=== PATIENT | female | born 1930 | race Caucasian/White ===

== ENCOUNTER 2017-06-21 03:31 | Inpatient (IN) | payer MEDICARE, OTHER ==
--- NOTE | 2017-06-21 04:11 | EDM.PDOC ---
ED HPI GENERAL MEDICAL PROBLEM - General Chief Complaint: Chest Pain Stated Complaint: [facility] Time Seen by Provider: 06/21/17 03:50 - History of Present Illness INITIAL COMMENTS - FREE TEXT/NARRATIVE: 86-year-old brought in by EMS with chest pain. 86-year-old female developed some chest pain couple hours before arrival. She was brought in about a 45 minute ride was given nitroglycerin 3 and aspirin she is pain-free upon arrival here. Yesterday the patient had 2 episodes where she passed out according to the family and couple days she had an episode where she passed out the patient has had progressive weakness over the last couple of weeks presumably due to worsening diarrhea over the last 2 weeks. She was seen in the clinic in [place] and started on Imodium and probiotics and told to push fluids.. Patient has a history of worsening dementia no known coronary artery disease she has had intermittent episodes of diarrhea in the past. 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: Aspirin, EKG, IV/IO, Nitroglycerin, Other (see below) Other Treatments [employer] OPERATOR: IVF, zofran left lower chest Pain Score (Numeric/FACES): 2 - Related Data Allergies Allergy/AdvReac Type Severity Reaction Status Date / Time Penicillins Allergy Rash Verified 06/21/17 07:05 prednisone Allergy Rash Verified 06/21/17 07:05 lisinopril AdvReac Cough Verified 06/21/17 07:05 Home Meds: Home Meds Donepezil HCl [Aricept] 10 mg PO BEDTIME 06/21/17 [History] Hydrochlorothiazide 25 mg PO DAILY 06/21/17 [History] L.acidoph,Paracasei, B.lactis [Probiotic] 1 each PO DAILY 06/21/17 [History] Methylcellulose [Citrucel] 500 mg PO BID 06/21/17 [History] Multivitamin [Multi-Day Vitamins] 1 each PO DAILY 06/21/17 [History] Sertraline [Zoloft] 25 mg PO BEDTIME 06/21/17 [History] Past Medical History HEENT History: Reports: Cataract, Impaired Vision, Other (See Below) Other HEENT History: Dentures, disease of vocal cords, dysphasia Cardiovascular History: Reports: High Cholesterol, Hypertension Respiratory History: Reports: Other (See Below) Other Respiratory History: dyspnea - severe snoring Gastrointestinal History: Reports: Chronic Diarrhea, GERD, Hiatal Hernia Genitourinary History: Reports: Renal Calculus, Urinary Incontinence [employer]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: Musculoskeletal History: Reports: Osteoarthritis Other Musculoskeletal History: limb pain, hallux valgus Neurological History: Reports: Other (See Below) Other Neuro History: dementia Psychiatric History: Reports: Dementia Endocrine/Metabolic History: Reports: None Oncologic (Cancer) History: Reports: Other (See Below) Other Oncologic History: skin Dermatologic History: Reports: Melanoma Other Dermatologic History: seborrheic keratosis, L forehead actinic kertosis - Infectious Disease History Infectious Disease History: Reports: Shingles - Past Surgical History HEENT Surgical History: Reports: Adenoidectomy, Cataract Surgery, Tonsillectomy GI Surgical History: Reports: Colonoscopy, Other (See Below) Female Surgical History: Reports: Hysterectomy, Salpingo-Oophorectomy Social & Family History - Family History Family Medical History: Noncontributory - Tobacco Use Smoking Status *Q: Former Smoker Used Tobacco, but Quit: No Tobacco Use Comment: quit smoking 15 years ago Second Hand Smoke Exposure: No - Caffeine Use Caffeine Use: Reports: None - Alcohol Use Days Per Week of Alcohol Use: 0 Number of Drinks Per Day: 0 Total Drinks Per Week: 0 - Recreational Drug Use Recreational Drug Use: No ED ROS GENERAL - Review of Systems Review Of Systems: See Below Constitutional: Reports: No Symptoms HEENT: Reports: No Symptoms Respiratory: Reports: No Symptoms. Denies: Shortness of Breath Cardiovascular: Reports: Chest Pain Endocrine: Reports: No Symptoms GI/Abdominal: Reports: Diarrhea. Denies: Constipation, Nausea, Vomiting : Reports: No Symptoms Neurological: Reports: Other (According to family patient is having increasing memory loss and confusion) ED EXAM, GENERAL - Physical Exam Exam: See Below Exam Limited By: Other (She provides historical information but this is significantly variable from what the family provides) General Appearance: Alert, No Apparent Distress Eye Exam: Bilateral Eye: Normal Inspection Ears: Normal External Exam, Normal Canal, Hearing Grossly Normal, Normal TMs Nose: Normal Inspection, Normal Mucosa, No Blood Throat/Mouth: Normal Inspection, Normal Oropharynx Head: Atraumatic, Normocephalic Neck: Normal Inspection, Supple, Non-Tender, Full Range of Motion. No: Lymphadenopathy (L), Lymphadenopathy (R) Cardiovascular: Regular Rate, Rhythm, No Edema, No Murmur GI/Abdominal: Normal Bowel Sounds, Soft, Non-Tender Back Exam: Normal Inspection. No: CVA Tenderness (L), CVA Tenderness (R) Extremities: Normal Inspection Neurological: Alert Course - Vital Signs Last Recorded V/S: Last Vital Signs Temp 36.1 C 06/21/17 03:31 Pulse 65 06/21/17 03:31 Resp 16 06/21/17 03:31 BP 99/44 L 06/21/17 03:31 Pulse Ox 93 L 06/21/17 03:31 - Orders/Labs/Meds Orders: Active Orders 24 hr Category Date Time Status EKG Documentation Completion [RC] STAT Care 06/21/17 04:03 Active Chest 1V Frontal [CR] Stat Exams 06/21/17 04:03 Taken Head wo Cont [CT] Stat Exams 06/21/17 04:14 Taken Sodium Chloride 0.9% [Normal Saline] 1,000 ml Med 06/21/17 05:15 Active IV ASDIRECTED Medication Orders Sodium Chloride (Normal Saline) 1,000 mls @ 75 mls/hr IV ASDIRECTED CLIF Last Admin: 06/21/17 05:31 Dose: 75 mls/hr Labs: Laboratory Tests 06/21/17 06/21/17 06/21/17 Range/Units 04:15 04:15 04:15 WBC 6.37 (3.98-10.04) K/mm3 RBC 3.60 L (3.98-5.22) M/mm3 Hgb 11.4 (11.2-15.7) gm/L Hct 31.3 L (34.1-44.9) % MCV 86.9 (79.4-94.8) fl MCH 31.7 (25.6-32.2) pg MCHC 36.4 H (32.2-35.5) g/dl RDW Std Deviation 38.1 (36.4-46.3) fL Plt Count 248 (182-369) K/mm3 MPV 9.4 (9.4-12.3) fl Neutrophils % (Manual) 73 H (40-60) % Band Neutrophils % 5 (0-10) % Lymphocytes % (Manual) 11 L (20-40) % Atypical Lymphs % 0 % Monocytes % (Manual) 8 (2-10) % Eosinophils % (Manual) 1 (0.7-5.8) % Basophils % (Manual) 1 (0.1-1.2) Metamyelocytes % 1 Platelet Estimate Adequate Plt Morphology Comment Normal RBC Morph Comment Normal PT 10.1 (8.0-13.0) SECONDS INR 0.93 APTT 30 (22-36) SECONDS Sodium 128 L (136-145) mEq/L Potassium 2.4 L* (3.5-5.1) mEq/L Chloride 93 L (98-107) mEq/L Carbon Dioxide 30 (21-32) mEq/L Anion Gap 7.4 (5-15) BUN 15 (7-18) mg/dL Creatinine 0.9 (0.55-1.02) mg/dL Est Cr Clr Drug Dosing 36.14 mL/min Estimated GFR (MDRD) 60 (>60) mL/min BUN/Creatinine Ratio 16.7 (14-18) Glucose 101 (83-115) mg/dL Calcium 9.0 (8.5-10.1) mg/dL Total Bilirubin 0.5 (0.2-1.0) mg/dL AST 16 (15-37) U/L ALT 32 (14-59) U/L Alkaline Phosphatase 72 (46-116) U/L Troponin I < 0.017 (0.00-0.056) ng/mL Lyr-P-Nbcdkmalyeo Pept (0-450) pg/mL Total Protein 6.0 L (6.4-8.2) g/dl Albumin 3.3 L (3.4-5.0) g/dl Globulin 2.7 gm/dL Albumin/Globulin Ratio 1.2 (1-2) 06/21/17 Range/Units 04:15 WBC (3.98-10.04) K/mm3 RBC (3.98-5.22) M/mm3 Hgb (11.2-15.7) gm/L Hct (34.1-44.9) % MCV (79.4-94.8) fl MCH (25.6-32.2) pg MCHC (32.2-35.5) g/dl RDW Std Deviation (36.4-46.3) fL Plt Count (182-369) K/mm3 MPV (9.4-12.3) fl Neutrophils % (Manual) (40-60) % Band Neutrophils % (0-10) % Lymphocytes % (Manual) (20-40) % Atypical Lymphs % % Monocytes % (Manual) (2-10) % Eosinophils % (Manual) (0.7-5.8) % Basophils % (Manual) (0.1-1.2) Metamyelocytes % Platelet Estimate Plt Morphology Comment RBC Morph Comment PT (8.0-13.0) SECONDS INR APTT (22-36) SECONDS Sodium (136-145) mEq/L Potassium (3.5-5.1) mEq/L Chloride (98-107) mEq/L Carbon Dioxide (21-32) mEq/L Anion Gap (5-15) BUN (7-18) mg/dL Creatinine (0.55-1.02) mg/dL Est Cr Clr Drug Dosing mL/min Estimated GFR (MDRD) (>60) mL/min BUN/Creatinine Ratio (14-18) Glucose (83-115) mg/dL Calcium (8.5-10.1) mg/dL Total Bilirubin (0.2-1.0) mg/dL AST (15-37) U/L ALT (14-59) U/L Alkaline Phosphatase (46-116) U/L Troponin I (0.00-0.056) ng/mL Icx-Y-Xyylynueblf Pept 276 (0-450) pg/mL Total Protein (6.4-8.2) g/dl Albumin (3.4-5.0) g/dl Globulin gm/dL Albumin/Globulin Ratio (1-2) Meds: Medications Generic Name Dose Route Start Last Admin Trade Name Freq PRN Reason Stop Dose Admin Sodium Chloride 1,000 mls @ 75 mls/hr 06/21/17 05:15 06/21/17 05:31 Normal Saline IV 75 mls/hr ASDIRECTED CLIF Administration Discontinued Medications Generic Name Dose Route Start Last Admin Trade Name Freq PRN Reason Stop Dose Admin Potassium Chloride 10 meq/ 100 mls @ 100 mls/hr 06/21/17 05:15 Premix IV 06/21/17 11:14 Q1H CLIF Potassium Chloride 10 meq/ 100 mls @ 100 mls/hr 06/21/17 05:22 06/21/17 06:35 Premix IV 06/21/17 06:21 50 mls/hr ASDIRECTED ONE Infusion - Re-Assessments/Exams Free Text/Narrative Re-Assessment/Exam: 06/21/17 06:37 He is reviewed with Dr. Beltran patient will come in for IV correction of her hypokalemia and to be certain that her chest pain does not return and her troponins do not rise. I did discuss CODE STATUS with the patient's daughter and apparently this discussion has not happened amongst the family members. Departure - Departure Time of Disposition: 06:38 Disposition: Admitted As Inpatient 67 Clinical Impression: Chest pain, Hypokalemia Diarrhea Qualifiers: Diarrhea type: unspecified type Qualified Code(s): R19.7 - Diarrhea, unspecified - My Orders Last 24 Hours: My Active Orders 06/21/17 04:03 EKG Documentation Completion [RC] STAT Chest 1V Frontal [CR] Stat 06/21/17 04:14 Head wo Cont [CT] Stat 06/21/17 05:15 Sodium Chloride 0.9% [Normal Saline] 1,000 ml IV ASDIRECTED - Assessment/Plan Last 24 Hours: My Active Orders 06/21/17 04:03 EKG Documentation Completion [RC] STAT Chest 1V Frontal [CR] Stat 06/21/17 04:14 Head wo Cont [CT] Stat 06/21/17 05:15 Sodium Chloride 0.9% [Normal Saline] 1,000 ml IV ASDIRECTED
[2017-06-21] MEDS ORDERED: Potassium Chloride 10 MEQ in Premix Bag 1 BAG IV SCH (05:15)
[2017-06-21] MEDS ORDERED: Potassium Chloride 10 MEQ in Premix Bag 1 BAG IV ONE (05:22)
[2017-06-21] MEDS: Sodium Chloride 0.9% 1,000 ML IV SCH ×2 (05:31→18:32)
[2017-06-21] MEDS ORDERED: hydrALAZINE 20 MG/ML SDV IVPUSH PRN (06:55)
[2017-06-21] MEDS ORDERED: Potassium Chloride 20 MEQ Tab.ER PO PRN (06:55)
[2017-06-21] MEDS ORDERED: LORazepam 2 MG/ML MDV IVPUSH PRN (06:55)
--- NOTE | 2017-06-21 06:55 | PCM.HP ---
H&P History of Present Illness - General Date of Service: 06/21/17 Admit Problem/Dx: Chest Pain Source of Information: Patient, Provider, RN Notes Reviewed, Significant Other History Limitations: Reports: Other (Baseline Dementia) - History of Present Illness Initial Comments - Free Text/Narative: This is an 86 year old elderly white female with past medical history of impaired vision, history of vocal cord dysfunction, history of dysphasia, hypertension, hyperlipidemia, chronic diarrhea, GERD, hiatal hernia, history of urinary incontinence, and osteoarhtitis who presents to the emergency department with complaints of chest pain, is dull in nature, w/o radiation to head and neck that started at rest. She was brought over by EMS from [place] early this morning. Patient reports no associated symptoms. However per ED notes, the patient was brought over because of a syncopal episode and progressive weakness over the last couple of weeks due to worsening chronic diarrhea. Of note, no family members present at the time of my examination. Patient was seen in the [place] clinic and she was put on imodium along with probiotics and was told to drink more fluids. Her initial workup in the emergency department shows a CBC that is fairly unremarkable. Her chemistry is remarkable for sodium of 128, potassium of 2.4, chloride of 93, total protein of 6, and albumin of 3.3. Troponin 1 is less than 0.017 and CK-MB is 0.8. Her initial EKG is not good quality and is full of artifacts. But no acute ST-T wave changes. Chest x-chest x-ray is fairly benign. Head CT scan V-rad report reads no acute findings. Patient is being admitted for chest pain rule out ACS. She is DNR/DNI. left lower chest Pain Score (Numeric/FACES): 2 - Related Data Allergies/Adverse Reactions: Allergies Allergy/AdvReac Type Severity Reaction Status Date / Time Penicillins Allergy Rash Verified 06/21/17 07:05 prednisone Allergy Rash Verified 06/21/17 07:05 lisinopril AdvReac Cough Verified 06/21/17 07:05 Home Medications: Home Meds Donepezil HCl [Aricept] 10 mg PO BEDTIME 06/21/17 [History] Hydrochlorothiazide 25 mg PO DAILY 06/21/17 [History] L.acidoph,Paracasei, B.lactis [Probiotic] 1 each PO DAILY 06/21/17 [History] Loperamide [Imodium] 2 mg PO Q6H PRN 06/21/17 [History] Methylcellulose [Citrucel] 500 mg PO BID 06/21/17 [History] Multivitamin [Multi-Day Vitamins] 1 each PO DAILY 06/21/17 [History] Sertraline [Zoloft] 25 mg PO BEDTIME 06/21/17 [History] Past Medical History HEENT History: Reports: Cataract, Impaired Vision, Other (See Below) Other HEENT History: Dentures, disease of vocal cords, dysphasia Cardiovascular History: Reports: High Cholesterol, Hypertension Respiratory History: Reports: Other (See Below) Other Respiratory History: dyspnea - severe snoring Gastrointestinal History: Reports: Chronic Diarrhea, GERD, Hiatal Hernia Genitourinary History: Reports: Renal Calculus, Urinary Incontinence [employer]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: Musculoskeletal History: Reports: Osteoarthritis Other Musculoskeletal History: limb pain, hallux valgus Neurological History: Reports: Other (See Below) Other Neuro History: dementia Psychiatric History: Reports: Dementia Endocrine/Metabolic History: Reports: None Oncologic (Cancer) History: Reports: Other (See Below) Other Oncologic History: skin Dermatologic History: Reports: Melanoma Other Dermatologic History: seborrheic keratosis, L forehead actinic kertosis - Infectious Disease History Infectious Disease History: Reports: Shingles - Past Surgical History HEENT Surgical History: Reports: Adenoidectomy, Cataract Surgery, Tonsillectomy GI Surgical History: Reports: Colonoscopy, Other (See Below) Female Surgical History: Reports: Hysterectomy, Salpingo-Oophorectomy Social & Family History - Family History Family Medical History: Noncontributory - Tobacco Use Smoking Status *Q: Former Smoker Used Tobacco, but Quit: No Tobacco Use Comment: quit smoking 15 years ago Second Hand Smoke Exposure: No - Caffeine Use Caffeine Use: Reports: None - Alcohol Use Days Per Week of Alcohol Use: 0 Number of Drinks Per Day: 0 Total Drinks Per Week: 0 - Recreational Drug Use Recreational Drug Use: No H&P Review of Systems - Review of Systems: Review Of Systems: See Below General: Denies: Fever, Chills, Malaise, Weakness, Fatigue HEENT: Reports: No Symptoms Pulmonary: Reports: No Symptoms Cardiovascular: Reports: Chest Pain Gastrointestinal: Reports: Diarrhea. Denies: Abdominal Pain, Nausea, Vomiting Genitourinary: Reports: No Symptoms Musculoskeletal: Reports: No Symptoms Skin: Reports: No Symptoms Psychiatric: Reports: Confusion (baseline dementia). Denies: Depression, Anxiety, Hallucinations, Suicidal Ideation Neurological: Denies: Difficulty Walking, Weakness, Gait Disturbance Hematologic/Lymphatic: Reports: No Symptoms Immunologic: Reports: No Symptoms Exam - Exam Exam: See Below - Vital Signs Vital Signs: Last Vital Signs Temp 36.1 C 06/21/17 03:31 Pulse 65 06/21/17 03:31 Resp 16 06/21/17 03:31 BP 99/44 L 06/21/17 03:31 Pulse Ox 93 L 06/21/17 03:31 Weight: 58.967 kg - Exam General: Alert, Cooperative HEENT: Conjunctiva Clear, EACs Clear, EOMI, Hearing Intact, Mucosa Moist & [place] , Nares Patent, Normal Nasal Septum, Posterior Pharynx Clear, Pupils Equal, Pupils Reactive Neck: Supple, Trachea Midline, +2 Carotid Pulse wo Bruit, Full Range of Motion Lungs: Clear to Auscultation, Normal Respiratory Effort Cardiovascular: Regular Rate, Regular Rhythm GI/Abdominal Exam: Normal Bowel Sounds, Soft, Non-Tender, No Organomegaly, No Distention, No Abnormal Bruit, No Mass (Female) Exam: Deferred Rectal (Female) Exam: Deferred Back Exam: Normal Inspection, Decreased Range of Motion Extremities: Normal Inspection, Normal Range of Motion, Non-Tender, No Pedal Edema, Normal Capillary Refill Peripheral Pulses: 2+: Posterior Tibial (L), Posterior Tibial (R), Dorsalis Pedis (L), Dorsalis Pedis (R) Skin: Warm, Dry, Intact Neuro Extensive - Mental Status: Alert, Normal Mood/Affect, Other (Alert/Awake and Oriented x 2 (Person and Place)) Neuro Extensive - Motor, Sensory, Reflexes: CN II-XII Intact (fairly intact), Normal Gait - Patient Data Result Diagrams: 06/21/17 04:15 06/21/17 13:50 EKG INTERPRETATION EKG Date: 06/21/17 Time: 03:40 Rhythm: Other Rate (Beats/Min): 63 EKG Interpretation Comments: Not a good EKG full of artifacts *Q Meaningful Use (ADM) - VTE *Q VTE Criteria *Q: - Stroke *Q Stroke Criteria *Q: - AMI *Q AMI Criteria *Q: Problem List Initiated/Reviewed/Updated: Yes Orders Last 24hrs: Medication Orders Sodium Chloride (Normal Saline) 1,000 mls @ 75 mls/hr IV ASDIRECTED [facility] Last Admin: 06/21/17 05:31 Dose: 75 mls/hr Assessment/Plan Comment:: Assessment/Plan: Acute: CP r/o ACS - HEART Score is 3. Low Score (0-3 points), risk of MACE of 0.9-1.7%: Predicts 6-week risk of major adverse cardiac event - Chest pain felt more related to MSK - Risk factors: Advanced Age, HTN and HLD - Troponin x 1 negative - CP protocol: Serial Troponin Q6 x2, ekg x 1 in th evening and Lipid panel in am - ASA and PRN Nitro, Morphine - No need cardiac stress test- her pre-CAD risk if low Hyponatremia - Na is 128 - She is on HCTZ and Zoloft - Hold HCTZ and start salt tablet 1 tab po TID Hypokalemia - K 2.4 2/2 GI Loss - Currently receiving supplement started in ED Watery Diarrhea - ? Acute on Chronic - Will monitor - C. Diff test if able to provide us sample S/p Syncope - Likely from volume loss due to diarrhea vs poor nutritional intake - However she was not orthostatic on admission Progressive Weakness - 2/2 Diarrhea, Loss of Electrolytes, and Poor Nutritional Intake - Will optimize intake Chronic: Impaired Vision HTN HLD Hx/o Vocal Cord Dysfunction Hx/o Dysphagia Chronic Diarrhea GERD Hiatal Hernia Urinary Incontinence OA Dementia Plan: Admit to Med-Surg Routine AM Labs Resume Home Meds PT/OT consult Fall Precautions SW/CM for d/c planning Code Status:DNR/DNI
[2017-06-21] MEDS ORDERED: Ondansetron 4 MG/2 ML SDV IV PRN (06:56)
[2017-06-21] MEDS ORDERED: Bisacodyl 5 MG Tab PO PRN (06:56)
[2017-06-21] MEDS ORDERED: Promethazine 12.5 MG in Sodium Chloride 0.9% 50 ML IV PRN (06:56)
[2017-06-21] MEDS ORDERED: Temazepam 7.5 MG Cap PO PRN (06:56)
[2017-06-21] MEDS ORDERED: LORazepam 2 MG/ML MDV IV PRN (06:56)
[2017-06-21] MEDS ORDERED: Acetaminophen/HYDROcodone 325-5 MG Tab PO PRN (06:56)
[2017-06-21] MEDS ORDERED: HYDROmorphone 1 MG/ML Syringe IVPUSH PRN (06:56)
[2017-06-21] MEDS ORDERED: Docusate Sodium 100 MG Cap PO PRN (06:56)
[2017-06-21] MEDS ORDERED: Acetaminophen 325 MG Tab PO PRN (06:56)
[2017-06-21] MEDS ORDERED: Polyethylene Glycol 3350 Powder 17 GM Packet PO PRN (06:56)
[2017-06-21] MEDS ORDERED: Albuterol/Ipratropium 3.0-0.5 MG/3 ML Neb Soln NEB PRN (06:56)
[2017-06-21] MEDS ORDERED: Potassium Chloride/Sodium Chloride Tab PO PRN (07:05)
[2017-06-21] MEDS: Potassium Chloride 10 MEQ in Premix Bag 1 BAG IV SCH ×5 (07:58→12:57)
[2017-06-21] MEDS ORDERED: METHYLCELLULOSE 500 MG PO SCH (09:00)
[2017-06-21] MEDS ORDERED: Non-Formulary Medication 1 Each (L.Acidoph,Paracasei, B.Lactis [Probiotic] 1 EACH) PO SCH (09:00)
[2017-06-21] MEDS: Multivitamins,Therapeutic Tab PO SCH (09:35)
[2017-06-21] MEDS: Potassium Chloride/Sodium Chloride Tab PO SCH ×4 (09:50→20:32)
[2017-06-21] MEDS: Potassium Chloride 20 MEQ Tab.ER PO SCH ×2 (18:32→20:33)
[2017-06-21] MEDS ORDERED: Sertraline 25 MG Tab PO SCH (21:00)
[2017-06-21] MEDS ORDERED: Donepezil 10 MG Tab PO SCH (21:00)
--- NOTE | 2017-06-22 07:51 | PCM.PN ---
- General Info Date of Service: 06/22/17 Admission Dx/Problem (Free Text): Chest Pain Subjective Update: Follow Up Functional Status: Reports: Pain Controlled, Tolerating Diet, Ambulating, Urinating - Patient Data Vitals - Most Recent: Last Vital Signs Temp 36.9 C 06/22/17 05:10 Pulse 68 06/22/17 05:10 Resp 14 06/22/17 05:10 BP 136/52 L 06/22/17 05:10 Pulse Ox 95 06/22/17 05:10 Weight - Most Recent: 60.146 kg I&O - Last 24 Hours: Intake & Output 06/21/17 06/22/17 06/22/17 22:59 06:59 14:59 Intake Total 1831 1522 Output Total 450 1200 Balance 1381 322 Lab Results Last 24 Hours: Laboratory Results - last 24 hr 06/21/17 06/21/17 06/21/17 Range/Units 11:56 13:50 19:41 WBC (3.98-10.04) K/mm3 RBC (3.98-5.22) M/mm3 Hgb (11.2-15.7) gm/L Hct (34.1-44.9) % MCV (79.4-94.8) fl MCH (25.6-32.2) pg MCHC (32.2-35.5) g/dl RDW Std Deviation (36.4-46.3) fL Plt Count (182-369) K/mm3 MPV (9.4-12.3) fl Neut % (Auto) (34.0-71.1) % Lymph % (Auto) (19.3-51.7) % [place] % (Auto) (4.7-12.5) % Eos % (Auto) (0.7-5.8) Baso % (Auto) (0.1-1.2) % Neut # (Auto) (1.56-6.13) K/mm3 Lymph # (Auto) (1.18-3.74) K/mm3 [place] # (Auto) (0.24-0.36) K/mm3 Eos # (Auto) (0.04-0.36) K/mm3 Baso # (Auto) (0.01-0.08) K/mm3 Sodium 129 L (136-145) mEq/L Potassium 3.2 L (3.5-5.1) mEq/L Chloride 96 L (98-107) mEq/L Carbon Dioxide 28 (21-32) mEq/L Anion Gap 8.2 (5-15) BUN 13 (7-18) mg/dL Creatinine 0.8 (0.55-1.02) mg/dL Est Cr Clr Drug Dosing 40.66 mL/min Estimated GFR (MDRD) > 60 (>60) mL/min BUN/Creatinine Ratio 16.3 (14-18) Glucose 72 L (83-115) mg/dL Calcium 8.6 (8.5-10.1) mg/dL Magnesium (1.8-2.4) mg/dl CK-MB (CK-2) 0.9 0.7 (0-3.6) ng/ml Troponin I < 0.017 < 0.017 (0.00-0.056) ng/mL C.difficile 027-NAP1-B1 C. difficile Tox (PCR) 06/21/17 06/22/17 06/22/17 Range/Units 20:13 05:50 05:50 WBC 4.14 (3.98-10.04) K/mm3 RBC 3.49 L (3.98-5.22) M/mm3 Hgb 11.2 (11.2-15.7) gm/L Hct 31.2 L (34.1-44.9) % MCV 89.4 (79.4-94.8) fl MCH 32.1 (25.6-32.2) pg MCHC 35.9 H (32.2-35.5) g/dl RDW Std Deviation 40.6 (36.4-46.3) fL Plt Count 224 (182-369) K/mm3 MPV 9.9 (9.4-12.3) fl Neut % (Auto) 58.3 (34.0-71.1) % Lymph % (Auto) 25.6 (19.3-51.7) % [place] % (Auto) 12.8 H (4.7-12.5) % Eos % (Auto) 2.4 (0.7-5.8) Baso % (Auto) 0.7 (0.1-1.2) % Neut # (Auto) 2.41 (1.56-6.13) K/mm3 Lymph # (Auto) 1.06 L (1.18-3.74) K/mm3 [place] # (Auto) 0.53 H (0.24-0.36) K/mm3 Eos # (Auto) 0.10 (0.04-0.36) K/mm3 Baso # (Auto) 0.03 (0.01-0.08) K/mm3 Sodium 137 (136-145) mEq/L Potassium 3.4 L (3.5-5.1) mEq/L Chloride 103 (98-107) mEq/L Carbon Dioxide 27 (21-32) mEq/L Anion Gap 10.4 (5-15) BUN 8 (7-18) mg/dL Creatinine 0.8 (0.55-1.02) mg/dL Est Cr Clr Drug Dosing 40.66 mL/min Estimated GFR (MDRD) > 60 (>60) mL/min BUN/Creatinine Ratio 10.0 L (14-18) Glucose 84 (83-115) mg/dL Calcium 8.5 (8.5-10.1) mg/dL Magnesium 1.8 (1.8-2.4) mg/dl CK-MB (CK-2) (0-3.6) ng/ml Troponin I (0.00-0.056) ng/mL C.difficile 027-NAP1-B1 Presumptive negative C. difficile Tox (PCR) Negative Med Orders - Current: Current Medications Acetaminophen (Tylenol) 650 mg PO Q4H PRN PRN Reason: Pain (Mild 1-3)/fever Hydrocodone Bitart/Acetaminophen ([place]ac[place] 325-5 Mg) 1 tab PO Q4H PRN PRN Reason: Pain (moderate 4-6) Albuterol/Ipratropium (Duoneb 3.0-0.5 Mg/3 Ml) 3 ml NEB Q4H PRN PRN Reason: Shortness Of Breath/wheezing Bisacodyl (Dulcolax) 5 mg PO DAILY PRN PRN Reason: Constipation Docusate Sodium (Colace) 100 mg PO BID PRN PRN Reason: Constipation Donepezil HCl (Aricept) 10 mg PO BEDTIME [facility] Last Admin: 06/21/17 20:32 Dose: 10 mg Hydralazine HCl (Apresoline) 20 mg IVPUSH Q4H PRN PRN Reason: Hypertension Hydromorphone HCl (Dilaudid) 0.25 mg IVPUSH Q2H PRN PRN Reason: Pain (severe 7-10) Sodium Chloride (Normal Saline) 1,000 mls @ 75 mls/hr IV ASDIRECTED [facility] Last Admin: 06/21/17 18:32 Dose: 75 mls/hr Promethazine HCl 12.5 mg/ (Sodium Chloride) 50.5 mls @ 100 mls/hr IV Q6H PRN PRN Reason: Nausea/Vomiting Lorazepam (Ativan) 2 mg IVPUSH Q4H PRN PRN Reason: Seizures Lorazepam (Ativan) 0.25 mg IV Q6H PRN PRN Reason: Anxiety Magnesium Sulfate (Pharmacy To Dose - Magnesium Replacement) 1 dose .XX ASDIRECTED [facility] Multivitamins (Thera) 1 each PO DAILY [facility] Last Admin: 06/21/17 09:35 Dose: 1 each Non-Formulary Medication (L.Acidoph,Paracasei, B.Lactis [Probiotic]) 1 each PO DAILY [facility] Non-Formulary Medication (Methylcellulose) 500 mg PO BID [facility] Ondansetron HCl (Zofran) 4 mg IV Q6H PRN PRN Reason: Nausea/Vomiting Oral Electrolytes (Thermotabs) 1 each PO TID [facility] Last Admin: 06/21/17 20:32 Dose: 1 each Polyethylene Glycol (Miralax) 17 gm PO DAILY PRN PRN Reason: Constipation Potassium Chloride (Pharmacy To Dose - Potassium Replacement) 1 dose .XX ASDIRECTED [facility] Saccharomyces Boulardii (Florastor) 250 mg PO DAILY [facility] Senna/Docusate Sodium (Senna Plus) 1 tab PO BID PRN PRN Reason: Constipation Sertraline HCl (Zoloft) 25 mg PO BEDTIME [facility] Last Admin: 06/21/17 20:33 Dose: 25 mg Temazepam (Restoril) 7.5 mg PO BEDTIME PRN PRN Reason: Sleep Discontinued Medications Potassium Chloride 10 meq/ (Premix) 100 mls @ 100 mls/hr IV Q1H [facility] Stop: 06/21/17 11:14 Potassium Chloride 10 meq/ (Premix) 100 mls @ 100 mls/hr IV ASDIRECTED ONE Stop: 06/21/17 06:21 Last Infusion: 06/21/17 06:35 Dose: 50 mls/hr Potassium Chloride 10 meq/ (Premix) 100 mls @ 100 mls/hr IV Q1H [facility] Stop: 06/21/17 11:59 Last Admin: 06/21/17 12:57 Dose: 100 mls/hr Oral Electrolytes (Thermotabs) 1 each PO ASDIRECTED PRN PRN Reason: hyponatremia Potassium Chloride (Klor-Con M20) 60 meq PO ASDIRECTED PRN PRN Reason: Other Potassium Chloride (Klor-Con M20) 20 meq PO Q3H [facility] Stop: 06/21/17 21:31 Last Admin: 06/21/17 20:33 Dose: 20 meq - My Orders Last 24 Hours: My Active Orders 06/21/17 06:55 LORazepam [Ativan] 2 mg IVPUSH Q4H PRN hydrALAZINE [Apresoline] 20 mg IVPUSH Q4H PRN 06/21/17 06:56 Height and Weight [RC] 04 Intake and Output [RC] 04,16 Oxygen Therapy [RC] PRN Up With Assistance [RC] ASDIRECTED Up ad Neeru [RC] ASDIRECTED VTE/DVT Education [RC] Acetaminophen [Tylenol] 650 mg PO Q4H PRN Acetaminophen/HYDROcodone [Placida 325-5 MG] 1 tab PO Q4H PRN Albuterol/Ipratropium [DuoNeb 3.0-0.5 MG/3 ML] 3 ml NEB Q4H PRN Bisacodyl [Dulcolax] 5 mg PO DAILY PRN Docusate Sodium [Colace] 100 mg PO BID PRN Docusate Sodium/Sennosides [Senna Plus] 1 tab PO BID PRN HYDROmorphone [Dilaudid] 0.25 mg IVPUSH Q2H PRN LORazepam [Ativan] 0.25 mg IV Q6H PRN Ondansetron [Zofran] 4 mg IV Q6H PRN Polyethylene Glycol 3350 [MiraLAX] 17 gm PO DAILY PRN Promethazine [Phenergan] 12.5 mg Sodium Chloride 0.9% [Normal Saline] 50 ml IV Q6H Temazepam [Restoril] 7.5 mg PO BEDTIME PRN Resuscitation Status Routine 06/21/17 06:57 Antiembolic Devices [RC] QSHIFT Sequential Compression Device [OM.PC] Per Unit Routine 06/21/17 06:58 RT Aerosol Therapy [RC] ASDIRECTED Consult to Case Management [CONS] Routine Consult to Patient Admitting Representative [CONS] Routine Consult to Spiritual Care [CONS] Routine OT Evaluation and Treatment [CONS] Routine PT Evaluation and Treatment [CONS] Routine 06/21/17 07:00 Magnesium Rep Pharmacy to Dose [Pharmacy to Dose - Magnesium Replacement] 1 dose .XX ASDIRECTED Potassium Rep Pharmacy to Dose [Pharmacy to Dose - Potassium Replacement] 1 dose .XX ASDIRECTED 06/21/17 07:05 Precautions [COMM] Routine 06/21/17 09:00 L.acidoph,Paracasei, B.lactis [Probiotic] 1 each PO DAILY Methylcellulose 500 mg PO BID Multivitamins,Therapeutic [Thera] 1 each PO DAILY 06/21/17 09:45 Potassium Chloride/NaCl [Thermotabs] 1 each PO TID 06/21/17 19:00 EKG 12 Lead [EKG Documentation Completion] [RC] ROUTINE 06/21/17 21:00 Donepezil [Aricept] 10 mg PO BEDTIME Sertraline [Zoloft] 25 mg PO BEDTIME 06/21/17 Breakfast Regular Diet [DIET] 06/22/17 09:00 Saccharomyces Boulardii [Florastor] 250 mg PO DAILY 06/23/17 05:11 BASIC METABOLIC PANEL,BMP [CHEM] AM MAGNESIUM [CHEM] AM 06/24/17 05:11 BASIC METABOLIC PANEL,BMP [CHEM] AM MAGNESIUM [CHEM] AM 06/25/17 05:11 BASIC METABOLIC PANEL,BMP [CHEM] AM MAGNESIUM [CHEM] AM - Plan Plan:: Assessment/Plan: Acute: CP r/o ACS - HEART Score is 3. Low Score (0-3 points), risk of MACE of 0.9-1.7%: Predicts 6-week risk of major adverse cardiac event - Chest pain felt more related to MSK - Risk factors: Advanced Age, HTN and HLD - Troponin x 1 negative - CP protocol: Serial Troponin Q6 x2, ekg x 1 in th evening and Lipid panel in am - ASA and PRN Nitro, Morphine - No need cardiac stress test- her pre-CAD risk if low Hyponatremia - Na is 128 - She is on HCTZ and Zoloft - Hold HCTZ and start salt tablet 1 tab po TID Hypokalemia - K 2.4 2/2 GI Loss - Currently receiving supplement started in ED Watery Diarrhea - ? Acute on Chronic - Will monitor - C. Diff test if able to provide us sample S/p Syncope - Likely from volume loss due to diarrhea vs poor nutritional intake - However she was not orthostatic on admission Progressive Weakness - 2/2 Diarrhea, Loss of Electrolytes, and Poor Nutritional Intake - Will optimize intake Chronic: Impaired Vision HTN HLD Hx/o Vocal Cord Dysfunction Hx/o Dysphagia Chronic Diarrhea GERD Hiatal Hernia Urinary Incontinence OA Dementia Plan: Admit to Med-Surg Routine AM Labs Resume Home Meds PT/OT consult Fall Precautions SW/CM for d/c planning Code Status:DNR/DNI
[2017-06-22 08:15] VITALS: BP 140/55
[2017-06-22] MEDS: Multivitamins,Therapeutic Tab PO SCH (08:15)
[2017-06-22] MEDS: Potassium Chloride/Sodium Chloride Tab PO SCH (08:15)
[2017-06-22] MEDS ORDERED: Saccharomyces Boulardii (Probiotic) 250 MG Cap PO SCH (09:00)
--- NOTE | 2017-06-22 10:13 | PCM.DCSUM1 ---
Discharge Summary - Hospital Course Brief History: This is an 86 year old elderly white female with past medical history of impaired vision, history of vocal cord dysfunction, history of dysphasia, hypertension, hyperlipidemia, chronic diarrhea, GERD, hiatal hernia, history of urinary incontinence, and osteoarhtitis who presents to the emergency department with complaints of chest pain, is dull in nature, w/o radiation to head and neck that started at rest. - Discharge Data Discharge Date: 06/22/17 Discharge Disposition: Home, Self-Care 01 Condition: Fair - Discharge Diagnosis/Problem(s) (1) Diarrhea SNOMED Code(s): 37019755 ICD Code: R19.7 - DIARRHEA, UNSPECIFIED Status: Acute Problem Details: Acute on Chronic Qualifiers: Diarrhea type: unspecified type Qualified Code(s): R19.7 - Diarrhea, unspecified (2) Hyponatremia SNOMED Code(s): 60284094 ICD Code: E87.1 - HYPO-OSMOLALITY AND HYPONATREMIA Status: Resolved (3) Hypokalemia SNOMED Code(s): 46767010 ICD Code: E87.6 - HYPOKALEMIA Status: Resolved (4) Syncope SNOMED Code(s): 711712458 ICD Code: R55 - SYNCOPE AND COLLAPSE Status: Resolved Qualifiers: Syncope type: unspecified Qualified Code(s): R55 - Syncope and collapse (5) Generalized muscle weakness SNOMED Code(s): 86179326 ICD Code: M62.81 - MUSCLE WEAKNESS (GENERALIZED) Status: Resolved (6) Chest pain SNOMED Code(s): 99197381 ICD Code: R07.9 - CHEST PAIN, UNSPECIFIED Status: Resolved Qualifiers: Chest pain type: intercostal pain Qualified Code(s): R07.82 - Intercostal pain - Patient Summary/Data Operative Procedure(s) Performed: None Complications: None Consults: Consultations 06/21/17 06:58 Consult to Case Management [CONS] Routine Consult to Can Machine Operator [CONS] Routine Consult to Spiritual Care [CONS] Routine OT Evaluation and Treatment [CONS] Routine PT Evaluation and Treatment [CONS] Routine Hospital Course: Patient was primarily admitted for medical management of chest pain and diarrhea. It appeared patient had been having diarrhea chronically and she also had been evaluated in the past. It was unclear however if she had been seen by a GI specialist or not. Initially patient was seen at a local clinic and was given Imodium for symptomatic control. However her diarrhea did not get better and so she presented to the emergency department with complaints of chest pain and diarrhea for further evaluation. On admission, she was found to have a slightly low level of sodium 128 which we felt may have been due to her recent GI loss along with side effects from her hydrochlorothiazide and Zoloft. With supportive care and symptomatic control, the patient symptoms improved. Her sodium level resolved and her potassium improved to 3.4 from 2.4 on presentation. On this admission, patient was also ruled out for ACS. All the basic diagnostic workup to include serial EKGs and troponins were negative. Her chest pain was reproducible pain with manual palpation and therefore we felt this was musculoskeletal in etiology best treated with NSAIDs. Her hospital course was uncomplicated. The rest of her chronic medical illness remained stable during his admission. Patient is ready to go home. She was advised to see a GI specialist if her diarrhea lingers in a week as she might have a colonic dysmotility problem. She was further advised to drink e-lytes enriched drinks if she continues to be symptomatic. Patient expressed understanding in agreement with the plans as discussed above. All questions were answered. - Patient Instructions Diet: Usual Diet as Tolerated Activity: As Tolerated Driving: Do Not Drive Showering/Bathing: May Shower Notify Provider of: Increased Pain, Nausea and/or Vomiting Other/Special Instructions: - Please resume all home medications. - Take 1/2 tab of your hydrochlorothiazide daily. - Avoid greasy meals for now until you see your doctor. - Take Gatorate or Electrolytes-enriched [place] water if your diarrhea continues. - Recommend you see a GI specialist in [place] for further evaluation. - Follow up with your doctor in 1 week - Discharge Plan Home Medications: Home Meds Donepezil HCl [Aricept] 10 mg PO BEDTIME 06/21/17 [History] L.acidoph,Paracasei, B.lactis [Probiotic] 1 each PO DAILY 06/21/17 [History] Loperamide [Imodium] 2 mg PO Q6H PRN 06/21/17 [History] Methylcellulose [Citrucel] 500 mg PO BID 06/21/17 [History] Multivitamin [Multi-Day Vitamins] 1 each PO DAILY 06/21/17 [History] Sertraline [Zoloft] 25 mg PO BEDTIME 06/21/17 [History] Hydrochlorothiazide 25 mg PO DAILY #0 06/22/17 [Rx] Referrals: Angela Bailey, WEB SITE MANAGER [Primary Care Provider] - (Please call clinic to make a follow-up appointment with Angela in 1 week.) - Discharge Summary/Plan Comment DC Time >30 min.: Yes (45 mins) Discharge Summary/Plan Comment: Discharge to Home - General Info Date of Service: 06/22/17 Admission Dx/Problem (Free Text: Chest Pain Subjective Update: Follow Up Functional Status: Reports: Tolerating Diet, Ambulating, Urinating. Denies: New Symptoms - Review of Systems General: Denies: Fever, Weakness, Fatigue, Malaise, Chills HEENT: Reports: No Symptoms Pulmonary: Denies: Shortness of Breath Cardiovascular: Denies: Chest Pain Gastrointestinal: Reports: Diarrhea, Flatus. Denies: Abdominal Pain, Nausea, Vomiting Genitourinary: Reports: No Symptoms Musculoskeletal: Reports: No Symptoms Neurological: Reports: Confusion (Baseline Dementia). Denies: Difficulty Walking, Weakness, Gait Disturbance Psychiatric: Denies: Depression, Anxiety, Hallucinations - Patient Data Vitals - Most Recent: Last Vital Signs Temp 36.6 C 06/22/17 08:06 Pulse 62 06/22/17 08:06 Resp 18 06/22/17 08:06 BP 140/55 L 06/22/17 08:06 Pulse Ox 97 06/22/17 08:06 Weight - Most Recent: 60.146 kg I&O - Last 24 hours: Intake & Output 06/21/17 06/22/17 06/22/17 22:59 06:59 14:59 Intake Total 1831 1522 Output Total 450 1200 Balance 1381 322 Lab Results - Last 24 hrs: Laboratory Results - last 24 hr 06/21/17 06/21/17 06/21/17 Range/Units 11:56 13:50 19:41 WBC (3.98-10.04) K/mm3 RBC (3.98-5.22) M/mm3 Hgb (11.2-15.7) gm/L Hct (34.1-44.9) % MCV (79.4-94.8) fl MCH (25.6-32.2) pg MCHC (32.2-35.5) g/dl RDW Std Deviation (36.4-46.3) fL Plt Count (182-369) K/mm3 MPV (9.4-12.3) fl Neut % (Auto) (34.0-71.1) % Lymph % (Auto) (19.3-51.7) % [place] % (Auto) (4.7-12.5) % Eos % (Auto) (0.7-5.8) Baso % (Auto) (0.1-1.2) % Neut # (Auto) (1.56-6.13) K/mm3 Lymph # (Auto) (1.18-3.74) K/mm3 [place] # (Auto) (0.24-0.36) K/mm3 Eos # (Auto) (0.04-0.36) K/mm3 Baso # (Auto) (0.01-0.08) K/mm3 Sodium 129 L (136-145) mEq/L Potassium 3.2 L (3.5-5.1) mEq/L Chloride 96 L (98-107) mEq/L Carbon Dioxide 28 (21-32) mEq/L Anion Gap 8.2 (5-15) BUN 13 (7-18) mg/dL Creatinine 0.8 (0.55-1.02) mg/dL Est Cr Clr Drug Dosing 40.66 mL/min Estimated GFR (MDRD) > 60 (>60) mL/min BUN/Creatinine Ratio 16.3 (14-18) Glucose 72 L (83-115) mg/dL Calcium 8.6 (8.5-10.1) mg/dL Magnesium (1.8-2.4) mg/dl CK-MB (CK-2) 0.9 0.7 (0-3.6) ng/ml Troponin I < 0.017 < 0.017 (0.00-0.056) ng/mL C.difficile 027-NAP1-B1 C. difficile Tox (PCR) 06/21/17 06/22/17 06/22/17 Range/Units 20:13 05:50 05:50 WBC 4.14 (3.98-10.04) K/mm3 RBC 3.49 L (3.98-5.22) M/mm3 Hgb 11.2 (11.2-15.7) gm/L Hct 31.2 L (34.1-44.9) % MCV 89.4 (79.4-94.8) fl MCH 32.1 (25.6-32.2) pg MCHC 35.9 H (32.2-35.5) g/dl RDW Std Deviation 40.6 (36.4-46.3) fL Plt Count 224 (182-369) K/mm3 MPV 9.9 (9.4-12.3) fl Neut % (Auto) 58.3 (34.0-71.1) % Lymph % (Auto) 25.6 (19.3-51.7) % [place] % (Auto) 12.8 H (4.7-12.5) % Eos % (Auto) 2.4 (0.7-5.8) Baso % (Auto) 0.7 (0.1-1.2) % Neut # (Auto) 2.41 (1.56-6.13) K/mm3 Lymph # (Auto) 1.06 L (1.18-3.74) K/mm3 [place] # (Auto) 0.53 H (0.24-0.36) K/mm3 Eos # (Auto) 0.10 (0.04-0.36) K/mm3 Baso # (Auto) 0.03 (0.01-0.08) K/mm3 Sodium 137 (136-145) mEq/L Potassium 3.4 L (3.5-5.1) mEq/L Chloride 103 (98-107) mEq/L Carbon Dioxide 27 (21-32) mEq/L Anion Gap 10.4 (5-15) BUN 8 (7-18) mg/dL Creatinine 0.8 (0.55-1.02) mg/dL Est Cr Clr Drug Dosing 40.66 mL/min Estimated GFR (MDRD) > 60 (>60) mL/min BUN/Creatinine Ratio 10.0 L (14-18) Glucose 84 (83-115) mg/dL Calcium 8.5 (8.5-10.1) mg/dL Magnesium 1.8 (1.8-2.4) mg/dl CK-MB (CK-2) (0-3.6) ng/ml Troponin I (0.00-0.056) ng/mL C.difficile 027-NAP1-B1 Presumptive negative C. difficile Tox (PCR) Negative Med Orders - Current: Current Medications Acetaminophen (Tylenol) 650 mg PO Q4H PRN PRN Reason: Pain (Mild 1-3)/fever Hydrocodone Bitart/Acetaminophen ([place] 325-5 Mg) 1 tab PO Q4H PRN PRN Reason: Pain (moderate 4-6) Albuterol/Ipratropium (Duoneb 3.0-0.5 Mg/3 Ml) 3 ml NEB Q4H PRN PRN Reason: Shortness Of Breath/wheezing Bisacodyl (Dulcolax) 5 mg PO DAILY PRN PRN Reason: Constipation Docusate Sodium (Colace) 100 mg PO BID PRN PRN Reason: Constipation Donepezil HCl (Aricept) 10 mg PO BEDTIME [facility] Last Admin: 06/21/17 20:32 Dose: 10 mg Hydralazine HCl (Apresoline) 20 mg IVPUSH Q4H PRN PRN Reason: Hypertension Hydromorphone HCl (Dilaudid) 0.25 mg IVPUSH Q2H PRN PRN Reason: Pain (severe 7-10) Promethazine HCl 12.5 mg/ (Sodium Chloride) 50.5 mls @ 100 mls/hr IV Q6H PRN PRN Reason: Nausea/Vomiting Lorazepam (Ativan) 2 mg IVPUSH Q4H PRN PRN Reason: Seizures Lorazepam (Ativan) 0.25 mg IV Q6H PRN PRN Reason: Anxiety Magnesium Sulfate (Pharmacy To Dose - Magnesium Replacement) 1 dose .XX ASDIRECTED [facility] Multivitamins (Thera) 1 each PO DAILY [facility] Last Admin: 06/22/17 08:15 Dose: 1 each Non-Formulary Medication (L.Acidoph,Paracasei, B.Lactis [Probiotic]) 1 each PO DAILY [facility] Non-Formulary Medication (Methylcellulose) 500 mg PO BID [facility] Ondansetron HCl (Zofran) 4 mg IV Q6H PRN PRN Reason: Nausea/Vomiting Polyethylene Glycol (Miralax) 17 gm PO DAILY PRN PRN Reason: Constipation Potassium Chloride (Pharmacy To Dose - Potassium Replacement) 1 dose .XX ASDIRECTED [facility] Saccharomyces Boulardii (Florastor) 250 mg PO DAILY [facility] Last Admin: 06/22/17 08:15 Dose: 250 mg Senna/Docusate Sodium (Senna Plus) 1 tab PO BID PRN PRN Reason: Constipation Sertraline HCl (Zoloft) 25 mg PO BEDTIME [facility] Last Admin: 06/21/17 20:33 Dose: 25 mg Temazepam (Restoril) 7.5 mg PO BEDTIME PRN PRN Reason: Sleep Discontinued Medications Potassium Chloride 10 meq/ (Premix) 100 mls @ 100 mls/hr IV Q1H [facility] Stop: 06/21/17 11:14 Sodium Chloride (Normal Saline) 1,000 mls @ 75 mls/hr IV ASDIRECTED [facility] Last Admin: 06/21/17 18:32 Dose: 75 mls/hr Potassium Chloride 10 meq/ (Premix) 100 mls @ 100 mls/hr IV ASDIRECTED ONE Stop: 06/21/17 06:21 Last Infusion: 06/21/17 06:35 Dose: 50 mls/hr Potassium Chloride 10 meq/ (Premix) 100 mls @ 100 mls/hr IV Q1H [facility] Stop: 06/21/17 11:59 Last Admin: 06/21/17 12:57 Dose: 100 mls/hr Oral Electrolytes (Thermotabs) 1 each PO ASDIRECTED PRN PRN Reason: hyponatremia Oral Electrolytes (Thermotabs) 1 each PO TID [facility] Last Admin: 06/22/17 08:15 Dose: 1 each Potassium Chloride (Klor-Con M20) 60 meq PO ASDIRECTED PRN PRN Reason: Other Potassium Chloride (Klor-Con M20) 20 meq PO Q3H [facility] Stop: 06/21/17 21:31 Last Admin: 06/21/17 20:33 Dose: 20 meq - Exam General: Reports: Alert, Oriented (x 2 only), Cooperative, No Acute Distress HEENT: Reports: Pupils Equal, Pupils Reactive, EOMI, Mucous Membr. Moist/Orrum Neck: Reports: Supple, Trachea Midline, No JVD, No Thyromegaly Lungs: Reports: Clear to Auscultation, Normal Respiratory Effort Cardiovascular: Reports: Regular Rate, Regular Rhythm GI/Abdominal Exam: Normal Bowel Sounds, Soft, Non-Tender, No Organomegaly, No Distention, No Abnormal Bruit (Female) Exam: Deferred Rectal (Female) Exam: Deferred Back Exam: Reports: Normal Inspection, Decreased Range of Motion Extremities: Normal Inspection, Normal Range of Motion, Non-Tender, No Pedal Edema, Normal Capillary Refill Skin: Reports: Warm, Dry, Intact Neurological: Reports: No New Focal Deficit Psy/Mental Status: Reports: Alert, Normal Affect, Normal Mood *Q Meaningful Use (DIS) - VTE *Q VTE Criteria *Q: - Stroke *Q Stroke Criteria *Q: - AMI *Q AMI Criteria *Q:
--- NOTE | 2017-06-22 17:30 | CT ---
Head CT Technique: Multiple axial sections through the brain were obtained. Intravenous contrast was not utilized. Comparison: Previous head CT exam of 04/09/15. Findings: Ventricles along with basal cisterns and sulci over the convexities are mildly prominent. Slight diminished density is noted within the periventricular white matter compatible with small vessel ischemic demyelination change. No other abnormal parenchymal densities are seen. No evidence of intracranial hemorrhage. No midline shift or mass effect is seen. Bone window settings were reviewed which show no acute calvarial abnormality. Visualized sinuses are clear. Minimal soft tissue swelling is seen within the left frontal scalp. Impression: 1. Senescent change as noted above. 2. Minimal soft tissue swelling within the left frontal scalp. 3. No acute intracranial abnormality is identified. Diagnostic code #2 I agree with preliminary report issued by [facility] ([facility] preliminary report dictated on 06/21/17, 5:54 AM Central Time)
--- NOTE | 2017-06-22 17:30 | CR ---
Chest: Portable view of the chest was obtained. Comparison: Previous chest x-ray of 12/30/15. Findings: Metallic shot is noted within the left side of the chest which appears chronic. Heart size appears within normal limits for portable technique. Tortuous thoracic aorta is seen. Minimal scarring is noted within the lateral left costophrenic angle. Lungs otherwise are clear. Impression: 1. Incidental findings. Nothing acute is identified on portable chest x-ray. Diagnostic code #2
== END 2017-06-22 10:56 | disposition home or self-care (01) | DRG 392 ==
LOC: JD.ED 03:31 → JD.MS 06:50 → UNDOADMIN 06:50
PROVIDERS: ADMIT Internal Medicine; ATTEND Internal Medicine
DX: R19.7 Diarrhea, unspecified (principal); E87.1 Hypo-osmolality and hyponatremia; R07.9 Chest pain, unspecified; E87.6 Hypokalemia; R55 Syncope and collapse; R53.1 Weakness; I10 Essential (primary) hypertension; E78.5 Hyperlipidemia, unspecified; K21.9 Gastro-esophageal reflux disease without esophagitis; Z87.891 Personal history of nicotine dependence; K44.9 Diaphragmatic hernia without obstruction or gangrene; R32 Unspecified urinary incontinence; M19.90 Unspecified osteoarthritis, unspecified site; F03.90 Unspecified dementia, unspecified severity, without behavioral disturbance, psychotic disturbance, mood disturbance, and anxiety; Z66 Do not resuscitate; Z88.0 Allergy status to penicillin; Z88.8 Allergy status to other drugs, medicaments and biological substances; Z79.899 Other long term (current) drug therapy
CPT/HCPCS: 36415; 70450; 71010; 80053; 82553; 83880; 84484; 85025; 85610; 85730; 93005; 96365; 99285; J3480; J7040; 80048; 83735; 87493; 97116-GP; 97162-GP; 99284; A9270-GY

== ENCOUNTER 2019-03-12 23:18 | Emergency (ER) | payer MEDICARE, OTHER ==
[2019-03-12 23:25] VITALS: BP 134/50
[2019-03-12] MEDS ORDERED: Lactated Ringers 500 ML IV ONE (23:27)
[2019-03-12] MEDS ORDERED: Lactated Ringers 1,000 ML IV SCH (23:30)
--- NOTE | 2019-03-12 23:38 | EDM.PDOC ---
ED HPI GENERAL MEDICAL PROBLEM - General Chief Complaint: Syncope Stated Complaint: [facility] Time Seen by Provider: 03/12/19 23:22 - History of Present Illness INITIAL COMMENTS - FREE TEXT/NARRATIVE: 88-year-old female brought in to the emergency room by EMS with a appearance syncopal type episode The patient use the restroom and then walked out of the bathroom she did not feel quite right her caught her as she went to the floor she did hit the back of her head on the door frame. She had loss of consciousness for approximately 5 minutes after this. Patient is not a problems like this in the past currently she is not on any medications not on any blood thinners - Related Data Allergies Allergy/AdvReac Type Severity Reaction Status Date / Time Penicillins Allergy Rash Verified 03/12/19 23:25 prednisone Allergy Rash Verified 03/12/19 23:25 lisinopril AdvReac Cough Verified 03/12/19 23:25 Home Meds: Home Meds . [No Known Home Meds] 03/12/19 [History] Past Medical History HEENT History: Reports: Cataract, Impaired Vision, Other (See Below) Other HEENT History: Dentures, disease of vocal cords, dysphasia Cardiovascular History: Reports: High Cholesterol, Hypertension Respiratory History: Reports: Other (See Below) Other Respiratory History: dyspnea - severe snoring Gastrointestinal History: Reports: Chronic Diarrhea, GERD, Hiatal Hernia Genitourinary History: Reports: Renal Calculus, Urinary Incontinence [employer] History: Reports: Musculoskeletal History: Reports: Osteoarthritis Other Musculoskeletal History: limb pain, hallux valgus Neurological History: Reports: Other (See Below) Other Neuro History: dementia Psychiatric History: Reports: Dementia Endocrine/Metabolic History: Reports: None Oncologic (Cancer) History: Reports: Other (See Below) Other Oncologic History: skin Dermatologic History: Reports: Melanoma Other Dermatologic History: seborrheic keratosis, L forehead actinic kertosis - Infectious Disease History Infectious Disease History: Reports: Shingles - Past Surgical History HEENT Surgical History: Reports: Adenoidectomy, Cataract Surgery, Tonsillectomy GI Surgical History: Reports: Colonoscopy, Other (See Below) Female Surgical History: Reports: Hysterectomy, Salpingo-Oophorectomy Social & Family History - Family History Family Medical History: Noncontributory - Caffeine Use Caffeine Use: Reports: None Other Caffeine Use: 2/ per day ED ROS GENERAL - Review of Systems Review Of Systems: See Below Constitutional: Reports: No Symptoms HEENT: Reports: No Symptoms Respiratory: Reports: No Symptoms Cardiovascular: Reports: Syncope. Denies: Chest Pain, Blood Pressure Problem, Edema, Orthopnea, Palpitations Endocrine: Reports: No Symptoms GI/Abdominal: Reports: No Symptoms : Reports: No Symptoms Musculoskeletal: Reports: No Symptoms Skin: Reports: No Symptoms Neurological: Reports: Syncope. Denies: No Symptoms Psychiatric: Reports: No Symptoms Hematologic/Lymphatic: Reports: No Symptoms Immunologic: Reports: No Symptoms - Physical Exam Exam: See Below Exam Limited By: No Limitations General Appearance: No Apparent Distress, Mild Distress Ears: Normal External Exam, Normal Canal, Hearing Grossly Normal, Normal TMs Nose: Normal Inspection, Normal Mucosa, No Blood Throat/Mouth: Normal Inspection, Normal Lips, Normal Gums, Normal Oropharynx, Normal Voice, No Airway Compromise Head Exam: Atraumatic, Normocephalic Neck: Normal Inspection, Supple, Non-Tender. No: Lymphadenopathy (L), Lymphadenopathy (R) Respiratory/Chest: No Respiratory Distress, Normal Breath Sounds Cardiovascular: Normal Peripheral Pulses, Regular Rate, Rhythm, No Edema, No Murmur GI/Abdominal: Normal Bowel Sounds, Soft, Non-Tender Neuro Exam (Abbreviated): Alert, Oriented, Normal Cognition Back Exam: Normal Inspection. No: CVA Tenderness (L), CVA Tenderness (R) Extremities: Normal Inspection, No Pedal Edema Psychiatric: Normal Affect, Normal Mood Skin Exam: Warm, Dry, Intact EKG INTERPRETATION EKG Date: 03/13/19 Rhythm: Other (Sinus rhythm with a single PVC) Rate (Beats/Min): 73 [place]: Normal P-Wave: Present QRS: Other (Interventricular conduction delay) ST-T: Normal QT: Prolonged (Borderline) Comparison: Change From Previous EKG (Nonspecific ST-T wave changes resolved really no significant change) Course - Vital Signs Last Recorded V/S: Last Vital Signs Temp 35.9 C 03/12/19 23:20 Pulse 73 03/12/19 23:20 Resp 11 L 03/12/19 23:20 BP 134/50 L 03/12/19 23:20 Pulse Ox 97 03/12/19 23:20 - Orders/Labs/Meds Orders: Active Orders 24 hr Category Date Time Status EKG Documentation Completion [RC] STAT Care 03/12/19 23:26 Active Holter Monitor 48 Hours [RC] .PRN Care 03/13/19 01:40 Active Head wo Cont [CT] Stat Exams 03/12/19 23:26 Taken Lactated Ringers [Ringers, Lactated] 1,000 ml Med 03/12/19 23:30 Active IV ASDIRECTED Medication Orders Lactated Ringer's (Ringers, Lactated) 1,000 mls @ 125 mls/hr IV ASDIRECTED CLIF Labs: Laboratory Tests 03/12/19 03/12/19 Range/Units 23:44 23:44 WBC 5.69 (3.98-10.04) K/mm3 RBC 3.35 L (3.98-5.22) M/mm3 Hgb 10.5 L (11.2-15.7) gm/L Hct 31.4 L (34.1-44.9) % MCV 93.7 (79.4-94.8) fl MCH 31.3 (25.6-32.2) pg MCHC 33.4 (32.2-35.5) g/dl RDW Std Deviation 43.1 (36.4-46.3) fL Plt Count 194 (182-369) K/mm3 MPV 9.9 (9.4-12.3) fl Neutrophils % (Manual) 70 H (40-60) % Band Neutrophils % 0 (0-10) % Lymphocytes % (Manual) 23 (20-40) % Atypical Lymphs % 0 % Monocytes % (Manual) 6 (2-10) % Eosinophils % (Manual) 1 (0.7-5.8) % Basophils % (Manual) 0 L (0.1-1.2) Platelet Estimate Adequate Plt Morphology Comment Normal RBC Morph Comment Normal Sodium 135 L (136-145) mEq/L Potassium 3.4 L (3.5-5.1) mEq/L Chloride 102 (98-107) mEq/L Carbon Dioxide 27 (21-32) mEq/L Anion Gap 9.4 (5-15) BUN 24 H (7-18) mg/dL Creatinine 1.1 H (0.55-1.02) mg/dL Est Cr Clr Drug Dosing 28.50 mL/min Estimated GFR (MDRD) 47 (>60) mL/min BUN/Creatinine Ratio 21.8 H (14-18) Glucose 111 (83-115) mg/dL Calcium 9.5 (8.5-10.1) mg/dL Magnesium 1.9 (1.8-2.4) mg/dl Total Bilirubin 0.2 (0.2-1.0) mg/dL AST 17 (15-37) U/L ALT 18 (14-59) U/L Alkaline Phosphatase 59 (46-116) U/L Troponin I < 0.017 (0.00-0.056) ng/mL Total Protein 6.2 L (6.4-8.2) g/dl Albumin 3.3 L (3.4-5.0) g/dl Globulin 2.9 gm/dL Albumin/Globulin Ratio 1.1 (1-2) Meds: Medications Generic Name Dose Route Start Last Admin Trade Name Freq PRN Reason Stop Dose Admin Lactated Ringer's 1,000 mls @ 125 mls/hr 03/12/19 23:30 Ringers, Lactated IV ASDIRECTED CLIF Discontinued Medications Generic Name Dose Route Start Last Admin Trade Name Freq PRN Reason Stop Dose Admin Lactated Ringer's 500 mls @ 999 mls/hr 03/12/19 23:27 03/12/19 23:36 Ringers, Lactated IV 03/12/19 23:57 999 mls/hr .BOLUS ONE Administration - Re-Assessments/Exams Free Text/Narrative Re-Assessment/Exam: 03/13/19 02:26 Laboratory evaluation is unrevealing head CT negative for acute change discussed possible etiologies with the family will pursue a 48 hour Holter monitor at this point. Cautioned family patient that the patient should go slowly with going from sitting to standing or lying down to sitting and getting ready to walk. Departure - Departure Time of Disposition: 02:27 Disposition: Home, Self-Care 01 Clinical Impression: Syncope - Discharge Information Referrals: Franck Cabral MD [Primary Care Provider] - Forms: ED Department Discharge Additional Instructions: Return to the emergency room with any questions problems worsening symptoms. Return the Holter monitor as directed. Follow-up with your regular doctor several days after the Holter is returned. - My Orders Last 24 Hours: My Active Orders 03/12/19 23:26 EKG Documentation Completion [RC] STAT Head wo Cont [CT] Stat 03/12/19 23:30 Lactated Ringers [Ringers, Lactated] 1,000 ml IV ASDIRECTED 03/13/19 01:40 Holter Monitor 48 Hours [RC] .PRN - Assessment/Plan Last 24 Hours: My Active Orders 03/12/19 23:26 EKG Documentation Completion [RC] STAT Head wo Cont [CT] Stat 03/12/19 23:30 Lactated Ringers [Ringers, Lactated] 1,000 ml IV ASDIRECTED 03/13/19 01:40 Holter Monitor 48 Hours [RC] .PRN
--- NOTE | 2019-03-13 10:55 | CT ---
Head CT Technique: Multiple axial sections through the brain were obtained. Intravenous contrast was not utilized. Comparison: Prior head CT study of 06/21/17. Findings: Ventricles along with basal cisterns and sulci over the convexities are mildly prominent. Minimal diminished density is noted within the periventricular white matter compatible with slight small vessel ischemic demyelination change. No other abnormal parenchymal densities are seen. No evidence of intracranial hemorrhage. No midline shift or mass effect is seen. Bone window settings were reviewed which show no acute calvarial abnormality. Impression: 1. Mild senescent change. No acute intracranial abnormality is appreciated. Diagnostic code #2 I agree with preliminary report from [facility], finalized on 03/13/19, 1:44 AM Central Time
== END 2019-03-13 02:40 | disposition home or self-care (01) ==
LOC: JD.ED 23:18
DX: R55 Syncope and collapse (principal); Z88.0 Allergy status to penicillin; Z88.8 Allergy status to other drugs, medicaments and biological substances
CPT/HCPCS: 36415; 70450; 80053; 83735; 84484; 85007; 85027; 93005; 93225; 93226; 96360; 99284; J7120; 93010; 99283

== ENCOUNTER 2021-03-01 13:35 | Inpatient (IN) | payer MEDICARE, OTHER ==
[2021-03-01] MEDS ORDERED: Diltiazem 50 MG/10 ML SDV IVPUSH ONE ×3 (13:55→15:49)
[2021-03-01] MEDS ORDERED: Diltiazem 100 MG in Sodium Chloride 0.9% 100 ML IV SCH (14:00)
--- NOTE | 2021-03-01 14:00 | EDM.PDOC ---
ED HPI GENERAL MEDICAL PROBLEM - General Chief Complaint: Cardiovascular Problem Stated Complaint: CHEST PAIN/SOB/PULSE 170 Time Seen by Provider: 03/01/21 13:55 Source of Information: Reports: Patient, Family (History primarily obtained from the family as the patient has late stage dementia. Her is here he is hard of hearing and wears hearing aids and there is a daughter here as well.) History Limitations: Reports: Altered Mental Status (Dementia.) - History of Present Illness INITIAL COMMENTS - FREE TEXT/NARRATIVE: 89-year-old female presents to the ED in the accompaniment of her elderly and a daughter or granddaughter. She has quite severe dementia and therefore no reliable history could be obtained from her. They just returned from [place] today. They drove back over the last 3 days. The believes she has been complaining of chest discomfort and shortness of breath for the last 3 weeks. On examination she is in atrial fibrillation with a heart rate up to 220 bpm on the monitor. When I asked her if she is having chest discomfort she does have central chest pressure. She is obviously working hard to breathe. Apparently she had a pleural effusion in her right lung before they left for [place] in November identified by Dr. Dumas. It sounds like no doctoring or medical care was received while in [place]. She is losing weight due to very poor appetite. No fever has been identified by family members. He requires help with all aspects of daily living such as dressing, bathing, eating. Onset: Unknown/Unsure (Suspect that she has been symptomatic for more than 3 weeks. She has been complaining of shortness of breath and some chest discomfort to her ) Duration: Week(s):, Getting Worse Location: Reports: Chest (Atrial chest pressure discomfort and dyspnea.) Quality: Reports: Other (Shortness of breath) Severity: Severe Improves with: Reports: None Worsens with: Reports: Other (Walking.) Context: Reports: Other (Spontaneous occurrence no history to know for sure if she has a history of chronic A. fib.). Denies: Activity ( She has been having to sleep he sleeps sitting up for the last several weeks.), Exercise, Lifting, Sick Contact, Trauma Associated Symptoms: Reports: Confusion (Due to dementia), Chest Pain, Cough (Points to central chest as being somewhat disc uncomfortable.), Loss of Appetite, Malaise, Shortness of Breath, Weakness, Other. 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 (see below) (Constipation only prescribed medications.) - Related Data Allergies Allergy/AdvReac Type Severity Reaction Status Date / Time Penicillins Allergy Rash Verified 03/12/19 23:25 prednisone Allergy Rash Verified 03/12/19 23:25 lisinopril AdvReac Cough Verified 03/12/19 23:25 Home Meds: Home Meds Aspirin [Halfprin] 81 mg PO DAILY 03/01/21 [History] Colestipol [Colestipol HCl] 1 gram PO BID 03/01/21 [History] Cyanocobalamin (Vitamin B-12) [Vitamin B-12] 1,000 mcg PO DAILY 03/01/21 [History] Donepezil [Aricept] 5 mg PO DAILY 03/01/21 [History] Gabapentin [Neurontin] 100 mg PO TID 03/01/21 [History] Meclizine [Antivert] 12.5 mg PO BID 03/01/21 [History] Metoprolol Succinate 50 mg PO DAILY 03/01/21 [History] Multivitamin [Multivitamins] 1 tab PO DAILY 03/01/21 [History] Omeprazole Magnesium [Prilosec Otc] 20 mg PO DAILY 03/01/21 [History] Ondansetron [Zofran ODT] 4 mg PO DAILY 03/01/21 [History] Potassium Chloride 20 meq PO DAILY 03/01/21 [History] Rivaroxaban [Xarelto] 15 mg PO 1700 03/01/21 [History] Rosuvastatin [Crestor] 10 mg PO DAILY 03/01/21 [History] Sertraline [Zoloft] 25 mg PO DAILY 03/01/21 [History] Past Medical History HEENT History: Reports: Cataract, Impaired Vision, Other (See Below) Other HEENT History: Dentures, disease of vocal cords, dysphasia Cardiovascular History: Reports: Afib (Is on Xarelto. It is unclear whether she has intermittent atrial fibrillation or chronic A. 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: Musculoskeletal History: Reports: Osteoarthritis Other Musculoskeletal History: limb pain, hallux valgus Neurological History: Reports: Other (See Below) Other Neuro History: dementia Psychiatric History: Reports: Dementia Endocrine/Metabolic History: Reports: None Oncologic (Cancer) History: Reports: Other (See Below) Other Oncologic History: skin Dermatologic History: Reports: Melanoma Other Dermatologic History: seborrheic keratosis, L forehead actinic kertosis - Infectious Disease History Infectious Disease History: Reports: Shingles - Past Surgical History HEENT Surgical History: Reports: Adenoidectomy, Cataract Surgery, Tonsillectomy GI Surgical History: Reports: Colonoscopy, Other (See Below) Female Surgical History: Reports: Hysterectomy, Salpingo-Oophorectomy Social & Family History - Family History Family Medical History: No Pertinent Family History - Caffeine Use Caffeine Use: Reports: None Other Caffeine Use: 2/ per day - Living Situation & Occupation Living situation: Reports: Occupation: Retired ED ROS GENERAL - Review of Systems Review Of Systems: See Below Constitutional: Reports: Malaise, Weakness, Fatigue, Decreased Appetite ([place] weight loss in the last 3 months), Weight Loss. Denies: Fever, Chills HEENT: Reports: Glasses, Other (Hard of hearing) Respiratory: Reports: Shortness of Breath, Cough. Denies: Wheezing, Pleuritic Chest Pain, Sputum Cardiovascular: Reports: Chest Pain, Blood Pressure Problem, Dyspnea on Exertion, Edema, Lightheadedness. Denies: Claudication, Orthopnea Endocrine: Reports: Fatigue GI/Abdominal: Reports: Constipation, Decreased Appetite. Denies: Nausea, Stool Incontinence, Vomiting : Reports: Frequency, Incontinence (Continence of urine.), Urgency Musculoskeletal: Reports: Joint Pain Skin: Reports: Bruising (His hips low back neck and shoulders at times.) Neurological: Reports: Confusion ( Bruises easily since she is on Xarelto. Has late stages of dementia.), Difficulty Walking (Is help with walking.) Psychiatric: Reports: Anxiety Hematologic/Lymphatic: Reports: Anemia, Easy Bruising Immunologic: Reports: No Symptoms ED EXAM, GENERAL - Physical Exam Exam: See Below Exam Limited By: No Limitations General Appearance: Alert, WD/WN, Moderate Distress, Other (Temperature is 36.8 degrees. Heart rate is irregular irregular and on the monitor shows atrial fibrillation with a rate up as high as 220/min. 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 No scleral icterus.), PERRL Throat/Mouth: Other (Is dry and coated.). No: Normal Teeth Head: Atraumatic, Normocephalic Neck: Normal Inspection, Limited Range of Motion. No: Lymphadenopathy (L), Lymphadenopathy (R), Thyromegaly Respiratory/Chest: No Accessory Muscle Use, Respiratory Distress (Hypnic at rest with high oxygen saturations of 91% room air.), Decreased Breath Sounds (To the right lung field. The entire right lung appears to be dull to percussion compatible with a pleural effusion.), Rales (Rales both posterior lung bases). No: Lungs Clear, Normal Breath Sounds ( lower 10%.) Cardiovascular: Normal Peripheral Pulses, No Edema, No Gallop, No Murmur, JVD (3 cm of the angle of her right mandible.), Irregularly Irregular. No: Regular Ra te, Rhythm Peripheral Pulses: 1+: Posterior Tibial (L), Posterior Tibial (R), Dorsalis Pedis (L), Dorsalis Pedis (R), 2+: Carotid (L), Carotid (R) GI/Abdominal: Normal Bowel Sounds (Is are barely palpable in her feet due to severe edema of the lower extremities.), Soft, Non-Tender, No Organomegaly, No Mass, Pelvis Stable Back Exam: Other (Mild kyphosis thoracic spine.) Extremities: Pedal Edema (Evidence of osteoarthritic changes both knees both hips. 4+ pitting edema bilaterally), Other Neurological: Alert, CN II-XII Intact. No: Oriented, Normal Cognition Psychiatric: Normal Affect Skin Exam: Warm, Dry, Intact, Normal Color, No Rash #1 Interpretation EKG Date: 03/01/21 Time: 13:48 Rhythm: A-Fib (With a rate of 144 to 220 bpm) Rate (Beats/Min): 188 [place]: Normal P-Wave: Absent QRS: Other (Decreased voltage throughout the limb leads. Q waves in V1 V2 compared with old anteroseptal myocardial infarction) ST-T: Other (T wave flattening V3 lead III and lead aVL T wave inversion V4 to V6 consider ischemia versus repolarization abnormality.) EKG Interpretation Comments: Abnormal ECG Course - Vital Signs Last Recorded V/S: Last Vital Signs Temp 36.8 C 03/01/21 13:54 Pulse 176 H 03/01/21 13:54 Resp 21 H 03/01/21 13:54 BP 148/100 H 03/01/21 13:54 Pulse Ox 91 L 03/01/21 13:54 - Orders/Labs/Meds Orders: Active Orders 24 hr Category Date Time Status Admission Status [Patient Status] [ADT] Routine ADT 03/01/21 16:10 Active Patient Status [ADT] Routine ADT 03/01/21 16:01 Active Oxygen Therapy [RC] ASDIRECTED Care 03/01/21 13:51 Active Oxygen Therapy [RC] ASDIRECTED Care 03/01/21 14:30 Active CULTURE BLOOD [BC] Stat Lab 03/01/21 14:11 Received CULTURE BLOOD [BC] Stat Lab 03/01/21 14:22 Received URINALYSIS W/MICROSCOPIC [UA W/MICROSCOPIC] [URIN] Stat Lab 03/01/21 13:51 Ordered Amiodarone In Dextrose,Iso-Osm [Nexterone in Dextrose Med 03/01/21 16:15 Active 360 MG/200 ML] 360 mg in 200 ml IV ASDIRECTED Aspirin [Halfprin] Med 03/02/21 09:00 Active 81 mg PO DAILY Colestipol Med 03/01/21 21:00 Ordered 1 gram PO BID Donepezil [Aricept] Med 03/02/21 09:00 Active 5 mg PO DAILY Gabapentin [Neurontin] Med 03/01/21 21:00 Active 100 mg PO TID Meclizine [Antivert] Med 03/01/21 21:00 Active 12.5 mg PO BID Metoprolol Succinate [Toprol XL] Med 03/02/21 09:00 Active 50 mg PO DAILY Omeprazole Magnesium [Prilosec Otc] Med 03/02/21 09:00 Ordered 20 mg PO DAILY Potassium Chloride [Potassium Chloride] Med 03/02/21 09:00 Ordered 20 meq PO DAILY Rivaroxaban [Xarelto] Med 03/01/21 17:00 Ordered 15 mg PO 1700 Sertraline [Zoloft] Med 03/02/21 09:00 Ordered 25 mg PO DAILY Blood Culture x2 Reflex Set [OM.PC] Stat Oth 03/01/21 13:52 Ordered Medication Orders Acetaminophen (Acetaminophen 325 Mg Tab) 650 mg PO Q4H PRN PRN Reason: Pain (Mild 1-3)/fever Aspirin (Aspirin 81 Mg Tab.Ec) 81 mg PO DAILY CLIF Donepezil HCl (Donepezil 10 Mg Tab) 5 mg PO DAILY CLIF Gabapentin (Gabapentin 100 Mg Cap) 100 mg PO TID CLIF Amiodarone HCl/Dextrose (Nexterone In Dextrose 360 Mg/200 Ml) 360 mg in 200 mls @ 33.333 mls/hr IV ASDIRECTED CLIF; Protocol Meclizine HCl (Meclizine 12.5 Mg Tab) 12.5 mg PO BID CLIF Metoprolol Succinate (Metoprolol Succinate 50 Mg Tab.Er) 50 mg PO DAILY CLIF Non-Formulary Medication (Colestipol) 1 gram PO BID CLIF Non-Formulary Medication (Omeprazole Magnesium [Prilosec Otc]) 20 mg PO DAILY [facility] Non-Formulary Medication (Potassium Chloride [Potassium Chloride]) 20 meq PO DAILY CLIF Ondansetron HCl (Ondansetron 4 Mg Tab.Dis) 4 mg PO Q6H PRN PRN Reason: nausea, able to take PO Oxycodone HCl (Oxycodone 5 Mg Tab) 5 mg PO Q4H PRN PRN Reason: Pain (moderate 4-6) Rivaroxaban (Rivaroxaban 15 Mg Tab) 15 mg PO 1700 [facility] Sertraline HCl (Sertraline 25 Mg Tab) 25 mg PO DAILY [facility] Sodium Chloride (Sodium Chloride 0.9% 10 Ml Syringe) 10 ml FLUSH ASDIRECTED PRN PRN Reason: Keep Vein Open Labs: Laboratory Tests 03/01/21 03/01/21 03/01/21 Range/Units 13:55 13:55 13:55 WBC 8.03 (3.98-10.04) K/mm3 RBC 3.97 L (3.98-5.22) M/mm3 Hgb 12.4 D (11.2-15.7) gm/dl Hct 38.0 (34.1-44.9) % MCV 95.7 H (79.4-94.8) fl MCH 31.2 (25.6-32.2) pg MCHC 32.6 (32.2-35.5) g/dl RDW Std Deviation 46.4 H (36.4-46.3) fL Plt Count 311 D (182-369) K/mm3 MPV 10.8 (9.4-12.3) fl Neut % (Auto) 76.7 H (34.0-71.1) % Lymph % (Auto) 9.8 L (19.3-51.7) % [place] % (Auto) 12.3 (4.7-12.5) % Eos % (Auto) 0.9 (0.7-5.8) Baso % (Auto) 0.2 (0.1-1.2) % Neut # (Auto) 6.15 H (1.56-6.13) K/mm3 Lymph # (Auto) 0.79 L (1.18-3.74) K/mm3 [place] # (Auto) 0.99 H (0.24-0.36) K/mm3 Eos # (Auto) 0.07 (0.04-0.36) K/mm3 Baso # (Auto) 0.02 (0.01-0.08) K/mm3 Manual Slide Review Abnormal smear PT 11.0 (9.7-12.0) SECONDS INR 1.03 APTT (21.7-31.4) SECONDS Sodium 134 L (136-145) mEq/L Potassium 4.0 (3.5-5.1) mEq/L Chloride 96 L (98-107) mEq/L Carbon Dioxide 25 (21-32) mEq/L Anion Gap 17.0 H (5-15) BUN 35 H (7-18) mg/dL Creatinine 1.5 H (0.55-1.02) mg/dL Est Cr Clr Drug Dosing 21.03 mL/min Estimated GFR (MDRD) 33 (>60) mL/min BUN/Creatinine Ratio 23.3 H (14-18) Glucose 108 (83-115) mg/dL Lactic Acid (0.4-2.0) mmol/L Calcium 9.8 (8.5-10.1) mg/dL Magnesium 2.2 (1.8-2.4) mg/dl Total Bilirubin 0.6 (0.2-1.0) mg/dL AST 25 (15-37) U/L ALT 19 (14-59) U/L Alkaline Phosphatase 81 (46-116) U/L CK-MB (CK-2) 2.9 (0-3.6) ng/ml Troponin I 0.138 H* (0.00-0.056) ng/mL C-Reactive Protein 2.0 H* (<1.0) mg/dL NT-Pro-B Natriuret Pep (0-450) pg/mL Total Protein 8.2 (6.4-8.2) g/dl Albumin 3.7 (3.4-5.0) g/dl Globulin 4.5 gm/dL Albumin/Globulin Ratio 0.8 L (1-2) SARS-CoV-2 RNA (PRIYA) (NEGATIVE) 03/01/21 03/01/21 03/01/21 Range/Units 13:55 13:55 14:11 WBC (3.98-10.04) K/mm3 RBC (3.98-5.22) M/mm3 Hgb (11.2-15.7) gm/dl Hct (34.1-44.9) % MCV (79.4-94.8) fl MCH (25.6-32.2) pg MCHC (32.2-35.5) g/dl RDW Std Deviation (36.4-46.3) fL Plt Count (182-369) K/mm3 MPV (9.4-12.3) fl Neut % (Auto) (34.0-71.1) % Lymph % (Auto) (19.3-51.7) % [place] % (Auto) (4.7-12.5) % Eos % (Auto) (0.7-5.8) Baso % (Auto) (0.1-1.2) % Neut # (Auto) (1.56-6.13) K/mm3 Lymph # (Auto) (1.18-3.74) K/mm3 [place] # (Auto) (0.24-0.36) K/mm3 Eos # (Auto) (0.04-0.36) K/mm3 Baso # (Auto) (0.01-0.08) K/mm3 Manual Slide Review PT (9.7-12.0) SECONDS INR APTT 28.3 (21.7-31.4) SECONDS Sodium (136-145) mEq/L Potassium (3.5-5.1) mEq/L Chloride (98-107) mEq/L Carbon Dioxide (21-32) mEq/L Anion Gap (5-15) BUN (7-18) mg/dL Creatinine (0.55-1.02) mg/dL Est Cr Clr Drug Dosing mL/min Estimated GFR (MDRD) (>60) mL/min BUN/Creatinine Ratio (14-18) Glucose (83-115) mg/dL Lactic Acid 1.7 (0.4-2.0) mmol/L Calcium (8.5-10.1) mg/dL Magnesium (1.8-2.4) mg/dl Total Bilirubin (0.2-1.0) mg/dL AST (15-37) U/L ALT (14-59) U/L Alkaline Phosphatase (46-116) U/L CK-MB (CK-2) (0-3.6) ng/ml Troponin I (0.00-0.056) ng/mL C-Reactive Protein (<1.0) mg/dL NT-Pro-B Natriuret Pep 2754 H (0-450) pg/mL Total Protein (6.4-8.2) g/dl Albumin (3.4-5.0) g/dl Globulin gm/dL Albumin/Globulin Ratio (1-2) SARS-CoV-2 RNA (PRIYA) (NEGATIVE) 03/01/21 Range/Units 15:00 WBC (3.98-10.04) K/mm3 RBC (3.98-5.22) M/mm3 Hgb (11.2-15.7) gm/dl Hct (34.1-44.9) % MCV (79.4-94.8) fl MCH (25.6-32.2) pg MCHC (32.2-35.5) g/dl RDW Std Deviation (36.4-46.3) fL Plt Count (182-369) K/mm3 MPV (9.4-12.3) fl Neut % (Auto) (34.0-71.1) % Lymph % (Auto) (19.3-51.7) % [place] % (Auto) (4.7-12.5) % Eos % (Auto) (0.7-5.8) Baso % (Auto) (0.1-1.2) % Neut # (Auto) (1.56-6.13) K/mm3 Lymph # (Auto) (1.18-3.74) K/mm3 [place] # (Auto) (0.24-0.36) K/mm3 Eos # (Auto) (0.04-0.36) K/mm3 Baso # (Auto) (0.01-0.08) K/mm3 Manual Slide Review PT (9.7-12.0) SECONDS INR APTT (21.7-31.4) SECONDS Sodium (136-145) mEq/L Potassium (3.5-5.1) mEq/L Chloride (98-107) mEq/L Carbon Dioxide (21-32) mEq/L Anion Gap (5-15) BUN (7-18) mg/dL Creatinine (0.55-1.02) mg/dL Est Cr Clr Drug Dosing mL/min Estimated GFR (MDRD) (>60) mL/min BUN/Creatinine Ratio (14-18) Glucose (83-115) mg/dL Lactic Acid (0.4-2.0) mmol/L Calcium (8.5-10.1) mg/dL Magnesium (1.8-2.4) mg/dl Total Bilirubin (0.2-1.0) mg/dL AST (15-37) U/L ALT (14-59) U/L Alkaline Phosphatase (46-116) U/L CK-MB (CK-2) (0-3.6) ng/ml Troponin I (0.00-0.056) ng/mL C-Reactive Protein (<1.0) mg/dL NT-Pro-B Natriuret Pep (0-450) pg/mL Total Protein (6.4-8.2) g/dl Albumin (3.4-5.0) g/dl Globulin gm/dL Albumin/Globulin Ratio (1-2) SARS-CoV-2 RNA (PRIYA) Negative (NEGATIVE) Meds: Medications Generic Name Dose Route Start Last Admin Trade Name Freq PRN Reason Stop Dose Admin Acetaminophen 650 mg 03/01/21 16:17 Acetaminophen 325 Mg Tab PO Q4H PRN Pain (Mild 1-3)/fever Aspirin 81 mg 03/02/21 09:00 Aspirin 81 Mg Tab.Ec PO DAILY [facility] Donepezil HCl 5 mg 03/02/21 09:00 Donepezil 10 Mg Tab PO DAILY [facility] Gabapentin 100 mg 03/01/21 21:00 Gabapentin 100 Mg Cap PO TID [facility] Amiodarone HCl/Dextrose 360 mg in 200 mls @ 33.333 mls/hr 03/01/21 16:15 Nexterone In Dextrose 360 Mg/200 Ml IV ASDIRECTED [facility] Protocol Meclizine HCl 12.5 mg 03/01/21 21:00 Meclizine 12.5 Mg Tab PO BID [facility] Metoprolol Succinate 50 mg 03/02/21 09:00 Metoprolol Succinate 50 Mg Tab.Er PO DAILY [facility] Non-Formulary Medication 1 gram 03/01/21 21:00 Colestipol PO BID [facility] Non-Formulary Medication 20 mg 03/02/21 09:00 Omeprazole Magnesium [Prilosec Otc] PO DAILY [facility] Non-Formulary Medication 20 meq 03/02/21 09:00 Potassium Chloride [Potassium Chloride] PO DAILY [facility] Ondansetron HCl 4 mg 03/01/21 16:17 Ondansetron 4 Mg Tab.Dis PO Q6H PRN nausea, able to take PO Oxycodone HCl 5 mg 03/01/21 16:17 Oxycodone 5 Mg Tab PO Q4H PRN Pain (moderate 4-6) Rivaroxaban 15 mg 03/01/21 17:00 Rivaroxaban 15 Mg Tab PO 1700 [facility] Sertraline HCl 25 mg 03/02/21 09:00 Sertraline 25 Mg Tab PO DAILY [facility] Sodium Chloride 10 ml 03/01/21 16:17 Sodium Chloride 0.9% 10 Ml Syringe FLUSH ASDIRECTED PRN Keep Vein Open Discontinued Medications Generic Name Dose Route Start Last Admin Trade Name Freq PRN Reason Stop Dose Admin Diltiazem HCl 10 mg 03/01/21 13:55 03/01/21 14:11 Diltiazem 50 Mg/10 Ml Sdv IVPUSH 03/01/21 13:56 10 mg ONETIME ONE Administration Diltiazem HCl 10 mg 03/01/21 14:45 03/01/21 14:58 Diltiazem 50 Mg/10 Ml Sdv IVPUSH 03/01/21 14:46 10 mg ONETIME ONE Administration Diltiazem HCl 10 mg 03/01/21 15:49 03/01/21 15:57 Diltiazem 50 Mg/10 Ml Sdv IVPUSH 03/01/21 15:50 10 mg ONETIME ONE Administration Enoxaparin Sodium 60 mg 03/01/21 14:02 Enoxaparin 60 Mg/0.6 Ml Syringe SUBCUT 03/01/21 14:03 ONETIME ONE Diltiazem HCl 100 mg/ Sodium 100 mls @ 10 mls/hr 03/01/21 14:00 03/01/21 15:10 Chloride IV 15 mg/hr ASDIRECTED CLIF 15 mls/hr Infusion 10 MG/HR - Radiology Interpretation Free Text/Narrative:: 89-year-old female presents to the ED in the accompaniment of her elderly and I believe a granddaughter or daughter. They just got back from [place] after driving 3 days to get here. He came him early from their vacation because she was not doing very well. They went down in November. She has a history of chronic atrial fibrillation and is on Xarelto daily. She arrives in the ED complaining of chest pressure discomfort and shortness of breath. She was found to be in atrial fibrillation with RVR up to 220 bpm. She has flipped her T waves from V4 to V6 suggestive of ischemia. Plan Cardizem 10 mg IV bolus and then 10 mg/h drip. BP is 148/100 to start with. - Re-Assessments/Exams Free Text/Narrative Re-Assessment/Exam: 03/01/21 15:49 rate is back up in the 150s. Blood pressure is 110/75. Will repeat ties IM 10 mg IV bolus. She is already on a 15 mg/h drip.White count is 8.03 with 76.7% neutrophils. Hemoglobin is 12.4 with hematocrit of 38.0. MCV is slightly elevated 95.7. Platelet count 311,000. PT is 11.0 with an INR of 1.03. PTT is 28.3. Sodium 134 with a potassium of 4.0. Chloride 96 with a bicarb of 25. Anion gap is 17.0. BUN is 35 with a creatinine of 1.5 and GFR of only 33 i.e. stage IIIb renal insufficiency. BUN/creatinine ratio is 23.3. Glucose 108 lactic acid 1.7. Calcium 9.8. Magnesium 2.2. Liver function normal. CK-MB fraction is 2.9. Troponin I is slightly elevated at 0.138 felt to be due to stress reaction as well as congestive heart failure. Ideally it should be trended to rule out an SD. However the patient has severe dementia and family would not wish her to go through any heroic treatment plans. C- reactive protein is 2.0 BNP is 2754 total protein is 8.2 with an albumin fraction of 3.7. Portable chest x-ray reveals a very large right-sided pleural effusion with only about 20% of the lung remaining in the apex. This blurs the right heart shadow. It is suspect that she has mild to moderate cardiomegaly. The left lung is completely free of fluid worrisome for possible malignancy involving the right lung. 03/01/21 15:[address] Usman Wells on-call hospitalist and he is willing to admit the patient to the intensive care unit for control of her atrial fibrillation with rapid ventricular response which is precipitated congestive heart failure. She also has a very large right-sided pleural effusion with only about 20% of her lung available for aeration. Suspect cardiomegaly but unable to tell for sure due to the large right-sided pleural effusion. 03/01/21 16:04 I have discussed the fact that her heart rate is simply not coming under good control with Cardizem numerous boluses IV and Cardizem drip maxed out at 15 mg an hour. Therefore we will switch to amiodarone starting with a drip of 360 mg over the next 6 hours. He is 60 mg an hour. She can be treated with a bolus of amiodarone if needed while in the intensive care unit.The differential on the slide reveals 1+ anisocytosis 1+ Miicroytosis and 1+ ovalocyte Departure - Departure Time of Disposition: 16:05 Disposition: Admitted As Inpatient 67 Condition: Poor, Serious Clinical Impression: Chronic atrial fibrillation with rapid ventricular response, Pleural effusion on right, Hypoxia, Elevated troponin I measurement, Chronic renal insufficiency, stage III (moderate) Congestive heart failure Qualifiers: Heart failure type: unspecified Heart failure chronicity: acute on chronic Qualified Code(s): I50.9 - Heart failure, unspecified Dementia Qualifiers: Dementia type: Alzheimer's Alzheimer's disease onset: late-onset Dementia behavioral disturbance: without behavioral disturbance Qualified Code(s): G30.1 - Alzheimer's disease with late onset Sepsis Event Note (ED) - Focused Exam Vital Signs: Vital Signs Temp Pulse Resp BP Pulse Ox 03/01/21 13:54 36.8 C 176 H 21 H 148/100 H 91 L - My Orders Last 24 Hours: My Active Orders 03/01/21 13:51 Oxygen Therapy [RC] ASDIRECTED URINALYSIS W/MICROSCOPIC [UA W/MICROSCOPIC] [URIN] Stat 03/01/21 13:52 Blood Culture x2 Reflex Set [OM.PC] Stat 03/01/21 14:11 CULTURE BLOOD [BC] Stat 03/01/21 14:22 CULTURE BLOOD [BC] Stat 03/01/21 14:30 Oxygen Therapy [RC] ASDIRECTED 03/01/21 16:01 Patient Status [ADT] Routine 03/01/21 16:10 Admission Status [Patient Status] [ADT] Routine 03/01/21 16:15 Amiodarone In Dextrose,Iso-Osm [Nexterone in Dextrose 360 MG/200 ML] 360 mg in 200 ml IV ASDIRECTED - Assessment/Plan Last 24 Hours: My Active Orders 03/01/21 13:51 Oxygen Therapy [RC] ASDIRECTED URINALYSIS W/MICROSCOPIC [UA W/MICROSCOPIC] [URIN] Stat 03/01/21 13:52 Blood Culture x2 Reflex Set [OM.PC] Stat 03/01/21 14:11 CULTURE BLOOD [BC] Stat 03/01/21 14:22 CULTURE BLOOD [BC] Stat 03/01/21 14:30 Oxygen Therapy [RC] ASDIRECTED 03/01/21 16:01 Patient Status [ADT] Routine 03/01/21 16:10 Admission Status [Patient Status] [ADT] Routine 03/01/21 16:15 Amiodarone In Dextrose,Iso-Osm [Nexterone in Dextrose 360 MG/200 ML] 360 mg in 200 ml IV ASDIRECTED
[2021-03-01] MEDS ORDERED: Enoxaparin 60 MG/0.6 ML Syringe SUBCUT ONE (14:02)
--- NOTE | 2021-03-01 14:39 | CR ---
Chest: Portable view of the chest was obtained. Comparison: Prior chest x-ray of 06/21/17. Large right-sided pleural effusion is seen with a small amount of aerated right upper lung remaining. Left lung is clear. Small metallic densities are stable within the left chest. Heart size is difficult to evaluate as it's obscured on the right side. Slight tortuosity of the thoracic aorta is seen. Bony structures are grossly intact. Impression: 1. Large right-sided pleural effusion. 2. Other findings which are believed to be stable from previous exam. Diagnostic code #3
[2021-03-01] MEDS ORDERED: Sodium Chloride 0.9% 10 ML Syringe FLUSH PRN (16:17)
[2021-03-01] MEDS ORDERED: oxyCODONE 5 MG Tab PO PRN (16:17)
[2021-03-01] MEDS ORDERED: Ondansetron 4 MG Tab.DIS PO PRN (16:17)
[2021-03-01] MEDS ORDERED: Acetaminophen 325 MG Tab PO PRN (16:17)
--- NOTE | 2021-03-01 16:23 | PCM.HP.2 ---
H&P History of Present Illness - General Date of Service: 03/01/21 Admit Problem/Dx: Admission Diagnosis/Problem Admission Diagnosis/Problem Atrial fibrillation with rapid ventricular response Source of Information: Patient, Family, Old Records History Limitations: Reports: Other (Advanced dementia) - History of Present Illness Initial Comments - Free Text/Narative: The patient is an 89-year-old lady who has presented to the emergency department with her family with regards to chest pain shortness of breath and a pulse rate of 170. The patient has rather advanced dementia and most of the information is been taken from the previous charting as well as from her family members. The patient has a history of atrial fibrillation and recently was diagnosed with a pleural effusion on the right side which apparently has gotten worse. The p abdulaziz's family also reports that she has been having very poor appetite and has not been eating or drinking enough fluids. The patient and her just recently returned from [place]. They spend serrato in [place]. The patient's family also says that she has had some problems with nausea and vomiting and some diarrhea as well. The patient herself is denied any pain or medical problems. Further, the patient has a history of congestive heart failure with preserved ejection fraction and stage III chronic kidney disease. Onset of Symptoms: Reports: Gradual Duration of Symptoms: Reports: Week(s): Location: Reports: Chest Severity: Mild Improves with: Reports: Rest Worsens with: Reports: Breathing Context: Reports: Travel Associated Symptoms: Reports: Chest Pain. Denies: Cough - Related Data Allergies/Adverse Reactions: Allergies Allergy/AdvReac Type Severity Reaction Status Date / Time Penicillins Allergy Rash Verified 03/12/19 23:25 prednisone Allergy Rash Verified 03/12/19 23:25 lisinopril AdvReac Cough Verified 03/12/19 23:25 Home Medications: Home Meds Aspirin [Halfprin] 81 mg PO DAILY 03/01/21 [History] Colestipol [Colestipol HCl] 1 gram PO BID 03/01/21 [History] Cyanocobalamin (Vitamin B-12) [Vitamin B-12] 1,000 mcg PO DAILY 03/01/21 [History] Donepezil [Aricept] 5 mg PO DAILY 03/01/21 [History] Gabapentin [Neurontin] 100 mg PO TID 03/01/21 [History] Meclizine [Antivert] 12.5 mg PO BID 03/01/21 [History] Metoprolol Succinate 50 mg PO DAILY 03/01/21 [History] Multivitamin [Multivitamins] 1 tab PO DAILY 03/01/21 [History] Omeprazole Magnesium [Prilosec Otc] 20 mg PO DAILY 03/01/21 [History] Ondansetron [Zofran ODT] 4 mg PO DAILY 03/01/21 [History] Potassium Chloride 20 meq PO DAILY 03/01/21 [History] Rivaroxaban [Xarelto] 15 mg PO 1700 03/01/21 [History] Rosuvastatin [Crestor] 10 mg PO DAILY 03/01/21 [History] Sertraline [Zoloft] 25 mg PO DAILY 03/01/21 [History] Past Medical History HEENT History: Reports: Cataract, Impaired Vision, Other (See Below) Other HEENT History: Dentures, disease of vocal cords, dysphasia Cardiovascular History: Reports: Afib (Is on Xarelto. It is unclear whether she has intermittent atrial fibrillation or chronic A. fib.), High Cholesterol, Hypertension Other Cardiovascular History: hypokalemia 2.8-started on po potassium nov 2020 Respiratory History: Reports: Other (See Below) Other Respiratory History: dyspnea - severe snoring;pleural effusion right side nov 2020 Gastrointestinal History: Reports: Chronic Diarrhea, GERD, Hiatal Hernia Genitourinary History: Reports: Renal Calculus, Urinary Incontinence [employer] History: Reports: Musculoskeletal History: Reports: Osteoarthritis Other Musculoskeletal History: limb pain, hallux valgus Neurological History: Reports: Other (See Below) Other Neuro History: dementia Psychiatric History: Reports: Dementia Endocrine/Metabolic History: Reports: None Oncologic (Cancer) History: Reports: Other (See Below) Other Oncologic History: skin Dermatologic History: Reports: Melanoma Other Dermatologic History: seborrheic keratosis, L forehead actinic kertosis - Infectious Disease History Infectious Disease History: Reports: Shingles - Past Surgical History HEENT Surgical History: Reports: Adenoidectomy, Cataract Surgery, Tonsillectomy GI Surgical History: Reports: Colonoscopy, Other (See Below) Female Surgical History: Reports: Hysterectomy, Salpingo-Oophorectomy Social & Family History - Family History Family Medical History: No Pertinent Family History - Tobacco Use Tobacco Use Status *Q: Former Tobacco User Used Tobacco, but Quit: Yes Month/Year Tobacco Last Used: 35 yr - Caffeine Use Caffeine Use: Reports: Coffee, Soda, Tea Other Caffeine Use: 2/ per day - Recreational Drug Use Recreational Drug Use: No - Living Situation & Occupation Living situation: Reports: Occupation: Retired H&P Review of Systems - Review of Systems: Review Of Systems: Unable To Obtain Reason Not Obtained: Advanced dementia, patient oriented to person only Exam - Exam Exam: See Below - Vital Signs Vital Signs: Last Vital Signs Temp 36.8 C 03/01/21 13:54 Pulse 176 H 03/01/21 13:54 Resp 21 H 03/01/21 13:54 BP 148/100 H 03/01/21 13:54 Pulse Ox 91 L 03/01/21 13:54 Weight: 56.926 kg - Exam Quality Assessment: Supplemental Oxygen General: Alert, Cooperative. No: Oriented (Alert to person only) HEENT: Conjunctiva Clear, EACs Clear, EOMI, Mucosa Moist & [place] (Dentures), PERRLA Neck: Supple, Trachea Midline Lungs: Decreased Breath Sounds (Predominantly on the right side), Rales Cardiovascular: Irregular Rhythm, Tachycardia GI/Abdominal Exam: Normal Bowel Sounds, Soft, Non-Tender, No Distention (Female) Exam: Deferred Rectal (Female) Exam: Deferred Back Exam: Normal Inspection. No: Full Range of Motion (Age-appropriate) Extremities: Pedal Edema (+1 pedal edema). No: Normal Inspection (Age- appropriate) Skin: Warm, Dry, Intact Neurological: Cranial Nerves Intact, Normal Speech Neuro Extensive - Mental Status: Alert. No: Oriented x3 Neuro Extensive - Motor, Sensory, Reflexes: CN II-XII Intact Psychiatric: Alert, Normal Affect, Normal Mood - Patient Data Lab Results Last 24 hrs: Laboratory Results - last 24 hr 03/01/21 03/01/21 03/01/21 Range/Units 13:55 13:55 13:55 WBC 8.03 (3.98-10.04) K/mm3 RBC 3.97 L (3.98-5.22) M/mm3 Hgb 12.4 D (11.2-15.7) gm/dl Hct 38.0 (34.1-44.9) % MCV 95.7 H (79.4-94.8) fl MCH 31.2 (25.6-32.2) pg MCHC 32.6 (32.2-35.5) g/dl RDW Std Deviation 46.4 H (36.4-46.3) fL Plt Count 311 D (182-369) K/mm3 MPV 10.8 (9.4-12.3) fl Neut % (Auto) 76.7 H (34.0-71.1) % Lymph % (Auto) 9.8 L (19.3-51.7) % [place] % (Auto) 12.3 (4.7-12.5) % Eos % (Auto) 0.9 (0.7-5.8) Baso % (Auto) 0.2 (0.1-1.2) % Neut # (Auto) 6.15 H (1.56-6.13) K/mm3 Lymph # (Auto) 0.79 L (1.18-3.74) K/mm3 [place] # (Auto) 0.99 H (0.24-0.36) K/mm3 Eos # (Auto) 0.07 (0.04-0.36) K/mm3 Baso # (Auto) 0.02 (0.01-0.08) K/mm3 Manual Slide Review Abnormal smear PT 11.0 (9.7-12.0) SECONDS INR 1.03 APTT (21.7-31.4) SECONDS Sodium 134 L (136-145) mEq/L Potassium 4.0 (3.5-5.1) mEq/L Chloride 96 L (98-107) mEq/L Carbon Dioxide 25 (21-32) mEq/L Anion Gap 17.0 H (5-15) BUN 35 H (7-18) mg/dL Creatinine 1.5 H (0.55-1.02) mg/dL Est Cr Clr Drug Dosing 21.03 mL/min Estimated GFR (MDRD) 33 (>60) mL/min BUN/Creatinine Ratio 23.3 H (14-18) Glucose 108 (83-115) mg/dL Lactic Acid (0.4-2.0) mmol/L Calcium 9.8 (8.5-10.1) mg/dL Magnesium 2.2 (1.8-2.4) mg/dl Total Bilirubin 0.6 (0.2-1.0) mg/dL AST 25 (15-37) U/L ALT 19 (14-59) U/L Alkaline Phosphatase 81 (46-116) U/L CK-MB (CK-2) 2.9 (0-3.6) ng/ml Troponin I 0.138 H* (0.00-0.056) ng/mL C-Reactive Protein 2.0 H* (<1.0) mg/dL NT-Pro-B Natriuret Pep (0-450) pg/mL Total Protein 8.2 (6.4-8.2) g/dl Albumin 3.7 (3.4-5.0) g/dl Globulin 4.5 gm/dL Albumin/Globulin Ratio 0.8 L (1-2) SARS-CoV-2 RNA (PRIYA) (NEGATIVE) 03/01/21 03/01/21 03/01/21 Range/Units 13:55 13:55 14:11 WBC (3.98-10.04) K/mm3 RBC (3.98-5.22) M/mm3 Hgb (11.2-15.7) gm/dl Hct (34.1-44.9) % MCV (79.4-94.8) fl MCH (25.6-32.2) pg MCHC (32.2-35.5) g/dl RDW Std Deviation (36.4-46.3) fL Plt Count (182-369) K/mm3 MPV (9.4-12.3) fl Neut % (Auto) (34.0-71.1) % Lymph % (Auto) (19.3-51.7) % [place] % (Auto) (4.7-12.5) % Eos % (Auto) (0.7-5.8) Baso % (Auto) (0.1-1.2) % Neut # (Auto) (1.56-6.13) K/mm3 Lymph # (Auto) (1.18-3.74) K/mm3 [place] # (Auto) (0.24-0.36) K/mm3 Eos # (Auto) (0.04-0.36) K/mm3 Baso # (Auto) (0.01-0.08) K/mm3 Manual Slide Review PT (9.7-12.0) SECONDS INR APTT 28.3 (21.7-31.4) SECONDS Sodium (136-145) mEq/L Potassium (3.5-5.1) mEq/L Chloride (98-107) mEq/L Carbon Dioxide (21-32) mEq/L Anion Gap (5-15) BUN (7-18) mg/dL Creatinine (0.55-1.02) mg/dL Est Cr Clr Drug Dosing mL/min Estimated GFR (MDRD) (>60) mL/min BUN/Creatinine Ratio (14-18) Glucose (83-115) mg/dL Lactic Acid 1.7 (0.4-2.0) mmol/L Calcium (8.5-10.1) mg/dL Magnesium (1.8-2.4) mg/dl Total Bilirubin (0.2-1.0) mg/dL AST (15-37) U/L ALT (14-59) U/L Alkaline Phosphatase (46-116) U/L CK-MB (CK-2) (0-3.6) ng/ml Troponin I (0.00-0.056) ng/mL C-Reactive Protein (<1.0) mg/dL NT-Pro-B Natriuret Pep 2754 H (0-450) pg/mL Total Protein (6.4-8.2) g/dl Albumin (3.4-5.0) g/dl Globulin gm/dL Albumin/Globulin Ratio (1-2) SARS-CoV-2 RNA (PRIYA) (NEGATIVE) 03/01/21 Range/Units 15:00 WBC (3.98-10.04) K/mm3 RBC (3.98-5.22) M/mm3 Hgb (11.2-15.7) gm/dl Hct (34.1-44.9) % MCV (79.4-94.8) fl MCH (25.6-32.2) pg MCHC (32.2-35.5) g/dl RDW Std Deviation (36.4-46.3) fL Plt Count (182-369) K/mm3 MPV (9.4-12.3) fl Neut % (Auto) (34.0-71.1) % Lymph % (Auto) (19.3-51.7) % [place] % (Auto) (4.7-12.5) % Eos % (Auto) (0.7-5.8) Baso % (Auto) (0.1-1.2) % Neut # (Auto) (1.56-6.13) K/mm3 Lymph # (Auto) (1.18-3.74) K/mm3 [place] # (Auto) (0.24-0.36) K/mm3 Eos # (Auto) (0.04-0.36) K/mm3 Baso # (Auto) (0.01-0.08) K/mm3 Manual Slide Review PT (9.7-12.0) SECONDS INR APTT (21.7-31.4) SECONDS Sodium (136-145) mEq/L Potassium (3.5-5.1) mEq/L Chloride (98-107) mEq/L Carbon Dioxide (21-32) mEq/L Anion Gap (5-15) BUN (7-18) mg/dL Creatinine (0.55-1.02) mg/dL Est Cr Clr Drug Dosing mL/min Estimated GFR (MDRD) (>60) mL/min BUN/Creatinine Ratio (14-18) Glucose (83-115) mg/dL Lactic Acid (0.4-2.0) mmol/L Calcium (8.5-10.1) mg/dL Magnesium (1.8-2.4) mg/dl Total Bilirubin (0.2-1.0) mg/dL AST (15-37) U/L ALT (14-59) U/L Alkaline Phosphatase (46-116) U/L CK-MB (CK-2) (0-3.6) ng/ml Troponin I (0.00-0.056) ng/mL C-Reactive Protein (<1.0) mg/dL NT-Pro-B Natriuret Pep (0-450) pg/mL Total Protein (6.4-8.2) g/dl Albumin (3.4-5.0) g/dl Globulin gm/dL Albumin/Globulin Ratio (1-2) SARS-CoV-2 RNA (PRIYA) Negative (NEGATIVE) Result Diagrams: 03/01/21 13:55 03/01/21 13:55 Sepsis Event Note - Evaluation Sepsis Screening Result: No Definite Risk - Focused Exam Vital Signs: Vital Signs Temp Pulse Resp BP Pulse Ox 03/01/21 13:54 36.8 C 176 H 21 H 148/100 H 91 L *Q Meaningful Use (ADM) - VTE *Q VTE Mechanical Contraindications *Q: At Risk for Falls VTE Pharmacological Contraindications *Q: Risk of Bleeding - Problem List (1) Chronic atrial fibrillation with rapid ventricular response SNOMED Code(s): 596754980, 282198971759686 ICD Code: I48.20 - CHRONIC ATRIAL FIBRILLATION, UNSPECIFIED Status: Chronic Priority: High Current Visit: Yes (2) Chronic renal insufficiency, stage III (moderate) SNOMED Code(s): 073128076 ICD Code: N18.30 - CHRONIC KIDNEY DISEASE, STAGE 3 UNSPECIFIED Status: Chronic Priority: High Current Visit: Yes Qualifiers: Chronic kidney disease stage 3 subtype: stage 3b (GFR 30-44) Qualified Code(s): N18.32 - Chronic kidney disease, stage 3b (3) Dementia SNOMED Code(s): 42875702 ICD Code: F03.90 - UNSPECIFIED DEMENTIA WITHOUT BEHAVIORAL DISTURBANCE Status: Chronic Priority: Medium Current Visit: Yes Qualifiers: Dementia type: Alzheimer's Alzheimer's disease onset: late-onset Dementia behavioral disturbance: without behavioral disturbance Qualified Code(s): G30.1 - Alzheimer's disease with late onset; F02.80 - Dementia in other diseases classified elsewhere without behavioral disturbance (4) Elevated troponin I measurement SNOMED Code(s): 385697406 ICD Code: R77.8 - OTHER SPECIFIED ABNORMALITIES OF PLASMA PROTEINS Status: Acute Priority: High Current Visit: Yes (5) Pleural effusion on right SNOMED Code(s): 90100013 ICD Code: J90 - PLEURAL EFFUSION, NOT ELSEWHERE CLASSIFIED Status: Acute Priority: High Current Visit: Yes Problem List Initiated/Reviewed/Updated: Yes Orders Last 24hrs: Active Orders 24 hr Category Date Time Status Admission Status [Patient Status] [ADT] Routine ADT 03/01/21 16:10 Active Patient Status [ADT] Routine ADT 03/01/21 16:01 Active Cardiac Monitoring [RC] CONTINUOUS Care 03/01/21 16:18 Ordered Notify Provider Consults [RC] ASDIRECTED Care 03/01/21 16:21 Ordered Oxygen Therapy [RC] ASDIRECTED Care 03/01/21 13:51 Active Oxygen Therapy [RC] ASDIRECTED Care 03/01/21 14:30 Active Oxygen Therapy [RC] PRN Care 03/01/21 16:17 Ordered Up With Assistance [RC] ASDIRECTED Care 03/01/21 16:17 Ordered Vital Signs [RC] Q4H Care 03/01/21 16:17 Ordered Consult to Physician [CONS] Routine Cons 03/01/21 16:17 Ordered OT Evaluation and Treatment [CONS] Routine Cons 03/01/21 16:17 Ordered PT Evaluation and Treatment [CONS] Routine Cons 03/01/21 16:17 Ordered Heart Healthy Diet [DIET] Diet 03/01/21 Dinner Ordered C-REACTIVE PROTEIN [CHEM] AM Lab 03/02/21 05:11 Ordered CBC WITH AUTO DIFF [HEME] AM Lab 03/02/21 05:11 Ordered COMPREHENSIVE METABOLIC PN,CMP [CHEM] AM Lab 03/02/21 05:11 Ordered CULTURE BLOOD [BC] Stat Lab 03/01/21 14:11 Received CULTURE BLOOD [BC] Stat Lab 03/01/21 14:22 Received MAGNESIUM [CHEM] AM Lab 03/02/21 05:11 Ordered URINALYSIS W/MICROSCOPIC [UA W/MICROSCOPIC] [URIN] Stat Lab 03/01/21 13:51 Ordered Acetaminophen [TylenoL] Med 03/01/21 16:17 Ordered 650 mg PO Q4H PRN Amiodarone In Dextrose,Iso-Osm [Nexterone in Dextrose Med 03/01/21 16:15 Active 360 MG/200 ML] 360 mg in 200 ml IV ASDIRECTED Aspirin [Halfprin] Med 03/02/21 09:00 Ordered 81 mg PO DAILY Colestipol Med 03/01/21 21:00 Ordered 1 gram PO BID Donepezil Med 03/02/21 09:00 Ordered 5 mg PO DAILY Gabapentin [Neurontin] Med 03/01/21 21:00 Ordered 100 mg PO TID Meclizine [Antivert] Med 03/01/21 21:00 Ordered 12.5 mg PO BID Metoprolol Succinate [Toprol XL] Med 03/02/21 09:00 Ordered 50 mg PO DAILY Omeprazole Magnesium [Prilosec Otc] Med 03/02/21 09:00 Ordered 20 mg PO DAILY Ondansetron [Zofran ODT] Med 03/01/21 16:17 Ordered 4 mg PO Q6H PRN Potassium Chloride [Potassium Chloride] Med 03/02/21 09:00 Ordered 20 meq PO DAILY Rivaroxaban [Xarelto] Med 03/01/21 17:00 Ordered 15 mg PO 1700 Sertraline [Zoloft] Med 03/02/21 09:00 Ordered 25 mg PO DAILY Sodium Chloride 0.9% [Saline Flush] Med 03/01/21 16:17 Ordered 10 ml FLUSH ASDIRECTED PRN oxyCODONE Med 03/01/21 16:17 Ordered 5 mg PO Q4H PRN Blood Culture x2 Reflex Set [OM.PC] Stat Ot 03/01/21 13:52 Ordered Saline Lock Insert [OM.PC] Routine Oth 03/01/21 16:17 Ordered VTE Mechanical Contraindications [AST] Per Unit Routine Ot 03/01/21 16:17 Ordered VTE Pharmacological Contraindications [AST] Per Unit Oth 03/01/21 16:17 Ordered Routine Resuscitation Status Routine Resus Stat 03/01/21 16:17 Ordered Medication Orders Aspirin (Aspirin 81 Mg Tab.Ec) 81 mg PO DAILY CLIF Gabapentin (Gabapentin 100 Mg Cap) 100 mg PO TID CLIF Amiodarone HCl/Dextrose (Nexterone In Dextrose 360 Mg/200 Ml) 360 mg in 200 mls @ 33.333 mls/hr IV ASDIRECTED CLIF; Protocol Meclizine HCl (Meclizine 12.5 Mg Tab) 12.5 mg PO BID CLIF Metoprolol Succinate (Metoprolol Succinate 50 Mg Tab.Er) 50 mg PO DAILY CLIF Non-Formulary Medication (Colestipol) 1 gram PO BID CLIF Non-Formulary Medication (Donepezil) 5 mg PO DAILY CLIF Non-Formulary Medication (Omeprazole Magnesium [Prilosec Otc]) 20 mg PO DAILY CLIF Non-Formulary Medication (Potassium Chloride [Potassium Chloride]) 20 meq PO DAILY CLIF Rivaroxaban (Rivaroxaban 15 Mg Tab) 15 mg PO 1700 CLIF Sertraline HCl (Sertraline 25 Mg Tab) 25 mg PO DAILY [facility] Assessment/Plan Comment:: The patient is an 89-year-old lady who has been admitted to the intensive care unit as an inpatient due to her requiring amiodarone to help control her heart rate. The patient also has a very large right-sided pleural effusion and Dr. Gomez has been consulted for thoracentesis. Laboratory studies of the pleural fluid will be ordered to help exclude malignancy. I cannot exclude a pneumonia within the effusion. Therefore the patient will be treated as pneumonia with Rocephin renally dosed. The patient is currently taking Xarelto and this will be continued and therefore she will not require extra DVT prophylaxis. If needed will consider SCDs although the patient is a fall risk. Feet laboratory studies have been ordered. Heart healthy diet has been ordered. Because of the patient's congestive heart failure and a BNP at 2700 the patient will have saline lock of her IV and fluids will be monitored. PT OT has also been ordered for the patient. We will adjust the patient's medications as necessary. The patient will also have regular diet as tolerated. The patient is currently in a DO NOT INTUBATE DO NOT RESUSCITATE category. I have discussed possible placement with the patient's family.
[2021-03-01] MEDS: Rivaroxaban 15 MG Tab PO SCH (16:45)
[2021-03-01] MEDS ORDERED: cefTRIAXone 1 GM Vial IM SCH (17:00)
[2021-03-01] MEDS ORDERED: cefTRIAXone 1 GM in Sodium Chloride 0.9% 100 ML IV SCH (18:00)
[2021-03-01] MEDS ORDERED: cefTRIAXone 1 GM Vial IV SCH (18:06)
--- NOTE | 2021-03-01 19:51 | PCM.PRNOTE ---
- Free Text/Narrative Note: Date: 03/01/2021 Procedure: diagnostic/therapeutic right thoracentesis Surgeon: Grupo Gomez MD Indication: large right pleural effusion on chest x-ray with rapid atrial fibrillation, shortness of breath Report: Consent was obtained and witnessed. The patient was positioned sitting upright on edge of the bed. The right chest was prepped with chloraprep and a sterile drape applied. 10 cc 1% lidocaine was injected intradermally at the mid-axillary line on the right even with the 5th rib. The syringe was then passed into the pleural space to ensure aspiration of pleural fluid. Once a proper tract was identified, a small stab incision was made at this site with the 11 blade and a thoracentesis catheter was passed into the pleural space, with a little negative pressure applied using a 5 cc syringe. Once straw colored fluid aspirate was noted, the catheter was advanced into the chest over the guide needle. The needle was removed and the catheter was connected to tubing leading to negative pressure bottles. A total of about 2.5 L straw colored fluid was drained. Samples were sent for microbiology and cytology. A follow up chest x-ray was ordered. The wound appeared hemostatic and a band aid dressing was applied after the catheter was removed while the patient performed Valsalva. She tolerated the procedure well.
--- NOTE | 2021-03-01 20:28 | CR ---
Chest: Portable view of the chest was obtained. Comparison: Previous chest x-ray performed earlier on the same day (2:06 PM). Decrease in pleural effusion on the right side is noted. Small amount of pleural fluid remains. There is a moderately large right-sided pneumothorax being seen which measures around 40 percent. Areas of atelectasis are seen within the right chest. Left lung is clear. Heart size is normal. Tortuous thoracic aorta is seen. Impression: 1. Decreased right-sided pleural effusion with approximately 40 percent right-sided pneumothorax. Small amount of pleural fluid and atelectasis remains. 2. Other portions of the chest are stable. Diagnostic code #5
[2021-03-01] MEDS: Gabapentin 100 MG Cap PO SCH (20:37)
[2021-03-01] MEDS: Meclizine 12.5 MG Tab PO SCH (20:37)
[2021-03-01] MEDS ORDERED: Albuterol/Ipratropium 3.0-0.5 MG/3 ML Neb Soln NEB PRN (22:48)
[2021-03-02] MEDS ORDERED: Lidocaine 1% with EPINEPHrine 1:100,000 10 ML MDV ONE (02:51)
--- NOTE | 2021-03-02 03:05 | PCM.SN.2 ---
- Free Text/Narrative Note: Notified of post-thoracentesis finding of pneumothorax at this time. I did not appreciate this on initial review of the image on the portable machine at the time the film was obtained. I evaluated the patient now, who is resting comfortably and has had no change in her vital signs since prior to the procedure, with SpO2 97% on room air and SBP around 110. Plan on repeat CXR in early AM and will discuss findings with patient and family with plan for small caliber chest tube placement for treatment of pneumothorax at that time. If the patient's clinical picture deteriorates I will place the tube sooner.
[2021-03-02] MEDS: Pantoprazole 40 MG Tab.CR PO SCH (06:55)
--- NOTE | 2021-03-02 06:55 | CR ---
Chest: Portable view of the chest was obtained. Comparison: Prior chest x-ray 03/01/21. Right-sided pneumothorax is seen within the right lung apex and along the right lateral chest. Increasing density is noted within the right lung base most likely representing increasing atelectasis/pneumonia. Small right-sided pleural effusion is seen. Left lung is clear. Heart size and mediastinum are unchanged. Stable radiopacities are seen within the left chest. Bony structures are grossly intact. Impression: 1. Right-sided pneumothorax appearing fairly stable from prior exam. 2. Increasing density within the right lung base compatible with atelectasis/pneumonia. 3. Minimal right-sided pleural effusion. Diagnostic code #3
[2021-03-02] MEDS ORDERED: Lidocaine 1% 10 ML MDV ONE ×2 (07:45→18:13)
--- NOTE | 2021-03-02 07:51 | PCM.PN ---
- General Info Date of Service: 03/02/21 Admission Dx/Problem (Free Text): Admission Diagnosis/Problem Admission Diagnosis/Problem Atrial fibrillation with rapid ventricular response Subjective Update: The patient is an 89-year-old lady who was admitted yesterday evening secondary to A. fib with RVR. The patient was also noted in the emergency department to have a large right-sided pleural effusion. This was drained yesterday and sent for analysis. The patient then had an associated pneumothorax and chest tube was placed today. Repeat chest x-ray shows relatively large mass in the right lung. Patient today says that she is doing okay. She is hungry. The patient has denied any pain. Functional Status: Reports: Pain Controlled, Tolerating Diet - Review of Systems Systems Review Comment:: Not reliable due to the patient's dementia. - Patient Data Vitals - Most Recent: Last Vital Signs Temp 36.4 C 03/02/21 04:00 Pulse 176 H 03/01/21 13:54 Resp 16 03/02/21 06:00 BP 102/87 03/02/21 06:00 Pulse Ox 95 03/02/21 06:00 Weight - Most Recent: 54.476 kg I&O - Last 24 Hours: Intake & Output 03/01/21 03/02/21 03/02/21 22:59 06:59 14:59 Intake Total 698 Output Total 2660 60 Balance -2660 638 Lab Results Last 24 Hours: Laboratory Results - last 24 hr 03/01/21 03/01/21 03/01/21 Range/Units 13:55 13:55 13:55 WBC 8.03 (3.98-10.04) K/mm3 RBC 3.97 L (3.98-5.22) M/mm3 Hgb 12.4 D (11.2-15.7) gm/dl Hct 38.0 (34.1-44.9) % MCV 95.7 H (79.4-94.8) fl MCH 31.2 (25.6-32.2) pg MCHC 32.6 (32.2-35.5) g/dl RDW Std Deviation 46.4 H (36.4-46.3) fL Plt Count 311 D (182-369) K/mm3 MPV 10.8 (9.4-12.3) fl Neut % (Auto) 76.7 H (34.0-71.1) % Lymph % (Auto) 9.8 L (19.3-51.7) % [place] % (Auto) 12.3 (4.7-12.5) % Eos % (Auto) 0.9 (0.7-5.8) Baso % (Auto) 0.2 (0.1-1.2) % Neut # (Auto) 6.15 H (1.56-6.13) K/mm3 Lymph # (Auto) 0.79 L (1.18-3.74) K/mm3 [place] # (Auto) 0.99 H (0.24-0.36) K/mm3 Eos # (Auto) 0.07 (0.04-0.36) K/mm3 Baso # (Auto) 0.02 (0.01-0.08) K/mm3 Manual Slide Review Abnormal smear PT 11.0 (9.7-12.0) SECONDS INR 1.03 APTT (21.7-31.4) SECONDS Sodium 134 L (136-145) mEq/L Potassium 4.0 (3.5-5.1) mEq/L Chloride 96 L (98-107) mEq/L Carbon Dioxide 25 (21-32) mEq/L Anion Gap 17.0 H (5-15) BUN 35 H (7-18) mg/dL Creatinine 1.5 H (0.55-1.02) mg/dL Est Cr Clr Drug Dosing 21.03 mL/min Estimated GFR (MDRD) 33 (>60) mL/min BUN/Creatinine Ratio 23.3 H (14-18) Glucose 108 (83-115) mg/dL Lactic Acid (0.4-2.0) mmol/L Calcium 9.8 (8.5-10.1) mg/dL Magnesium 2.2 (1.8-2.4) mg/dl Total Bilirubin 0.6 (0.2-1.0) mg/dL AST 25 (15-37) U/L ALT 19 (14-59) U/L Alkaline Phosphatase 81 (46-116) U/L CK-MB (CK-2) 2.9 (0-3.6) ng/ml Troponin I 0.138 H* (0.00-0.056) ng/mL C-Reactive Protein 2.0 H* (<1.0) mg/dL NT-Pro-B Natriuret Pep (0-450) pg/mL Total Protein 8.2 (6.4-8.2) g/dl Albumin 3.7 (3.4-5.0) g/dl Globulin 4.5 gm/dL Albumin/Globulin Ratio 0.8 L (1-2) Fluid Type Fluid Glucose mg/dL Fluid Total Protein gm/dl SARS-CoV-2 RNA (PRIYA) (NEGATIVE) 03/01/21 03/01/21 03/01/21 Range/Units 13:55 13:55 14:11 WBC (3.98-10.04) K/mm3 RBC (3.98-5.22) M/mm3 Hgb (11.2-15.7) gm/dl Hct (34.1-44.9) % MCV (79.4-94.8) fl MCH (25.6-32.2) pg MCHC (32.2-35.5) g/dl RDW Std Deviation (36.4-46.3) fL Plt Count (182-369) K/mm3 MPV (9.4-12.3) fl Neut % (Auto) (34.0-71.1) % Lymph % (Auto) (19.3-51.7) % [place] % (Auto) (4.7-12.5) % Eos % (Auto) (0.7-5.8) Baso % (Auto) (0.1-1.2) % Neut # (Auto) (1.56-6.13) K/mm3 Lymph # (Auto) (1.18-3.74) K/mm3 [place] # (Auto) (0.24-0.36) K/mm3 Eos # (Auto) (0.04-0.36) K/mm3 Baso # (Auto) (0.01-0.08) K/mm3 Manual Slide Review PT (9.7-12.0) SECONDS INR APTT 28.3 (21.7-31.4) SECONDS Sodium (136-145) mEq/L Potassium (3.5-5.1) mEq/L Chloride (98-107) mEq/L Carbon Dioxide (21-32) mEq/L Anion Gap (5-15) BUN (7-18) mg/dL Creatinine (0.55-1.02) mg/dL Est Cr Clr Drug Dosing mL/min Estimated GFR (MDRD) (>60) mL/min BUN/Creatinine Ratio (14-18) Glucose (83-115) mg/dL Lactic Acid 1.7 (0.4-2.0) mmol/L Calcium (8.5-10.1) mg/dL Magnesium (1.8-2.4) mg/dl Total Bilirubin (0.2-1.0) mg/dL AST (15-37) U/L ALT (14-59) U/L Alkaline Phosphatase (46-116) U/L CK-MB (CK-2) (0-3.6) ng/ml Troponin I (0.00-0.056) ng/mL C-Reactive Protein (<1.0) mg/dL NT-Pro-B Natriuret Pep 2754 H (0-450) pg/mL Total Protein (6.4-8.2) g/dl Albumin (3.4-5.0) g/dl Globulin gm/dL Albumin/Globulin Ratio (1-2) Fluid Type Fluid Glucose mg/dL Fluid Total Protein gm/dl SARS-CoV-2 RNA (PRIYA) (NEGATIVE) 03/01/21 03/01/21 03/02/21 Range/Units 15:00 19:14 05:25 WBC 7.94 (3.98-10.04) K/mm3 RBC 3.96 L (3.98-5.22) M/mm3 Hgb 12.5 (11.2-15.7) gm/dl Hct 37.9 (34.1-44.9) % MCV 95.7 H (79.4-94.8) fl MCH 31.6 (25.6-32.2) pg MCHC 33.0 (32.2-35.5) g/dl RDW Std Deviation 46.0 (36.4-46.3) fL Plt Count 269 (182-369) K/mm3 MPV 11.0 (9.4-12.3) fl Neut % (Auto) 83.0 H (34.0-71.1) % Lymph % (Auto) 7.9 L (19.3-51.7) % [place] % (Auto) 7.6 (4.7-12.5) % Eos % (Auto) 1.1 (0.7-5.8) Baso % (Auto) 0.3 (0.1-1.2) % Neut # (Auto) 6.59 H (1.56-6.13) K/mm3 Lymph # (Auto) 0.63 L (1.18-3.74) K/mm3 [place] # (Auto) 0.60 H (0.24-0.36) K/mm3 Eos # (Auto) 0.09 (0.04-0.36) K/mm3 Baso # (Auto) 0.02 (0.01-0.08) K/mm3 Manual Slide Review Abnormal smear PT (9.7-12.0) SECONDS INR APTT (21.7-31.4) SECONDS Sodium (136-145) mEq/L Potassium (3.5-5.1) mEq/L Chloride (98-107) mEq/L Carbon Dioxide (21-32) mEq/L Anion Gap (5-15) BUN (7-18) mg/dL Creatinine (0.55-1.02) mg/dL Est Cr Clr Drug Dosing mL/min Estimated GFR (MDRD) (>60) mL/min BUN/Creatinine Ratio (14-18) Glucose (83-115) mg/dL Lactic Acid (0.4-2.0) mmol/L Calcium (8.5-10.1) mg/dL Magnesium (1.8-2.4) mg/dl Total Bilirubin (0.2-1.0) mg/dL AST (15-37) U/L ALT (14-59) U/L Alkaline Phosphatase (46-116) U/L CK-MB (CK-2) (0-3.6) ng/ml Troponin I (0.00-0.056) ng/mL C-Reactive Protein (<1.0) mg/dL NT-Pro-B Natriuret Pep (0-450) pg/mL Total Protein (6.4-8.2) g/dl Albumin (3.4-5.0) g/dl Globulin gm/dL Albumin/Globulin Ratio (1-2) Fluid Type Thoracentesis fluid Fluid Glucose 118 mg/dL Fluid Total Protein 3.7 gm/dl SARS-CoV-2 RNA (PRIYA) Negative (NEGATIVE) 03/02/21 Range/Units 05:25 WBC (3.98-10.04) K/mm3 RBC (3.98-5.22) M/mm3 Hgb (11.2-15.7) gm/dl Hct (34.1-44.9) % MCV (79.4-94.8) fl MCH (25.6-32.2) pg MCHC (32.2-35.5) g/dl RDW Std Deviation (36.4-46.3) fL Plt Count (182-369) K/mm3 MPV (9.4-12.3) fl Neut % (Auto) (34.0-71.1) % Lymph % (Auto) (19.3-51.7) % [place] % (Auto) (4.7-12.5) % Eos % (Auto) (0.7-5.8) Baso % (Auto) (0.1-1.2) % Neut # (Auto) (1.56-6.13) K/mm3 Lymph # (Auto) (1.18-3.74) K/mm3 [place] # (Auto) (0.24-0.36) K/mm3 Eos # (Auto) (0.04-0.36) K/mm3 Baso # (Auto) (0.01-0.08) K/mm3 Manual Slide Review PT (9.7-12.0) SECONDS INR APTT (21.7-31.4) SECONDS Sodium 136 (136-145) mEq/L Potassium 3.6 (3.5-5.1) mEq/L Chloride 100 (98-107) mEq/L Carbon Dioxide 26 (21-32) mEq/L Anion Gap 13.6 (5-15) BUN 34 H (7-18) mg/dL Creatinine 1.3 H (0.55-1.02) mg/dL Est Cr Clr Drug Dosing 24.27 mL/min Estimated GFR (MDRD) 39 (>60) mL/min BUN/Creatinine Ratio 26.2 H (14-18) Glucose 113 (83-115) mg/dL Lactic Acid (0.4-2.0) mmol/L Calcium 9.3 (8.5-10.1) mg/dL Magnesium 1.9 (1.8-2.4) mg/dl Total Bilirubin 0.4 (0.2-1.0) mg/dL AST 21 (15-37) U/L ALT 13 L (14-59) U/L Alkaline Phosphatase 62 (46-116) U/L CK-MB (CK-2) (0-3.6) ng/ml Troponin I (0.00-0.056) ng/mL C-Reactive Protein 2.3 H* (<1.0) mg/dL NT-Pro-B Natriuret Pep (0-450) pg/mL Total Protein 6.4 (6.4-8.2) g/dl Albumin 2.7 L (3.4-5.0) g/dl Globulin 3.7 gm/dL Albumin/Globulin Ratio 0.7 L (1-2) Fluid Type Fluid Glucose mg/dL Fluid Total Protein gm/dl SARS-CoV-2 RNA (PRIYA) (NEGATIVE) Ti Results Last 24 Hours: Microbiology 03/01/21 14:22 Anaerobic Blood Culture - Final Blood - Venous - Lab Draw Med Orders - Current: Current Medications Acetaminophen (Acetaminophen 325 Mg Tab) 650 mg PO Q4H PRN PRN Reason: Pain (Mild 1-3)/fever Albuterol/Ipratropium (Albuterol/Ipratropium 3.0-0.5 Mg/3 Ml Neb Soln) 3 ml NEB Q4HRRT PRN PRN Reason: Congestion Last Admin: 03/01/21 22:59 Dose: 3 ml Documented by: Aspirin (Aspirin 81 Mg Tab.Ec) 81 mg PO DAILY CLIF Ceftriaxone Sodium (Ceftriaxone 1 Gm Vial) 1 gm IVPUSH Q24H CLIF Donepezil HCl (Donepezil 10 Mg Tab) 5 mg PO DAILY CLIF Gabapentin (Gabapentin 100 Mg Cap) 100 mg PO TID CLIF Last Admin: 03/01/21 20:37 Dose: 100 mg Documented by: Amiodarone HCl/Dextrose (Nexterone In Dextrose 360 Mg/200 Ml) 360 mg in 200 mls @ 16.7 mls/hr IV ASDIRECTED CLIF; Protocol Stop: 03/03/21 16:40 Last Infusion: 03/01/21 23:47 Dose: 16.7 mls/hr Documented by: Meclizine HCl (Meclizine 12.5 Mg Tab) 12.5 mg PO BID [facility] Last Admin: 03/01/21 20:37 Dose: 12.5 mg Documented by: Metoprolol Succinate (Metoprolol Succinate 50 Mg Tab.Er) 50 mg PO DAILY [facility] (Colestipol 1 Gm (Tablet)) 1 gram PO BID [facility] Ondansetron HCl (Ondansetron 4 Mg Tab.Dis) 4 mg PO Q6H PRN PRN Reason: nausea, able to take PO Oxycodone HCl (Oxycodone 5 Mg Tab) 5 mg PO Q4H PRN PRN Reason: Pain (moderate 4-6) Pantoprazole Sodium (Pantoprazole 40 Mg Tab.Cr) 40 mg PO DAILY@0700 [facility] Last Admin: 03/02/21 06:55 Dose: 40 mg Documented by: Potassium Chloride (Potassium Chloride 20 Meq Tab.Er) 20 meq PO DAILY [facility] Rivaroxaban (Rivaroxaban 15 Mg Tab) 15 mg PO 1700 [facility] Last Admin: 03/01/21 16:45 Dose: 15 mg Documented by: Sertraline HCl (Sertraline 25 Mg Tab) 25 mg PO DAILY [facility] Sodium Chloride (Sodium Chloride 0.9% 10 Ml Syringe) 10 ml FLUSH ASDIRECTED PRN PRN Reason: Keep Vein Open Discontinued Medications Ceftriaxone Sodium (Ceftriaxone 1 Gm Vial) 1 gm IM Q24H [facility] Last Admin: 03/01/21 18:06 Dose: Not Given Documented by: Ceftriaxone Sodium (Ceftriaxone 1 Gm Vial) 1 gm IV Q24H [facility] Last Admin: 03/01/21 19:46 Dose: Not Given Documented by: Diltiazem HCl (Diltiazem 50 Mg/10 Ml Sdv) 10 mg IVPUSH ONETIME ONE Stop: 03/01/21 13:56 Last Admin: 03/01/21 14:11 Dose: 10 mg Documented by: Diltiazem HCl (Diltiazem 50 Mg/10 Ml Sdv) 10 mg IVPUSH ONETIME ONE Stop: 03/01/21 14:46 Last Admin: 03/01/21 14:58 Dose: 10 mg Documented by: Diltiazem HCl (Diltiazem 50 Mg/10 Ml Sdv) 10 mg IVPUSH ONETIME ONE Stop: 03/01/21 15:50 Last Admin: 03/01/21 15:57 Dose: 10 mg Documented by: Enoxaparin Sodium (Enoxaparin 60 Mg/0.6 Ml Syringe) 60 mg SUBCUT ONETIME ONE Stop: 03/01/21 14:03 Last Admin: 03/01/21 18:02 Dose: Not Given Documented by: Diltiazem HCl 100 mg/ Sodium (Chloride) 100 mls @ 10 mls/hr IV ASDIRECTED [facility] Last Infusion: 03/01/21 15:10 Dose: 15 mg/hr, 15 mls/hr Documented by: Amiodarone HCl/Dextrose (Nexterone In Dextrose 360 Mg/200 Ml) 360 mg in 200 mls @ 33.333 mls/hr IV ASDIRECTED [facility]; Protocol Last Admin: 03/01/21 16:40 Dose: 33.333 mls/hr Documented by: Ceftriaxone Sodium 1 gm/ (Sodium Chloride) 100 mls @ 200 mls/hr IV Q24H [facility] Last Admin: 03/01/21 18:20 Dose: 200 mls/hr Documented by: Amiodarone HCl/Dextrose (Nexterone In Dextrose 150 Mg/100 Ml) 100 mls @ 600 m ls/hr IV ONETIME ONE; Protocol Stop: 03/01/21 23:32 Last Admin: 03/01/21 23:31 Dose: 600 mls/hr Documented by: Lidocaine HCl (Lidocaine 1% 10 Ml Mdv) Confirm Administered Dose 10 ml .ROUTE .STK-MED ONE Stop: 03/02/21 07:46 Lidocaine/Epinephrine (Lidocaine 1% With Epinephrine 1:100,000 10 Ml Mdv) Confirm Administered Dose 10 ml .ROUTE .STK-MED ONE Stop: 03/02/21 02:52 - Exam Quality Assessment: Supplemental Oxygen, Urine Catheter General: Alert, Cooperative. No: Oriented (Alert only to person.) HEENT: Pupils Equal, Pupils Reactive. No: Mucous Membr. Moist/[place] (Dry) Neck: Supple, Trachea Midline (No evidence of tension pneumothorax) Lungs: Decreased Breath Sounds, Rales Cardiovascular: Irregular Rhythm, Tachycardia GI/Abdominal Exam: Normal Bowel Sounds, Soft, No Distention (Female) Exam: Deferred Back Exam: Normal Inspection (Age-appropriate) Extremities: Normal Inspection, No Pedal Edema Skin: Warm, Dry, Intact Neurological: No New Focal Deficit Psy/Mental Status: Alert, Normal Affect - Patient Data Lab Results Last 24 hrs: Laboratory Results - last 24 hr 03/01/21 03/01/21 03/01/21 Range/Units 13:55 13:55 13:55 WBC 8.03 (3.98-10.04) K/mm3 RBC 3.97 L (3.98-5.22) M/mm3 Hgb 12.4 D (11.2-15.7) gm/dl Hct 38.0 (34.1-44.9) % MCV 95.7 H (79.4-94.8) fl MCH 31.2 (25.6-32.2) pg MCHC 32.6 (32.2-35.5) g/dl RDW Std Deviation 46.4 H (36.4-46.3) fL Plt Count 311 D (182-369) K/mm3 MPV 10.8 (9.4-12.3) fl Neut % (Auto) 76.7 H (34.0-71.1) % Lymph % (Auto) 9.8 L (19.3-51.7) % [place] % (Auto) 12.3 (4.7-12.5) % Eos % (Auto) 0.9 (0.7-5.8) Baso % (Auto) 0.2 (0.1-1.2) % Neut # (Auto) 6.15 H (1.56-6.13) K/mm3 Lymph # (Auto) 0.79 L (1.18-3.74) K/mm3 [place] # (Auto) 0.99 H (0.24-0.36) K/mm3 Eos # (Auto) 0.07 (0.04-0.36) K/mm3 Baso # (Auto) 0.02 (0.01-0.08) K/mm3 Manual Slide Review Abnormal smear PT 11.0 (9.7-12.0) SECONDS INR 1.03 APTT (21.7-31.4) SECONDS Sodium 134 L (136-145) mEq/L Potassium 4.0 (3.5-5.1) mEq/L Chloride 96 L (98-107) mEq/L Carbon Dioxide 25 (21-32) mEq/L Anion Gap 17.0 H (5-15) BUN 35 H (7-18) mg/dL Creatinine 1.5 H (0.55-1.02) mg/dL Est Cr Clr Drug Dosing 21.03 mL/min Estimated GFR (MDRD) 33 (>60) mL/min BUN/Creatinine Ratio 23.3 H (14-18) Glucose 108 (83-115) mg/dL Lactic Acid (0.4-2.0) mmol/L Calcium 9.8 (8.5-10.1) mg/dL Magnesium 2.2 (1.8-2.4) mg/dl Total Bilirubin 0.6 (0.2-1.0) mg/dL AST 25 (15-37) U/L ALT 19 (14-59) U/L Alkaline Phosphatase 81 (46-116) U/L CK-MB (CK-2) 2.9 (0-3.6) ng/ml Troponin I 0.138 H* (0.00-0.056) ng/mL C-Reactive Protein 2.0 H* (<1.0) mg/dL NT-Pro-B Natriuret Pep (0-450) pg/mL Total Protein 8.2 (6.4-8.2) g/dl Albumin 3.7 (3.4-5.0) g/dl Globulin 4.5 gm/dL Albumin/Globulin Ratio 0.8 L (1-2) Fluid Type Fluid Glucose mg/dL Fluid Total Protein gm/dl SARS-CoV-2 RNA (PRIYA) (NEGATIVE) 03/01/21 03/01/21 03/01/21 Range/Units 13:55 13:55 14:11 WBC (3.98-10.04) K/mm3 RBC (3.98-5.22) M/mm3 Hgb (11.2-15.7) gm/dl Hct (34.1-44.9) % MCV (79.4-94.8) fl MCH (25.6-32.2) pg MCHC (32.2-35.5) g/dl RDW Std Deviation (36.4-46.3) fL Plt Count (182-369) K/mm3 MPV (9.4-12.3) fl Neut % (Auto) (34.0-71.1) % Lymph % (Auto) (19.3-51.7) % [place] % (Auto) (4.7-12.5) % Eos % (Auto) (0.7-5.8) Baso % (Auto) (0.1-1.2) % Neut # (Auto) (1.56-6.13) K/mm3 Lymph # (Auto) (1.18-3.74) K/mm3 [place] # (Auto) (0.24-0.36) K/mm3 Eos # (Auto) (0.04-0.36) K/mm3 Baso # (Auto) (0.01-0.08) K/mm3 Manual Slide Review PT (9.7-12.0) SECONDS INR APTT 28.3 (21.7-31.4) SECONDS Sodium (136-145) mEq/L Potassium (3.5-5.1) mEq/L Chloride (98-107) mEq/L Carbon Dioxide (21-32) mEq/L Anion Gap (5-15) BUN (7-18) mg/dL Creatinine (0.55-1.02) mg/dL Est Cr Clr Drug Dosing mL/min Estimated GFR (MDRD) (>60) mL/min BUN/Creatinine Ratio (14-18) Glucose (83-115) mg/dL Lactic Acid 1.7 (0.4-2.0) mmol/L Calcium (8.5-10.1) mg/dL Magnesium (1.8-2.4) mg/dl Total Bilirubin (0.2-1.0) mg/dL AST (15-37) U/L ALT (14-59) U/L Alkaline Phosphatase (46-116) U/L CK-MB (CK-2) (0-3.6) ng/ml Troponin I (0.00-0.056) ng/mL C-Reactive Protein (<1.0) mg/dL NT-Pro-B Natriuret Pep 2754 H (0-450) pg/mL Total Protein (6.4-8.2) g/dl Albumin (3.4-5.0) g/dl Globulin gm/dL Albumin/Globulin Ratio (1-2) Fluid Type Fluid Glucose mg/dL Fluid Total Protein gm/dl SARS-CoV-2 RNA (PRIYA) (NEGATIVE) 03/01/21 03/01/21 03/02/21 Range/Units 15:00 19:14 05:25 WBC 7.94 (3.98-10.04) K/mm3 RBC 3.96 L (3.98-5.22) M/mm3 Hgb 12.5 (11.2-15.7) gm/dl Hct 37.9 (34.1-44.9) % MCV 95.7 H (79.4-94.8) fl MCH 31.6 (25.6-32.2) pg MCHC 33.0 (32.2-35.5) g/dl RDW Std Deviation 46.0 (36.4-46.3) fL Plt Count 269 (182-369) K/mm3 MPV 11.0 (9.4-12.3) fl Neut % (Auto) 83.0 H (34.0-71.1) % Lymph % (Auto) 7.9 L (19.3-51.7) % [place] % (Auto) 7.6 (4.7-12.5) % Eos % (Auto) 1.1 (0.7-5.8) Baso % (Auto) 0.3 (0.1-1.2) % Neut # (Auto) 6.59 H (1.56-6.13) K/mm3 Lymph # (Auto) 0.63 L (1.18-3.74) K/mm3 [place] # (Auto) 0.60 H (0.24-0.36) K/mm3 Eos # (Auto) 0.09 (0.04-0.36) K/mm3 Baso # (Auto) 0.02 (0.01-0.08) K/mm3 Manual Slide Review Abnormal smear PT (9.7-12.0) SECONDS INR APTT (21.7-31.4) SECONDS Sodium (136-145) mEq/L Potassium (3.5-5.1) mEq/L Chloride (98-107) mEq/L Carbon Dioxide (21-32) mEq/L Anion Gap (5-15) BUN (7-18) mg/dL Creatinine (0.55-1.02) mg/dL Est Cr Clr Drug Dosing mL/min Estimated GFR (MDRD) (>60) mL/min BUN/Creatinine Ratio (14-18) Glucose (83-115) mg/dL Lactic Acid (0.4-2.0) mmol/L Calcium (8.5-10.1) mg/dL Magnesium (1.8-2.4) mg/dl Total Bilirubin (0.2-1.0) mg/dL AST (15-37) U/L ALT (14-59) U/L Alkaline Phosphatase (46-116) U/L CK-MB (CK-2) (0-3.6) ng/ml Troponin I (0.00-0.056) ng/mL C-Reactive Protein (<1.0) mg/dL NT-Pro-B Natriuret Pep (0-450) pg/mL Total Protein (6.4-8.2) g/dl Albumin (3.4-5.0) g/dl Globulin gm/dL Albumin/Globulin Ratio (1-2) Fluid Type Thoracentesis fluid Fluid Glucose 118 mg/dL Fluid Total Protein 3.7 gm/dl SARS-CoV-2 RNA (PRIYA) Negative (NEGATIVE) 03/02/21 Range/Units 05:25 WBC (3.98-10.04) K/mm3 RBC (3.98-5.22) M/mm3 Hgb (11.2-15.7) gm/dl Hct (34.1-44.9) % MCV (79.4-94.8) fl MCH (25.6-32.2) pg MCHC (32.2-35.5) g/dl RDW Std Deviation (36.4-46.3) fL Plt Count (182-369) K/mm3 MPV (9.4-12.3) fl Neut % (Auto) (34.0-71.1) % Lymph % (Auto) (19.3-51.7) % [place] % (Auto) (4.7-12.5) % Eos % (Auto) (0.7-5.8) Baso % (Auto) (0.1-1.2) % Neut # (Auto) (1.56-6.13) K/mm3 Lymph # (Auto) (1.18-3.74) K/mm3 [place] # (Auto) (0.24-0.36) K/mm3 Eos # (Auto) (0.04-0.36) K/mm3 Baso # (Auto) (0.01-0.08) K/mm3 Manual Slide Review PT (9.7-12.0) SECONDS INR APTT (21.7-31.4) SECONDS Sodium 136 (136-145) mEq/L Potassium 3.6 (3.5-5.1) mEq/L Chloride 100 (98-107) mEq/L Carbon Dioxide 26 (21-32) mEq/L Anion Gap 13.6 (5-15) BUN 34 H (7-18) mg/dL Creatinine 1.3 H (0.55-1.02) mg/dL Est Cr Clr Drug Dosing 24.27 mL/min Estimated GFR (MDRD) 39 (>60) mL/min BUN/Creatinine Ratio 26.2 H (14-18) Glucose 113 (83-115) mg/dL Lactic Acid (0.4-2.0) mmol/L Calcium 9.3 (8.5-10.1) mg/dL Magnesium 1.9 (1.8-2.4) mg/dl Total Bilirubin 0.4 (0.2-1.0) mg/dL AST 21 (15-37) U/L ALT 13 L (14-59) U/L Alkaline Phosphatase 62 (46-116) U/L CK-MB (CK-2) (0-3.6) ng/ml Troponin I (0.00-0.056) ng/mL C-Reactive Protein 2.3 H* (<1.0) mg/dL NT-Pro-B Natriuret Pep (0-450) pg/mL Total Protein 6.4 (6.4-8.2) g/dl Albumin 2.7 L (3.4-5.0) g/dl Globulin 3.7 gm/dL Albumin/Globulin Ratio 0.7 L (1-2) Fluid Type Fluid Glucose mg/dL Fluid Total Protein gm/dl SARS-CoV-2 RNA (PRIYA) (NEGATIVE) Result Diagrams: 03/02/21 05:25 03/02/21 05:25 Ti Results Last 24 hrs: Microbiology 03/01/21 14:22 Anaerobic Blood Culture - Final Blood - Venous - Lab Draw Sepsis Event Note - Evaluation Sepsis Screening Result: No Definite Risk - Focused Exam Vital Signs: Vital Signs Temp Resp BP Pulse Ox Pulse Ox Pulse Ox 03/02/21 06:00 16 102/87 95 03/02/21 04:59 13 101/62 94 L 03/02/21 04:00 36.4 C 13 107/70 93 L 93 L 03/02/21 03:00 101/79 03/02/21 02:00 110/74 03/02/21 00:00 36.4 C 03/01/21 23:00 111/93 H 91 L 91 L 03/01/21 22:05 92 L 03/01/21 22:00 19 98/72 90 L 03/01/21 21:00 25 H 120/82 03/01/21 20:00 36.4 C 18 110/77 95 - Problem List & Annotations (1) Pneumothorax, acute SNOMED Code(s): 11678289 Code(s): J93.83 - OTHER PNEUMOTHORAX Status: Acute Priority: High Current Visit: Yes (2) Chronic atrial fibrillation with rapid ventricular response SNOMED Code(s): 157173320, 633665556977332 Code(s): I48.20 - CHRONIC ATRIAL FIBRILLATION, UNSPECIFIED Status: Chronic Priority: High Current Visit: Yes (3) Chronic renal insufficiency, stage III (moderate) SNOMED Code(s): 848495927 Code(s): N18.30 - CHRONIC KIDNEY DISEASE, STAGE 3 UNSPECIFIED Status: Chronic Priority: High Current Visit: Yes Qualifiers: Chronic kidney disease stage 3 subtype: stage 3b (GFR 30-44) Qualified Code(s): N18.32 - Chronic kidney disease, stage 3b (4) Dementia SNOMED Code(s): 91762124 Code(s): F03.90 - UNSPECIFIED DEMENTIA WITHOUT BEHAVIORAL DISTURBANCE Status: Chronic Priority: Medium Current Visit: Yes Qualifiers: Dementia type: Alzheimer's Alzheimer's disease onset: late-onset Dementia behavioral disturbance: without behavioral disturbance Qualified Code(s): G30.1 - Alzheimer's disease with late onset; F02.80 - Dementia in other diseases classified elsewhere without behavioral disturbance (5) Elevated troponin I measurement SNOMED Code(s): 656753608 Code(s): R77.8 - OTHER SPECIFIED ABNORMALITIES OF PLASMA PROTEINS Status: Acute Priority: High Current Visit: Yes (6) Pleural effusion on right SNOMED Code(s): 20893100 Code(s): J90 - PLEURAL EFFUSION, NOT ELSEWHERE CLASSIFIED Status: Acute Priority: High Current Visit: Yes - Problem List Review Problem List Initiated/Reviewed/Updated: Yes - My Orders Last 24 Hours: My Active Orders 03/01/21 16:17 Oxygen Therapy [RC] PRN Vital Signs [RC] Q1HR Consult to Physician [CONS] Routine OT Evaluation and Treatment [CONS] Routine PT Evaluation and Treatment [CONS] Routine Acetaminophen [TylenoL] 650 mg PO Q4H PRN Ondansetron [Zofran ODT] 4 mg PO Q6H PRN Sodium Chloride 0.9% [Saline Flush] 10 ml FLUSH ASDIRECTED PRN oxyCODONE 5 mg PO Q4H PRN Saline Lock Insert [OM.PC] Routine VTE Mechanical Contraindications [AST] Per Unit Routine VTE Pharmacological Contraindications [AST] Per Unit Routine Resuscitation Status Routine 03/01/21 16:18 Cardiac Monitoring [RC] 03/01/21 16:21 Notify Provider Consults [RC] .PRN 03/01/21 Dinner Heart Healthy Diet [DIET] Rivaroxaban [Xarelto] 15 mg PO 1700 03/01/21 19:14 CULTURE BODY FLUID + SMEAR [RM] Routine 03/01/21 21:00 Colestipol 1 gram PO BID Gabapentin [Neurontin] 100 mg PO TID Meclizine [Antivert] 12.5 mg PO BID 03/01/21 22:40 Amiodarone In Dextrose,Iso-Osm [Nexterone in Dextrose 360 MG/200 ML] 360 mg in 200 ml IV ASDIRECTED 03/01/21 22:48 Albuterol/Ipratropium [DuoNeb 3.0-0.5 MG/3 ML] 3 ml NEB Q4HRRT PRN 03/01/21 22:50 RT Aerosol Therapy [RC] ASDIRECTED 03/02/21 07:00 Pantoprazole [ProTONIX] 40 mg PO DAILY@0700 03/02/21 09:00 Aspirin [Halfprin] 81 mg PO DAILY Donepezil [Aricept] 5 mg PO DAILY Metoprolol Succinate [Toprol XL] 50 mg PO DAILY Potassium Chloride [Klor-Con M20] 20 meq PO DAILY Sertraline [Zoloft] 25 mg PO DAILY 03/02/21 18:00 cefTRIAXone [Rocephin] 1 gm IVPUSH Q24H - Plan Plan:: The patient is an 89-year-old lady who has been admitted to the intensive care unit as an inpatient due to her requiring amiodarone to help control her heart rate. The patient also has a very large right-sided pleural effusion and Dr. Gomez has been consulted for thoracentesis. Laboratory studies of the pleural fluid will be ordered to help exclude malignancy. I cannot exclude a pneumonia within the effusion. Therefore the patient will be treated as pneumonia with Rocephin renally dosed. The patient is currently taking Xarelto and this will be continued and therefore she will not require extra DVT prophylaxis. If needed will consider SCDs although the patient is a fall risk. Feet laboratory studies have been ordered. Heart healthy diet has been ordered. Because of the patient's congestive heart failure and a BNP at 2700 the patient will have saline lock of her IV and fluids will be monitored. PT OT has also been ordered for the patient. We will adjust the patient's medications as necessary. The patient will also have regular diet as tolerated. The patient is currently in a DO NOT INTUBATE DO NOT RESUSCITATE category. I have discussed possible placement with the patient's family. 03/02/2021 The patient is an 89-year-old lady who had been admitted to the intensive care unit secondary to A. fib with RVR. Patient remains tachycardic although her heart rate has improved from 170 bpm down to an average of 125. It was thought that the patient's heart rate would improve after thoracentesis and subsequent c hest tube and reinflation of her lung. The patient previously had been on amiodarone and diltiazem without good rate control. The patient has been placed on digoxin and pharmacy has dosed this. She does have chronic renal failure to accompany this. The x-ray did show a large mass which did not distinguish between pneumonia or neoplastic process. The patient will currently remain on Rocephin as treatment for pneumonia. The patient's antibiotics will be altered as urine cultures indicate. I had a long discussion with the patient's family regarding this. Repeat laboratory studies have been ordered for the morning. Will await results of thoracentesis fluids. Continue with physical therapy. Continue with diet as tolerated. I think the patient's prognosis at this time is poor.
--- NOTE | 2021-03-02 08:36 | CR ---
Chest: Portable view of the chest was obtained. Comparison: Prior chest x-ray of 03/02/21. Small catheter is seen which coils around the right lung apex. Previous pneumothorax has significantly decreased in size. Minimal amount of pleural air remains within the upper right chest. There is focal consolidation within the right upper and midlung as well as right lower lung. Small amount of pleural fluid is seen. Left lung is clear. Heart size and mediastinum are stable. Stable radiopacities are seen within the left chest. Impression: 1. Small caliber right-sided chest tube which coils around the right lung apex. 2. Decreased pneumothorax on the right side with only a minimal amount of pleural air within the right lung apex. 3. Diffuse right lung opacification. Please correlate if this represents prominent pneumonia or represents actual lung mass. 4. Other stable findings as noted above. Diagnostic code #3
[2021-03-02] MEDS ORDERED: Digoxin 500 MCG/2 ML Amp IV ONE (09:00)
[2021-03-02] MEDS: Gabapentin 100 MG Cap PO SCH ×3 (09:28→21:00)
[2021-03-02] MEDS: Aspirin 81 MG Tab.EC PO SCH (09:28)
[2021-03-02] MEDS: Potassium Chloride 20 MEQ Tab.ER PO SCH (09:29)
[2021-03-02] MEDS: Sertraline 25 MG Tab PO SCH (09:31)
[2021-03-02] MEDS: Donepezil 10 MG Tab PO SCH (09:31)
[2021-03-02] MEDS: Metoprolol Succinate 50 MG Tab.ER PO SCH (09:33)
[2021-03-02] MEDS: Meclizine 12.5 MG Tab PO SCH ×2 (09:35→21:00)
--- NOTE | 2021-03-02 13:08 | PCM.PRNOTE ---
- Free Text/Narrative Note: Date: 03/02/2021 Procedure: right tube thoracostomy Surgeon: Grupo Gomez MD Report: Informed consent was obtained from family. The patient was positioned supine in recumbent position with right hand behind her head. The breast was taped medially to expose the lateral chest wall. The chest was prepped with chloraprep and draped in sterile fashion. 10 cc 1% lidocaine with epinephrine was injected intradermally at the 5th intercostal space along the mid axillary line. The tract to the pleural space was anesthetized as well. A 2 cm incision was made with the scalpel through skin to subcutaneous tissue. A hemostat was used to dissect down to intercostal musculature. A 12 F chest tube was then inserted into the pleural space with the tip guided by a fine-tip clamp. Air and serous fluid were encountered on entry into the pleural space. The tube was advanced well into the chest without resistance and secured at the skin with an anchoring silk suture. The tube was connected to a pleura-vac with low continuous suction at -20 mm Hg. The insertion site was dressed with dry gauze and tape. The patient tolerated the procedure well. Follow up CXR showed near resolution of pneumothorax with opacity in the right lung suggestive of pneumonia or malignancy.
--- NOTE | 2021-03-02 13:25 | PCM.PRNOTE ---
- Free Text/Narrative Note: Difficult IV start in ICU Requested to start a peripheral IV after several previous attempts by RNs Linear U/S probe was used to identify right basilic vein about 2" above antecubital fossa. 2 unsuccessful attempts to cannulate. Switched to left upper arm area. Left basilic vein identified about 2" above antecubital fossa. Successful cannulation with 20G 1.88" catheter, good flush and blood return, catheter secured, Tegaderm dressing with Mastisol applied. Start: 1230 End: 1245
[2021-03-02] MEDS: LORazepam 2 MG/ML SDV IVPUSH PRN (15:51)
[2021-03-02] MEDS: Digoxin 500 MCG/2 ML Amp IV SCH (15:59)
[2021-03-02] MEDS: Rivaroxaban 15 MG Tab PO SCH (16:00)
--- NOTE | 2021-03-02 16:47 | PCM.SN.2 ---
- Free Text/Narrative Note: The patient became agitated and started to pull out IVs and chest tubes. She had attempted to get out of bed on several occasions. I have ordered 1/2 mg of Ativan every 4 hours as needed for her agitation. I also had a long discussion with the patient's granddaughter who is her power of slide fasteners inspector. I expressed to t he patient's granddaughter that this may have a poor outcome for the patient. I did discuss comfort care measures as an alternative while in hospital and hospice care. I had recommended to the patient that we put in a hospice consult in order to have information to make an informed decision. No further decisions reached yet.
[2021-03-02] MEDS ORDERED: cefTRIAXone 1 GM Vial IVPUSH SCH (18:00)
[2021-03-02] MEDS: cefTRIAXone 1 GM in Sodium Chloride 0.9% 100 ML IV SCH (18:24)
[2021-03-02] MEDS: COLESTIPOL 1 GM PO SCH (21:00)
[2021-03-03] MEDS: Digoxin 500 MCG/2 ML Amp IV SCH (02:00)
--- NOTE | 2021-03-03 06:53 | CR ---
Chest: Portable view of the chest was obtained. Comparison: Prior chest x-ray of 03/02/20. Right-sided chest tube is seen. There is felt to be a small pneumothorax over the right lung apex. Density within the right chest is noted. This density is becoming better defined and measures up to 9.2 cm. This could represent a dense consolidating pneumonia or a neoplastic mass. Left lung is clear. Heart size and mediastinum are stable. Stable radiopacities are noted. Impression: 1. Right-sided chest tube. 2. Small pneumothorax over the right lung apex. 3. Focal density becomes better seen within the right mid chest either due to consolidating pneumonia or neoplastic mass. Diagnostic code #9
--- NOTE | 2021-03-03 07:18 | PCM.SN.2 ---
- Free Text/Narrative Note: 89 yo woman with rapid atrial fibrillation and large right-sided pleural effusion s/p thoracentesis 03/01 with subsequent chest tube placement for pneumothorax. X-ray suspicious for large focal pneumonia vs malignancy, pleural fluid cytology pending. S: Slept well overnight, HR much better controlled. Had episode of agitated delirium yesterday afternoon and was given ativan. Chest tube briefly disconnected from suction during positioning for this morning's x-ray. O: AF-HR 100-110 irregular, BP stable, within normal range, SpO2 > 95% on room air No distress Right 12 F chest tube to -20 suction, minimal additional serous fluid drained overnight (60 cc), small air leak noted CXR this morning with tube clamped, off suction, showing small residual pneumothorax at apex and what looks like a large lung mass A: Residual pneumothorax on this morning's film, while tube was off suction/clamped. Small air leak noted on rounds this morning. P: Repeat film now on suction. Reassess for air leak this afternoon. Once no leak is noted will attempt to go to water seal. Recommend no further use of benzodiazepine for elderly patient in ICU with history of dementia and episode of agitated delirium. Consider alternative such as zyprexa if needed. Await final results from pleural fluid analysis. There is mention of family pursuing hospice for this patient which I think is appropriate- depending on resolution of air leak will hopefully be able to remove tube as early as tomorrow.
--- NOTE | 2021-03-03 08:07 | CR ---
Chest: Portable view of the chest was obtained (6:48 AM). Comparison: Prior earlier chest x-ray performed on the same day (5:49 AM). Lucency is noted within the right lung apex most likely representing minimal pneumothorax. Right-sided small caliber chest tube is seen. Focal parenchymal density remains within the right mid chest. Left lung is clear. Bony structures are unremarkable. Heart size and mediastinum are stable. Impression: 1. Right-sided chest tube. Small apical pneumothorax. 2. Stable density within the right mid chest. 3. Other stable findings as noted above. Diagnostic code #9
[2021-03-03] MEDS: Potassium Chloride 20 MEQ Tab.ER PO SCH (08:15)
[2021-03-03] MEDS: Aspirin 81 MG Tab.EC PO SCH (08:15)
[2021-03-03] MEDS: Meclizine 12.5 MG Tab PO SCH ×2 (08:16→20:50)
[2021-03-03] MEDS: Gabapentin 100 MG Cap PO SCH ×3 (08:16→20:50)
[2021-03-03] MEDS: Sertraline 25 MG Tab PO SCH (08:16)
[2021-03-03] MEDS: Donepezil 10 MG Tab PO SCH (08:16)
[2021-03-03] MEDS: Metoprolol Succinate 50 MG Tab.ER PO SCH (08:16)
[2021-03-03] MEDS: Pantoprazole 40 MG Tab.CR PO SCH (08:16)
[2021-03-03] MEDS: COLESTIPOL 1 GM PO SCH ×3 (08:18→22:06)
[2021-03-03] MEDS ORDERED: Digoxin 500 MCG/2 ML Amp IV SCH (09:00)
[2021-03-03] MEDS: LORazepam 2 MG/ML SDV IVPUSH PRN ×2 (10:26→17:14)
--- NOTE | 2021-03-03 12:27 | PCM.PN ---
- General Info Date of Service: 03/03/21 Admission Dx/Problem (Free Text): Admission Diagnosis/Problem Admission Diagnosis/Problem Atrial fibrillation with rapid ventricular response Subjective Update: The patient is an 89-year-old lady who was admitted yesterday evening secondary to A. fib with RVR. The patient was also noted in the emergency department to have a large right-sided pleural effusion. This was drained yesterday and sent for analysis. The patient then had an associated pneumothorax and chest tube was placed today. Repeat chest x-ray shows relatively large mass in the right lung. Patient today says that she is doing okay. She is hungry. The patient has denied any pain. 03/03/21 afebrile vss/// rr 20s // b.p up slightly slept well sats 90-96% . aox 3 interacting with staff and feels tired but better. denies ordoñez when sitting up . chest xray shows persistent small pneumo rt and large mass with air/ no consolidation. cor rrr without s3/s4 murmur. abd benign and b.s good bm x one skin good edema mild . orally dry lab na `127 and no diuretics given urine spot na 22 so holding on to salt and signs of overload not seen . discussed with DR Gomez and cont chest tube drainage as output still high to moderate. and monitor secreations and awaiting cytology results. have discussed with and he is aware of possible lung mass. assess pneumothorax with small bore chest tube cont to leak 2)rt lung mass , possible cause of pneumothorax. 3) hyponatremia does not appear to be siadh related nor diuretic and push fluid and salt sec to hypotension and lung /chest tube output. 4)frail// malnurished and advanced age make home care issues pertinent for family and patient . ss to see friday boh Functional Status: Reports: Pain Controlled - Review of Systems General: Reports: Weakness Pulmonary: Reports: Shortness of Breath, Pleuritic Chest Pain Cardiovascular: Reports: No Symptoms Gastrointestinal: Reports: No Symptoms Genitourinary: Reports: No Symptoms Musculoskeletal: Reports: No Symptoms Skin: Reports: No Symptoms Neurological: Reports: No Symptoms Psychiatric: Reports: No Symptoms - Patient Data Vitals - Most Recent: Last Vital Signs Temp 36.3 C 03/03/21 11:54 Pulse 103 H 03/03/21 08:16 Resp 16 03/03/21 11:54 BP 101/77 03/03/21 08:16 Pulse Ox 100 03/03/21 11:54 Weight - Most Recent: 54.431 kg I&O - Last 24 Hours: Intake & Output 03/02/21 03/03/21 03/03/21 22:59 06:59 14:59 Intake Total 390 240 Output Total 370 145 30 Balance 20 -145 210 Lab Results Last 24 Hours: Laboratory Results - last 24 hr 03/03/21 03/03/21 03/03/21 Range/Units 04:42 04:42 04:42 WBC 6.58 (3.98-10.04) K/mm3 RBC 3.75 L (3.98-5.22) M/mm3 Hgb 11.7 (11.2-15.7) gm/dl Hct 35.7 (34.1-44.9) % MCV 95.2 H (79.4-94.8) fl MCH 31.2 (25.6-32.2) pg MCHC 32.8 (32.2-35.5) g/dl RDW Std Deviation 45.8 (36.4-46.3) fL Plt Count 268 (182-369) K/mm3 MPV 11.1 (9.4-12.3) fl Neut % (Auto) 77.5 H (34.0-71.1) % Lymph % (Auto) 9.3 L (19.3-51.7) % Dillon % (Auto) 8.8 (4.7-12.5) % Eos % (Auto) 3.6 (0.7-5.8) Baso % (Auto) 0.6 (0.1-1.2) % Neut # (Auto) 5.10 (1.56-6.13) K/mm3 Lymph # (Auto) 0.61 L (1.18-3.74) K/mm3 Dillon # (Auto) 0.58 H (0.24-0.36) K/mm3 Eos # (Auto) 0.24 (0.04-0.36) K/mm3 Baso # (Auto) 0.04 (0.01-0.08) K/mm3 Manual Slide Review Abnormal smear Sodium 123 L D (136-145) mEq/L Potassium 3.7 (3.5-5.1) mEq/L Chloride 98 (98-107) mEq/L Carbon Dioxide 26 (21-32) mEq/L Anion Gap 2.7 L (5-15) BUN 31 H (7-18) mg/dL Creatinine 1.1 H (0.55-1.02) mg/dL Est Cr Clr Drug Dosing 28.68 mL/min Estimated GFR (MDRD) 47 (>60) mL/min BUN/Creatinine Ratio 28.2 H (14-18) Glucose 90 (83-115) mg/dL Calcium 9.0 (8.5-10.1) mg/dL Magnesium 1.8 (1.8-2.4) mg/dl Total Bilirubin 0.3 (0.2-1.0) mg/dL AST 21 (15-37) U/L ALT 12 L (14-59) U/L Alkaline Phosphatase 56 (46-116) U/L Troponin I 0.053 (0.00-0.056) ng/mL Total Protein 5.9 L (6.4-8.2) g/dl Albumin 2.3 L (3.4-5.0) g/dl Globulin 3.6 gm/dL Albumin/Globulin Ratio 0.6 L (1-2) Ur Random Sodium (40-220) mEq/L 03/03/21 Range/Units 11:27 WBC (3.98-10.04) K/mm3 RBC (3.98-5.22) M/mm3 Hgb (11.2-15.7) gm/dl Hct (34.1-44.9) % MCV (79.4-94.8) fl MCH (25.6-32.2) pg MCHC (32.2-35.5) g/dl RDW Std Deviation (36.4-46.3) fL Plt Count (182-369) K/mm3 MPV (9.4-12.3) fl Neut % (Auto) (34.0-71.1) % Lymph % (Auto) (19.3-51.7) % Dillon % (Auto) (4.7-12.5) % Eos % (Auto) (0.7-5.8) Baso % (Auto) (0.1-1.2) % Neut # (Auto) (1.56-6.13) K/mm3 Lymph # (Auto) (1.18-3.74) K/mm3 Dillon # (Auto) (0.24-0.36) K/mm3 Eos # (Auto) (0.04-0.36) K/mm3 Baso # (Auto) (0.01-0.08) K/mm3 Manual Slide Review Sodium (136-145) mEq/L Potassium (3.5-5.1) mEq/L Chloride (98-107) mEq/L Carbon Dioxide (21-32) mEq/L Anion Gap (5-15) BUN (7-18) mg/dL Creatinine (0.55-1.02) mg/dL Est Cr Clr Drug Dosing mL/min Estimated GFR (MDRD) (>60) mL/min BUN/Creatinine Ratio (14-18) Glucose (83-115) mg/dL Calcium (8.5-10.1) mg/dL Magnesium (1.8-2.4) mg/dl Total Bilirubin (0.2-1.0) mg/dL AST (15-37) U/L ALT (14-59) U/L Alkaline Phosphatase (46-116) U/L Troponin I (0.00-0.056) ng/mL Total Protein (6.4-8.2) g/dl Albumin (3.4-5.0) g/dl Globulin gm/dL Albumin/Globulin Ratio (1-2) Ur Random Sodium 22 L (40-220) mEq/L Ti Results Last 24 Hours: Microbiology 03/02/21 09:12 Urine Culture - Preliminary Urine, Catheterized NO GROWTH AFTER 1 DAY 03/01/21 14:22 Aerobic Blood Culture - Preliminary Blood - Venous - Lab Draw NO GROWTH AFTER 1 DAY Anaerobic Blood Culture - Final 03/01/21 14:11 Aerobic Blood Culture - Preliminary Blood - Venous NO GROWTH AFTER 1 DAY Anaerobic Blood Culture - Preliminary NO GROWTH AFTER 1 DAY Med Orders - Current: Current Medications Acetaminophen (Acetaminophen 325 Mg Tab) 650 mg PO Q4H PRN PRN Reason: Pain (Mild 1-3)/fever Albuterol/Ipratropium (Albuterol/Ipratropium 3.0-0.5 Mg/3 Ml Neb Soln) 3 ml NEB Q4HRRT PRN PRN Reason: Congestion Last Admin: 03/01/21 22:59 Dose: 3 ml Documented by: Aspirin (Aspirin 81 Mg Tab.Ec) 81 mg PO DAILY [facility] Last Admin: 03/03/21 08:15 Dose: 81 mg Documented by: Digoxin (Digoxin 125 Mcg Tab) 125 mcg PO DAILY [facility] Donepezil HCl (Donepezil 10 Mg Tab) 5 mg PO DAILY [facility] Last Admin: 03/03/21 08:16 Dose: 5 mg Documented by: Gabapentin (Gabapentin 100 Mg Cap) 100 mg PO TID [facility] Last Admin: 03/03/21 08:16 Dose: 100 mg Documented by: Ceftriaxone Sodium 1 gm/ (Sodium Chloride) 100 mls @ 200 mls/hr IV Q24H [facility] Last Admin: 03/02/21 18:24 Dose: 200 mls/hr Documented by: Lorazepam (Lorazepam 2 Mg/Ml Sdv) 0.5 mg IVPUSH Q4H PRN PRN Reason: Agitation Last Admin: 03/03/21 10:26 Dose: 0.5 mg Documented by: Meclizine HCl (Meclizine 12.5 Mg Tab) 12.5 mg PO BID [facility] Last Admin: 03/03/21 08:16 Dose: 12.5 mg Documented by: Metoprolol Succinate (Metoprolol Succinate 50 Mg Tab.Er) 50 mg PO DAILY [facility] Last Admin: 03/03/21 08:16 Dose: 50 mg Documented by: Ondansetron HCl (Ondansetron 4 Mg Tab.Dis) 4 mg PO Q6H PRN PRN Reason: nausea, able to take PO Oxycodone HCl (Oxycodone 5 Mg Tab) 5 mg PO Q4H PRN PRN Reason: Pain (moderate 4-6) Pantoprazole Sodium (Pantoprazole 40 Mg Tab.Cr) 40 mg PO DAILY@0700 [facility] Last Admin: 03/03/21 08:16 Dose: 40 mg Documented by: Colestipol 1 Gm (Tablet Ptom) 0 each PO BID [facility] Last Admin: 03/03/21 10:27 Dose: Not Given Documented by: Potassium Chloride (Potassium Chloride 20 Meq Tab.Er) 20 meq PO DAILY [facility] Last Admin: 03/03/21 08:15 Dose: 20 meq Documented by: Rivaroxaban (Rivaroxaban 15 Mg Tab) 15 mg PO 1700 [facility] Last Admin: 03/02/21 16:00 Dose: 15 mg Documented by: Sertraline HCl (Sertraline 25 Mg Tab) 25 mg PO DAILY [facility] Last Admin: 03/03/21 08:16 Dose: 25 mg Documented by: Sodium Chloride (Sodium Chloride 0.9% 10 Ml Syringe) 10 ml FLUSH ASDIRECTED PRN PRN Reason: Keep Vein Open Discontinued Medications Ceftriaxone Sodium (Ceftriaxone 1 Gm Vial) 1 gm IM Q24H [facility] Last Admin: 03/01/21 18:06 Dose: Not Given Documented by: Ceftriaxone Sodium (Ceftriaxone 1 Gm Vial) 1 gm IV Q24H [facility] Last Admin: 03/01/21 19:46 Dose: Not Given Documented by: Ceftriaxone Sodium (Ceftriaxone 1 Gm Vial) 1 gm IVPUSH Q24H [facility] Digoxin (Digoxin 500 Mcg/2 Ml Amp) 200 mcg IV ONETIME ONE Stop: 03/02/21 09:01 Last Admin: 03/02/21 09:24 Dose: 200 mcg Documented by: Digoxin (Digoxin 500 Mcg/2 Ml Amp) 100 mcg IV Q8H [facility] Stop: 03/03/21 01:01 Last Admin: 03/03/21 02:00 Dose: 100 mcg Documented by: Digoxin (Digoxin 500 Mcg/2 Ml Amp) 90 mcg IV DAILY [facility] Last Admin: 03/03/21 08:15 Dose: 90 mcg Documented by: Diltiazem HCl (Diltiazem 50 Mg/10 Ml Sdv) 10 mg IVPUSH ONETIME ONE Stop: 03/01/21 13:56 Last Admin: 03/01/21 14:11 Dose: 10 mg Documented by: Diltiazem HCl (Diltiazem 50 Mg/10 Ml Sdv) 10 mg IVPUSH ONETIME ONE Stop: 03/01/21 14:46 Last Admin: 03/01/21 14:58 Dose: 10 mg Documented by: Diltiazem HCl (Diltiazem 50 Mg/10 Ml Sdv) 10 mg IVPUSH ONETIME ONE Stop: 03/01/21 15:50 Last Admin: 03/01/21 15:57 Dose: 10 mg Documented by: Enoxaparin Sodium (Enoxaparin 60 Mg/0.6 Ml Syringe) 60 mg SUBCUT ONETIME ONE Stop: 03/01/21 14:03 Last Admin: 03/01/21 18:02 Dose: Not Given Documented by: Diltiazem HCl 100 mg/ Sodium (Chloride) 100 mls @ 10 mls/hr IV ASDIRECTED CLIF Last Infusion: 03/01/21 15:10 Dose: 15 mg/hr, 15 mls/hr Documented by: Amiodarone HCl/Dextrose (Nexterone In Dextrose 360 Mg/200 Ml) 360 mg in 200 mls @ 33.333 mls/hr IV ASDIRECTED CLIF; Protocol Last Admin: 03/01/21 16:40 Dose: 33.333 mls/hr Documented by: Ceftriaxone Sodium 1 gm/ (Sodium Chloride) 100 mls @ 200 mls/hr IV Q24H CLIF Last Admin: 03/01/21 18:20 Dose: 200 mls/hr Documented by: Amiodarone HCl/Dextrose (Nexterone In Dextrose 360 Mg/200 Ml) 360 mg in 200 mls @ 16.7 mls/hr IV ASDIRECTED CLIF; Protocol Stop: 03/03/21 16:40 Last Infusion: 03/01/21 23:47 Dose: 16.7 mls/hr Documented by: Amiodarone HCl/Dextrose (Nexterone In Dextrose 150 Mg/100 Ml) 100 mls @ 600 mls/hr IV ONETIME ONE; Protocol Stop: 03/01/21 23:32 Last Admin: 03/01/21 23:31 Dose: 600 mls/hr Documented by: Lidocaine HCl (Lidocaine 1% 10 Ml Mdv) Confirm Administered Dose 10 ml .ROUTE .STK-MED ONE Stop: 03/02/21 07:46 Last Admin: 03/02/21 08:36 Dose: 10 ml Documented by: Lidocaine HCl (Lidocaine 1% 10 Ml Mdv) Confirm Administered Dose 10 ml .ROUTE .STK-MED ONE Stop: 03/02/21 18:14 Last Admin: 03/02/21 18:44 Dose: 4 ml Documented by: Lidocaine/Epinephrine (Lidocaine 1% With Epinephrine 1:100,000 10 Ml Mdv) Confirm Administered Dose 10 ml .ROUTE .STK-MED ONE Stop: 03/02/21 02:52 Last Admin: 03/02/21 15:32 Dose: Not Given Documented by: Colestipol 1 Gm (Tablet Ptom) 1 gram PO BID CLIF Last Admin: 03/03/21 08:18 Dose: Not Given Documented by: - Exam Quality Assessment: Supplemental Oxygen General: Alert, Oriented HEENT: Pupils Equal, Pupils Reactive, EOMI, Mucous Membr. Moist/[place] Neck: Supple Lungs: Clear to Auscultation, Normal Respiratory Effort, Crackles (rt side) Cardiovascular: Regular Rate, Regular Rhythm GI/Abdominal Exam: Normal Bowel Sounds, Soft, Non-Tender, No Organomegaly, No Distention, No Abnormal Bruit, No Mass, Pelvis Stable (Female) Exam: Normal External Exam, Normal Speculum Exam, Normal Bimanual Exam Back Exam: Normal Inspection, Full Range of Motion Extremities: Normal Inspection, Normal Range of Motion, Non-Tender, No Pedal Edema, Normal Capillary Refill Skin: Warm, Dry, Intact Wound/Incisions: Healing Well Neurological: No New Focal Deficit Psy/Mental Status: Alert, Normal Affect, Normal Mood - Patient Data Lab Results Last 24 hrs: Laboratory Results - last 24 hr 03/03/21 03/03/21 03/03/21 Range/Units 04:42 04:42 04:42 WBC 6.58 (3.98-10.04) K/mm3 RBC 3.75 L (3.98-5.22) M/mm3 Hgb 11.7 (11.2-15.7) gm/dl Hct 35.7 (34.1-44.9) % MCV 95.2 H (79.4-94.8) fl MCH 31.2 (25.6-32.2) pg MCHC 32.8 (32.2-35.5) g/dl RDW Std Deviation 45.8 (36.4-46.3) fL Plt Count 268 (182-369) K/mm3 MPV 11.1 (9.4-12.3) fl Neut % (Auto) 77.5 H (34.0-71.1) % Lymph % (Auto) 9.3 L (19.3-51.7) % Dillon % (Auto) 8.8 (4.7-12.5) % Eos % (Auto) 3.6 (0.7-5.8) Baso % (Auto) 0.6 (0.1-1.2) % Neut # (Auto) 5.10 (1.56-6.13) K/mm3 Lymph # (Auto) 0.61 L (1.18-3.74) K/mm3 Dillon # (Auto) 0.58 H (0.24-0.36) K/mm3 Eos # (Auto) 0.24 (0.04-0.36) K/mm3 Baso # (Auto) 0.04 (0.01-0.08) K/mm3 Manual Slide Review Abnormal smear Sodium 123 L D (136-145) mEq/L Potassium 3.7 (3.5-5.1) mEq/L Chloride 98 (98-107) mEq/L Carbon Dioxide 26 (21-32) mEq/L Anion Gap 2.7 L (5-15) BUN 31 H (7-18) mg/dL Creatinine 1.1 H (0.55-1.02) mg/dL Est Cr Clr Drug Dosing 28.68 mL/min Estimated GFR (MDRD) 47 (>60) mL/min BUN/Creatinine Ratio 28.2 H (14-18) Glucose 90 (83-115) mg/dL Calcium 9.0 (8.5-10.1) mg/dL Magnesium 1.8 (1.8-2.4) mg/dl Total Bilirubin 0.3 (0.2-1.0) mg/dL AST 21 (15-37) U/L ALT 12 L (14-59) U/L Alkaline Phosphatase 56 (46-116) U/L Troponin I 0.053 (0.00-0.056) ng/mL Total Protein 5.9 L (6.4-8.2) g/dl Albumin 2.3 L (3.4-5.0) g/dl Globulin 3.6 gm/dL Albumin/Globulin Ratio 0.6 L (1-2) Ur Random Sodium (40-220) mEq/L 03/03/21 Range/Units 11:27 WBC (3.98-10.04) K/mm3 RBC (3.98-5.22) M/mm3 Hgb (11.2-15.7) gm/dl Hct (34.1-44.9) % MCV (79.4-94.8) fl MCH (25.6-32.2) pg MCHC (32.2-35.5) g/dl RDW Std Deviation (36.4-46.3) fL Plt Count (182-369) K/mm3 MPV (9.4-12.3) fl Neut % (Auto) (34.0-71.1) % Lymph % (Auto) (19.3-51.7) % Dillon % (Auto) (4.7-12.5) % Eos % (Auto) (0.7-5.8) Baso % (Auto) (0.1-1.2) % Neut # (Auto) (1.56-6.13) K/mm3 Lymph # (Auto) (1.18-3.74) K/mm3 Dillon # (Auto) (0.24-0.36) K/mm3 Eos # (Auto) (0.04-0.36) K/mm3 Baso # (Auto) (0.01-0.08) K/mm3 Manual Slide Review Sodium (136-145) mEq/L Potassium (3.5-5.1) mEq/L Chloride (98-107) mEq/L Carbon Dioxide (21-32) mEq/L Anion Gap (5-15) BUN (7-18) mg/dL Creatinine (0.55-1.02) mg/dL Est Cr Clr Drug Dosing mL/min Estimated GFR (MDRD) (>60) mL/min BUN/Creatinine Ratio (14-18) Glucose (83-115) mg/dL Calcium (8.5-10.1) mg/dL Magnesium (1.8-2.4) mg/dl Total Bilirubin (0.2-1.0) mg/dL AST (15-37) U/L ALT (14-59) U/L Alkaline Phosphatase (46-116) U/L Troponin I (0.00-0.056) ng/mL Total Protein (6.4-8.2) g/dl Albumin (3.4-5.0) g/dl Globulin gm/dL Albumin/Globulin Ratio (1-2) Ur Random Sodium 22 L (40-220) mEq/L Result Diagrams: 03/03/21 04:42 03/03/21 04:42 Ti Results Last 24 hrs: Microbiology 03/02/21 09:12 Urine Culture - Preliminary Urine, Catheterized NO GROWTH AFTER 1 DAY 03/01/21 14:22 Aerobic Blood Culture - Preliminary Blood - Venous - Lab Draw NO GROWTH AFTER 1 DAY Anaerobic Blood Culture - Final 03/01/21 14:11 Aerobic Blood Culture - Preliminary Blood - Venous NO GROWTH AFTER 1 DAY Anaerobic Blood Culture - Preliminary NO GROWTH AFTER 1 DAY Sepsis Event Note - Evaluation Sepsis Screening Result: No Definite Risk - Focused Exam Vital Signs: Vital Signs Temp Pulse Resp BP BP Pulse Ox Pulse Ox 03/03/21 11:54 36.3 C 16 100 03/03/21 08:16 103 H 101/77 03/03/21 08:15 103 H 03/03/21 08:00 36.4 C 16 94 L 03/03/21 06:38 98 03/03/21 05:45 97 03/03/21 04:00 36.4 C 13 117/70 96 03/03/21 02:00 126 H - Problem List & Annotations (1) Congestive heart failure SNOMED Code(s): 24167282 Code(s): I50.9 - HEART FAILURE, UNSPECIFIED Status: Acute Priority: Medium Current Visit: Yes Onset Date: ~03/02/21 Qualifiers: Heart failure type: systolic Heart failure chronicity: acute on chronic Qualified Code(s): I50.23 - Acute on chronic systolic (congestive) heart failure Annotation/Comment:: likely pleural effusion cardiogenic and related to tumor (2) Elevated troponin I measurement SNOMED Code(s): 234300517 Code(s): R77.8 - OTHER SPECIFIED ABNORMALITIES OF PLASMA PROTEINS Status: Acute Priority: Medium Current Visit: Yes Onset Date: ~03/02/21 (3) Hypoxia SNOMED Code(s): 159811538 Code(s): R09.02 - HYPOXEMIA Status: Acute Priority: Medium Current Visit: Yes Onset Date: ~03/03/21 (4) Pleural effusion on right SNOMED Code(s): 64125174 Code(s): J90 - PLEURAL EFFUSION, NOT ELSEWHERE CLASSIFIED Status: Acute Priority: High Current Visit: Yes Onset Date: ~03/02/21 Annotation/Comment:: cytology pending / lge fluid resp/failure much improved. (5) Pneumothorax, acute SNOMED Code(s): 75962297 Code(s): J93.83 - OTHER PNEUMOTHORAX Status: Acute Priority: High Current Visit: Yes Onset Date: ~03/02/21 (6) Chronic atrial fibrillation with rapid ventricular response SNOMED Code(s): 069965186, 541558767272569 Code(s): I48.20 - CHRONIC ATRIAL FIBRILLATION, UNSPECIFIED Status: Chronic Priority: High Current Visit: Yes Onset Date: ~03/02/21 Annotation/Comment:: cont current meds and consder lasix if pleural effusion starts again. (7) Chronic renal insufficiency, stage III (moderate) SNOMED Code(s): 838051739 Code(s): N18.30 - CHRONIC KIDNEY DISEASE, STAGE 3 UNSPECIFIED Status: Chronic Priority: High Current Visit: Yes Onset Date: ~03/03/21 Qualifiers: Chronic kidney disease stage 3 subtype: stage 3b (GFR 30-44) Qualified Code(s): N18.32 - Chronic kidney disease, stage 3b Annotation/Comment:: creatinine improved 1.5 to 1.1 - Problem List Review Problem List Initiated/Reviewed/Updated: Yes - My Orders Last 24 Hours: My Active Orders 03/03/21 Lunch Regular Diet [DIET] 03/04/21 05:11 COMPREHENSIVE METABOLIC PN,CMP [CHEM] AM - Plan Plan:: The patient is an 89-year-old lady who has been admitted to the intensive care unit as an inpatient due to her requiring amiodarone to help control her heart rate. The patient also has a very large right-sided pleural effusion and Dr. Gomez has been consulted for thoracentesis. Laboratory studies of the pleural fluid will be ordered to help exclude malignancy. I cannot exclude a pneumonia within the effusion. Therefore the patient will be treated as pneumonia with Rocephin renally dosed. The patient is currently taking Xarelto and this will be continued and therefore she will not require extra DVT prophylaxis. If needed will consider SCDs although the patient is a fall risk. Feet laboratory studies have been ordered. Heart healthy diet has been ordered. Because of the patient's congestive heart failure and a BNP at 2700 the patient will have saline lock of her IV and fluids will be monitored. PT OT has also been ordered for the patient. We will adjust the patient's medications as necessary. The patient will also have regular diet as tolerated. The patient is currently in a DO NOT INTUBATE DO NOT RESUSCITATE category. I have discussed possible placement with the patient's family. 03/02/2021 The patient is an 89-year-old lady who had been admitted to the intensive care unit secondary to A. fib with RVR. Patient remains tachycardic although her heart rate has improved from 170 bpm down to an average of 125. It was thought that the patient's heart rate would improve after thoracentesis and subsequent chest tube and reinflation of her lung. The patient previously had been on amiodarone and diltiazem without good rate control. The patient has been placed on digoxin and pharmacy has dosed this. She does have chronic renal failure to accompany this. The x-ray did show a large mass which did not distinguish between pneumonia or neoplastic process. The patient will currently remain on Rocephin as treatment for pneumonia. The patient's antibiotics will be altered as urine cultures indicate. I had a long discussion with the patient's family regarding this. Repeat laboratory studies have been ordered for the morning. Will await results of thoracentesis fluids. Continue with physical therapy. Continue with diet as tolerated. I think the patient's prognosis at this time is poor.03/03/21 afebrile 03/03/21 vss/// rr 20s // b.p up slightly slept well sats 90-96% . aox 3 interacting with staff and feels tired but better. denies ordoñez when sitting up . chest xray shows persistent small pneumo rt and large mass with air/ no consolidation. cor rrr without s3/s4 murmur. abd benign and b.s good bm x one skin good edema mild . orally dry lab na `127 and no diuretics given urine spot na 22 so holding on to salt and signs of overload not seen . discussed with DR Gomez and cont chest tube drainage as output still high to moderate. and monitor secreations and awaiting cytology results. have discussed with and he is aware of possible lung mass. assess pneumothorax with small bore chest tube cont to leak 2)rt lung mass , possible cause of pneumothorax. 3) hyponatremia does not appear to be siadh related nor diuretic and push fluid and salt sec to hypotension and lung /chest tube output. 4)frail// malnourished and advanced age make home care issues pertinent for family and patient . ss to see friday
[2021-03-03] MEDS: Rivaroxaban 15 MG Tab PO SCH (16:14)
[2021-03-03] MEDS: cefTRIAXone 1 GM in Sodium Chloride 0.9% 100 ML IV SCH (17:13)
[2021-03-03] MEDS ORDERED: Metoprolol Succinate 25 MG Tab.ER PO ONE (20:36)
[2021-03-04] MEDS: Pantoprazole 40 MG Tab.CR PO SCH (06:34)
[2021-03-04] MEDS: Gabapentin 100 MG Cap PO SCH ×3 (08:33→20:58)
[2021-03-04] MEDS: Meclizine 12.5 MG Tab PO SCH ×2 (08:33→20:58)
[2021-03-04] MEDS: Aspirin 81 MG Tab.EC PO SCH (08:33)
[2021-03-04] MEDS: Donepezil 10 MG Tab PO SCH (08:34)
[2021-03-04] MEDS: Metoprolol Succinate 50 MG Tab.ER PO SCH (08:34)
[2021-03-04] MEDS: Digoxin 125 MCG Tab PO SCH (08:37)
[2021-03-04] MEDS: COLESTIPOL 1 GM PO SCH ×2 (08:37→21:53)
[2021-03-04] MEDS: Potassium Chloride 20 MEQ Tab.ER PO SCH (08:37)
[2021-03-04] MEDS: Sertraline 25 MG Tab PO SCH (08:37)
--- NOTE | 2021-03-04 08:38 | PCM.SN.2 ---
- Free Text/Narrative Note: 89 yo woman with rapid atrial fibrillation and large right-sided pleural effusion s/p thoracentesis 03/01 with subsequent chest tube placement for pneumothorax. X-ray suspicious for large focal pneumonia vs malignancy, pleural fluid cytology pending. S: poor rest overnight. Chest tube once again became disconnected from suction yesterday. O: AF-HR 100-110 irregular, BP stable, within normal range, SpO2 > 95% on room air No distress Right 12 F chest tube to water seal overnight, stable appearance of apical pne umothorax on film this morning. Tube does not seem to be functioning properly/ minimal fluid out, no tidaling in tube. CXR shows increasing opacification of right chest, previously noted consolidatio n seems to be dissipating. Stable apical pneumothorax compared to yesterday's flims. A: Residual apical pneumothorax on this morning's film, while tube was to water seal overnight. P: Chest tube removed on morning rounds. Follow up CXR ordered Discussed utility of CT chest to further characterize right lung pathology. Recommend no further use of benzodiazepine for elderly patient in ICU with history of dementia and episode of agitated delirium. Consider alternative such as zyprexa if needed. Await final results from pleural fluid analysis.
[2021-03-04] MEDS ORDERED: Metoprolol Succinate 50 MG Tab.ER PO ONE (09:03)
[2021-03-04] MEDS ORDERED: Furosemide 20 MG/2 ML VIAL IVPUSH ONE (09:03)
[2021-03-04] MEDS: Azithromycin 500 MG in Sodium Chloride 0.9% 250 ML IV SCH (10:01)
--- NOTE | 2021-03-04 10:01 | CR ---
Chest: Portable view of the chest was obtained (9:07 AM). Comparison: Prior chest x-ray performed earlier on the same date (5:55 AM). Right-sided chest tube has been removed. Small right-sided pneumothorax is seen within the apex which is stable. Stable air is noted within the right lateral chest wall. Continuing atelectasis within the right lung which is slightly improved. No acute parenchymal change is otherwise seen. Heart size and mediastinum are stable. Left-sided metallic foreign bodies are seen which are stable. Impression: 1. Small right apical pneumothorax which is stable. 2. Removal of right-sided chest tube. 3. Slight improved atelectasis within the right upper lung. Diagnostic code #3
[2021-03-04] MEDS: Rosuvastatin 10 MG Tab PO SCH (11:06)
[2021-03-04] MEDS: Cyanocobalamin (Vitamin B12) 1,000 MCG Tab PO SCH (11:06)
[2021-03-04] MEDS: Multivitamin Tab PO SCH (11:06)
--- NOTE | 2021-03-04 12:49 | PCM.PN ---
- General Info Date of Service: 03/04/21 Admission Dx/Problem (Free Text): Admission Diagnosis/Problem Admission Diagnosis/Problem Atrial fibrillation with rapid ventricular response Subjective Update: The patient is an 89-year-old lady who was admitted yesterday evening secondary to A. fib with RVR. The patient was also noted in the emergency department to have a large right-sided pleural effusion. This was drained yesterday and sent for analysis. The patient then had an associated pneumothorax and chest tube was placed today. Repeat chest x-ray shows relatively large mass in the right lung. Patient today says that she is doing okay. She is hungry. The patient has denied any pain. 03/03/21 afebrile vss/// rr 20s // b.p up slightly slept well sats 90-96% . aox 3 interacting with staff and feels tired but better. denies ordoñez when sitting up . chest xray shows persistent small pneumo rt and large mass with air/ no consolidation. cor rrr without s3/s4 murmur. abd benign and b.s good bm x one skin good edema mild . orally dry lab na `127 and no diuretics given urine spot na 22 so holding on to salt and signs of overload not seen . discussed with DR Gomez and cont chest tube drainage as output still high to moderate. and monitor secreations and awaiting cytology results. have discussed with and he is aware of possible lung mass. assess pneumothorax with small bore chest tube cont to leak 2)rt lung mass , possible cause of pneumothorax. 3) hyponatremia does not appear to be siadh related nor diuretic and push fluid and salt sec to hypotension and lung /chest tube output. 4)frail// malnourished and advanced age make home care issues pertinent for family and patient . ss to see friday boh 03/04/21 afebrile / vss but heart rate still fast 95-115. good night . chest tube pulled. p.e. lungs clear but decreased. rt side sounds dull . a/e fair left poor rt. cor irreg/irreg 90-100. sats stable . neuro clearer and conversive family asking about lung mass disappearing and discussed that it may be pneumonia with atelectasis and ct scan to be considered if unable to tell by am. chf findings about the same and lasix given . appetite good and malnourishment discussed and was not eating wel for 3 weeks prior to admission sec. to not feeling well . chest xray shows residual sm rt pneumo but mass in rt mid lung has dramatically improved.? atelectasis/ pneumonia appearance . repeat film shows even less residual infiltrate. lab dig level .9 nt bnp 2430 lytes stable. given lasix x one . cont current dose of metoprolol as slowly afib rate decreasing. monitor for any dig tox. assess: 1) lung mass rt may be pneumonia and added azythromax and cpt for suspected atelectasis with mucous plugging. nebs bid sec to tachycardia. 2)afib rvr improved. 3)chf with large rt pleural effusion awaiting results but does appear transudative. 4) malnourishment. 7) anemia plan: cont current care /// ct in am /// cont diuresis efforts . monitor creat and bun. monitor anemia. nutritional support // supplement. penitentiary care? p.t //ot evals //ss eval // discussed with family and they agree. boh Functional Status: Reports: Pain Controlled - Review of Systems General: Reports: Fatigue HEENT: Reports: No Symptoms Pulmonary: Reports: No Symptoms, Shortness of Breath Cardiovascular: Reports: No Symptoms Gastrointestinal: Reports: No Symptoms Genitourinary: Reports: No Symptoms Musculoskeletal: Reports: No Symptoms Skin: Reports: No Symptoms Neurological: Reports: No Symptoms Psychiatric: Reports: No Symptoms - Patient Data Vitals - Most Recent: Last Vital Signs Temp 36.1 C 03/04/21 12:00 Pulse 112 H 03/04/21 08:37 Resp 16 03/04/21 12:00 BP 100/72 03/04/21 12:00 Pulse Ox 98 03/04/21 12:00 Weight - Most Recent: 53.751 kg I&O - Last 24 Hours: Intake & Output 03/03/21 03/04/21 03/04/21 22:59 06:59 14:59 Intake Total 1000 240 Output Total 786 075 735 Balance 037 -460 -483 Lab Results Last 24 Hours: Laboratory Results - last 24 hr 03/04/21 03/04/21 03/04/21 Range/Units 07:45 07:45 07:45 WBC 6.61 (3.98-10.04) K/mm3 RBC 3.41 L (3.98-5.22) M/mm3 Hgb 10.6 L (11.2-15.7) gm/dl Hct 33.0 L (34.1-44.9) % MCV 96.8 H (79.4-94.8) fl MCH 31.1 (25.6-32.2) pg MCHC 32.1 L (32.2-35.5) g/dl RDW Std Deviation 46.6 H (36.4-46.3) fL Plt Count 246 (182-369) K/mm3 MPV 10.7 (9.4-12.3) fl Neut % (Auto) 80.0 H (34.0-71.1) % Lymph % (Auto) 6.8 L (19.3-51.7) % [place] % (Auto) 9.1 (4.7-12.5) % Eos % (Auto) 3.6 (0.7-5.8) Baso % (Auto) 0.3 (0.1-1.2) % Neut # (Auto) 5.29 (1.56-6.13) K/mm3 Lymph # (Auto) 0.45 L (1.18-3.74) K/mm3 [place] # (Auto) 0.60 H (0.24-0.36) K/mm3 Eos # (Auto) 0.24 (0.04-0.36) K/mm3 Baso # (Auto) 0.02 (0.01-0.08) K/mm3 Manual Slide Review Abnormal smear Sodium 139 D (136-145) mEq/L Potassium 4.1 (3.5-5.1) mEq/L Chloride 105 (98-107) mEq/L Carbon Dioxide 27 (21-32) mEq/L Anion Gap 11.1 (5-15) BUN 33 H (7-18) mg/dL Creatinine 0.9 (0.55-1.02) mg/dL Est Cr Clr Drug Dosing 35.05 mL/min Estimated GFR (MDRD) 59 (>60) mL/min BUN/Creatinine Ratio 36.7 H (14-18) Glucose 88 (83-115) mg/dL Calcium 8.9 (8.5-10.1) mg/dL Magnesium 1.8 (1.8-2.4) mg/dl Total Bilirubin 0.3 (0.2-1.0) mg/dL AST 15 (15-37) U/L ALT 13 L (14-59) U/L Alkaline Phosphatase 51 (46-116) U/L NT-Pro-B Natriuret Pep (0-450) pg/mL Total Protein 5.4 L (6.4-8.2) g/dl Albumin 2.0 L (3.4-5.0) g/dl Globulin 3.4 gm/dL Albumin/Globulin Ratio 0.6 L (1-2) Free T4 (0.76-1.46) ng/dL TSH 3rd Generation (0.358-3.74) uIU/mL Digoxin 0.8 L (0.9-2.0) ng/mL 03/04/21 03/04/21 Range/Units 07:45 07:45 WBC (3.98-10.04) K/mm3 RBC (3.98-5.22) M/mm3 Hgb (11.2-15.7) gm/dl Hct (34.1-44.9) % MCV (79.4-94.8) fl MCH (25.6-32.2) pg MCHC (32.2-35.5) g/dl RDW Std Deviation (36.4-46.3) fL Plt Count (182-369) K/mm3 MPV (9.4-12.3) fl Neut % (Auto) (34.0-71.1) % Lymph % (Auto) (19.3-51.7) % [place] % (Auto) (4.7-12.5) % Eos % (Auto) (0.7-5.8) Baso % (Auto) (0.1-1.2) % Neut # (Auto) (1.56-6.13) K/mm3 Lymph # (Auto) (1.18-3.74) K/mm3 [place] # (Auto) (0.24-0.36) K/mm3 Eos # (Auto) (0.04-0.36) K/mm3 Baso # (Auto) (0.01-0.08) K/mm3 Manual Slide Review Sodium (136-145) mEq/L Potassium (3.5-5.1) mEq/L Chloride (98-107) mEq/L Carbon Dioxide (21-32) mEq/L Anion Gap (5-15) BUN (7-18) mg/dL Creatinine (0.55-1.02) mg/dL Est Cr Clr Drug Dosing mL/min Estimated GFR (MDRD) (>60) mL/min BUN/Creatinine Ratio (14-18) Glucose (83-115) mg/dL Calcium (8.5-10.1) mg/dL Magnesium (1.8-2.4) mg/dl Total Bilirubin (0.2-1.0) mg/dL AST (15-37) U/L ALT (14-59) U/L Alkaline Phosphatase (46-116) U/L NT-Pro-B Natriuret Pep 2429 H (0-450) pg/mL Total Protein (6.4-8.2) g/dl Albumin (3.4-5.0) g/dl Globulin gm/dL Albumin/Globulin Ratio (1-2) Free T4 1.21 (0.76-1.46) ng/dL TSH 3rd Generation 0.541 (0.358-3.74) uIU/mL Digoxin (0.9-2.0) ng/mL Ti Results Last 24 Hours: Microbiology 03/01/21 19:14 Body Fluid Culture - Preliminary Thoracentesis Fluid - Right NO GROWTH AFTER 1 DAY 03/02/21 09:12 Urine Culture - Final Urine, Catheterized NO GROWTH AFTER 2 DAYS 03/01/21 14:22 Aerobic Blood Culture - Preliminary Blood - Venous - Lab Draw NO GROWTH AFTER 2 DAYS Anaerobic Blood Culture - Final 03/01/21 14:11 Aerobic Blood Culture - Preliminary Blood - Venous NO GROWTH AFTER 2 DAYS Anaerobic Blood Culture - Preliminary NO GROWTH AFTER 2 DAYS Med Orders - Current: Current Medications Acetaminophen (Acetaminophen 325 Mg Tab) 650 mg PO Q4H PRN PRN Reason: Pain (Mild 1-3)/fever Albuterol/Ipratropium (Albuterol/Ipratropium 3.0-0.5 Mg/3 Ml Neb Soln) 3 ml NEB Q4HRRT PRN PRN Reason: Congestion Last Admin: 03/01/21 22:59 Dose: 3 ml Documented by: Albuterol/Ipratropium (Albuterol/Ipratropium 3.0-0.5 Mg/3 Ml Neb Soln) 3 ml NEB BIDRT [facility] Aspirin (Aspirin 81 Mg Tab.Ec) 81 mg PO DAILY [facility] Last Admin: 03/04/21 08:33 Dose: 81 mg Documented by: Cyanocobalamin (Cyanocobalamin (Vitamin B12) 1,000 Mcg Tab) 1,000 mcg PO DAILY [facility] Last Admin: 03/04/21 11:06 Dose: 1,000 mcg Documented by: Digoxin (Digoxin 125 Mcg Tab) 125 mcg PO DAILY [facility] Last Admin: 03/04/21 08:37 Dose: 125 mcg Documented by: Donepezil HCl (Donepezil 10 Mg Tab) 5 mg PO DAILY [facility] Last Admin: 03/04/21 08:34 Dose: 5 mg Documented by: Gabapentin (Gabapentin 100 Mg Cap) 100 mg PO TID [facility] Last Admin: 03/04/21 08:33 Dose: 100 mg Documented by: Ceftriaxone Sodium 1 gm/ (Sodium Chloride) 100 mls @ 200 mls/hr IV Q24H [facility] Last Admin: 03/03/21 17:13 Dose: 200 mls/hr Documented by: Azithromycin 500 mg/ Sodium (Chloride) 250 mls @ 250 mls/hr IV Q24H [facility] Stop: 03/07/21 10:01 Last Admin: 03/04/21 10:01 Dose: 250 mls/hr Documented by: Lorazepam (Lorazepam 2 Mg/Ml Sdv) 0.5 mg IVPUSH Q4H PRN PRN Reason: Agitation Last Admin: 03/03/21 17:14 Dose: 0.5 mg Documented by: Meclizine HCl (Meclizine 12.5 Mg Tab) 12.5 mg PO BID [facility] Last Admin: 03/04/21 08:33 Dose: 12.5 mg Documented by: Metoprolol Succinate (Metoprolol Succinate 50 Mg Tab.Er) 50 mg PO DAILY [facility] Last Admin: 03/04/21 08:34 Dose: 50 mg Documented by: Multivitamins/Minerals/Vitamin C (Multivitamin Tab) 1 tab PO DAILY [facility] Last Admin: 03/04/21 11:06 Dose: 1 tab Documented by: Ondansetron HCl (Ondansetron 4 Mg Tab.Dis) 4 mg PO Q6H PRN PRN Reason: nausea, able to take PO Oxycodone HCl (Oxycodone 5 Mg Tab) 5 mg PO Q4H PRN PRN Reason: Pain (moderate 4-6) Pantoprazole Sodium (Pantoprazole 40 Mg Tab.Cr) 40 mg PO DAILY@0700 [facility] Last Admin: 03/04/21 06:34 Dose: 40 mg Documented by: Colestipol 1 Gm (Tablet Ptom) 0 each PO BID [facility] Last Admin: 03/04/21 08:37 Dose: Not Given Documented by: Potassium Chloride (Potassium Chloride 20 Meq Tab.Er) 20 meq PO DAILY [facility] Last Admin: 03/04/21 08:37 Dose: 20 meq Documented by: Rivaroxaban (Rivaroxaban 15 Mg Tab) 15 mg PO 1700 [facility] Last Admin: 03/03/21 16:14 Dose: 15 mg Documented by: Rosuvastatin Calcium (Rosuvastatin 10 Mg Tab) 10 mg PO DAILY [facility] Last Admin: 03/04/21 11:06 Dose: 10 mg Documented by: Sertraline HCl (Sertraline 25 Mg Tab) 25 mg PO DAILY [facility] Last Admin: 03/04/21 08:37 Dose: 25 mg Documented by: Sodium Chloride (Sodium Chloride 0.9% 10 Ml Syringe) 10 ml FLUSH ASDIRECTED PRN PRN Reason: Keep Vein Open Discontinued Medications Ceftriaxone Sodium (Ceftriaxone 1 Gm Vial) 1 gm IM Q24H [facility] Last Admin: 03/01/21 18:06 Dose: Not Given Documented by: Ceftriaxone Sodium (Ceftriaxone 1 Gm Vial) 1 gm IV Q24H [facility] Last Admin: 03/01/21 19:46 Dose: Not Given Documented by: Ceftriaxone Sodium (Ceftriaxone 1 Gm Vial) 1 gm IVPUSH Q24H [facility] Digoxin (Digoxin 500 Mcg/2 Ml Amp) 200 mcg IV ONETIME ONE Stop: 03/02/21 09:01 Last Admin: 03/02/21 09:24 Dose: 200 mcg Documented by: Digoxin (Digoxin 500 Mcg/2 Ml Amp) 100 mcg IV Q8H [facility] Stop: 03/03/21 01:01 Last Admin: 03/03/21 02:00 Dose: 100 mcg Documented by: Digoxin (Digoxin 500 Mcg/2 Ml Amp) 90 mcg IV DAILY [facility] Last Admin: 03/03/21 08:15 Dose: 90 mcg Documented by: Diltiazem HCl (Diltiazem 50 Mg/10 Ml Sdv) 10 mg IVPUSH ONETIME ONE Stop: 03/01/21 13:56 Last Admin: 03/01/21 14:11 Dose: 10 mg Documented by: Diltiazem HCl (Diltiazem 50 Mg/10 Ml Sdv) 10 mg IVPUSH ONETIME ONE Stop: 03/01/21 14:46 Last Admin: 03/01/21 14:58 Dose: 10 mg Documented by: Diltiazem HCl (Diltiazem 50 Mg/10 Ml Sdv) 10 mg IVPUSH ONETIME ONE Stop: 03/01/21 15:50 Last Admin: 03/01/21 15:57 Dose: 10 mg Documented by: Enoxaparin Sodium (Enoxaparin 60 Mg/0.6 Ml Syringe) 60 mg SUBCUT ONETIME ONE Stop: 03/01/21 14:03 Last Admin: 03/01/21 18:02 Dose: Not Given Documented by: Furosemide (Furosemide 20 Mg/2 Ml Vial) 20 mg IVPUSH ONETIME ONE Stop: 03/04/21 09:04 Last Admin: 03/04/21 09:20 Dose: 20 mg Documented by: Diltiazem HCl 100 mg/ Sodium (Chloride) 100 mls @ 10 mls/hr IV ASDIRECTED CLIF Last Infusion: 03/01/21 15:10 Dose: 15 mg/hr, 15 mls/hr Documented by: Amiodarone HCl/Dextrose (Nexterone In Dextrose 360 Mg/200 Ml) 360 mg in 200 mls @ 33.333 mls/hr IV ASDIRECTED CLIF; Protocol Last Admin: 03/01/21 16:40 Dose: 33.333 mls/hr Documented by: Ceftriaxone Sodium 1 gm/ (Sodium Chloride) 100 mls @ 200 mls/hr IV Q24H [facility] Last Admin: 03/01/21 18:20 Dose: 200 mls/hr Documented by: Amiodarone HCl/Dextrose (Nexterone In Dextrose 360 Mg/200 Ml) 360 mg in 200 mls @ 16.7 mls/hr IV ASDIRECTED CLIF; Protocol Stop: 03/03/21 16:40 Last Infusion: 03/01/21 23:47 Dose: 16.7 mls/hr Documented by: Amiodarone HCl/Dextrose (Nexterone In Dextrose 150 Mg/100 Ml) 100 mls @ 600 mls/hr IV ONETIME ONE; Protocol Stop: 03/01/21 23:32 Last Admin: 03/01/21 23:31 Dose: 600 mls/hr Documented by: Lidocaine HCl (Lidocaine 1% 10 Ml Mdv) Confirm Administered Dose 10 ml .ROUTE .STK-MED ONE Stop: 03/02/21 07:46 Last Admin: 03/02/21 08:36 Dose: 10 ml Documented by: Lidocaine HCl (Lidocaine 1% 10 Ml Mdv) Confirm Administered Dose 10 ml .ROUTE .STK-MED ONE Stop: 03/02/21 18:14 Last Admin: 03/02/21 18:44 Dose: 4 ml Documented by: Lidocaine/Epinephrine (Lidocaine 1% With Epinephrine 1:100,000 10 Ml Mdv) Confirm Administered Dose 10 ml .ROUTE .STK-MED ONE Stop: 03/02/21 02:52 Last Admin: 03/02/21 15:32 Dose: Not Given Documented by: Metoprolol Succinate (Metoprolol Succinate 25 Mg Tab.Er) 25 mg PO ONETIME ONE Stop: 03/03/21 20:37 Last Admin: 03/03/21 20:50 Dose: 25 mg Documented by: Metoprolol Succinate (Metoprolol Succinate 50 Mg Tab.Er) 50 mg PO ONETIME ONE Stop: 03/04/21 09:04 Last Admin: 03/04/21 10:35 Dose: Not Given Documented by: Colestipol 1 Gm (Tablet Ptom) 1 gram PO BID CLIF Last Admin: 03/03/21 08:18 Dose: Not Given Documented by: - Exam General: Alert, Oriented HEENT: Pupils Equal, Pupils Reactive, EOMI, Mucous Membr. Moist/[place] Neck: Supple Lungs: Clear to Auscultation, Normal Respiratory Effort Cardiovascular: Regular Rate, Regular Rhythm, Irregular Rhythm. No: Murmurs, Gallops GI/Abdominal Exam: Normal Bowel Sounds, Soft, Non-Tender, No Organomegaly, No Distention, No Abnormal Bruit, No Mass, Pelvis Stable (Female) Exam: Normal External Exam, Normal Speculum Exam, Normal Bimanual Exam Back Exam: Normal Inspection, Full Range of Motion Extremities: Normal Inspection, Normal Range of Motion, Non-Tender, No Pedal Edema, Normal Capillary Refill Skin: Warm, Dry, Intact Wound/Incisions: Healing Well Neurological: No New Focal Deficit Psy/Mental Status: Alert, Normal Affect, Normal Mood - Patient Data Lab Results Last 24 hrs: Laboratory Results - last 24 hr 03/04/21 03/04/21 03/04/21 Range/Units 07:45 07:45 07:45 WBC 6.61 (3.98-10.04) K/mm3 RBC 3.41 L (3.98-5.22) M/mm3 Hgb 10.6 L (11.2-15.7) gm/dl Hct 33.0 L (34.1-44.9) % MCV 96.8 H (79.4-94.8) fl MCH 31.1 (25.6-32.2) pg MCHC 32.1 L (32.2-35.5) g/dl RDW Std Deviation 46.6 H (36.4-46.3) fL Plt Count 246 (182-369) K/mm3 MPV 10.7 (9.4-12.3) fl Neut % (Auto) 80.0 H (34.0-71.1) % Lymph % (Auto) 6.8 L (19.3-51.7) % [place] % (Auto) 9.1 (4.7-12.5) % Eos % (Auto) 3.6 (0.7-5.8) Baso % (Auto) 0.3 (0.1-1.2) % Neut # (Auto) 5.29 (1.56-6.13) K/mm3 Lymph # (Auto) 0.45 L (1.18-3.74) K/mm3 [place] # (Auto) 0.60 H (0.24-0.36) K/mm3 Eos # (Auto) 0.24 (0.04-0.36) K/mm3 Baso # (Auto) 0.02 (0.01-0.08) K/mm3 Manual Slide Review Abnormal smear Sodium 139 D (136-145) mEq/L Potassium 4.1 (3.5-5.1) mEq/L Chloride 105 (98-107) mEq/L Carbon Dioxide 27 (21-32) mEq/L Anion Gap 11.1 (5-15) BUN 33 H (7-18) mg/dL Creatinine 0.9 (0.55-1.02) mg/dL Est Cr Clr Drug Dosing 35.05 mL/min Estimated GFR (MDRD) 59 (>60) mL/min BUN/Creatinine Ratio 36.7 H (14-18) Glucose 88 (83-115) mg/dL Calcium 8.9 (8.5-10.1) mg/dL Magnesium 1.8 (1.8-2.4) mg/dl Total Bilirubin 0.3 (0.2-1.0) mg/dL AST 15 (15-37) U/L ALT 13 L (14-59) U/L Alkaline Phosphatase 51 (46-116) U/L NT-Pro-B Natriuret Pep (0-450) pg/mL Total Protein 5.4 L (6.4-8.2) g/dl Albumin 2.0 L (3.4-5.0) g/dl Globulin 3.4 gm/dL Albumin/Globulin Ratio 0.6 L (1-2) Free T4 (0.76-1.46) ng/dL TSH 3rd Generation (0.358-3.74) uIU/mL Digoxin 0.8 L (0.9-2.0) ng/mL 03/04/21 03/04/21 Range/Units 07:45 07:45 WBC (3.98-10.04) K/mm3 RBC (3.98-5.22) M/mm3 Hgb (11.2-15.7) gm/dl Hct (34.1-44.9) % MCV (79.4-94.8) fl MCH (25.6-32.2) pg MCHC (32.2-35.5) g/dl RDW Std Deviation (36.4-46.3) fL Plt Count (182-369) K/mm3 MPV (9.4-12.3) fl Neut % (Auto) (34.0-71.1) % Lymph % (Auto) (19.3-51.7) % [place] % (Auto) (4.7-12.5) % Eos % (Auto) (0.7-5.8) Baso % (Auto) (0.1-1.2) % Neut # (Auto) (1.56-6.13) K/mm3 Lymph # (Auto) (1.18-3.74) K/mm3 [place] # (Auto) (0.24-0.36) K/mm3 Eos # (Auto) (0.04-0.36) K/mm3 Baso # (Auto) (0.01-0.08) K/mm3 Manual Slide Review Sodium (136-145) mEq/L Potassium (3.5-5.1) mEq/L Chloride (98-107) mEq/L Carbon Dioxide (21-32) mEq/L Anion Gap (5-15) BUN (7-18) mg/dL Creatinine (0.55-1.02) mg/dL Est Cr Clr Drug Dosing mL/min Estimated GFR (MDRD) (>60) mL/min BUN/Creatinine Ratio (14-18) Glucose (83-115) mg/dL Calcium (8.5-10.1) mg/dL Magnesium (1.8-2.4) mg/dl Total Bilirubin (0.2-1.0) mg/dL AST (15-37) U/L ALT (14-59) U/L Alkaline Phosphatase (46-116) U/L NT-Pro-B Natriuret Pep 2429 H (0-450) pg/mL Total Protein (6.4-8.2) g/dl Albumin (3.4-5.0) g/dl Globulin gm/dL Albumin/Globulin Ratio (1-2) Free T4 1.21 (0.76-1.46) ng/dL TSH 3rd Generation 0.541 (0.358-3.74) uIU/mL Digoxin (0.9-2.0) ng/mL Result Diagrams: 03/04/21 07:45 03/04/21 07:45 Ti Results Last 24 hrs: Microbiology 03/01/21 19:14 Body Fluid Culture - Preliminary Thoracentesis Fluid - Right NO GROWTH AFTER 1 DAY 03/02/21 09:12 Urine Culture - Final Urine, Catheterized NO GROWTH AFTER 2 DAYS 03/01/21 14:22 Aerobic Blood Culture - Preliminary Blood - Venous - Lab Draw NO GROWTH AFTER 2 DAYS Anaerobic Blood Culture - Final 03/01/21 14:11 Aerobic Blood Culture - Preliminary Blood - Venous NO GROWTH AFTER 2 DAYS Anaerobic Blood Culture - Preliminary NO GROWTH AFTER 2 DAYS Sepsis Event Note - Evaluation Sepsis Screening Result: No Definite Risk - Focused Exam Vital Signs: Vital Signs Temp Pulse Resp BP BP Pulse Ox 03/04/21 12:00 36.1 C 16 100/72 98 03/04/21 08:37 112 H 03/04/21 08:34 98 118/67 03/04/21 08:13 36.1 C 16 118/67 97 03/04/21 04:00 36.1 C 14 116/54 L 95 - Problem List & Annotations (1) Congestive heart failure SNOMED Code(s): 22157447 Code(s): I50.9 - HEART FAILURE, UNSPECIFIED Status: Acute Priority: Medium Current Visit: Yes Onset Date: ~03/02/21 Qualifiers: Heart failure type: systolic Heart failure chronicity: acute on chronic Qualified Code(s): I50.23 - Acute on chronic systolic (congestive) heart failure Annotation/Comment:: likely pleural effusion cardiogenic and related to pneumonia and mucous plugging/atel. (2) Elevated troponin I measurement SNOMED Code(s): 152615834 Code(s): R77.8 - OTHER SPECIFIED ABNORMALITIES OF PLASMA PROTEINS Status: Acute Priority: Medium Current Visit: Yes Onset Date: ~03/02/21 Annota tion/Comment:: mild anemia / moderate renal insuff suspected but very slight muscle mass (3) Hypoxia SNOMED Code(s): 674004731 Code(s): R09.02 - HYPOXEMIA Status: Acute Priority: Low Current Visit: Yes Onset Date: ~03/03/21 Annotation/Comment:: off o2 (4) Pleural effusion on right SNOMED Code(s): 84306543 Code(s): J90 - PLEURAL EFFUSION, NOT ELSEWHERE CLASSIFIED Status: Acute Priority: Low Current Visit: Yes Onset Date: ~03/02/21 Annotation/Comment:: cytology pending / lge fluid resp/failure resolved. slight rt pneumothorax residual. mild blunting of cv angles . rt mass now appears to be pneumonia/atel. and clearing. chest ct scan if needed in am (5) Pneumothorax, acute SNOMED Code(s): 34259344 Code(s): J93.83 - OTHER PNEUMOTHORAX Status: Acute Priority: Low Current Visit: Yes Onset Date: ~03/02/21 Annotation/Comment:: res sm rt pneumo after chest tube removal (6) Chronic atrial fibrillation with rapid ventricular response SNOMED Code(s): 617668777, 205769675129135 Code(s): I48.20 - CHRONIC ATRIAL FIBRILLATION, UNSPECIFIED Status: Chronic Priority: High Current Visit: Yes Onset Date: ~03/02/21 Annotation/Commen t:: cont current meds and consder lasix if pleural effusion starts again. better on metoprolol bid (7) Chronic renal insufficiency, stage III (moderate) SNOMED Code(s): 602547078 Code(s): N18.30 - CHRONIC KIDNEY DISEASE, STAGE 3 UNSPECIFIED Status: Chronic Priority: Medium Current Visit: Yes Onset Date: ~03/03/21 Qualifiers: Chronic kidney disease stage 3 subtype: stage 3b (GFR 30-44) Qualified Code(s): N18.32 - Chronic kidney disease, stage 3b Annotation/Comment:: creatinine improved 1.5 to 1.1 - Problem List Review Problem List Initiated/Reviewed/Updated: Yes - My Orders Last 24 Hours: My Active Orders 03/04/21 07:45 FREE T3 [REF] Routine 03/04/21 09:29 RT Aerosol Therapy [RC] ASDIRECTED 03/04/21 10:00 Azithromycin [Zithromax] 500 mg Sodium Chloride 0.9% [Normal Saline (AdvBag)] 250 ml IV Q24H 03/04/21 10:45 Cyanocobalamin (Vitamin B12) [Vitamin B12] 1,000 mcg PO DAILY Multivitamins [Tab-A-Jarod] 1 tab PO DAILY Rosuvastatin [Crestor] 10 mg PO DAILY 03/04/21 21:00 Albuterol/Ipratropium [DuoNeb 3.0-0.5 MG/3 ML] 3 ml NEB BIDRT - Assessment Assessment:: 03/04/21 afebrile / vss but heart rate still fast 95-115. good night . chest tube pulled. p.e. lungs clear but decreased. rt side sounds dull . a/e fair left poor rt. cor irreg/irreg 90-100. sats stable . neuro clearer and conversive family asking about lung mass disappearing and discussed that it may be pneumonia with atelectasis and ct scan to be considered if unable to tell by am. chf findings about the same and lasix given . appetite good and malnourishment discussed and was not eating wel for 3 weeks prior to admission sec. to not feeling well . chest xray shows residual sm rt pneumo but mass in rt mid lung has dramatically improved.? atelectasis/ pneumonia appearance . repeat film shows even less residual infiltrate. lab dig level .9 nt bnp 2430 lytes stable. given lasix x one . cont current dose of metoprolol as slowly afib rate decreasing. monitor for any dig tox. assess: 1) lung mass rt may be pneumonia and added azythromax and cpt for suspected atelectasis with mucous plugging. nebs bid sec to tachycardia. 2)afib rvr improved. 3)chf with large rt pleural effusion awaiting results but does appear transudative. 4) malnourishment. 7) anemia plan: cont current care /// ct in am /// cont diuresis efforts . monitor creat and bun. monitor anemia. nutritional support // supplement. penitentiary care? p.t //ot evals //ss eval // discussed with family and they agree. boh - Plan Plan:: The patient is an 89-year-old lady who has been admitted to the intensive care unit as an inpatient due to her requiring amiodarone to help control her heart rate. The patient also has a very large right-sided pleural effusion and Dr. Gomez has been consulted for thoracentesis. Laboratory studies of the pleural fluid will be ordered to help exclude malignancy. I cannot exclude a pneumonia within the effusion. Therefore the patient will be treated as pneumonia with Rocephin renally dosed. The patient is currently taking Xarelto and this will be continued and therefore she will not require extra DVT prophylaxis. If needed will consider SCDs although the patient is a fall risk. Feet laboratory studies have been ordered. Heart healthy diet has been ordered. Because of the patient's congestive heart failure and a BNP at 2700 the patient will have saline lock of her IV and fluids will be monitored. PT OT has also been ordered for the patient. We will adjust the patient's medications as necessary. The patient will also have regular diet as tolerated. The patient is currently in a DO NOT INTUBATE DO NOT RESUSCITATE category. I have discussed possible placement with the patient's family. 03/02/2021 The patient is an 89-year-old lady who had been admitted to the intensive care unit secondary to A. fib with RVR. Patient remains tachycardic although her heart rate has improved from 170 bpm down to an average of 125. It was thought that the patient's heart rate would improve after thoracentesis and subsequent chest tube and reinflation of her lung. The patient previously had been on amiodarone and diltiazem without good rate control. The patient has been placed on digoxin and pharmacy has dosed this. She does have chronic renal failure to accompany this. The x-ray did show a large mass which did not distinguish between pneumonia or neoplastic process. The patient will currently remain on Rocephin as treatment for pneumonia. The patient's antibiotics will be altered as urine cultures indicate. I had a long discussion with the patient's family regarding this. Repeat laboratory studies have been ordered for the morning. Will await results of thoracentesis fluids. Continue with physical therapy. Continue with diet as tolerated. I think the patient's prognosis at this time is poor.03/03/21 afebrile 03/03/21 vss/// rr 20s // b.p up slightly slept well sats 90-96% . aox 3 interacting with staff and feels tired but better. denies ordoñez when sitting up . chest xray shows persistent small pneumo rt and large mass with air/ no consolidation. cor rrr without s3/s4 murmur. abd benign and b.s good bm x one skin good edema mild . orally dry lab na `127 and no diuretics given urine spot na 22 so holding on to salt and signs of overload not seen . discussed with DR Gomez and cont chest tube drainage as output still high to moderate. and monitor secreations and awaiting cytology results. have discussed with and he is aware of possible lung mass. assess pneumothorax with small bore chest tube cont to leak 2)rt lung mass , possible cause of pneumothorax. 3) hyponatremia does not appear to be siadh related nor diuretic and push fluid and salt sec to hypotension and lung /chest tube output. 4)frail// malnourished and advanced age make home care issues pertinent for family and patient . ss to see friday boh 03/04/21 afebrile / vss but heart rate still fast 95-115. good night . chest tube pulled. p.e. lungs clear but decreased. rt side sounds dull . a/e fair left poor rt. cor irreg/irreg 90-100. sats stable . neuro clearer and conversive family asking about lung mass disappearing and discussed that it may be pneumonia with atelectasis and ct scan to be considered if unable to tell by am. chf findings about the same and lasix given . appetite good and malnourishment discussed and was not eating wel for 3 weeks prior to admission sec. to not feeling well . chest xray shows residual sm rt pneumo but mass in rt mid lung has dramatically improved.? atelectasis/ pneumonia appearance . repeat film shows even less residual infiltrate. lab dig level .9 nt bnp 2430 lytes stable. given lasix x one . cont current dose of metoprolol as slowly afib rate decreasing. monitor for any dig tox. assess: 1) lung mass rt may be pneumonia and added azythromax and cpt for suspected atelectasis with mucous plugging. nebs bid sec to tachycardia. 2)afib rvr improved. 3)chf with large rt pleural effusion awaiting results but does appear transudative. 4) malnourishment. 7) anemia plan: cont current care /// ct in am /// cont diuresis efforts . monitor creat and bun. monitor anemia. nutritional support // supplement. penitentiary care? p.t //ot evals //ss eval // discussed with family and they agree. boh
--- NOTE | 2021-03-04 13:48 | CR ---
Chest: Portable view of the chest was obtained (6:14 PM). Comparison: Prior chest x-ray of 03/02/21. Right-sided chest tube is seen. Small right apical pneumothorax is noted. Decreasing size of parenchymal density within the right upper chest is seen which is compatible with resolving atelectasis rather than mass. Left lung is clear. Subcutaneous air is noted within the right chest wall. Heart size and mediastinum are stable. Impression: 1. Decreasing parenchymal density within the right upper chest compatible with resolving atelectasis. 2. Right apical pneumothorax. This finding are stable. 3. Right subcutaneous chest wall air is seen. Diagnostic code #3 I agree with preliminary report from [facility], finalized on 03/03/21, 7:48 PM CDT, code #1
--- NOTE | 2021-03-04 13:48 | CR ---
Chest: Frontal view of the chest was obtained (5:55 AM). Comparison: Prior chest x-ray 03/03/21. Decreasing atelectasis within the right upper lung. Small right apical pneumothorax is seen which appears to be stable. Subcutaneous air is seen within the right chest wall. Slight atelectasis is noted within both lung bases. Stable metallic densities with the left chest. Heart size and mediastinum are unchanged. Impression: 1. Improving atelectasis within the right upper lung. 2. Small right apical pneumothorax is seen with right-sided chest tube. Pneumothorax is believed to be fairly stable. 3. Mild bibasilar atelectasis. Diagnostic code #3 I mostly agree with preliminary report from [facility], finalized on 03/04/21, 7:51 AM CDT, code #2
--- NOTE | 2021-03-04 13:49 | CR ---
Chest: Portable view of the chest was obtained (19:29 PM). Comparison: Prior chest x-ray performed earlier on the same day (6:14 PM). Slight improving density within the upper right lung compatible with improving area of atelectasis. No findings of mass are seen. Air is noted within the right chest wall. Right apical pneumothorax is seen. Impression: 1. Small right apical pneumothorax which remained stable from prior exam. 2. Other findings as noted above. Diagnostic code #3 I agree with preliminary report from [facility], finalized on 03/03/21, 9:09 PM CDT, code #1
[2021-03-04] MEDS: Rivaroxaban 15 MG Tab PO SCH (16:28)
[2021-03-04] MEDS: cefTRIAXone 1 GM in Sodium Chloride 0.9% 100 ML IV SCH (17:49)
[2021-03-04] MEDS: Albuterol/Ipratropium 3.0-0.5 MG/3 ML Neb Soln NEB SCH (20:36)
[2021-03-05] MEDS: Pantoprazole 40 MG Tab.CR PO SCH (06:00)
[2021-03-05] MEDS: Albuterol/Ipratropium 3.0-0.5 MG/3 ML Neb Soln NEB SCH ×2 (06:17→21:01)
[2021-03-05] MEDS: Meclizine 12.5 MG Tab PO SCH ×2 (08:16→20:10)
[2021-03-05] MEDS: Donepezil 10 MG Tab PO SCH (08:16)
[2021-03-05] MEDS: Sertraline 25 MG Tab PO SCH (08:18)
[2021-03-05] MEDS: Rosuvastatin 10 MG Tab PO SCH (08:20)
[2021-03-05] MEDS: Aspirin 81 MG Tab.EC PO SCH (08:20)
[2021-03-05] MEDS: Gabapentin 100 MG Cap PO SCH ×3 (08:20→20:10)
[2021-03-05] MEDS: Cyanocobalamin (Vitamin B12) 1,000 MCG Tab PO SCH (08:21)
[2021-03-05] MEDS: Digoxin 125 MCG Tab PO SCH (08:21)
[2021-03-05] MEDS: Multivitamin Tab PO SCH (08:21)
[2021-03-05] MEDS: Potassium Chloride 20 MEQ Tab.ER PO SCH (08:21)
[2021-03-05] MEDS: Metoprolol Succinate 50 MG Tab.ER PO SCH (09:14)
[2021-03-05] MEDS: Azithromycin 500 MG in Sodium Chloride 0.9% 250 ML IV SCH (09:17)
[2021-03-05] MEDS: COLESTIPOL 1 GM PO SCH ×2 (11:34→21:00)
--- NOTE | 2021-03-05 11:54 | CR ---
Chest: Portable view of the chest was obtained. Comparison: Prior chest x-ray of 03/04/21. Slight blunting of the right lateral costophrenic angle is seen presumably due to atelectasis as well as possible minimal fluid. Slight blunting of the left lateral costophrenic angle is also noted. Areas of atelectasis are seen within the right midlung which is changed from prior exam. Very minimal pneumothorax is seen which is decreased from prior study. Small amount of air is noted within the right chest. Heart size and mediastinum are normal. Stable radiopacities are noted with the left chest. Impression: 1. Slight density within both lung bases. 2. Changing atelectasis within the right midlung. 3. Right-sided pneumothorax has diminished. Air is noted within the right chest wall. Diagnostic code #3
--- NOTE | 2021-03-05 12:20 | PCM.SN.2 ---
- Free Text/Narrative Note: 89 yo woman with rapid atrial fibrillation and large right-sided pleural effusion s/p thoracentesis 03/01 with subsequent chest tube placement for pneumothorax. S: bleeding from chest tube insertion overnight, now seems controlled after holding pressure and changing dressing. No complaints this morning. O: AF-HR 80-100 irregular, systolic BP in 90s, SpO2 > 95% on room air, UOP > 50cc/hr No distress right chest dressing clean, dry, intact SpO2 95% on room air. CXR shows minimal, decreased right apical pneumothorax. There appears to be reaccumulation of pleural effusion in the right lower lung field. A: Near resolution of right pneumothorax after removal of chest tube 24 hours ago. HR improved, but there is hgb down to 9.2 g/dL with report of bleeding from chest tube site overnight. The patient is anticoagulated for her atrial fibrillation. No active bleeding noted at this time. I am concerned about reaccumulation of right pleural transudate after chest tube removal. P: No further intervention needed at this time. 1 u pRBC ordered, which is appropriate given her cardiac history and relative hypotension in the face of acute blood loss. This should be done slowly and subsequent diuresis may be indicated. Repeat CXR tomorrow. If pleural effusion is rapidly reaccumulating, it may be worth discussion with patient and family about plan for longer-term catheter placement for intermittent drainage of effusion as needed.
[2021-03-05] MEDS ORDERED: Sodium Chloride 0.9% 250 ML IV SCH (13:45)
[2021-03-05] MEDS: Rivaroxaban 15 MG Tab PO SCH (17:49)
[2021-03-05] MEDS: cefTRIAXone 1 GM in Sodium Chloride 0.9% 100 ML IV SCH (17:56)
[2021-03-06] MEDS: Albuterol/Ipratropium 3.0-0.5 MG/3 ML Neb Soln NEB SCH (05:38)
[2021-03-06] MEDS: Pantoprazole 40 MG Tab.CR PO SCH (06:27)
[2021-03-06] MEDS: Cyanocobalamin (Vitamin B12) 1,000 MCG Tab PO SCH (08:37)
[2021-03-06] MEDS: Donepezil 10 MG Tab PO SCH (08:37)
[2021-03-06] MEDS: Rosuvastatin 10 MG Tab PO SCH (08:37)
[2021-03-06] MEDS: Aspirin 81 MG Tab.EC PO SCH (08:39)
[2021-03-06] MEDS: Gabapentin 100 MG Cap PO SCH (08:39)
[2021-03-06] MEDS: Metoprolol Succinate 50 MG Tab.ER PO SCH (08:39)
[2021-03-06] MEDS: Digoxin 125 MCG Tab PO SCH (08:41)
[2021-03-06] MEDS: Multivitamin Tab PO SCH (08:43)
[2021-03-06] MEDS: Sertraline 25 MG Tab PO SCH (08:43)
[2021-03-06] MEDS: Meclizine 12.5 MG Tab PO SCH (08:44)
[2021-03-06] MEDS: Potassium Chloride 20 MEQ Tab.ER PO SCH (08:45)
[2021-03-06] MEDS ORDERED: Magnesium Sulfate/Water 2 GM/50 ML BAG IV ONE (08:59)
[2021-03-06] MEDS ORDERED: Amoxicillin/Clavulanate K 500-125 MG Tab PO SCH (09:00)
[2021-03-06] MEDS: Azithromycin 500 MG in Sodium Chloride 0.9% 250 ML IV SCH (09:58)
--- NOTE | 2021-03-06 10:01 | CR ---
Chest: Portable view of the chest was obtained. Comparison: Prior chest x-ray of 03/05/20. Slight parenchymal density within the right lung base compatible with atelectasis and possibly a small amount of pleural fluid. Blunting of the lateral left costophrenic angle is stable. Heart size and mediastinum are normal. Very minimal apical pneumothorax is noted. Slight air is noted within the lateral right chest which is slightly decreased in amount. Impression: 1. Increased density of the right lung base compatible with atelectasis and possible small amount of pleural fluid. 2. Very minimal right apical pneumothorax. Slight decreased air within the right side of the chest wall. 3. Other portions of the chest are stable. Diagnostic code #3
[2021-03-06] MEDS ORDERED: COLESTIPOL 1 GM PO SCH (11:00)
--- NOTE | 2021-03-06 12:08 | PCM.PN ---
- General Info Date of Service: 03/05/21 Admission Dx/Problem (Free Text): Admission Diagnosis/Problem Admission Diagnosis/Problem Atrial fibrillation with rapid ventricular response 03/01/2021 89 year old female presents to the ED with complaints of chest pain, SOB, and heart rate at 170. She is in the accompaniment of her elderly and a daughter or granddaughter. She has quite severe dementia and therefore no reliable history could be obtained from her. They just returned from [place] today. They drove back over the last 3 days. The believes she has been complaining of chest discomfort and shortness of breath for the last 3 weeks. On examination she is in atrial fibrillation with a heart rate up to 220 bpm on the monitor. When I asked her if she is having chest discomfort she does have central chest pre ssure. She is obviously working hard to breathe. Apparently she had a pleural effusion in her right lung before they left for [place] in November identified by Dr. Dumas. It sounds like no doctoring or medical care was received while in [place]. She is losing weight due to very poor appetite. No fever has been identified by family members. He requires help with all aspects of daily living such as dressing, bathing, eating. She was transferred from the ED to be admitted The patient is an 89-year-old lady who has been admitted to the intensive care unit as an inpatient due to her requiring amiodarone to help control her heart rate. The patient also has a very large right-sided pleural effusion and Dr. Gomez has been consulted for thoracentesis. Laboratory studies of the pleural fluid will be ordered to help exclude malignancy. I cannot exclude a pneumonia within the effusion. Therefore the patient will be treated as pneumonia with Rocephin renally dosed. The patient is currently taking Xarelto and this will be continued and therefore she will not require extra DVT prophylaxis. If needed will consider SCDs although the patient is a fall risk. Feet laboratory studies have been ordered. Heart healthy diet has been ordered. Because of the patient's congestive heart failure and a BNP at 2700 the patient will have saline lock of her IV and fluids will be monitored. PT OT has also been ordered for the patient. We will adjust the patient's medications as necessary. The patient will also have regular diet as tolerated. The patient is currently in a DO NOT INTUBATE DO NOT RESUSCITATE category. I have discussed possible placement with the patient's family. Procedure: Diagnostic/therapeutic right thoracentesis due to large right pleural effusion on chest x-ray with rapid atrial fibrillation and shortness of breath 03/02/2021 Procedure: Right tube thoracostomy The patient is an 89-year-old lady who had been admitted to the intensive care unit secondary to A. fib with RVR. he patient was also noted in the emergency department to have a large right-sided pleural effusion. This was drained yesterday and sent for analysis. The patient then had an associated pneumothorax and chest tube was placed today. Repeat chest x-ray shows relatively large mass in the right lung. Patient today says that she is doing okay. She is hungry. The patient has denied any pain. Patient remains tachycardic although her heart rate has improved from 170 bpm down to an average of 125. It was thought that the patient's heart rate would improve after thoracentesis and subsequent chest tube and reinflation of her lung. The patient previously had been on amiodarone and diltiazem without good rate control. The patient has been placed on digoxin and pharmacy has dosed this. She does have chronic renal failure to accompany this. The x-ray did show a large mass which did not distinguish between pneumonia or neoplastic process. The patient will currently remain on Rocephin as treatment for pneumonia. The patient's antibiotics will be altered as urine cultures indicate. I had a long discussion with the patient's family regarding this. Repeat laboratory studies have been ordered for the morning. Will await results of thoracentesis fluids. Continue with physical therapy. Continue with diet as tolerated. I think the patient's prognosis at this time is poor. 03/03/2021 89 yo woman with rapid atrial fibrillation and large right-sided pleural effusion s/p thoracentesis 03/01 with subsequent chest tube placement for pneumothorax. X-ray suspicious for large focal pneumonia vs malignancy, pleural fluid cytology pending. S: Slept well overnight, HR much better controlled. Had episode of agitated delirium yesterday afternoon and was given ativan. Chest tube briefly disconnected from suction during positioning for this morning's x-ray. O: AF-HR 100-110 irregular, BP stable, within normal range, SpO2 > 95% on room air No distress Right 12 F chest tube to -20 suction, minimal additional serous fluid drained overnight (60 cc), small air leak noted CXR this morning with tube clamped, off suction, showing small residual pneumothorax at apex and what looks like a large lung mass A: Residual pneumothorax on this morning's film, while tube was off suction/clamped. Small air leak noted on rounds this morning. P: Repeat film now on suction. Reassess for air leak this afternoon. Once no leak is noted will attempt to go to water seal. Recommend no further use of benzodiazepine for elderly patient in ICU with history of dementia and episode of agitated delirium. Consider alternative such as zyprexa if needed. Await final results from pleural fluid analysis. There is mention of family pursuing hospice for this patient which I think is appropriate- depending on resolution of air leak will hopefully be able to remove tube as early as tomorrow. Afebrile Vital signs stable with respiratory rate in the 20s, blood pressure up slightly, and O2 saturations 90-96% Slept well Alert and orientated x3 interacting with staff and feels tired but better Denies and MOLINA when sitting up Chest x-ray shows persistent small pneumo on right side and large mass with air and no consolidation cor regular rate and rhythm without s3/s4 murmur Abdomen benign and blow sounds good with 1 bowel movement Skin good and edema mild but patient is orally dry Lab from 03/03/2021: Sodium 127 and no diuretics given and Urine Random Sodium 22 so holding on to salt and signs of overload not seen Assess: 1)Pneumothorax with small bore chest tube has continued to leak 2)Right lung mass possible cause of pneumothorax 3)Hyponatremia does not appear to be SIADH related nor diuretic and push fluid and salt secondary to hypotension and lung/chest tube output 4)Frail and malnourished with advanced age making home care issues pertinent for family and patient and home health care social worker to see Friday Discussed with DR. Gomez and continue chest tube drainage as output still high to moderate and monitor secretions and awaiting cytology results I have discussed with and he is aware of possible lung mass boh 03/04/2021 Afebrile Vital signs stable but heart rate still fast She had a good night Her chest tube was pulled P.E. Lungs clear but decreased and right side sounds dull a/e fair left poor right cor irreg/irreg with heart rate around 90-100 and saturations are stable Neuro clearer and conversive Family asking about lung mass disappearing and discussed that it may be pneumonia with atelectasis and CT scan to be considered if unable to tell by AM CHF findings about the same and Lasix given Appetite good and malnourishment discussed as she was not eating well for 3 weeks prior to admission secondary to not feeling well Chest x-ray shows residual small right pneumo but mass in right mid lung has dramatically improved Atelectasis/pneumonia appearance and repeat chest x-ray shows even less residual infiltrate Lab 03/04/2021: Digoxin level 0.8, NT BNP 2429, and electrolytes are stable Given one dose of Lasix and will continue current dose of metoprolol as atrial fibrillation rate is slowly decreasing and will monitor for any dig tox Assess: 1)Right lung mass may be pneumonia and added Zithromax and CPT for suspected atelectasis with mucous plugging as well as starting nebulizer treatments BID secondary to tachycardia 2)Afib and RVR improved 3)CHF with large right pleural effusion awaiting results but does appear transudative 4)Malnourishment 7)Anemia Plan: Continue current care with CT in AM and continue diuresis efforts Monitor creatinine and BUN Monitor anemia Nutritional support and supplement Discussed care home care Physical and occupational therapy evaluations as well as Street Openings Inspector evaluation and discussed with family and they agree. boh 03/05/2021 Atrial fibrillation has been hard to manage with heart rate running 91 this morning and has been between 91-148 Her blood pressure was 92/65 this morning Right lung mass going away and is about 90% gone She is frail on a regular diet but nutrition still a concern She has mild renal impairment She has some bleeding from her chest tube site Labs from 03/05/2021: CRP 2.5, Hemoglobin 9.2, BUN/Creatinine Ratio 33.6, BUN 37, and Creatinine 1.1 Discussed transfusing 1 unit of blood Discussed getting repeat labs done Discussed having a nutrition consult due to being frail and nutrition concerns Discussed starting physical and occupational therapy Discussed changing Rocephin to Augmentin Discussed possible shelter placement Subjective Update: 03/05/2021 Atrial fibrillation has been hard to manage with heart rate running 91 this morning and has been between 91-148 Her blood pressure was 92/65 this morning Right lung mass going away and is about 90% gone She is frail on a regular diet but nutrition still a concern She has mild renal impairment She has some bleeding from her chest tube site Labs from 03/05/2021: CRP 2.5, Hemoglobin 9.2, BUN/Creatinine Ratio 33.6, BUN 37, and Creatinine 1.1 Discussed transfusing 1 unit of blood Discussed getting repeat labs done Discussed having a nutrition consult due to being frail and nutrition concerns Discussed starting physical and occupational therapy Discussed changing Rocephin to Augmentin Discussed possible shelter placement Functional Status: Reports: Pain Controlled - Review of Systems General: Reports: Weakness HEENT: Reports: No Symptoms Pulmonary: Reports: No Symptoms Cardiovascular: Reports: No Symptoms Gastrointestinal: Reports: No Symptoms Genitourinary: Reports: No Symptoms Musculoskeletal: Reports: No Symptoms Skin: Reports: No Symptoms Neurological: Reports: No Symptoms Psychiatric: Reports: No Symptoms - Patient Data Vitals - Most Recent: Last Vital Signs Temp 96.9 F 03/05/21 12:00 Pulse 96 03/05/21 12:00 Resp 16 03/05/21 12:00 BP 90/54 L 03/05/21 12:00 Pulse Ox 100 03/05/21 12:00 Weight - Most Recent: 53.342 kg I&O - Last 24 Hours: Intake & Output 03/04/21 03/05/21 03/05/21 22:59 06:59 14:59 Intake Total 700 800 Output Total 465 150 170 Balance 235 -150 630 Lab Results Last 24 Hours: Laboratory Results - last 24 hr 03/05/21 03/05/21 03/05/21 Range/Units 05:39 05:39 05:39 WBC 6.46 (3.98-10.04) K/mm3 RBC 3.02 L (3.98-5.22) M/mm3 Hgb 9.2 L (11.2-15.7) gm/dl Hct 29.4 L (34.1-44.9) % MCV 97.4 H (79.4-94.8) fl MCH 30.5 (25.6-32.2) pg MCHC 31.3 L (32.2-35.5) g/dl RDW Std Deviation 46.1 (36.4-46.3) fL Plt Count 250 (182-369) K/mm3 MPV 10.5 (9.4-12.3) fl Neut % (Auto) 71.7 H (34.0-71.1) % Lymph % (Auto) 11.8 L (19.3-51.7) % [place] % (Auto) 12.5 (4.7-12.5) % Eos % (Auto) 3.3 (0.7-5.8) Baso % (Auto) 0.5 (0.1-1.2) % Neut # (Auto) 4.64 (1.56-6.13) K/mm3 Lymph # (Auto) 0.76 L (1.18-3.74) K/mm3 [place] # (Auto) 0.81 H (0.24-0.36) K/mm3 Eos # (Auto) 0.21 (0.04-0.36) K/mm3 Baso # (Auto) 0.03 (0.01-0.08) K/mm3 Sodium 136 (136-145) mEq/L Potassium 3.9 (3.5-5.1) mEq/L Chloride 101 (98-107) mEq/L Carbon Dioxide 28 (21-32) mEq/L Anion Gap 10.9 (5-15) BUN 37 H (7-18) mg/dL Creatinine 1.1 H (0.55-1.02) mg/dL Est Cr Clr Drug Dosing 28.68 mL/min Estimated GFR (MDRD) 47 (>60) mL/min BUN/Creatinine Ratio 33.6 H (14-18) Glucose 98 (83-115) mg/dL Calcium 8.2 L (8.5-10.1) mg/dL Magnesium 1.6 L (1.8-2.4) mg/dl Total Bilirubin 0.3 (0.2-1.0) mg/dL AST 16 (15-37) U/L ALT 12 L (14-59) U/L Alkaline Phosphatase 52 (46-116) U/L C-Reactive Protein 2.5 H* (<1.0) mg/dL Total Protein 5.0 L (6.4-8.2) g/dl Albumin 1.8 L (3.4-5.0) g/dl Globulin 3.2 gm/dL Albumin/Globulin Ratio 0.6 L (1-2) Blood Type Gel Antibody Screen Crossmatch 03/05/21 Range/Units 05:39 WBC (3.98-10.04) K/mm3 RBC (3.98-5.22) M/mm3 Hgb (11.2-15.7) gm/dl Hct (34.1-44.9) % MCV (79.4-94.8) fl MCH (25.6-32.2) pg MCHC (32.2-35.5) g/dl RDW Std Deviation (36.4-46.3) fL Plt Count (182-369) K/mm3 MPV (9.4-12.3) fl Neut % (Auto) (34.0-71.1) % Lymph % (Auto) (19.3-51.7) % [place] % (Auto) (4.7-12.5) % Eos % (Auto) (0.7-5.8) Baso % (Auto) (0.1-1.2) % Neut # (Auto) (1.56-6.13) K/mm3 Lymph # (Auto) (1.18-3.74) K/mm3 [place] # (Auto) (0.24-0.36) K/mm3 Eos # (Auto) (0.04-0.36) K/mm3 Baso # (Auto) (0.01-0.08) K/mm3 Sodium (136-145) mEq/L Potassium (3.5-5.1) mEq/L Chloride (98-107) mEq/L Carbon Dioxide (21-32) mEq/L Anion Gap (5-15) BUN (7-18) mg/dL Creatinine (0.55-1.02) mg/dL Est Cr Clr Drug Dosing mL/min Estimated GFR (MDRD) (>60) mL/min BUN/Creatinine Ratio (14-18) Glucose (83-115) mg/dL Calcium (8.5-10.1) mg/dL Magnesium (1.8-2.4) mg/dl Total Bilirubin (0.2-1.0) mg/dL AST (15-37) U/L ALT (14-59) U/L Alkaline Phosphatase (46-116) U/L C-Reactive Protein (<1.0) mg/dL Total Protein (6.4-8.2) g/dl Albumin (3.4-5.0) g/dl Globulin gm/dL Albumin/Globulin Ratio (1-2) Blood Type O POSITIVE Gel Antibody Screen Negative Crossmatch See Detail Ti Results Last 24 Hours: Microbiology 03/01/21 19:14 Gram Stain - Final Thoracentesis Fluid - Right Body Fluid Culture - Preliminary NO GROWTH AFTER 2 DAYS 03/01/21 14:22 Aerobic Blood Culture - Preliminary Blood - Venous - Lab Draw NO GROWTH AFTER 3 DAYS Anaerobic Blood Culture - Final 03/01/21 14:11 Aerobic Blood Culture - Preliminary Blood - Venous NO GROWTH AFTER 3 DAYS Anaerobic Blood Culture - Preliminary NO GROWTH AFTER 3 DAYS 03/02/21 09:12 Urine Culture - Final Urine, Catheterized NO GROWTH AFTER 2 DAYS Med Orders - Current: Current Medications Acetaminophen (Acetaminophen 325 Mg Tab) 650 mg PO Q4H PRN PRN Reason: Pain (Mild 1-3)/fever Last Admin: 03/05/21 01:40 Dose: 650 mg Documented by: Albuterol/Ipratropium (Albuterol/Ipratropium 3.0-0.5 Mg/3 Ml Neb Soln) 3 ml NEB Q4HRRT PRN PRN Reason: Congestion Last Admin: 03/01/21 22:59 Dose: 3 ml Documented by: Albuterol/Ipratropium (Albuterol/Ipratropium 3.0-0.5 Mg/3 Ml Neb Soln) 3 ml NEB BIDRT [facility] [place] Last Admin: 03/05/21 06:17 Dose: 3 ml Documented by: Aspirin (Aspirin 81 Mg Tab.Ec) 81 mg PO DAILY [facility] [place] Last Admin: 03/05/21 08:20 Dose: 81 mg Documented by: Cyanocobalamin (Cyanocobalamin (Vitamin B12) 1,000 Mcg Tab) 1,000 mcg PO DAILY [facility] [place] Last Admin: 03/05/21 08:21 Dose: 1,000 mcg Documented by: Digoxin (Digoxin 125 Mcg Tab) 125 mcg PO DAILY [facility] [place] Last Admin: 03/05/21 08:21 Dose: 125 mcg Documented by: Donepezil HCl (Donepezil 10 Mg Tab) 5 mg PO DAILY [facility] [place] Last Admin: 03/05/21 08:16 Dose: 5 mg Documented by: Gabapentin (Gabapentin 100 Mg Cap) 100 mg PO TID [facility] [place] Last Admin: 03/05/21 08:20 Dose: 100 mg Documented by: Ceftriaxone Sodium 1 gm/ (Sodium Chloride) 100 mls @ 200 mls/hr IV Q24H [facility] [place] Last Admin: 03/04/21 17:49 Dose: 200 mls/hr Documented by: Azithromycin 500 mg/ Sodium (Chloride) 250 mls @ 250 mls/hr IV Q24H [facility] [place] Stop: 03/07/21 10:01 Last Admin: 03/05/21 09:17 Dose: 250 mls/hr Documented by: Lorazepam (Lorazepam 2 Mg/Ml Sdv) 0.5 mg IVPUSH Q4H PRN PRN Reason: Agitation Last Admin: 03/03/21 17:14 Dose: 0.5 mg Documented by: Meclizine HCl (Meclizine 12.5 Mg Tab) 12.5 mg PO BID [facility] [place] Last Admin: 03/05/21 08:16 Dose: 12.5 mg Documented by: Metoprolol Succinate (Metoprolol Succinate 50 Mg Tab.Er) 50 mg PO DAILY [facility] [place] Last Admin: 03/05/21 09:14 Dose: 50 mg Documented by: Multivitamins/Minerals/Vitamin C (Multivitamin Tab) 1 tab PO DAILY [facility] [place] Last Admin: 03/05/21 08:21 Dose: 1 tab Documented by: Ondansetron HCl (Ondansetron 4 Mg Tab.Dis) 4 mg PO Q6H PRN PRN Reason: nausea, able to take PO Oxycodone HCl (Oxycodone 5 Mg Tab) 5 mg PO Q4H PRN PRN Reason: Pain (moderate 4-6) Pantoprazole Sodium (Pantoprazole 40 Mg Tab.Cr) 40 mg PO DAILY@0700 [facility] [place] Last Admin: 03/05/21 06:00 Dose: 40 mg Documented by: Colestipol 1 Gm (Tablet Ptom) 0 each PO BID [facility] [place] Last Admin: 03/05/21 11:34 Dose: Not Given Documented by: Potassium Chloride (Potassium Chloride 20 Meq Tab.Er) 20 meq PO DAILY [facility] [place] Last Admin: 03/05/21 08:21 Dose: 20 meq Documented by: Rivaroxaban (Rivaroxaban 15 Mg Tab) 15 mg PO 1700 [facility] [place] Last Admin: 03/04/21 16:28 Dose: 15 mg Documented by: Rosuvastatin Calcium (Rosuvastatin 10 Mg Tab) 10 mg PO DAILY [facility] [place] Last Admin: 03/05/21 08:20 Dose: 10 mg Documented by: Sertraline HCl (Sertraline 25 Mg Tab) 25 mg PO DAILY [facility] [place] Last Admin: 03/05/21 08:18 Dose: 25 mg Documented by: Sodium Chloride (Sodium Chloride 0.9% 10 Ml Syringe) 10 ml FLUSH ASDIRECTED PRN PRN Reason: Keep Vein Open Discontinued Medications Ceftriaxone Sodium (Ceftriaxone 1 Gm Vial) 1 gm IM Q24H [facility] [place] Last Admin: 03/01/21 18:06 Dose: Not Given Documented by: Ceftriaxone Sodium (Ceftriaxone 1 Gm Vial) 1 gm IV Q24H [facility] [place] Last Admin: 03/01/21 19:46 Dose: Not Given Documented by: Ceftriaxone Sodium (Ceftriaxone 1 Gm Vial) 1 gm IVPUSH Q24H [facility] [place] Digoxin (Digoxin 500 Mcg/2 Ml Amp) 200 mcg IV ONETIME ONE Stop: 03/02/21 09:01 Last Admin: 03/02/21 09:24 Dose: 200 mcg Documented by: Digoxin (Digoxin 500 Mcg/2 Ml Amp) 100 mcg IV Q8H [facility] [place] Stop: 03/03/21 01:01 Last Admin: 03/03/21 02:00 Dose: 100 mcg Documented by: Digoxin (Digoxin 500 Mcg/2 Ml Amp) 90 mcg IV DAILY [facility] [place] Last Admin: 03/03/21 08:15 Dose: 90 mcg Documented by: Diltiazem HCl (Diltiazem 50 Mg/10 Ml Sdv) 10 mg IVPUSH ONETIME ONE Stop: 03/01/21 13:56 Last Admin: 03/01/21 14:11 Dose: 10 mg Documented by: Diltiazem HCl (Diltiazem 50 Mg/10 Ml Sdv) 10 mg IVPUSH ONETIME ONE Stop: 03/01/21 14:46 Last Admin: 03/01/21 14:58 Dose: 10 mg Documented by: Diltiazem HCl (Diltiazem 50 Mg/10 Ml Sdv) 10 mg IVPUSH ONETIME ONE Stop: 03/01/21 15:50 Last Admin: 03/01/21 15:57 Dose: 10 mg Documented by: Enoxaparin Sodium (Enoxaparin 60 Mg/0.6 Ml Syringe) 60 mg SUBCUT ONETIME ONE Stop: 03/01/21 14:03 Last Admin: 03/01/21 18:02 Dose: Not Given Documented by: Furosemide (Furosemide 20 Mg/2 Ml Vial) 20 mg IVPUSH ONETIME ONE Stop: 03/04/21 09:04 Last Admin: 03/04/21 09:20 Dose: 20 mg Documented by: Diltiazem HCl 100 mg/ Sodium (Chloride) 100 mls @ 10 mls/hr IV ASDIRECTED CLIF Last Infusion: 03/01/21 15:10 Dose: 15 mg/hr, 15 mls/hr Documented by: Amiodarone HCl/Dextrose (Nexterone In Dextrose 360 Mg/200 Ml) 360 mg in 200 mls @ 33.333 mls/hr IV ASDIRECTED CLIF; Protocol Last Admin: 03/01/21 16:40 Dose: 33.333 mls/hr Documented by: Ceftriaxone Sodium 1 gm/ (Sodium Chloride) 100 mls @ 200 mls/hr IV Q24H CL[facility] Last Admin: 03/01/21 18:20 Dose: 200 mls/hr Documented by: Amiodarone HCl/Dextrose (Nexterone In Dextrose 360 Mg/200 Ml) 360 mg in 200 mls @ 16.7 mls/hr IV ASDIRECTED CLIF; Protocol Stop: 03/03/21 16:40 Last Infusion: 03/01/21 23:47 Dose: 16.7 mls/hr Documented by: Amiodarone HCl/Dextrose (Nexterone In Dextrose 150 Mg/100 Ml) 100 mls @ 600 mls/hr IV ONETIME ONE; Protocol Stop: 03/01/21 23:32 Last Admin: 03/01/21 23:31 Dose: 600 mls/hr Documented by: Lidocaine HCl (Lidocaine 1% 10 Ml Mdv) Confirm Administered Dose 10 ml .ROUTE .STK-MED ONE Stop: 03/02/21 07:46 Last Admin: 03/02/21 08:36 Dose: 10 ml Documented by: Lidocaine HCl (Lidocaine 1% 10 Ml Mdv) Confirm Administered Dose 10 ml .ROUTE .STK-MED ONE Stop: 03/02/21 18:14 Last Admin: 03/02/21 18:44 Dose: 4 ml Documented by: Lidocaine/Epinephrine (Lidocaine 1% With Epinephrine 1:100,000 10 Ml Mdv) Confirm Administered Dose 10 ml .ROUTE .STK-MED ONE Stop: 03/02/21 02:52 Last Admin: 03/02/21 15:32 Dose: Not Given Documented by: Metoprolol Succinate (Metoprolol Succinate 25 Mg Tab.Er) 25 mg PO ONETIME ONE Stop: 03/03/21 20:37 Last Admin: 03/03/21 20:50 Dose: 25 mg Documented by: Metoprolol Succinate (Metoprolol Succinate 50 Mg Tab.Er) 50 mg PO ONETIME ONE Stop: 03/04/21 09:04 Last Admin: 03/04/21 10:35 Dose: Not Given Documented by: Colestipol 1 Gm (Tablet Ptom) 1 gram PO BID CLIF Last Admin: 03/03/21 08:18 Dose: Not Given Documented by: - Exam General: Alert, Oriented HEENT: Pupils Equal, Pupils Reactive, EOMI, Mucous Membr. Moist/[place] Neck: Supple Lungs: Clear to Auscultation, Normal Respiratory Effort Cardiovascular: Regular Rate, Regular Rhythm GI/Abdominal Exam: Normal Bowel Sounds, Soft, Non-Tender, No Organomegaly, No Distention, No Abnormal Bruit, No Mass, Pelvis Stable (Female) Exam: Normal External Exam, Normal Speculum Exam, Normal Bimanual Exam Back Exam: Normal Inspection, Full Range of Motion Extremities: Normal Inspection, Normal Range of Motion, Non-Tender, No Pedal Edema, Normal Capillary Refill Skin: Warm, Dry, Intact Wound/Incisions: Healing Well Neurological: No New Focal Deficit Psy/Mental Status: Alert, Normal Affect, Normal Mood - Patient Data Lab Results Last 24 hrs: Laboratory Results - last 24 hr 03/05/21 03/05/21 03/05/21 Range/Units 05:39 05:39 05:39 WBC 6.46 (3.98-10.04) K/mm3 RBC 3.02 L (3.98-5.22) M/mm3 Hgb 9.2 L (11.2-15.7) gm/dl Hct 29.4 L (34.1-44.9) % MCV 97.4 H (79.4-94.8) fl MCH 30.5 (25.6-32.2) pg MCHC 31.3 L (32.2-35.5) g/dl RDW Std Deviation 46.1 (36.4-46.3) fL Plt Count 250 (182-369) K/mm3 MPV 10.5 (9.4-12.3) fl Neut % (Auto) 71.7 H (34.0-71.1) % Lymph % (Auto) 11.8 L (19.3-51.7) % [place] % (Auto) 12.5 (4.7-12.5) % Eos % (Auto) 3.3 (0.7-5.8) Baso % (Auto) 0.5 (0.1-1.2) % Neut # (Auto) 4.64 (1.56-6.13) K/mm3 Lymph # (Auto) 0.76 L (1.18-3.74) K/mm3 [place] # (Auto) 0.81 H (0.24-0.36) K/mm3 Eos # (Auto) 0.21 (0.04-0.36) K/mm3 Baso # (Auto) 0.03 (0.01-0.08) K/mm3 Sodium 136 (136-145) mEq/L Potassium 3.9 (3.5-5.1) mEq/L Chloride 101 (98-107) mEq/L Carbon Dioxide 28 (21-32) mEq/L Anion Gap 10.9 (5-15) BUN 37 H (7-18) mg/dL Creatinine 1.1 H (0.55-1.02) mg/dL Est Cr Clr Drug Dosing 28.68 mL/min Estimated GFR (MDRD) 47 (>60) mL/min BUN/Creatinine Ratio 33.6 H (14-18) Glucose 98 (83-115) mg/dL Calcium 8.2 L (8.5-10.1) mg/dL Magnesium 1.6 L (1.8-2.4) mg/dl Total Bilirubin 0.3 (0.2-1.0) mg/dL AST 16 (15-37) U/L ALT 12 L (14-59) U/L Alkaline Phosphatase 52 (46-116) U/L C-Reactive Protein 2.5 H* (<1.0) mg/dL Total Protein 5.0 L (6.4-8.2) g/dl Albumin 1.8 L (3.4-5.0) g/dl Globulin 3.2 gm/dL Albumin/Globulin Ratio 0.6 L (1-2) Blood Type Gel Antibody Screen Crossmatch 03/05/21 Range/Units 05:39 WBC (3.98-10.04) K/mm3 RBC (3.98-5.22) M/mm3 Hgb (11.2-15.7) gm/dl Hct (34.1-44.9) % MCV (79.4-94.8) fl MCH (25.6-32.2) pg MCHC (32.2-35.5) g/dl RDW Std Deviation (36.4-46.3) fL Plt Count (182-369) K/mm3 MPV (9.4-12.3) fl Neut % (Auto) (34.0-71.1) % Lymph % (Auto) (19.3-51.7) % [place] % (Auto) (4.7-12.5) % Eos % (Auto) (0.7-5.8) Baso % (Auto) (0.1-1.2) % Neut # (Auto) (1.56-6.13) K/mm3 Lymph # (Auto) (1.18-3.74) K/mm3 [place] # (Auto) (0.24-0.36) K/mm3 Eos # (Auto) (0.04-0.36) K/mm3 Baso # (Auto) (0.01-0.08) K/mm3 Sodium (136-145) mEq/L Potassium (3.5-5.1) mEq/L Chloride (98-107) mEq/L Carbon Dioxide (21-32) mEq/L Anion Gap (5-15) BUN (7-18) mg/dL Creatinine (0.55-1.02) mg/dL Est Cr Clr Drug Dosing mL/min Estimated GFR (MDRD) (>60) mL/min BUN/Creatinine Ratio (14-18) Glucose (83-115) mg/dL Calcium (8.5-10.1) mg/dL Magnesium (1.8-2.4) mg/dl Total Bilirubin (0.2-1.0) mg/dL AST (15-37) U/L ALT (14-59) U/L Alkaline Phosphatase (46-116) U/L C-Reactive Protein (<1.0) mg/dL Total Protein (6.4-8.2) g/dl Albumin (3.4-5.0) g/dl Globulin gm/dL Albumin/Globulin Ratio (1-2) Blood Type O POSITIVE Gel Antibody Screen Negative Crossmatch See Detail Result Diagrams: 03/06/21 07:15 03/06/21 07:15 Ti Results Last 24 hrs: Microbiology 03/01/21 19:14 Gram Stain - Final Thoracentesis Fluid - Right Body Fluid Culture - Preliminary NO GROWTH AFTER 2 DAYS 03/01/21 14:22 Aerobic Blood Culture - Preliminary Blood - Venous - Lab Draw NO GROWTH AFTER 3 DAYS Anaerobic Blood Culture - Final 03/01/21 14:11 Aerobic Blood Culture - Preliminary Blood - Venous NO GROWTH AFTER 3 DAYS Anaerobic Blood Culture - Preliminary NO GROWTH AFTER 3 DAYS 03/02/21 09:12 Urine Culture - Final Urine, Catheterized NO GROWTH AFTER 2 DAYS Sepsis Event Note - Evaluation Sepsis Screening Result: No Definite Risk - Focused Exam Vital Signs: Vital Signs Temp Temp Pulse Pulse Resp BP BP 03/05/21 12:00 96.9 F 96 16 90/54 L 03/05/21 09:14 97 92/65 03/05/21 08:21 99 03/05/21 08:00 97.0 F 89 15 92/65 03/05/21 06:27 03/05/21 04:00 97.6 F 11 L 95/48 L Pulse Ox Pulse Ox 03/05/21 12:00 100 03/05/21 09:14 03/05/21 08:21 03/05/21 08:00 98 03/05/21 06:27 94 L 03/05/21 04:00 95 - Problem List & Annotations (1) Congestive heart failure SNOMED Code(s): 47159540 Code(s): I50.9 - HEART FAILURE, UNSPECIFIED Status: Acute Priority: Medium Current Visit: Yes Onset Date: ~03/02/21 Qualifiers: Heart failure type: right-sided Heart failure chronicity: acute on chronic Qualified Code(s): I50.813 - Acute on chronic right heart failure Annotation/Comment:: likely pleural effusion cardiogenic and related to pneumonia and mucous plugging/atel. she is doing well with residual rt pneumothorax and on room air. she has improved strength and endurance and afib rate contrlled 70-100. (2) Elevated troponin SNOMED Code(s): 169354274, 443883888, 781045064 Code(s): R77.8 - OTHER SPECIFIED ABNORMALITIES OF PLASMA PROTEINS Status: Acute Current Visit: Yes (3) Pleural effusion on right SNOMED Code(s): 45564680 Code(s): J90 - PLEURAL EFFUSION, NOT ELSEWHERE CLASSIFIED Status: Acute Priority: Low Current Visit: Yes Onset Date: ~03/02/21 Annotation/Com ment:: cytology pending / lge fluid resp/failure resolved. slight rt pneumothorax residual. mild blunting of cv angles . rt mass now appears to be pneumonia/atel. and clearing. chest ct scan if needed in am (4) Pneumothorax, acute SNOMED Code(s): 75120435 Code(s): J93.83 - OTHER PNEUMOTHORAX Status: Acute Priority: Low Current Visit: Yes Onset Date: ~03/02/21 Annotation/Comment:: res sm rt pneumo after chest tube removal (5) Chronic atrial fibrillation with rapid ventricular response SNOMED Code(s): 448943042, 127445129462274 Code(s): I48.20 - CHRONIC ATRIAL FIBRILLATION, UNSPECIFIED Status: Chronic Priority: Low Current Visit: Yes Onset Date: ~03/02/21 Annotation/Comment:: cont current meds and consder lasix if pleural effusion starts again. better on metoprolol daily. nticoagulation held sec to bleeding but will be restarted 03/07 at reduced dose. not tolerateing lasix daily but will do every other day (6) Chronic renal insufficiency, stage III (moderate) SNOMED Code(s): 659487543 Code(s): N18.30 - CHRONIC KIDNEY DISEASE, STAGE 3 UNSPECIFIED Status: Chronic Priority: Medium Current Visit: Yes Onset Date: ~03/03/21 Qualifiers: Chronic kidney disease stage 3 subtype: stage 3b (GFR 30-44) Qualified Code(s): N18.32 - Chronic kidney disease, stage 3b Annotation/Comment:: creatinine improved 1.5 to 1.1 (7) Generalized muscle weakness SNOMED Code(s): 69596890, 34059040 Code(s): M62.81 - MUSCLE WEAKNESS (GENERALIZED) Status: Resolved Current Visit: No - Problem List Review Problem List Initiated/Reviewed/Updated: Yes - Assessment Assessment:: 03/05/2021 Atrial fibrillation has been hard to manage with heart rate running 91 this morning and has been between 91-148 Her blood pressure was 92/65 this morning Right lung mass going away and is about 90% gone She is frail on a regular diet but nutrition still a concern She has mild renal impairment She has some bleeding from her chest tube site Labs from 03/05/2021: CRP 2.5, Hemoglobin 9.2, BUN/Creatinine Ratio 33.6, BUN 37, and Creatinine 1.1 Discussed transfusing 1 unit of blood Discussed getting repeat labs done Discussed having a nutrition consult due to being frail and nutrition concerns Discussed starting physical and occupational therapy Discussed changing Rocephin to Augmentin Discussed possible shelter placement - Plan Plan:: 03/01/2021 89 year old female presents to the ED with complaints of chest pain, SOB, and heart rate at 170. She is in the accompaniment of her elderly and a daughter or granddaughter. She has quite severe dementia and therefore no reliable history could be obtained from her. They just returned from [place] today. They drove back over the last 3 days. The believes she has been complaining of chest discomfort and shortness of breath for the last 3 weeks. On examination she is in atrial fibrillation with a heart rate up to 220 bpm on the monitor. When I asked her if she is having chest discomfort she does have central chest pressure. She is obviously working hard to breathe. Apparently she had a pleural effusion in her right lung before they left for [place] in November identified by Dr. Dumas. It sounds like no doctoring or medical care was received while in [place]. She is losing weight due to very poor appetite. No fever has been identified by family members. He requires help with all aspects of daily living such as dressing, bathing, eating. She was transferred from the ED to be admitted The patient is an 89-year-old lady who has been admitted to the intensive care unit as an inpatient due to her requiring amiodarone to help control her heart rate. The patient also has a very large right-sided pleural effusion and Dr. Gomez has been consulted for thoracentesis. Laboratory studies of the pleural fluid will be ordered to help exclude malignancy. I cannot exclude a pneumonia within the effusion. Therefore the patient will be treated as pneumonia with Rocephin renally dosed. The patient is currently taking Xarelto and this will be continued and therefore she will not require extra DVT prophylaxis. If needed will consider SCDs although the patient is a fall risk. Feet laboratory studies have been ordered. Heart healthy diet has been ordered. Because of the patient's congestive heart failure and a BNP at 2700 the patient will have saline lock of her IV and fluids will be monitored. PT OT has also been ordered for the patient. We will adjust the patient's medications as necessary. The patient will also have regular diet as tolerated. The patient is currently in a DO NOT INTUBATE DO NOT RESUSCITATE category. I have discussed possible placement with the patient's family. Procedure: Diagnostic/therapeutic right thoracentesis due to large right pleural effusion on chest x-ray with rapid atrial fibrillation and shortness of breath 03/02/2021 Procedure: Right tube thoracostomy The patient is an 89-year-old lady who had been admitted to the intensive care unit secondary to A. fib with RVR. he patient was also noted in the emergency department to have a large right-sided pleural effusion. This was drained yesterday and sent for analysis. The patient then had an associated pneumothorax and chest tube was placed today. Repeat chest x-ray shows relatively large mass in the right lung. Patient today says that she is doing okay. She is hungry. The patient has denied any pain. Patient remains tachycardic although her heart rate has improved from 170 bpm down to an average of 125. It was thought that the patient's heart rate would improve after thoracentesis and subsequent chest tube and reinflation of her lung. The patient previously had been on amiodarone and diltiazem without good rate control. The patient has been placed on digoxin and pharmacy has dosed this. She does have chronic renal failure to accompany this. The x-ray did show a large mass which did not distinguish between pneumonia or neoplastic process. The patient will currently remain on Rocephin as treatment for pneumonia. The patient's antibiotics will be altered as urine cultures indicate. I had a long discussion with the patient's family regarding this. Repeat laboratory studies have been ordered for the morning. Will await results of thoracentesis fluids. Continue with physical therapy. Continue with diet as tolerated. I think the patient's prognosis at this time is poor. 03/03/2021 89 yo woman with rapid atrial fibrillation and large right-sided pleural effusion s/p thoracentesis 03/01 with subsequent chest tube placement for pneumothorax. X-ray suspicious for large focal pneumonia vs malignancy, pleural fluid cytology pending. S: Slept well overnight, HR much better controlled. Had episode of agitated delirium yesterday afternoon and was given ativan. Chest tube briefly disconnected from suction during positioning for this morning's x-ray. O: AF-HR 100-110 irregular, BP stable, within normal range, SpO2 > 95% on room air No distress Right 12 F chest tube to -20 suction, minimal additional serous fluid drained overnight (60 cc), small air leak noted CXR this morning with tube clamped, off suction, showing small residual pneumothorax at apex and what looks like a large lung mass A: Residual pneumothorax on this morning's film, while tube was off suction/clamped. Small air leak noted on rounds this morning. P: Repeat film now on suction. Reassess for air leak this afternoon. Once no leak is noted will attempt to go to water seal. Recommend no further use of benzodiazepine for elderly patient in ICU with history of dementia and episode of agitated delirium. Consider alternative such as zyprexa if needed. Await final results from pleural fluid analysis. There is mention of family pursuing hospice for this patient which I think is appropriate- depending on resolution of air leak will hopefully be able to remove tube as early as tomorrow. Afebrile Vital signs stable with respiratory rate in the 20s, blood pressure up slightly, and O2 saturations 90-96% Slept well Alert and orientated x3 interacting with staff and feels tired but better Denies and MOLINA when sitting up Chest x-ray shows persistent small pneumo on right side and large mass with air and no consolidation cor regular rate and rhythm without s3/s4 murmur Abdomen benign and blow sounds good with 1 bowel movement Skin good and edema mild but patient is orally dry Lab from 03/03/2021: Sodium 127 and no diuretics given and Urine Random Sodium 22 so holding on to salt and signs of overload not seen Assess: 1)Pneumothorax with small bore chest tube has continued to leak 2)Right lung mass possible cause of pneumothorax 3)Hyponatremia does not appear to be SIADH related nor diuretic and push fluid and salt secondary to hypotension and lung/chest tube output 4)Frail and malnourished with advanced age making home care issues pertinent for family and patient and home health care social worker to see Friday Discussed with DR. Gomez and continue chest tube drainage as output still high to moderate and monitor secretions and awaiting cytology results I have discussed with and he is aware of possible lung mass boh 03/04/2021 Afebrile Vital signs stable but heart rate still fast She had a good night Her chest tube was pulled P.E. Lungs clear but decreased and right side sounds dull a/e fair left poor right cor irreg/irreg with heart rate around 90-100 and saturations are stable Neuro clearer and conversive Family asking about lung mass disappearing and discussed that it may be pneumonia with atelectasis and CT scan to be considered if unable to tell by AM CHF findings about the same and Lasix given Appetite good and malnourishment discussed as she was not eating well for 3 weeks prior to admission secondary to not feeling well Chest x-ray shows residual small right pneumo but mass in right mid lung has dramatically improved Atelectasis/pneumonia appearance and repeat chest x-ray shows even less residual infiltrate Lab 03/04/2021: Digoxin level 0.8, NT BNP 2429, and electrolytes are stable Given one dose of Lasix and will continue current dose of metoprolol as atrial fibrillation rate is slowly decreasing and will monitor for any dig tox Assess: 1)Right lung mass may be pneumonia and added Zithromax and CPT for suspected atelectasis with mucous plugging as well as starting nebulizer treatments BID secondary to tachycardia 2)Afib and RVR improved 3)CHF with large right pleural effusion awaiting results but does appear transudative 4)Malnourishment 7)Anemia Plan: Continue current care with CT in AM and continue diuresis efforts Monitor creatinine and BUN Monitor anemia Nutritional support and supplement Discussed care home care Physical and occupational therapy evaluations as well as Street Openings Inspector evaluation and discussed with family and they agree. boh 03/05/2021 Atrial fibrillation has been hard to manage with heart rate running 91 this mor angel and has been between 91-148 Her blood pressure was 92/65 this morning Right lung mass going away and is about 90% gone She is frail on a regular diet but nutrition still a concern She has mild renal impairment She has some bleeding from her chest tube site Labs from 03/05/2021: CRP 2.5, Hemoglobin 9.2, BUN/Creatinine Ratio 33.6, BUN 37, and Creatinine 1.1 Discussed transfusing 1 unit of blood Discussed getting repeat labs done Discussed having a nutrition consult due to being frail and nutrition concerns Discussed starting physical and occupational therapy Discussed changing Rocephin to Augmentin Discussed possible shelter placement
--- NOTE | 2021-03-06 12:24 | PCM.DCSUM1 ---
Discharge Summary - Hospital Course Free Text/Narrative:: 03/06/2021 She is doing well She is alert and orientated She is sleeping well at night She is on a regular diet She is transferring well with 1 assist and FWW Her blood pressure was 111/64 this morning Her heart rate this morning is running 84-97 Labs from 03/06/2021: Sodium 133, Magnesium 1.7, Digoxin 1.1 Discussed getting 2 grams of Magnesium IV this morning Discussed getting repeat labs and an echocardiogram done before discharging today and in 1 week getting a repeat NT BNP, Digoxin, and CBC Discussed getting Vines catheter out this morning and monitor for urinary symptoms Discussed nutrition and trying to grain strength and eat well Discussed getting discharged to [facility] later today Continue Augmentin for the next 5 days Start taking 10 MG of Lasix daily In 1 week start taking 7.5 MG daily of Xarelto HPI Initial Comments: 03/01/2021 89 year old female presents to the ED with complaints of chest pain, SOB, and heart rate at 170. She is in the accompaniment of her elderly and a daughter or granddaughter. She has quite severe dementia and therefore no reliable history could be obtained from her. They just returned from [place] today. They drove back over the last 3 days. The believes she has been complaining of chest discomfort and shortness of breath for the last 3 weeks. On examination she is in atrial fibrillation with a heart rate up to 220 bpm on the monitor. When I asked her if she is having chest discomfort she does have central chest pressure. She is obviously working hard to breathe. Apparently she had a pleural effusion in her right lung before they left for [place] in November identified by Dr. Dumas. It sounds like no doctoring or medical care was received while in [place]. She is losing weight due to very poor appetite. No fever has been identified by family members. He requires help with all aspects of daily living such as dressing, bathing, eating. She was transferred from the ED to be admitted The patient is an 89-year-old lady who has been admitted to the intensive care unit as an inpatient due to her requiring amiodarone to help control her heart rate. The patient also has a very large right-sided pleural effusion and Dr. Gomez has been consulted for thoracentesis. Laboratory studies of the pleural fluid will be ordered to help exclude malignancy. I cannot exclude a pneumonia within the effusion. Therefore the patient will be treated as pneumonia with Rocephin renally dosed. The patient is currently taking Xarelto and this will be continued and therefore she will not require extra DVT prophylaxis. If needed will consider SCDs although the patient is a fall risk. Feet laboratory studies have been ordered. Heart healthy diet has been ordered. Because of the patient's congestive heart failure and a BNP at 2700 the patient will have saline lock of her IV and fluids will be monitored. PT OT has also been ordered for the patient. We will adjust the patient's medications as necessary. The patient will also have regular diet as tolerated. The patient is currently in a DO NOT INTUBATE DO NOT RESUSCITATE category. I have discussed possible placement with the patient's family. Procedure: Diagnostic/therapeutic right thoracentesis due to large right pleural effusion on chest x-ray with rapid atrial fibrillation and shortness of breath 03/02/2021 Procedure: Right tube thoracostomy The patient is an 89-year-old lady who had been admitted to the intensive care unit secondary to A. fib with RVR. he patient was also noted in the emergency department to have a large right-sided pleural effusion. This was drained yesterday and sent for analysis. The patient then had an associated pneumothorax and chest tube was placed today. Repeat chest x-ray shows relatively large mass in the right lung. Patient today says that she is doing okay. She is hungry. The patient has denied any pain. Patient remains tachycardic although her heart rate has improved from 170 bpm down to an average of 125. It was thought that the patient's heart rate would improve after thoracentesis and subsequent chest tube and reinflation of her lung. The patient previously had been on amiodarone and diltiazem without good rate control. The patient has been placed on digoxin and pharmacy has dosed this. She does have chronic renal failure to accompany this. The x-ray did show a large mass which did not distinguish between pneumonia or neoplastic process. The patient will currently remain on Rocephin as treatment for pneumonia. The patient's antibiotics will be altered as urine cultures indicate. I had a long discussion with the patient's family regarding this. Repeat laboratory studies have been ordered for the morning. Will await results of thoracentesis fluids. Continue with physical therapy. Continue with diet as tolerated. I think the patient's prognosis at this time is poor. 03/03/2021 89 yo woman with rapid atrial fibrillation and large right-sided pleural effusion s/p thoracentesis 03/01 with subsequent chest tube placement for pneumothorax. X-ray suspicious for large focal pneumonia vs malignancy, pleural fluid cytology pending. S: Slept well overnight, HR much better controlled. Had episode of agitated delirium yesterday afternoon and was given ativan. Chest tube briefly discon nected from suction during positioning for this morning's x-ray. O: AF-HR 100-110 irregular, BP stable, within normal range, SpO2 > 95% on room air No distress Right 12 F chest tube to -20 suction, minimal additional serous fluid drained overnight (60 cc), small air leak noted CXR this morning with tube clamped, off suction, showing small residual pneumothorax at apex and what looks like a large lung mass A: Residual pneumothorax on this morning's film, while tube was off suction/clamped. Small air leak noted on rounds this morning. P: Repeat film now on suction. Reassess for air leak this afternoon. Once no leak is noted will attempt to go to water seal. Recommend no further use of benzodiazepine for elderly patient in ICU with history of dementia and episode of agitated delirium. Consider alternative such as zyprexa if needed. Await final results from pleural fluid analysis. There is mention of family pursuing hospice for this patient which I think is appropriate- depending on resolution of air leak will hopefully be able to remove tube as early as tomorrow. Afebrile Vital signs stable with respiratory rate in the 20s, blood pressure up slightly, and O2 saturations 90-96% Slept well Alert and orientated x3 interacting with staff and feels tired but better Denies and MOLINA when sitting up Chest x-ray shows persistent small pneumo on right side and large mass with air and no consolidation cor regular rate and rhythm without s3/s4 murmur Abdomen benign and blow sounds good with 1 bowel movement Skin good and edema mild but patient is orally dry Lab from 03/03/2021: Sodium 127 and no diuretics given and Urine Random Sodium 22 so holding on to salt and signs of overload not seen Assess: 1)Pneumothorax with small bore chest tube has continued to leak 2)Right lung mass possible cause of pneumothorax 3)Hyponatremia does not appear to be SIADH related nor diuretic and push fluid and salt secondary to hypotension and lung/chest tube output 4)Frail and malnourished with advanced age making home care issues pertinent for family and patient and addiction social worker to see Friday Discussed with DR. Gomez and continue chest tube drainage as output still high to moderate and monitor secretions and awaiting cytology results I have discussed with and he is aware of possible lung mass [facility] 03/04/2021 Afebrile Vital signs stable but heart rate still fast She had a good night Her chest tube was pulled P.E. Lungs clear but decreased and right side sounds dull a/e fair left poor right cor irreg/irreg with heart rate around 90-100 and saturations are stable Neuro clearer and conversive Family asking about lung mass disappearing and discussed that it may be pneumonia with atelectasis and CT scan to be considered if unable to tell by AM CHF findings about the same and Lasix given Appetite good and malnourishment discussed as she was not eating well for 3 weeks prior to admission secondary to not feeling well Chest x-ray shows residual small right pneumo but mass in right mid lung has dramatically improved Atelectasis/pneumonia appearance and repeat chest x-ray shows even less residual infiltrate Lab 03/04/2021: Digoxin level 0.8, NT BNP 2429, and electrolytes are stable Given one dose of Lasix and will continue current dose of metoprolol as atrial fibrillation rate is slowly decreasing and will monitor for any dig tox Assess: 1)Right lung mass may be pneumonia and added Zithromax and CPT for suspected atelectasis with mucous plugging as well as starting nebulizer treatments BID secondary to tachycardia 2)Afib and RVR improved 3)CHF with large right pleural effusion awaiting results but does appear transudative 4)Malnourishment 7)Anemia Plan: Continue current care with CT in AM and continue diuresis efforts Monitor creatinine and BUN Monitor anemia Nutritional support and supplement 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 [facility] 03/05/2021 Atrial fibrillation has been hard to manage with heart rate running 91 this morning and has been between 91-148 Her blood pressure was 92/65 this morning Right lung mass going away and is about 90% gone She is frail on a regular diet but nutrition still a concern She has mild renal impairment She has some bleeding from her chest tube site Labs from 03/05/2021: CRP 2.5, Hemoglobin 9.2, BUN/Creatinine Ratio 33.6, BUN 37, and Creatinine 1.1 Discussed transfusing 1 unit of blood Discussed getting repeat labs done Discussed having a nutrition consult due to being frail and nutrition concerns Discussed starting physical and occupational therapy Discussed changing Rocephin to Augmentin Discussed possible jail placement 03/06/2021 She is doing well She is alert and orientated She is sleeping well at night She is on a regular diet She is transferring well with 1 assist and FWW Her blood pressure was 111/64 this morning Her heart rate this morning is running 84-97 Labs from 03/06/2021: Sodium 133, Magnesium 1.7, Digoxin 1.1 Discussed getting 2 grams of Magnesium IV this morning Discussed getting repeat labs and an echocardiogram done before discharging today and in 1 week getting a repeat NT BNP, Digoxin, and CBC Discussed getting Vines catheter out this morning and monitor for urinary symptoms Discussed nutrition and trying to grain strength and eat well Discussed getting discharged to [facility] later today Continue Augmentin for the next 5 days Start taking 10 MG of Lasix daily In 1 week start taking 7.5 MG daily of Xarelto - Discharge Data Discharge Date: 03/06/21 Discharge Disposition: DC/Tfer to [facility] 03 Condition: Fair - Referral to Home Health Primary Care Physician: Franck Cabral MD - Discharge Diagnosis/Problem(s) (1) Congestive heart failure SNOMED Code(s): 87550782 ICD Code: I50.9 - HEART FAILURE, UNSPECIFIED Status: Acute Priority: Medium Current Visit: Yes Onset Date: ~03/02/21 Problem Details: likely pleural effusion cardiogenic and related to pneumonia and mucous plugging/atel. she is doing well with residual rt pneumothorax and on room air. she has improved strength and endurance and afib rate contrlled 70-100. Qualifiers: Heart failure type: right-sided Heart failure chronicity: acute on chronic Qualified Code(s): I50.813 - Acute on chronic right heart failure (2) Elevated troponin I measurement SNOMED Code(s): 335590800 ICD Code: R77.8 - OTHER SPECIFIED ABNORMALITIES OF PLASMA PROTEINS Status: Acute Priority: Low Current Visit: Yes Onset Date: ~03/02/21 Problem Details: mild anemia / moderate renal insuff suspected but very slight muscle mass . transfused one unit and hgn 9.7 to 11.4 . b.p 90-110 systolic. (3) Pleural effusion on right SNOMED Code(s): 14851491 ICD Code: J90 - PLEURAL EFFUSION, NOT ELSEWHERE CLASSIFIED Status: Acute Priority: Low Current Visit: Yes Onset Date: ~03/02/21 Problem Details: cytology pending / lge fluid resp/failure resolved. slight rt pneumothorax residual. mild blunting of cv angles . rt mass now appears to be pneumonia/atel. and clearing. chest ct scan if needed in am (4) Pneumothorax, acute SNOMED Code(s): 35296521 ICD Code: J93.83 - OTHER PNEUMOTHORAX Status: Acute Priority: Low Current Visit: Yes Onset Date: ~03/02/21 Problem Details: res sm rt pneumo after chest tube removal (5) Chronic atrial fibrillation with rapid ventricular response SNOMED Code(s): 656377727, 443771127360890 ICD Code: I48.20 - CHRONIC ATRIAL FIBRILLATION, UNSPECIFIED Status: Chronic Priority: Low Current Visit: Yes Onset Date: ~03/02/21 Problem Details: cont current meds and consder lasix if pleural effusion starts again. better on metoprolol daily. nticoagulation held sec to bleeding but will be restarted 03/07 at reduced dose. not tolerateing lasix daily but will do every other day (6) Chronic renal insufficiency, stage III (moderate) SNOMED Code(s): 025776998 ICD Code: N18.30 - CHRONIC KIDNEY DISEASE, STAGE 3 UNSPECIFIED Status: Chronic Priority: Medium Current Visit: Yes Onset Date: ~03/03/21 Problem Details: creatinine improved 1.5 to 1.1 Qualifiers: Chronic kidney disease stage 3 subtype: stage 3b (GFR 30-44) Qualified Code(s): N18.32 - Chronic kidney disease, stage 3b (7) Dementia SNOMED Code(s): 60592730 ICD Code: F03.90 - UNSPECIFIED DEMENTIA WITHOUT BEHAVIORAL DISTURBANCE Status: Chronic Priority: Medium Current Visit: Yes Qualifiers: Dementia type: Alzheimer's Alzheimer's disease onset: late-onset Dementia behavioral disturbance: without behavioral disturbance Qualified Code(s): G30.1 - Alzheimer's disease with late onset; F02.80 - Dementia in other diseases classified elsewhere without behavioral disturbance (8) Generalized muscle weakness SNOMED Code(s): 09254708, 56671160 ICD Code: M62.81 - MUSCLE WEAKNESS (GENERALIZED) Status: Resolved Current Visit: No (9) CAD (coronary artery disease) SNOMED Code(s): 37651548 ICD Code: I25.10 - ATHSCL HEART DISEASE OF [place] CORONARY ARTERY W/O ANG PCTRS Status: Acute Current Visit: Yes Onset Date: ~03/01/21 Problem Details: Mild elevations of troponin without chest pain probably related to Afib - Patient Summary/Data Consults: Consultations 03/01/21 16:17 Consult to Physician [CONS] Routine OT Evaluation and Treatment [CONS] Routine PT Evaluation and Treatment [CONS] Routine 03/02/21 11:46 Consult to Speech Language Pathology [WET AND DRY SUGAR BIN OPERATOR Evaluation and Treatment] [CONS] ONETIME 03/05/21 09:17 Consult to Sequins Stringer [CONS] Routine - Patient Instructions Diet: Regular Diet as Tolerated Activity: As Tolerated Driving: Do Not Drive Showering/Bathing: May Shower Wound/Incision Care: Keep Operative Site/Wound Site Clean and Dry, Change Dressing Daily Notify Provider of: Fever, Increased Pain, Swelling and Redness, Drainage, Nausea and/or Vomiting - Discharge Plan *PRESCRIPTION DRUG MONITORING PROGRAM REVIEWED*: No *COPY OF PRESCRIPTION DRUG MONITORING REPORT IN PATIENT LENNY: No Prescriptions/Med Rec: Donepezil [Aricept] 5 mg PO DAILY #30 Amoxicillin/Clavulanate K [Augmentin 500-125 MG] 1 tab PO Q12HR #10 tablet Albuterol/Ipratropium [DuoNeb 3.0-0.5 MG/3 ML] 3 ml NEB BIDRT 7 Days neb Metoprolol Succinate 50 mg PO DAILY #30 Cyanocobalamin (Vitamin B-12) [Vitamin B-12] 1,000 mcg PO DAILY #30 Rivaroxaban [Xarelto] 15 mg PO 1700 #30 Home Medications: Home Meds Aspirin [Halfprin] 81 mg PO DAILY 03/01/21 [History] Multivitamin [Multivitamins] 1 tab PO DAILY 03/01/21 [History] Omeprazole Magnesium [Prilosec Otc] 20 mg PO DAILY 03/01/21 [History] Rosuvastatin [Crestor] 10 mg PO DAILY 03/01/21 [History] Sertraline [Zoloft] 25 mg PO DAILY 03/01/21 [History] Albuterol/Ipratropium [DuoNeb 3.0-0.5 MG/3 ML] 3 ml NEB BIDRT 7 Days neb 03/06/21 [Rx] Amoxicillin/Clavulanate K [Augmentin 500-125 MG] 1 tab PO Q12HR #10 tablet 03/06/21 [Rx] Cyanocobalamin (Vitamin B-12) [Vitamin B-12] 1,000 mcg PO DAILY #30 03/06/21 [Rx] Donepezil [Aricept] 5 mg PO DAILY #30 03/06/21 [Rx] Metoprolol Succinate 50 mg PO DAILY #30 03/06/21 [Rx] Rivaroxaban [Xarelto] 15 mg PO 1700 #30 03/06/21 [Rx] Oxygen Therapy Mode: Room Air Patient Handouts: Heart Failure Action Plan Forms: ED Department Discharge Referrals: Franck Cabral MD [Primary Care Provider] - 03/15/21 11:00 am - Discharge Summary/Plan Comment DC Time >30 min.: Yes - General Info Date of Service: 03/06/21 Admission Dx/Problem (Free Text: Admission Diagnosis/Problem Admission Diagnosis/Problem Atrial fibrillation with rapid ventricular response 03/01/2021 89 year old female presents to the ED with complaints of chest pain, SOB, and heart rate at 170. She is in the accompaniment of her elderly and a daughter or granddaughter. She has quite severe dementia and therefore no reliable history could be obtained from her. They just returned from [place] today. They drove back over the last 3 days. The believes she has been complaining of chest dis comfort and shortness of breath for the last 3 weeks. On examination she is in atrial fibrillation with a heart rate up to 220 bpm on the monitor. When I asked her if she is having chest discomfort she does have central chest pressure. She is obviously working hard to breathe. Apparently she had a pleural effusion in her right lung before they left for [place] in November identified by Dr. Dumas. It sounds like no doctoring or medical care was received while in [place]. She is losing weight due to very poor appetite. No fever has been identified by family members. He requires help with all aspects of daily living such as dressing, bathing, eating. She was transferred from the ED to be admitted The patient is an 89-year-old lady who has been admitted to the intensive care unit as an inpatient due to her requiring amiodarone to help control her heart rate. The patient also has a very large right-sided pleural effusion and Dr. Gomez has been consulted for thoracentesis. Laboratory studies of the pleural fluid will be ordered to help exclude malignancy. I cannot exclude a pneumonia within the effusion. Therefore the patient will be treated as pneumonia with Rocephin renally dosed. The patient is currently taking Xarelto and this will be continued and therefore she will not require extra DVT prophylaxis. If needed will consider SCDs although the patient is a fall risk. Feet laboratory studies have been ordered. Heart healthy diet has been ordered. Because of the patient's congestive heart failure and a BNP at 2700 the patient will have saline lock of her IV and fluids will be monitored. PT OT has also been ordered for the patient. We will adjust the patient's medications as necessary. The patient will also have regular diet as tolerated. The patient is currently in a DO NOT INTUBATE DO NOT RESUSCITATE category. I have discussed possible placement with the patient's family. Procedure: Diagnostic/therapeutic right thoracentesis due to large right pleural effusion on chest x-ray with rapid atrial fibrillation and shortness of breath 03/02/2021 Procedure: Right tube thoracostomy The patient is an 89-year-old lady who had been admitted to the intensive care unit secondary to A. fib with RVR. he patient was also noted in the emergency department to have a large right-sided pleural effusion. This was drained yesterday and sent for analysis. The patient then had an associated pneumothorax and chest tube was placed today. Repeat chest x-ray shows relatively large mass in the right lung. Patient today says that she is doing okay. She is hungry. The patient has denied any pain. Patient remains tachycardic although her heart rate has improved from 170 bpm down to an average of 125. It was thought that the patient's heart rate would improve after thoracentesis and subsequent chest tube and reinflation of her lung. The patient previously had been on amiodarone and diltiazem without good rate control. The patient has been placed on digoxin and pharmacy has dosed this. She does have chronic renal failure to accompany this. The x-ray did show a large mass which did not distinguish between pneumonia or neoplastic process. The patient will currently remain on Rocephin as treatment for pneumonia. The patient's antibiotics will be altered as urine cultures indicate. I had a long discussion with the patient's family regarding this. Repeat laboratory studies have been ordered for the morning. Will await results of thoracentesis fluids. Continue with physical therapy. Continue with diet as tolerated. I think the patient's prognosis at this time is poor. 03/03/2021 89 yo woman with rapid atrial fibrillation and large right-sided pleural effusion s/p thoracentesis 03/01 with subsequent chest tube placement for pneumothorax. X-ray suspicious for large focal pneumonia vs malignancy, pleural fluid cytology pending. S: Slept well overnight, HR much better controlled. Had episode of agitated delirium yesterday afternoon and was given ativan. Chest tube briefly disconnected from suction during positioning for this morning's x-ray. O: AF-HR 100-110 irregular, BP stable, within normal range, SpO2 > 95% on room air No distress Right 12 F chest tube to -20 suction, minimal additional serous fluid drained overnight (60 cc), small air leak noted CXR this morning with tube clamped, off suction, showing small residual pneumothorax at apex and what looks like a large lung mass A: Residual pneumothorax on this morning's film, while tube was off suct ion/clamped. Small air leak noted on rounds this morning. P: Repeat film now on suction. Reassess for air leak this afternoon. Once no leak is noted will attempt to go to water seal. Recommend no further use of benzodiazepine for elderly patient in ICU with history of dementia and episode of agitated delirium. Consider alternative such as zyprexa if needed. Await final results from pleural fluid analysis. There is mention of family pursuing hospice for this patient which I think is appropriate- depending on resolution of air leak will hopefully be able to remove tube as early as tomorrow. Afebrile Vital signs stable with respiratory rate in the 20s, blood pressure up slightly, and O2 saturations 90-96% Slept well Alert and orientated x3 interacting with staff and feels tired but better Denies and MOLINA when sitting up Chest x-ray shows persistent small pneumo on right side and large mass with air and no consolidation cor regular rate and rhythm without s3/s4 murmur Abdomen benign and blow sounds good with 1 bowel movement Skin good and edema mild but patient is orally dry Lab from 03/03/2021: Sodium 127 and no diuretics given and Urine Random Sodium 22 so holding on to salt and signs of overload not seen Assess: 1)Pneumothorax with small bore chest tube has continued to leak 2)Right lung mass possible cause of pneumothorax 3)Hyponatremia does not appear to be SIADH related nor diuretic and push fluid and salt secondary to hypotension and lung/chest tube output 4)Frail and malnourished with advanced age making home care issues pertinent for family and patient and addiction social worker to see Friday Discussed with DR. Gomez and continue chest tube drainage as output still high to moderate and monitor secretions and awaiting cytology results I have discussed with and he is aware of possible lung mass boh 03/04/2021 Afebrile Vital signs stable but heart rate still fast She had a good night Her chest tube was pulled P.E. Lungs clear but decreased and right side sounds dull a/e fair left poor right cor irreg/irreg with heart rate around 90-100 and saturations are stable Neuro clearer and conversive Family asking about lung mass disappearing and discussed that it may be pneumonia with atelectasis and CT scan to be considered if unable to tell by AM CHF findings about the same and Lasix given Appetite good and malnourishment discussed as she was not eating well for 3 weeks prior to admission secondary to not feeling well Chest x-ray shows residual small right pneumo but mass in right mid lung has dramatically improved Atelectasis/pneumonia appearance and repeat chest x-ray shows even less residual infiltrate Lab 03/04/2021: Digoxin level 0.8, NT BNP 2429, and electrolytes are stable Given one dose of Lasix and will continue current dose of metoprolol as atrial fibrillation rate is slowly decreasing and will monitor for any dig tox Assess: 1)Right lung mass may be pneumonia and added Zithromax and CPT for suspected atelectasis with mucous plugging as well as starting nebulizer treatments BID secondary to tachycardia 2)Afib and RVR improved 3)CHF with large right pleural effusion awaiting results but does appear transudative 4)Malnourishment 7)Anemia Plan: Continue current care with CT in AM and continue diuresis efforts Monitor creatinine and BUN Monitor anemia Nutritional support and supplement 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 boh 03/05/2021 Atrial fibrillation has been hard to manage with heart rate running 91 this morning and has been between 91-148 Her blood pressure was 92/65 this morning Right lung mass going away and is about 90% gone She is frail on a regular diet but nutrition still a concern She has mild renal impairment She has some bleeding from her chest tube site Labs from 03/05/2021: CRP 2.5, Hemoglobin 9.2, BUN/Creatinine Ratio 33.6, BUN 37, and Creatinine 1.1 Discussed transfusing 1 unit of blood Discussed getting repeat labs done Discussed having a nutrition consult due to being frail and nutrition concerns Discussed starting physical and occupational therapy Discussed changing Rocephin to Augmentin Discussed possible jail placement 03/06/2021 She is doing well She is alert and orientated She is sleeping well at night She is on a regular diet She is transferring well with 1 assist and FWW Her blood pressure was 111/64 this morning Her heart rate this morning is running 84-97 Labs from 03/06/2021: Sodium 133, Magnesium 1.7, Digoxin 1.1 Discussed getting 2 grams of Magnesium IV this morning Discussed getting repeat labs and an echocardiogram done before discharging today and in 1 week getting a repeat NT BNP, Digoxin, and CBC Discussed getting Vines catheter out this morning and monitor for urinary symptoms Discussed nutrition and trying to grain strength and eat well Discussed getting discharged to [facility] later today Continue Augmentin for the next 5 days Start taking 10 MG of Lasix daily In 1 week start taking 7.5 MG daily of Xarelto Functional Status: Reports: Pain Controlled - Review of Systems General: Reports: Weakness HEENT: Reports: No Symptoms Pulmonary: Reports: No Symptoms Cardiovascular: Reports: No Symptoms Gastrointestinal: Reports: No Symptoms Genitourinary: Reports: No Symptoms Musculoskeletal: Reports: No Symptoms Skin: Reports: No Symptoms Neurological: Reports: No Symptoms Psychiatric: Reports: No Symptoms - Patient Data Vitals - Most Recent: Last Vital Signs Temp 96.9 F 03/06/21 07:39 Pulse 95 03/06/21 08:41 Resp 16 03/06/21 07:39 BP 111/64 03/06/21 08:39 Pulse Ox 95 03/06/21 07:39 Weight - Most Recent: 54.431 kg I&O - Last 24 hours: Intake & Output 03/05/21 03/06/21 03/06/21 22:59 06:59 14:59 Intake Total 760 410 650 Output Total 225 210 110 Balance 535 200 540 Lab Results - Last 24 hrs: Laboratory Results - last 24 hr 03/04/21 03/05/21 03/06/21 Range/Units 07:45 05:39 07:15 WBC (3.98-10.04) K/mm3 RBC (3.98-5.22) M/mm3 Hgb (11.2-15.7) gm/dl Hct (34.1-44.9) % MCV (79.4-94.8) fl MCH (25.6-32.2) pg MCHC (32.2-35.5) g/dl RDW Std Deviation (36.4-46.3) fL Plt Count (182-369) K/mm3 MPV (9.4-12.3) fl Neut % (Auto) (34.0-71.1) % Lymph % (Auto) (19.3-51.7) % [place] % (Auto) (4.7-12.5) % Eos % (Auto) (0.7-5.8) Baso % (Auto) (0.1-1.2) % Neut # (Auto) (1.56-6.13) K/mm3 Lymph # (Auto) (1.18-3.74) K/mm3 [place] # (Auto) (0.24-0.36) K/mm3 Eos # (Auto) (0.04-0.36) K/mm3 Baso # (Auto) (0.01-0.08) K/mm3 Manual Slide Review Sodium (136-145) mEq/L Potassium (3.5-5.1) mEq/L Chloride (98-107) mEq/L Carbon Dioxide (21-32) mEq/L Anion Gap (5-15) BUN (7-18) mg/dL Creatinine (0.55-1.02) mg/dL Est Cr Clr Drug Dosing mL/min Estimated GFR (MDRD) (>60) mL/min BUN/Creatinine Ratio (14-18) Glucose (83-115) mg/dL Calcium (8.5-10.1) mg/dL Magnesium (1.8-2.4) mg/dl Total Bilirubin (0.2-1.0) mg/dL AST (15-37) U/L ALT (14-59) U/L Alkaline Phosphatase (46-116) U/L Total Protein (6.4-8.2) g/dl Albumin (3.4-5.0) g/dl Globulin gm/dL Albumin/Globulin Ratio (1-2) Free T3 pg/mL 2.04 L (2.50-3.90) pg/mL Digoxin 1.1 (0.9-2.0) ng/mL Blood Type O POSITIVE Gel Antibody Screen Negative Crossmatch See Detail 03/06/21 03/06/21 03/06/21 Range/Units 07:15 07:15 07:45 WBC 6.43 (3.98-10.04) K/mm3 RBC 3.61 L (3.98-5.22) M/mm3 Hgb 11.3 D (11.2-15.7) gm/dl Hct 34.0 L (34.1-44.9) % MCV 94.2 D (79.4-94.8) fl MCH 31.3 (25.6-32.2) pg MCHC 33.2 (32.2-35.5) g/dl RDW Std Deviation 47.2 H (36.4-46.3) fL Plt Count 239 (182-369) K/mm3 MPV 10.2 (9.4-12.3) fl Neut % (Auto) 74.5 H (34.0-71.1) % Lymph % (Auto) 9.5 L (19.3-51.7) % [place] % (Auto) 11.5 (4.7-12.5) % Eos % (Auto) 4.0 (0.7-5.8) Baso % (Auto) 0.3 (0.1-1.2) % Neut # (Auto) 4.79 (1.56-6.13) K/mm3 Lymph # (Auto) 0.61 L (1.18-3.74) K/mm3 [place] # (Auto) 0.74 H (0.24-0.36) K/mm3 Eos # (Auto) 0.26 (0.04-0.36) K/mm3 Baso # (Auto) 0.02 (0.01-0.08) K/mm3 Manual Slide Review Abnormal smear Sodium 133 L (136-145) mEq/L Potassium 4.2 (3.5-5.1) mEq/L Chloride 99 (98-107) mEq/L Carbon Dioxide 28 (21-32) mEq/L Anion Gap 10.2 (5-15) BUN 27 H (7-18) mg/dL Creatinine 1.1 H (0.55-1.02) mg/dL Est Cr Clr Drug Dosing 28.68 mL/min Estimated GFR (MDRD) 47 (>60) mL/min BUN/Creatinine Ratio 24.5 H (14-18) Glucose 112 (83-115) mg/dL Calcium 8.5 (8.5-10.1) mg/dL Magnesium 1.7 L (1.8-2.4) mg/dl Total Bilirubin 0.4 (0.2-1.0) mg/dL AST 20 (15-37) U/L ALT 15 (14-59) U/L Alkaline Phosphatase 52 (46-116) U/L Total Protein 5.5 L (6.4-8.2) g/dl Albumin 2.0 L (3.4-5.0) g/dl Globulin 3.5 gm/dL Albumin/Globulin Ratio 0.6 L (1-2) Free T3 pg/mL (2.50-3.90) pg/mL Digoxin (0.9-2.0) ng/mL Blood Type Gel Antibody Screen Crossmatch YESI Results - Last 24 hrs: Microbiology 03/01/21 19:14 Gram Stain - Final Thoracentesis Fluid - Right Body Fluid Culture - Preliminary NO GROWTH AFTER 3 DAYS 03/01/21 14:22 Aerobic Blood Culture - Preliminary Blood - Venous - Lab Draw NO GROWTH AFTER 4 DAYS Anaerobic Blood Culture - Final 03/01/21 14:11 Aerobic Blood Culture - Preliminary Blood - Venous NO GROWTH AFTER 4 DAYS Anaerobic Blood Culture - Preliminary NO GROWTH AFTER 4 DAYS Med Orders - Current: Current Medications Acetaminophen (Acetaminophen 325 Mg Tab) 650 mg PO Q4H PRN PRN Reason: Pain (Mild 1-3)/fever Last Admin: 03/05/21 01:40 Dose: 650 mg Documented by: Albuterol/Ipratropium (Albuterol/Ipratropium 3.0-0.5 Mg/3 Ml Neb Soln) 3 ml NEB Q4HRRT PRN PRN Reason: Congestion Last Admin: 03/01/21 22:59 Dose: 3 ml Documented by: Albuterol/Ipratropium (Albuterol/Ipratropium 3.0-0.5 Mg/3 Ml Neb Soln) 3 ml NEB BIDRT [facility] Last Admin: 03/06/21 05:38 Dose: 3 ml Documented by: Amoxicillin/Clavulanate Potassium (Amoxicillin/Clavulanate K 500-125 Mg Tab) 1 tab PO Q12HR [facility] Last Admin: 03/06/21 08:45 Dose: 1 tab Documented by: Aspirin (Aspirin 81 Mg Tab.Ec) 81 mg PO DAILY [facility] Last Admin: 03/06/21 08:39 Dose: 81 mg Documented by: Cyanocobalamin (Cyanocobalamin (Vitamin B12) 1,000 Mcg Tab) 1,000 mcg PO DAILY [facility] Last Admin: 03/06/21 08:37 Dose: 1,000 mcg Documented by: Digoxin (Digoxin 125 Mcg Tab) 125 mcg PO DAILY [facility] Last Admin: 03/06/21 08:41 Dose: 125 mcg Documented by: Donepezil HCl (Donepezil 10 Mg Tab) 5 mg PO DAILY [facility] Last Admin: 03/06/21 08:37 Dose: 5 mg Documented by: Gabapentin (Gabapentin 100 Mg Cap) 100 mg PO TID [facility] Last Admin: 03/06/21 08:39 Dose: 100 mg Documented by: Azithromycin 500 mg/ Sodium (Chloride) 250 mls @ 250 mls/hr IV Q24H [facility] Stop: 03/07/21 10:01 Last Admin: 03/06/21 09:58 Dose: 250 mls/hr Documented by: Lorazepam (Lorazepam 2 Mg/Ml Sdv) 0.5 mg IVPUSH Q4H PRN PRN Reason: Agitation Last Admin: 03/03/21 17:14 Dose: 0.5 mg Documented by: Meclizine HCl (Meclizine 12.5 Mg Tab) 12.5 mg PO BID [facility] Last Admin: 03/06/21 08:44 Dose: 12.5 mg Documented by: Metoprolol Succinate (Metoprolol Succinate 50 Mg Tab.Er) 50 mg PO DAILY [facility] Last Admin: 03/06/21 08:39 Dose: 50 mg Documented by: Multivitamins/Minerals/Vitamin C (Multivitamin Tab) 1 tab PO DAILY [facility] Last Admin: 03/06/21 08:43 Dose: 1 tab Documented by: Ondansetron HCl (Ondansetron 4 Mg Tab.Dis) 4 mg PO Q6H PRN PRN Reason: nausea, able to take PO Oxycodone HCl (Oxycodone 5 Mg Tab) 5 mg PO Q4H PRN PRN Reason: Pain (moderate 4-6) Pantoprazole Sodium (Pantoprazole 40 Mg Tab.Cr) 40 mg PO DAILY@0700 [facility] Last Admin: 03/06/21 06:27 Dose: 40 mg Documented by: Colestipol 1 Gm (Tablet Ptom) 0 each PO 1100,2200 [facility] Last Admin: 03/06/21 10:02 Dose: 1 each Documented by: Potassium Chloride (Potassium Chloride 20 Meq Tab.Er) 20 meq PO DAILY [facility] Last Admin: 03/06/21 08:45 Dose: 20 meq Documented by: Rivaroxaban (Rivaroxaban 15 Mg Tab) 15 mg PO 1700 [facility] Last Admin: 03/05/21 17:49 Dose: Not Given Documented by: Rosuvastatin Calcium (Rosuvastatin 10 Mg Tab) 10 mg PO DAILY [facility] Last Admin: 03/06/21 08:37 Dose: 10 mg Documented by: Sertraline HCl (Sertraline 25 Mg Tab) 25 mg PO DAILY [facility] Last Admin: 03/06/21 08:43 Dose: 25 mg Documented by: Sodium Chloride (Sodium Chloride 0.9% 10 Ml Syringe) 10 ml FLUSH ASDIRECTED PRN PRN Reason: Keep Vein Open Discontinued Medications Ceftriaxone Sodium (Ceftriaxone 1 Gm Vial) 1 gm IM Q24H [facility] Last Admin: 03/01/21 18:06 Dose: Not Given Documented by: Ceftriaxone Sodium (Ceftriaxone 1 Gm Vial) 1 gm IV Q24H [facility] Last Admin: 03/01/21 19:46 Dose: Not Given Documented by: Ceftriaxone Sodium (Ceftriaxone 1 Gm Vial) 1 gm IVPUSH Q24H [facility] Digoxin (Digoxin 500 Mcg/2 Ml Amp) 200 mcg IV ONETIME ONE Stop: 03/02/21 09:01 Last Admin: 03/02/21 09:24 Dose: 200 mcg Documented by: Digoxin (Digoxin 500 Mcg/2 Ml Amp) 100 mcg IV Q8H [facility] Stop: 03/03/21 01:01 Last Admin: 03/03/21 02:00 Dose: 100 mcg Documented by: Digoxin (Digoxin 500 Mcg/2 Ml Amp) 90 mcg IV DAILY [facility] Last Admin: 03/03/21 08:15 Dose: 90 mcg Documented by: Diltiazem HCl (Diltiazem 50 Mg/10 Ml Sdv) 10 mg IVPUSH ONETIME ONE Stop: 03/01/21 13:56 Last Admin: 03/01/21 14:11 Dose: 10 mg Documented by: Diltiazem HCl (Diltiazem 50 Mg/10 Ml Sdv) 10 mg IVPUSH ONETIME ONE Stop: 03/01/21 14:46 Last Admin: 03/01/21 14:58 Dose: 10 mg Documented by: Diltiazem HCl (Diltiazem 50 Mg/10 Ml Sdv) 10 mg IVPUSH ONETIME ONE Stop: 03/01/21 15:50 Last Admin: 03/01/21 15:57 Dose: 10 mg Documented by: Enoxaparin Sodium (Enoxaparin 60 Mg/0.6 Ml Syringe) 60 mg SUBCUT ONETIME ONE Stop: 03/01/21 14:03 Last Admin: 03/01/21 18:02 Dose: Not Given Documented by: Furosemide (Furosemide 20 Mg/2 Ml Vial) 20 mg IVPUSH ONETIME ONE Stop: 03/04/21 09:04 Last Admin: 03/04/21 09:20 Dose: 20 mg Documented by: Diltiazem HCl 100 mg/ Sodium (Chloride) 100 mls @ 10 mls/hr IV ASDIRECTED [facility] Last Infusion: 03/01/21 15:10 Dose: 15 mg/hr, 15 mls/hr Documented by: Amiodarone HCl/Dextrose (Nexterone In Dextrose 360 Mg/200 Ml) 360 mg in 200 mls @ 33.333 mls/hr IV ASDIRECTED [facility]; Protocol Last Admin: 03/01/21 16:40 Dose: 33.333 mls/hr Documented by: Ceftriaxone Sodium 1 gm/ (Sodium Chloride) 100 mls @ 200 mls/hr IV Q24H [facility] Last Admin: 03/01/21 18:20 Dose: 200 mls/hr Documented by: Amiodarone HCl/Dextrose (Nexterone In Dextrose 360 Mg/200 Ml) 360 mg in 200 mls @ 16.7 mls/hr IV ASDIRECTED [facility]; Protocol Stop: 03/03/21 16:40 Last Infusion: 03/01/21 23:47 Dose: 16.7 mls/hr Documented by: Amiodarone HCl/Dextrose (Nexterone In Dextrose 150 Mg/100 Ml) 100 mls @ 600 mls/hr IV ONETIME ONE; Protocol Stop: 03/01/21 23:32 Last Admin: 03/01/21 23:31 Dose: 600 mls/hr Documented by: Ceftriaxone Sodium 1 gm/ (Sodium Chloride) 100 mls @ 200 mls/hr IV Q24H [facility] Last Admin: 03/05/21 17:56 Dose: 200 mls/hr Documented by: Sodium Chloride (Normal Saline) 250 mls @ 25 mls/hr IV ASDIRECTED [facility] Last Admin: 03/05/21 14:08 Dose: 25 mls/hr Documented by: Magnesium Sulfate (Magnesium Sulfate In Water 2 Gm/50 Ml) 2 gm in 50 mls @ 25 mls/hr IV ONETIME ONE Stop: 03/06/21 10:58 Last Admin: 03/06/21 09:58 Dose: 25 mls/hr Documented by: Lidocaine HCl (Lidocaine 1% 10 Ml Mdv) Confirm Administered Dose 10 ml .ROUTE .STK-MED ONE Stop: 03/02/21 07:46 Last Admin: 03/02/21 08:36 Dose: 10 ml Documented by: Lidocaine HCl (Lidocaine 1% 10 Ml Mdv) Confirm Administered Dose 10 ml .ROUTE .STK-MED ONE Stop: 03/02/21 18:14 Last Admin: 03/02/21 18:44 Dose: 4 ml Documented by: Lidocaine/Epinephrine (Lidocaine 1% With Epinephrine 1:100,000 10 Ml Mdv) Confirm Administered Dose 10 ml .ROUTE .STK-MED ONE Stop: 03/02/21 02:52 Last Admin: 03/02/21 15:32 Dose: Not Given Documented by: Metoprolol Succinate (Metoprolol Succinate 25 Mg Tab.Er) 25 mg PO ONETIME ONE Stop: 03/03/21 20:37 Last Admin: 03/03/21 20:50 Dose: 25 mg Documented by: Metoprolol Succinate (Metoprolol Succinate 50 Mg Tab.Er) 50 mg PO ONETIME ONE Stop: 03/04/21 09:04 Last Admin: 03/04/21 10:35 Dose: Not Given Documented by: Colestipol 1 Gm (Tablet Ptom) 1 gram PO BID [facility] Last Admin: 03/03/21 08:18 Dose: Not Given Documented by: Colestipol 1 Gm (Tablet Ptom) 0 each PO BID [facility] Last Admin: 03/05/21 21:00 Dose: Not Given Documented by: - Exam General: Reports: Alert, Oriented HEENT: Reports: Pupils Equal, Pupils Reactive, EOMI, Mucous Membr. Moist/[place] Neck: Reports: Supple Lungs: Reports: Clear to Auscultation, Normal Respiratory Effort Cardiovascular: Reports: Regular Rate, Regular Rhythm GI/Abdominal Exam: Normal Bowel Sounds, Soft, Non-Tender, No Organomegaly, No Distention, No Abnormal Bruit, No Mass, Pelvis Stable (Female) Exam: Normal External Exam, Normal Speculum Exam, Normal Bimanual Exam Rectal (Female) Exam: Normal Exam, Normal Rectal Tone Back Exam: Reports: Normal Inspection, Full Range of Motion Extremities: Normal Inspection, Normal Range of Motion, Non-Tender, No Pedal Edema, Normal Capillary Refill Skin: Reports: Warm, Dry, Intact Wound/Incisions: Reports: Healing Well Neurological: Reports: No New Focal Deficit Psy/Mental Status: Reports: Alert, Normal Affect, Normal Mood *Q Meaningful Use (DIS) - VTE *Q VTE Mechanical Contraindications *Q: At Risk for Falls VTE Pharmacological Contraindications *Q: Risk of Bleeding
[2021-03-06 14:05] VITALS: BP 113/56; PULSE 95
[2021-03-07] MEDS ORDERED: Furosemide 20 MG Tab PO SCH (09:00)
== END 2021-03-06 15:00 | DRG 291 ==
LOC: JD.ED 13:35 → JD.ICU 16:15
PROVIDERS: ADMIT Internal Medicine; ATTEND Internal Medicine
PROC: 0W9930Z Drainage of Right Pleural Cavity with Drainage Device, Percutaneous Approach (ICD-10-PCS; principal; 2021-03-01)
DX: I13.0 Hypertensive heart and chronic kidney disease with heart failure and stage 1 through stage 4 chronic kidney disease, or unspecified chronic kidney disease (principal); R09.02 Hypoxemia; J90 Pleural effusion, not elsewhere classified; J18.9 Pneumonia, unspecified organism; I50.33 Acute on chronic diastolic (congestive) heart failure; J93.83 Other pneumothorax; I48.20 Chronic atrial fibrillation, unspecified; E78.00 Pure hypercholesterolemia, unspecified; J93.9 Pneumothorax, unspecified; I50.9 Heart failure, unspecified; N18.30 Chronic kidney disease, stage 3 unspecified; J91.8 Pleural effusion in other conditions classified elsewhere; E87.1 Hypo-osmolality and hyponatremia; E46 Unspecified protein-calorie malnutrition; I50.813 Acute on chronic right heart failure; Z85.820 Personal history of malignant melanoma of skin; R77.8 Other specified abnormalities of plasma proteins; D63.1 Anemia in chronic kidney disease; N18.32 Chronic kidney disease, stage 3b; T17.990A Other foreign object in respiratory tract, part unspecified in causing asphyxiation, initial encounter; G30.1 Alzheimer's disease with late onset; F02.80 Dementia in other diseases classified elsewhere, unspecified severity, without behavioral disturbance, psychotic disturbance, mood disturbance, and anxiety; M62.81 Muscle weakness (generalized); H54.7 Unspecified visual loss; Z66 Do not resuscitate; E87.6 Hypokalemia; K52.9 Noninfective gastroenteritis and colitis, unspecified; K21.9 Gastro-esophageal reflux disease without esophagitis; K44.9 Diaphragmatic hernia without obstruction or gangrene; R32 Unspecified urinary incontinence; M19.90 Unspecified osteoarthritis, unspecified site; Z79.82 Long term (current) use of aspirin; Z79.899 Other long term (current) drug therapy; Z88.0 Allergy status to penicillin; Z88.8 Allergy status to other drugs, medicaments and biological substances; Z79.01 Long term (current) use of anticoagulants; Z68.21 Body mass index [BMI] 21.0-21.9, adult; Z87.891 Personal history of nicotine dependence; Z87.442 Personal history of urinary calculi; Z20.822 Contact with and (suspected) exposure to COVID-19
CPT/HCPCS: 36415; 71045; 80053; 82553; 83605; 83735; 83880; 84484; 85025; 85610; 85730; 86140; 87040 ×2; 96365; 96376; 99285; J3490 ×4; U0002; 36410; 36430; 51702; 80162; 81001; 82945; 84157; 84300; 84439; 84443; 84481; 86850; 86900; 86901; 86922; 87070; 87086; 87205; 92610-GN; 93010; 93306; 94640; 97162-GP; 97166-GO; 97530-GO; 97530-GP; A9270-GY; J0282; J0456; J0696; J1160; J1940; J2060; J3475; J7050; J7620-GY; P9016

== ENCOUNTER 2021-03-26 10:56 | Inpatient (IN) | payer MEDICARE, OTHER ==
[2021-03-26] MEDS ORDERED: Sodium Chloride 0.9% 10 ML Syringe FLUSH PRN (11:15)
[2021-03-26] MEDS ORDERED: Diltiazem 50 MG/10 ML SDV IVPUSH ONE (11:39)
[2021-03-26] MEDS ORDERED: Diltiazem 100 MG in Sodium Chloride 0.9% 100 ML IV SCH (11:45)
--- NOTE | 2021-03-26 11:59 | CR ---
Chest: Portable view of the chest was obtained. Comparison: Prior chest x-ray of 03/06/21 and 03/05/21. Moderately large right-sided pleural effusion is seen which has increased in size from prior study. Mild increased density is seen within the left lung base most likely representing minimal pleural effusion and atelectasis. Heart size is mildly enlarged. Upper mediastinum is normal. Bony structures are grossly intact. Metallic densities are seen within the left chest which are stable. Impression: 1. Moderately large right-sided pleural effusion which has increased from prior study. 2. Small left-sided pleural effusion with mild left basilar atelectasis. 3. Other stable findings as noted above. Diagnostic code #3
--- NOTE | 2021-03-26 12:20 | EDM.PDOC ---
ED HPI GENERAL MEDICAL PROBLEM - General Chief Complaint: Cardiovascular Problem Stated Complaint: HIGH HEART RATE Time Seen by Provider: 03/26/21 11:08 Source of Information: Reports: Patient, RN Notes Reviewed History Limitations: Reports: No Limitations - History of Present Illness INITIAL COMMENTS - FREE TEXT/NARRATIVE: Patient is an 89-year-old female presenting to the emergency department with her and daughter with complaints of shortness of breath as well as rapid heart rate. She has been feeling increasingly short of breath for quite some time, however the symptoms worsened today. She has a history of A. fib and is on Xarelto. She was recently hospitalized in this facility approximately 20 days ago for A. fib RVR as well as a large right-sided pleural effusion. While in the hospital, she had a thoracentesis completed which unfortunately led to pneumothorax and chest tube. After discharge, she did do a 2-week stay in a [facility] facility and was discharged home just a few days ago. Has been states that this morning at the breakfast table "she was panting like a dog ". He checked her heart rate and it was found to be elevated. He feels that is likely been elevated for quite some time, however he has not checked it. She denies any chest pain, fever, chills, nausea, vomiting, or diarrhea. Patient and her family report that her CODE STATUS is DNR/DNI. - Related Data Allergies Allergy/AdvReac Type Severity Reaction Status Date / Time amoxicillin [From Augmentin] Allergy Swelling Verified 03/26/21 11:24 clavulanic acid Allergy Swelling Verified 03/26/21 11:24 [From Augmentin] Penicillins Allergy Rash Verified 03/26/21 11:15 prednisone Allergy Rash Verified 03/26/21 11:15 lisinopril AdvReac Cough Verified 03/26/21 11:15 Home Meds: Home Meds Aspirin [Halfprin] 81 mg PO DAILY 03/01/21 [History] Multivitamin [Multivitamins] 1 tab PO BID 03/01/21 [History] Omeprazole Magnesium [Prilosec Otc] 20 mg PO DAILY 03/01/21 [History] Rosuvastatin [Crestor] 10 mg PO DAILY 03/01/21 [History] Sertraline [Zoloft] 25 mg PO DAILY 03/01/21 [History] Cyanocobalamin (Vitamin B-12) [Vitamin B-12] 1,000 mcg PO DAILY #30 03/06/21 [Rx] Donepezil [Aricept] 5 mg PO DAILY #30 03/06/21 [Rx] Metoprolol Succinate 50 mg PO DAILY #30 03/06/21 [Rx] Rivaroxaban [Xarelto] 15 mg PO 1700 #30 03/06/21 [Rx] Furosemide [Lasix] 40 mg PO DAILY 03/26/21 [History] Potassium Chloride 20 meq PO DAILY 03/26/21 [History] Past Medical History HEENT History: Reports: Cataract, Impaired Vision, Other (See Below) Other HEENT History: Dentures, disease of vocal cords, dysphasia Cardiovascular History: Reports: Afib, High Cholesterol, Hypertension Other Cardiovascular History: hypokalemia 2.8-started on po potassium nov 2020 Respiratory History: Reports: Other (See Below) Other Respiratory History: dyspnea - severe snoring;pleural effusion right side nov 2020 Gastrointestinal History: Reports: Chronic Diarrhea, GERD, Hiatal Hernia Genitourinary History: Reports: Renal Calculus, Urinary Incontinence CORPORATE DIRECTOR History: Reports: Musculoskeletal History: Reports: Osteoarthritis Other Musculoskeletal History: limb pain, hallux valgus Neurological History: Reports: Other (See Below) Other Neuro History: dementia Psychiatric History: Reports: Dementia Endocrine/Metabolic History: Reports: None Hematologic History: Reports: B12 Deficiency, Blood Transfusion(s) Oncologic (Cancer) History: Reports: Other (See Below) Other Oncologic History: skin Dermatologic History: Reports: Melanoma Other Dermatologic History: seborrheic keratosis, L forehead actinic keratosis - Infectious Disease History Infectious Disease History: Reports: Chicken Pox, Shingles - Past Surgical History HEENT Surgical History: Reports: Adenoidectomy, Cataract Surgery, Tonsillectomy Other Cardiovascular Surgeries/Procedures: R leg thrombectomy GI Surgical History: Reports: Colonoscopy, Other (See Below) Other GI Surgeries/Procedures: Hernia repair Female Surgical History: Reports: Hysterectomy, Salpingo-Oophorectomy Social & Family History - Family History Family Medical History: No Pertinent Family History - Tobacco Use Tobacco Use Status *Q: Never Tobacco User Second Hand Smoke Exposure: Yes - Caffeine Use Caffeine Use: Reports: Coffee Other Caffeine Use: 2/ per day - Recreational Drug Use Recreational Drug Use: No - Living Situation & Occupation Living situation: Reports: Occupation: Retired ED ROS GENERAL - Review of Systems Review Of Systems: See Below Constitutional: Reports: No Symptoms, Weight Gain. Denies: Fever, Chills Respiratory: Reports: Shortness of Breath, Cough (Chronic). Denies: Pleuritic Chest Pain Cardiovascular: Reports: No Symptoms. Denies: Chest Pain, Lightheadedness, Palpitations Endocrine: Reports: No Symptoms GI/Abdominal: Reports: No Symptoms : Reports: No Symptoms. Denies: Dysuria Musculoskeletal: Reports: No Symptoms Skin: Reports: No Symptoms Neurological: Reports: Confusion (At baseline d/t dementia). Denies: Dizziness, Headache Psychiatric: Reports: No Symptoms Hematologic/Lymphatic: Reports: No Symptoms Immunologic: Reports: No Symptoms ED EXAM, GENERAL - Physical Exam Exam: See Below General Appearance: Alert, WD/WN, No Apparent Distress Respiratory/Chest: No Respiratory Distress, Decreased Breath Sounds (Right lower lobe), Other (Tachypneic with shallow respirations). No: No Accessory Muscle Use, Chest Non-Tender, Crackles, Wheezing Cardiovascular: Normal Peripheral Pulses, Regular Rate, Rhythm, No Edema, No Gallop, No JVD, No Murmur, No Rub GI/Abdominal: Normal Bowel Sounds, Soft, Non-Tender, No Organomegaly, No Distention, No Abnormal Bruit, No Mass Neurological: Alert, Oriented, CN II-XII Intact, Normal Cognition, Normal Gait, Normal Reflexes, No Motor/Sensory Deficits Psychiatric: Normal Affect, Normal Mood Skin Exam: Warm, Dry, Intact, Normal Color, No Rash #1 Interpretation EKG Date: 03/26/21 Time: 11:11 Rhythm: A-Fib Rate (Beats/Min): 135 [place]: Normal P-Wave: Absent QRS: Normal ST-T: Normal QT: Prolonged EKG Interpretation Comments: Atrial fibrillation at 135 Low voltage, extremity leads Consider anterior infarct Prolonged QT interval EKG interpreted by Dr. Lane and Course - Vital Signs Last Recorded V/S: Last Vital Signs Temp 97.4 F 03/26/21 20:00 Pulse 104 H 03/26/21 17:39 Resp 16 03/26/21 20:00 BP 114/74 03/26/21 20:01 Pulse Ox 99 03/26/21 20:00 - Orders/Labs/Meds Orders: Active Orders 24 hr Category Date Time Status Oxygen Therapy [RC] ASDIRECTED Care 03/26/21 12:11 Active Sodium Chloride 0.9% [Saline Flush] Med 03/26/21 11:15 Active 10 ml FLUSH ASDIRECTED PRN Peripheral IV Insertion Adult [OM.PC] Stat Oth 03/26/21 11:15 Ordered Medication Orders Acetaminophen (Acetaminophen 325 Mg Tab) 650 mg PO Q6H PRN PRN Reason: Pain (Mild 1-3)/fever Hydrocodone Bitart/Acetaminophen (Acetaminophen/Hydrocodone 325-5 Mg Tab) 1 tab PO Q6H PRN PRN Reason: Pain (moderate 4-6) Albuterol/Ipratropium (Albuterol/Ipratropium 3.0-0.5 Mg/3 Ml Neb Soln) 3 ml NEB Q4H PRN PRN Reason: Shortness Of Breath/wheezing Aspirin (Aspirin 81 Mg Tab.Ec) 81 mg PO DAILY CLIF Cyanocobalamin (Cyanocobalamin (Vitamin B12) 1,000 Mcg Tab) 1,000 mcg PO DAILY CLIF Diltiazem HCl (Diltiazem Ir 30 Mg Tab) 15 mg PO Q6HR CLIF Last Admin: 03/26/21 20:37 Dose: 15 mg Documented by: AMENA Promethazine HCl 12.5 mg/ (Sodium Chloride) 50.5 mls @ 100 mls/hr IV Q6H PRN PRN Reason: Nausea/Vomiting Diltiazem HCl 100 mg/ Sodium (Chloride) 100 mls @ 5 mls/hr IV TITRATE CLIF; P rotocol Lorazepam (Lorazepam 2 Mg/Ml Sdv) 0.25 mg IVPUSH Q6H PRN PRN Reason: Anxiety Last Admin: 03/26/21 20:38 Dose: 0.25 mg Documented by: AMENA Metoprolol Succinate (Metoprolol Succinate 50 Mg Tab.Er) 50 mg PO DAILY CLIF Metoprolol Tartrate (Metoprolol Tartrate 25 Mg Tab) 12.5 mg PO Q12H CLIF Stop: 03/27/21 02:31 Last Admin: 03/26/21 15:31 Dose: 12.5 mg Documented by: NEWTON Morphine Sulfate (Morphine 2 Mg/Ml Syringe) 2 mg IVPUSH Q4H PRN PRN Reason: Pain (severe 7-10) Stop: 03/27/21 13:00 Multivitamins/Minerals/Vitamin C (Multivitamin Tab) 1 tab PO DAILY [facility] Non-Formulary Medication (Omeprazole Magnesium [Prilosec Otc]) 20 mg PO DAILY [facility] Donepezil 5 Mg (Tablet *Pt Own Med*) 0 each PO BEDTIME CLIF Last Admin: 03/26/21 19:59 Dose: 1 each Documented by: AMENA Rosuvastatin Calcium (Rosuvastatin 10 Mg Tab) 10 mg PO DAILY CLIF Sertraline HCl (Sertraline 25 Mg Tab) 25 mg PO DAILY [facility] Sodium Chloride (Sodium Chloride 0.9% 10 Ml Syringe) 10 ml FLUSH ASDIRECTED PRN PRN Reason: Keep Vein Open Last Admin: 03/26/21 11:05 Dose: 10 ml Documented by: MICHAEL Labs: Laboratory Tests 03/26/21 03/26/21 03/26/21 Range/Units 11:10 11:10 11:10 WBC 7.59 (3.98-10.04) K/mm3 RBC 3.99 (3.98-5.22) M/mm3 Hgb 11.9 (11.2-15.7) gm/dl Hct 37.9 (34.1-44.9) % MCV 95.0 H (79.4-94.8) fl MCH 29.8 (25.6-32.2) pg MCHC 31.4 L (32.2-35.5) g/dl RDW Std Deviation 47.3 H (36.4-46.3) fL Plt Count 428 H D (182-369) K/mm3 MPV 10.3 (9.4-12.3) fl Neut % (Auto) 76.4 H (34.0-71.1) % Lymph % (Auto) 11.7 L (19.3-51.7) % [place]bert % (Auto) 8.7 (4.7-12.5) % Eos % (Auto) 2.0 (0.7-5.8) Baso % (Auto) 1.1 (0.1-1.2) % Neut # (Auto) 5.80 (1.56-6.13) K/mm3 Lymph # (Auto) 0.89 L (1.18-3.74) K/mm3 [place]bert # (Auto) 0.66 H (0.24-0.36) K/mm3 Eos # (Auto) 0.15 (0.04-0.36) K/mm3 Baso # (Auto) 0.08 (0.01-0.08) K/mm3 Sodium 137 (136-145) mEq/L Potassium 3.9 (3.5-5.1) mEq/L Chloride 101 (98-107) mEq/L Carbon Dioxide 28 (21-32) mEq/L Anion Gap 11.9 (5-15) BUN 25 H (7-18) mg/dL Creatinine 1.3 H (0.55-1.02) mg/dL Est Cr Clr Drug Dosing 23.20 mL/min Estimated GFR (MDRD) 39 (>60) mL/min BUN/Creatinine Ratio 19.2 H (14-18) Glucose 98 (83-115) mg/dL Calcium 9.1 (8.5-10.1) mg/dL Magnesium (1.8-2.4) mg/dl Total Bilirubin 0.5 (0.2-1.0) mg/dL AST 22 (15-37) U/L ALT 29 (14-59) U/L Alkaline Phosphatase 110 (46-116) U/L Troponin I < 0.017 (0.00-0.056) ng/mL C-Reactive Protein 2.0 H* (<1.0) mg/dL NT-Pro-B Natriuret Pep 1973 H (0-450) pg/mL Total Protein 7.8 (6.4-8.2) g/dl Albumin 2.9 L (3.4-5.0) g/dl Globulin 4.9 gm/dL Albumin/Globulin Ratio 0.6 L (1-2) Urine Color (Yellow) Urine Appearance (Clear) Urine pH (5.0-8.0) Ur Specific [place] (1.005-1.030) Urine Protein (Negative) Urine Glucose (UA) (Negative) Urine Ketones (Negative) Urine Occult Blood (Negative) Urine Nitrite (Negative) Urine Bilirubin (Negative) Urine Urobilinogen (0.2-1.0) Ur Leukocyte Esterase (Negative) U Hyaline Cast (Auto) (0-5) /lpf Urine RBC (0-5) /hpf Urine WBC (0-5) /hpf Ur Epithelial Cells (0-5) /hpf Urine Bacteria (FEW) /hpf Urine Mucus (FEW) /hpf SARS-CoV-2 RNA (PRIYA) (NEGATIVE) 03/26/21 03/26/21 03/26/21 Range/Units 11:10 11:40 11:55 WBC (3.98-10.04) K/mm3 RBC (3.98-5.22) M/mm3 Hgb (11.2-15.7) gm/dl Hct (34.1-44.9) % MCV (79.4-94.8) fl MCH (25.6-32.2) pg MCHC (32.2-35.5) g/dl RDW Std Deviation (36.4-46.3) fL Plt Count (182-369) K/mm3 MPV (9.4-12.3) fl Neut % (Auto) (34.0-71.1) % Lymph % (Auto) (19.3-51.7) % [place] % (Auto) (4.7-12.5) % Eos % (Auto) (0.7-5.8) Baso % (Auto) (0.1-1.2) % Neut # (Auto) (1.56-6.13) K/mm3 Lymph # (Auto) (1.18-3.74) K/mm3 [place] # (Auto) (0.24-0.36) K/mm3 Eos # (Auto) (0.04-0.36) K/mm3 Baso # (Auto) (0.01-0.08) K/mm3 Sodium (136-145) mEq/L Potassium (3.5-5.1) mEq/L Chloride (98-107) mEq/L Carbon Dioxide (21-32) mEq/L Anion Gap (5-15) BUN (7-18) mg/dL Creatinine (0.55-1.02) mg/dL Est Cr Clr Drug Dosing mL/min Estimated GFR (MDRD) (>60) mL/min BUN/Creatinine Ratio (14-18) Glucose (83-115) mg/dL Calcium (8.5-10.1) mg/dL Magnesium 2.2 (1.8-2.4) mg/dl Total Bilirubin (0.2-1.0) mg/dL AST (15-37) U/L ALT (14-59) U/L Alkaline Phosphatase (46-116) U/L Troponin I (0.00-0.056) ng/mL C-Reactive Protein (<1.0) mg/dL NT-Pro-B Natriuret Pep (0-450) pg/mL Total Protein (6.4-8.2) g/dl Albumin (3.4-5.0) g/dl Globulin gm/dL Albumin/Globulin Ratio (1-2) Urine Color Yellow (Yellow) Urine Appearance Clear (Clear) Urine pH 5.0 (5.0-8.0) Ur Specific [place] 1.020 (1.005-1.030) Urine Protein Trace H (Negative) Urine Glucose (UA) Negative (Negative) Urine Ketones Negative (Negative) Urine Occult Blood Negative (Negative) Urine Nitrite Negative (Negative) Urine Bilirubin Negative (Negative) Urine Urobilinogen 0.2 (0.2-1.0) Ur Leukocyte Esterase Negative (Negative) U Hyaline Cast (Auto) 0-5 (0-5) /lpf Urine RBC 0-5 (0-5) /hpf Urine WBC 0-5 (0-5) /hpf Ur Epithelial Cells 0-5 (0-5) /hpf Urine Bacteria Rare (FEW) /hpf Urine Mucus Few (FEW) /hpf SARS-CoV-2 RNA (PRIYA) Negative (NEGATIVE) Meds: Medications Generic Name Dose Route Start Last Admin Trade Name Freq PRN Reason Stop Dose Admin Acetaminophen 650 mg 03/26/21 12:58 Acetaminophen 325 Mg Tab PO Q6H PRN Pain (Mild 1-3)/fever Hydrocodone Bitart/Acetaminophen 1 tab 03/26/21 12:58 Acetaminophen/Hydrocodone 325-5 Mg Tab PO Q6H PRN Pain (moderate 4-6) Albuterol/Ipratropium 3 ml 03/26/21 12:58 Albuterol/Ipratropium 3.0-0.5 Mg/3 Ml Neb Soln NEB Q4H PRN Shortness Of Breath/wheezing Aspirin 81 mg 03/27/21 09:00 Aspirin 81 Mg Tab.Ec PO DAILY [facility] Cyanocobalamin 1,000 mcg 03/27/21 09:00 Cyanocobalamin (Vitamin B12) 1,000 Mcg Tab PO DAILY CLIF Diltiazem HCl 15 mg 03/26/21 20:30 03/26/21 20:37 Diltiazem Ir 30 Mg Tab PO 15 mg Q6HR CLIF Administration Promethazine HCl 12.5 mg/ 50.5 mls @ 100 mls/hr 03/26/21 12:58 Sodium Chloride IV Q6H PRN Nausea/Vomiting Diltiazem HCl 100 mg/ Sodium 100 mls @ 5 mls/hr 03/26/21 13:15 Chloride IV TITRATE CLIF Protocol 5 MG/HR Lorazepam 0.25 mg 03/26/21 19:10 03/26/21 20:38 Lorazepam 2 Mg/Ml Sdv IVPUSH 0.25 mg Q6H PRN Administration Anxiety Metoprolol Succinate 50 mg 03/27/21 09:00 Metoprolol Succinate 50 Mg Tab.Er PO DAILY CLIF Metoprolol Tartrate 12.5 mg 03/26/21 14:30 03/26/21 15:31 Metoprolol Tartrate 25 Mg Tab PO 03/27/21 02:31 12.5 mg Q12H CLIF Administration Morphine Sulfate 2 mg 03/26/21 12:58 Morphine 2 Mg/Ml Syringe IVPUSH 03/27/21 13:00 Q4H PRN Pain (severe 7-10) Multivitamins/Minerals/Vitamin C 1 tab 03/27/21 09:00 Multivitamin Tab PO DAILY [facility] Non-Formulary Medication 20 mg 03/27/21 09:00 Omeprazole Magnesium [Prilosec Otc] PO DAILY CLIF Donepezil 5 Mg 0 each 03/26/21 21:00 03/26/21 19:59 Tablet *Pt Own Med* PO 1 each BEDTIME CLIF Administration Rosuvastatin Calcium 10 mg 03/27/21 09:00 Rosuvastatin 10 Mg Tab PO DAILY CLIF Sertraline HCl 25 mg 03/27/21 09:00 Sertraline 25 Mg Tab PO DAILY CLIF Sodium Chloride 10 ml 03/26/21 11:15 03/26/21 11:05 Sodium Chloride 0.9% 10 Ml Syringe FLUSH 10 ml ASDIRECTED PRN Administration Keep Vein Open Discontinued Medications Generic Name Dose Route Start Last Admin Trade Name Freq PRN Reason Stop Dose Admin Digoxin 125 mcg 03/26/21 13:10 03/26/21 15:31 Digoxin 500 Mcg/2 Ml Amp IVPUSH 03/26/21 13:11 Not Given ONETIME ONE Digoxin 125 mcg 05/10/21 17:15 03/26/21 17:39 Digoxin 125 Mcg Tab PO 03/26/21 17:16 125 mcg ONETIME ONE Administration Diltiazem HCl 10 mg 03/26/21 11:39 03/26/21 12:07 Diltiazem 50 Mg/10 Ml Sdv IVPUSH 03/26/21 11:40 10 mg ONETIME ONE Administration Diltiazem HCl 100 mg/ Sodium 100 mls @ 10 mls/hr 03/26/21 11:45 03/26/21 20:24 Chloride IV 0 mg/hr TITRATE CLIF 0 mls/hr Titration Protocol 10 MG/HR - Re-Assessments/Exams Free Text/Narrative Re-Assessment/Exam: Patient is an 89-year-old female presenting to the emergency department with complaints of increasing shortness of breath as well as rapid heart rate. She has a history of A. fib and is currently on Xarelto. She also has a history of a right-sided pleural effusion which was drained towards the end of February. This unfortunate did resolve in a pneumothorax leading to a chest tube. Patient did a short 2 weeks rehab stay at a [facility] facility and has been home for a few days. Today her shortness of breath worsened. checked her pulse at home and found it to be elevated. On triage, patient was found to have a heart rate of 144 and be tachypneic at 24. Vital signs were otherwise normal. Temperature was 97.7, blood pressure 136/85, oxygen 95% on room air. Patient denies any chest pain. I have ordered blood work, EKG, chest x-ray. I will start her with Cardizem 10 mg IV followed by a Cardizem drip starting at 5 mg/h. 03/26/21 1240 Hematology was significant for BUN elevated at 25, creatinine 1.3, CRP 2.0, proBNP 1973. Troponin is undetectable. Urinalysis shows no signs of infection. EKG obtained at the time of triage showed atrial fibrillation at 135 with no signs of acute ischemia. Chest x-ray shows: 1. Moderately large right-sided pleural effusion which is increased from prior study. 2. Small left-sided pleural effusion with mild left basilar atelectasis 3. Other stable findings as noted above. Heart rate has improved to 100-115. Blood pressure remained stable. Case was discussed with hospitalist, Dr. Martinez. He has accepted the patient for admission to observation in the ICU for rate control and possible thoracentesis. Patient and her family are in agreement. Departure - Departure Time of Disposition: 12:40 Disposition: Refer to Observation Condition: Fair Clinical Impression: Pleural effusion on right, Chronic atrial fibrillation with rapid ventricular response Sepsis Event Note (ED) - Evaluation Sepsis Screening Result: No Definite Risk - Focused Exam Vital Signs: Vital Signs Temp Pulse Resp BP Pulse Ox 03/26/21 11:05 97.7 F 144 H 24 H 136/85 95 - My Orders Last 24 Hours: My Active Orders 03/26/21 11:15 Sodium Chloride 0.9% [Saline Flush] 10 ml FLUSH ASDIRECTED PRN Peripheral IV Insertion Adult [OM.PC] Stat 03/26/21 12:11 Oxygen Therapy [RC] ASDIRECTED - Assessment/Plan Last 24 Hours: My Active Orders 03/26/21 11:15 Sodium Chloride 0.9% [Saline Flush] 10 ml FLUSH ASDIRECTED PRN Peripheral IV Insertion Adult [OM.PC] Stat 03/26/21 12:11 Oxygen Therapy [RC] ASDIRECTED
[2021-03-26] MEDS ORDERED: Morphine 2 MG/ML SYRINGE IVPUSH PRN (12:58)
[2021-03-26] MEDS ORDERED: Acetaminophen/HYDROcodone 325-5 MG Tab PO PRN (12:58)
[2021-03-26] MEDS ORDERED: Promethazine 12.5 MG in Sodium Chloride 0.9% 50 ML IV PRN (12:58)
[2021-03-26] MEDS ORDERED: Digoxin 500 MCG/2 ML Amp IVPUSH ONE (13:10)
[2021-03-26] MEDS: Metoprolol Tartrate 25 MG Tab PO SCH (15:31)
--- NOTE | 2021-03-26 16:15 | PCM.CONS ---
H&P History of Present Illness - General Date of Service: 03/26/21 Admit Problem/Dx: Admission Diagnosis/Problem Admission Diagnosis/Problem Afib, Atrial fibrillation Source of Information: Patient History Limitations: Reports: No Limitations (some dementia. SOme history obtained from daughter who was present in the room) - History of Present Illness Initial Comments - Free Text/Narative: Patient has CHF, Chronic Afib on Xarelto. SHe was admitted today for progressive SOB. ALso today she was found to be in RVR with HR in 130-170. Bp was ok. Chest xray revealed right sided pleural effusion. She was admitted recently for a similar issue and had right thoracentesis complicated by pneumothorax s/p chest tube. ALso had right sided pneumonia. Last dose of Xarelto was last night. Onset of Symptoms: Reports: Gradual Duration of Symptoms: Reports: Recurring Location: Reports: Chest (right) Quality: Reports: Other Improves with: Reports: None Worsens with: Reports: None - Related Data Allergies/Adverse Reactions: Allergies Allergy/AdvReac Type Severity Reaction Status Date / Time amoxicillin [From Augmentin] Allergy Swelling Verified 03/26/21 11:24 clavulanic acid Allergy Swelling Verified 03/26/21 11:24 [From Augmentin] Penicillins Allergy Rash Verified 03/26/21 11:15 prednisone Allergy Rash Verified 03/26/21 11:15 lisinopril AdvReac Cough Verified 03/26/21 11:15 Home Medications: Home Meds Aspirin [Halfprin] 81 mg PO DAILY 03/01/21 [History] Multivitamin [Multivitamins] 1 tab PO DAILY 03/01/21 [History] Omeprazole Magnesium [Prilosec Otc] 20 mg PO DAILY 03/01/21 [History] Rosuvastatin [Crestor] 10 mg PO DAILY 03/01/21 [History] Sertraline [Zoloft] 25 mg PO DAILY 03/01/21 [History] Cyanocobalamin (Vitamin B-12) [Vitamin B-12] 1,000 mcg PO DAILY #30 03/06/21 [Rx] Donepezil [Aricept] 5 mg PO DAILY #30 03/06/21 [Rx] Metoprolol Succinate 50 mg PO DAILY #30 03/06/21 [Rx] Rivaroxaban [Xarelto] 15 mg PO 1700 #30 03/06/21 [Rx] Furosemide [Lasix] 40 mg PO DAILY 03/26/21 [History] Past Medical History HEENT History: Reports: Cataract, Impaired Vision, Other (See Below) Other HEENT History: Dentures, disease of vocal cords, dysphasia Cardiovascular History: Reports: Afib, High Cholesterol, Hypertension Other Cardiovascular History: hypokalemia 2.8-started on po potassium nov 2020 Respiratory History: Reports: Other (See Below) Other Respiratory History: dyspnea - severe snoring;pleural effusion right side nov 2020 Gastrointestinal History: Reports: Chronic Diarrhea, GERD, Hiatal Hernia Genitourinary History: Reports: Renal Calculus, Urinary Incontinence CLINICAL ESTHETICIAN History: Reports: Musculoskeletal History: Reports: Osteoarthritis Other Musculoskeletal History: limb pain, hallux valgus Neurological History: Reports: Other (See Below) Other Neuro History: dementia Psychiatric History: Reports: Dementia Endocrine/Metabolic History: Reports: None Hematologic History: Reports: B12 Deficiency, Blood Transfusion(s) Oncologic (Cancer) History: Reports: Other (See Below) Other Oncologic History: skin Dermatologic History: Reports: Melanoma Other Dermatologic History: seborrheic keratosis, L forehead actinic keratosis - Infectious Disease History Infectious Disease History: Reports: Chicken Pox, Shingles - Past Surgical History HEENT Surgical History: Reports: Adenoidectomy, Cataract Surgery, Tonsillectomy Other Cardiovascular Surgeries/Procedures: R leg thrombectomy GI Surgical History: Reports: Colonoscopy, Other (See Below) Other GI Surgeries/Procedures: Hernia repair Female Surgical History: Reports: Hysterectomy, Salpingo-Oophorectomy Social & Family History - Family History Family Medical History: No Pertinent Family History - Tobacco Use Tobacco Use Status *Q: Never Tobacco User Second Hand Smoke Exposure: Yes - Caffeine Use Caffeine Use: Reports: Coffee Other Caffeine Use: 2/ per day - Recreational Drug Use Recreational Drug Use: No - Living Situation & Occupation Living situation: Reports: Occupation: Retired H&P Review of Systems - Review of Systems: Review Of Systems: See Below General: Reports: No Symptoms HEENT: Reports: No Symptoms Pulmonary: Reports: Shortness of Breath Cardiovascular: Reports: Dyspnea on Exertion Gastrointestinal: Reports: No Symptoms Genitourinary: Reports: No Symptoms Exam - Exam Exam: See Below - Vital Signs Vital Signs: Last Vital Signs Temp 98.8 F 03/26/21 14:05 Pulse 104 H 03/26/21 15:31 Resp 32 H 03/26/21 14:05 BP 121/64 03/26/21 15:31 Pulse Ox 98 03/26/21 15:00 Weight: 59.693 kg - Exam General: Alert, Oriented, Cooperative Lungs: Normal Respiratory Effort, Decreased Breath Sounds (on the right), Rales (on the right) Cardiovascular: Normal S1, Normal S2, Irregular Rhythm, Tachycardia GI/Abdominal Exam: Soft, Non-Tender, No Organomegaly, No Distention Extremities: Pedal Edema - Patient Data Lab Results Last 24 hrs: Laboratory Results - last 24 hr 03/26/21 03/26/21 03/26/21 Range/Units 11:10 11:10 11:10 WBC 7.59 (3.98-10.04) K/mm3 RBC 3.99 (3.98-5.22) M/mm3 Hgb 11.9 (11.2-15.7) gm/dl Hct 37.9 (34.1-44.9) % MCV 95.0 H (79.4-94.8) fl MCH 29.8 (25.6-32.2) pg MCHC 31.4 L (32.2-35.5) g/dl RDW Std Deviation 47.3 H (36.4-46.3) fL Plt Count 428 H D (182-369) K/mm3 MPV 10.3 (9.4-12.3) fl Neut % (Auto) 76.4 H (34.0-71.1) % Lymph % (Auto) 11.7 L (19.3-51.7) % Morris % (Auto) 8.7 (4.7-12.5) % Eos % (Auto) 2.0 (0.7-5.8) Baso % (Auto) 1.1 (0.1-1.2) % Neut # (Auto) 5.80 (1.56-6.13) K/mm3 Lymph # (Auto) 0.89 L (1.18-3.74) K/mm3 Morris # (Auto) 0.66 H (0.24-0.36) K/mm3 Eos # (Auto) 0.15 (0.04-0.36) K/mm3 Baso # (Auto) 0.08 (0.01-0.08) K/mm3 Sodium 137 (136-145) mEq/L Potassium 3.9 (3.5-5.1) mEq/L Chloride 101 (98-107) mEq/L Carbon Dioxide 28 (21-32) mEq/L Anion Gap 11.9 (5-15) BUN 25 H (7-18) mg/dL Creatinine 1.3 H (0.55-1.02) mg/dL Est Cr Clr Drug Dosing 23.20 mL/min Estimated GFR (MDRD) 39 (>60) mL/min BUN/Creatinine Ratio 19.2 H (14-18) Glucose 98 (83-115) mg/dL Calcium 9.1 (8.5-10.1) mg/dL Magnesium (1.8-2.4) mg/dl Total Bilirubin 0.5 (0.2-1.0) mg/dL AST 22 (15-37) U/L ALT 29 (14-59) U/L Alkaline Phosphatase 110 (46-116) U/L Troponin I < 0.017 (0.00-0.056) ng/mL C-Reactive Protein 2.0 H* (<1.0) mg/dL NT-Pro-B Natriuret Pep 1973 H (0-450) pg/mL Total Protein 7.8 (6.4-8.2) g/dl Albumin 2.9 L (3.4-5.0) g/dl Globulin 4.9 gm/dL Albumin/Globulin Ratio 0.6 L (1-2) Urine Color (Yellow) Urine Appearance (Clear) Urine pH (5.0-8.0) Ur Specific [place] (1.005-1.030) Urine Protein (Negative) Urine Glucose (UA) (Negative) Urine Ketones (Negative) Urine Occult Blood (Negative) Urine Nitrite (Negative) Urine Bilirubin (Negative) Urine Urobilinogen (0.2-1.0) Ur Leukocyte Esterase (Negative) U Hyaline Cast (Auto) (0-5) /lpf Urine RBC (0-5) /hpf Urine WBC (0-5) /hpf Ur Epithelial Cells (0-5) /hpf Urine Bacteria (FEW) /hpf Urine Mucus (FEW) /hpf SARS-CoV-2 RNA (PRIYA) (NEGATIVE) 03/26/21 03/26/21 03/26/21 Range/Units 11:10 11:40 11:55 WBC (3.98-10.04) K/mm3 RBC (3.98-5.22) M/mm3 Hgb (11.2-15.7) gm/dl Hct (34.1-44.9) % MCV (79.4-94.8) fl MCH (25.6-32.2) pg MCHC (32.2-35.5) g/dl RDW Std Deviation (36.4-46.3) fL Plt Count (182-369) K/mm3 MPV (9.4-12.3) fl Neut % (Auto) (34.0-71.1) % Lymph % (Auto) (19.3-51.7) % Morris % (Auto) (4.7-12.5) % Eos % (Auto) (0.7-5.8) Baso % (Auto) (0.1-1.2) % Neut # (Auto) (1.56-6.13) K/mm3 Lymph # (Auto) (1.18-3.74) K/mm3 Morris # (Auto) (0.24-0.36) K/mm3 Eos # (Auto) (0.04-0.36) K/mm3 Baso # (Auto) (0.01-0.08) K/mm3 Sodium (136-145) mEq/L Potassium (3.5-5.1) mEq/L Chloride (98-107) mEq/L Carbon Dioxide (21-32) mEq/L Anion Gap (5-15) BUN (7-18) mg/dL Creatinine (0.55-1.02) mg/dL Est Cr Clr Drug Dosing mL/min Estimated GFR (MDRD) (>60) mL/min BUN/Creatinine Ratio (14-18) Glucose (83-115) mg/dL Calcium (8.5-10.1) mg/dL Magnesium 2.2 (1.8-2.4) mg/dl Total Bilirubin (0.2-1.0) mg/dL AST (15-37) U/L ALT (14-59) U/L Alkaline Phosphatase (46-116) U/L Troponin I (0.00-0.056) ng/mL C-Reactive Protein (<1.0) mg/dL NT-Pro-B Natriuret Pep (0-450) pg/mL Total Protein (6.4-8.2) g/dl Albumin (3.4-5.0) g/dl Globulin gm/dL Albumin/Globulin Ratio (1-2) Urine Color Yellow (Yellow) Urine Appearance Clear (Clear) Urine pH 5.0 (5.0-8.0) Ur Specific [place] 1.020 (1.005-1.030) Urine Protein Trace H (Negative) Urine Glucose (UA) Negative (Negative) Urine Ketones Negative (Negative) Urine Occult Blood Negative (Negative) Urine Nitrite Negative (Negative) Urine Bilirubin Negative (Negative) Urine Urobilinogen 0.2 (0.2-1.0) Ur Leukocyte Esterase Negative (Negative) U Hyaline Cast (Auto) 0-5 (0-5) /lpf Urine RBC 0-5 (0-5) /hpf Urine WBC 0-5 (0-5) /hpf Ur Epithelial Cells 0-5 (0-5) /hpf Urine Bacteria Rare (FEW) /hpf Urine Mucus Few (FEW) /hpf SARS-CoV-2 RNA (PRIYA) Negative (NEGATIVE) Result Diagrams: 03/26/21 11:10 03/26/21 11:10 Sepsis Event Note - Evaluation Sepsis Screening Result: No Definite Risk - Focused Exam Vital Signs: Vital Signs Temp Pulse Pulse Resp BP BP Pulse Ox 03/26/21 15:31 104 H 121/64 03/26/21 15:00 03/26/21 14:05 98.8 F 132 H 32 H 121/75 93 L 03/26/21 11:05 97.7 F 144 H 24 H 136/85 95 Pulse Ox 03/26/21 15:31 03/26/21 15:00 98 03/26/21 14:05 03/26/21 11:05 Consult PN Assessment/Plan Procedures: Procedures AIRWAY INHALATION TREATMENT (03/01/21) ASSAY OF DIGOXIN TOTAL (03/01/21) ASSAY OF FREE THYROXINE (03/01/21) ASSAY OF LACTIC ACID (03/01/21) ASSAY OF LIPASE (10/23/16) ASSAY OF MAGNESIUM (03/01/21) ASSAY OF NATRIURETIC PEPTIDE (03/01/21) ASSAY OF PROTEIN OTHER (03/01/21) ASSAY OF TROPONIN QUANT (03/01/21) ASSAY OF URINE SODIUM (03/01/21) ASSAY THYROID STIM HORMONE (03/01/21) BL SMEAR W/DIFF WBC COUNT (03/12/19) BLOOD CULTURE FOR BACTERIA (03/01/21) BLOOD TRANSFUSION SERVICE (03/01/21) BLOOD TYPING SEROLOGIC ABO (03/01/21) BLOOD TYPING SEROLOGIC RH(D) (03/01/21) C DIFF AMPLIFIED PROBE (06/21/17) C-REACTIVE PROTEIN (03/01/21) CHEST X-RAY 1 VIEW FRONTAL (06/21/17) CHEST X-RAY 2VW FRONTAL&LATL (12/30/15) COLONOSCOPY AND BIOPSY (10/28/16) COMPATIBILITY TEST ANTIGLOB (03/01/21) COMPLETE CBC AUTOMATED (03/12/19) COMPLETE CBC W/AUTO DIFF WBC (03/01/21) COMPREHEN METABOLIC PANEL (03/01/21) CREATINE MB FRACTION (03/01/21) CRYPTOSPORIDIUM AG IA (10/28/16) CT ABD & PELVIS W/O CONTRAST (12/30/15) CT HEAD/BRAIN W/O DYE (03/12/19) CT MAXILLOFACIAL W/O DYE (04/09/14) CULTURE OTHR SPECIMN AEROBIC (03/01/21) ECG MONIT/REPRT UP TO 48 HRS (03/12/19) ECG MONIT/REPRT UP TO 48 HRS (03/12/19) EGD BIOPSY SINGLE/MULTIPLE (10/28/16) ELECTROCARDIOGRAM TRACING (03/12/19) EMERGENCY DEPT VISIT (03/01/21) EMERGENCY DEPT VISIT (03/12/19) EMERGENCY DEPT VISIT (06/21/17) EMERGENCY DEPT VISIT (10/23/16) EMERGENCY DEPT VISIT (03/20/15) EMERGENCY DEPT VISIT (03/18/15) EVALUATE SWALLOWING FUNCTION (03/01/21) FREE ASSAY (FT-3) (03/01/21) GAIT TRAINING THERAPY (06/21/17) GIARDIA AG IA (10/28/16) GLUCOSE OTHER FLUID (03/01/21) HYDRATE IV INFUSION ADD-ON (03/20/15) HYDRATION IV INFUSION INIT (03/12/19) INSERT TEMP BLADDER CATH (03/01/21) LAPARO CHOLECYSTECTOMY/GRAPH (12/28/16) LEUKOCYTE ASSESSMENT FECAL (10/28/16) MASSAGE THERAPY (06/15/19) METABOLIC PANEL TOTAL CA (06/21/17) NEUROMUSCULAR REEDUCATION (06/15/19) OT EVAL MOD COMPLEX 45 MIN (03/01/21) PROTHROMBIN TIME (03/01/21) PT EVAL MOD COMPLEX 30 MIN (03/01/21) RBC ANTIBODY SCREEN (03/01/21) RBC SED RATE AUTOMATED (03/20/15) ROUTINE VENIPUNCTURE (03/01/21) SMEAR GRAM STAIN (03/01/21) STOOL CULTR AEROBIC BACT EA (10/28/16) THER/PROPH/DIAG INJ IV PUSH (12/30/15) THER/PROPH/DIAG IV INF INIT (03/01/21) THERAPEUTIC ACTIVITIES (03/01/21) THERAPEUTIC EXERCISES (06/15/19) THROMBOPLASTIN TIME PARTIAL (03/01/21) TISSUE EXAM BY PATHOLOGIST (10/28/16) TTE W/DOPPLER COMPLETE (03/01/21) TX/PRO/DX INJ NEW DRUG ADDON (03/20/15) TX/PRO/DX INJ SAME DRUG WAREHOUSE STOCK CLERK (03/01/21) URINALYSIS AUTO W/SCOPE (03/01/21) URINE CULTURE/COLONY COUNT (03/01/21) VANOMYCIN DNA AMP PROBE (10/28/16) X-RAY BILE DUCTS/PANCREAS (11/13/16) X-RAY EXAM CHEST 1 VIEW (03/01/21) Problem List Initiated/Reviewed/Updated: No Plan: Patient with CHF and recurrent pleural effusion per Xray, Afib with RVR. Her RVR is now better controlled. Her right pleural effusion is moderately large. Therefore she will likely need thoracentesis. I recommended that as long as she is stable, we should hold her Xarelto for 36-72 hrs prior to thoracentesis to minimize bleeding complications. I discussed this plan with hospitalist transmission worker, patient and patient's daughter.
--- NOTE | 2021-03-26 17:06 | CT ---
CT chest Technique: Multiple axial sections were obtained from above the lung apices inferiorly through the lung bases. Intravenous contrast was not utilized. Reconstructed coronal and sagittal images were obtained. Comparison: Chest x-ray performed earlier on the same day (11:26 AM). Findings: Large right-sided pleural effusion is seen. Smaller left-sided pleural effusion is seen. There appears to be some loculated fluid within the anterior portions of the chest. Thoracic aorta shows atherosclerotic change without aneurysm. Small lymph nodes are seen which are most likely within normal limits. Pericardial effusion is seen which is small in amount. Small portion of the visualized upper abdominal structures show no discrete abnormality. Lung window settings were reviewed which show minimal atelectasis adjacent to the left pleural effusion. More significant lung collapse is seen on the right side due to the larger pleural effusion. Bone window settings were obtained which show several old healed left upper rib fractures. Impression: 1. Fairly large right-sided pleural effusion with what appears to be loculated fluid anteriorly. 2. Smaller left-sided pleural effusion is noted. 3. Areas of atelectasis which are small on the left side and more prominent on the right side. 4. No accurate comment about lung mass can be made without IV contrast and removal of fluid. Diagnostic code #3
[2021-03-26] MEDS ORDERED: Digoxin 125 MCG Tab PO ONE (17:15)
--- NOTE | 2021-03-26 17:19 | PCM.HP.2 ---
H&P History of Present Illness - General Date of Service: 03/26/21 Admit Problem/Dx: Admission Diagnosis/Problem Admission Diagnosis/Problem Afib, Atrial fibrillation Source of Information: Patient, Family, Other (chart) - History of Present Illness Initial Comments - Free Text/Narative: Patient is an 89-year-old female with a history of CHF, atrial fibrillation on Xarelto, and pleural effusion who was brought to the ER due to worsening shortness of breath and rapid heart rate. Patient has been having shortness of breath which however has been worsening recently especially today. She has been feeling her heart beating too fast today. Her called primary care doctor who suggested him to bring her to the ER. Other than the symptoms mentioned above, she is fine. Denies headache, dizziness, chest pain, abdominal pain, nausea, vomiting, or dysuria. In the ER, heart rate 144. EKG showed atrial fibrillation with RVR. Chest x-ray showed moderately large right-sided pleural effusion. Patient was hospitalized to our hospital about 3 weeks ago due to atrial fibrillation with RVR and right sided pleural effusion. During that hospitalization, thoracentesis was performed which unfortunately led to pneumothorax. - Related Data Allergies/Adverse Reactions: Allergies Allergy/AdvReac Type Severity Reaction Status Date / Time amoxicillin [From Augmentin] Allergy Swelling Verified 03/26/21 11:24 clavulanic acid Allergy Swelling Verified 03/26/21 11:24 [From Augmentin] Penicillins Allergy Rash Verified 03/26/21 11:15 prednisone Allergy Rash Verified 03/26/21 11:15 lisinopril AdvReac Cough Verified 03/26/21 11:15 Home Medications: Home Meds Aspirin [Halfprin] 81 mg PO DAILY 03/01/21 [History] Multivitamin [Multivitamins] 1 tab PO DAILY 03/01/21 [History] Omeprazole Magnesium [Prilosec Otc] 20 mg PO DAILY 03/01/21 [History] Rosuvastatin [Crestor] 10 mg PO DAILY 03/01/21 [History] Sertraline [Zoloft] 25 mg PO DAILY 03/01/21 [History] Cyanocobalamin (Vitamin B-12) [Vitamin B-12] 1,000 mcg PO DAILY #30 03/06/21 [Rx] Donepezil [Aricept] 5 mg PO DAILY #30 03/06/21 [Rx] Metoprolol Succinate 50 mg PO DAILY #30 03/06/21 [Rx] Rivaroxaban [Xarelto] 15 mg PO 1700 #30 03/06/21 [Rx] Furosemide [Lasix] 40 mg PO DAILY 03/26/21 [History] Past Medical History HEENT History: Reports: Cataract, Impaired Vision, Other (See Below) Other HEENT History: Dentures, disease of vocal cords, dysphasia Cardiovascular History: Reports: Afib, High Cholesterol, Hypertension Other Cardiovascular History: hypokalemia 2.8-started on po potassium nov 2020 Respiratory History: Reports: Other (See Below) Other Respiratory History: dyspnea - severe snoring;pleural effusion right side nov 2020 Gastrointestinal History: Reports: Chronic Diarrhea, GERD, Hiatal Hernia Genitourinary History: Reports: Renal Calculus, Urinary Incontinence 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[employer]ER History: Reports: Musculoskeletal History: Reports: Osteoarthritis Other Musculoskeletal History: limb pain, hallux valgus Neurological History: Reports: Other (See Below) Other Neuro History: dementia Psychiatric History: Reports: Dementia Endocrine/Metabolic History: Reports: None Hematologic History: Reports: B12 Deficiency, Blood Transfusion(s) Oncologic (Cancer) History: Reports: Other (See Below) Other Oncologic History: skin Dermatologic History: Reports: Melanoma Other Dermatologic History: seborrheic keratosis, L forehead actinic keratosis - Infectious Disease History Infectious Disease History: Reports: Chicken Pox, Shingles - Past Surgical History HEENT Surgical History: Reports: Adenoidectomy, Cataract Surgery, Tonsillectomy Other Cardiovascular Surgeries/Procedures: R leg thrombectomy GI Surgical History: Reports: Colonoscopy, Other (See Below) Other GI Surgeries/Procedures: Hernia repair Female Surgical History: Reports: Hysterectomy, Salpingo-Oophorectomy Social & Family History - Family History Family Medical History: No Pertinent Family History (Denies genetic diseases in family) - Tobacco Use Tobacco Use Status *Q: Never Tobacco User Second Hand Smoke Exposure: Yes - Caffeine Use Caffeine Use: Reports: Coffee Other Caffeine Use: 2/ per day - Recreational Drug Use Recreational Drug Use: No - Living Situation & Occupation Living situation: Reports: Occupation: Retired H&P Review of Systems - Review of Systems: Review Of Systems: See Below General: Reports: No Symptoms HEENT: Reports: No Symptoms Pulmonary: Reports: Shortness of Breath Cardiovascular: Reports: Palpitations Gastrointestinal: Reports: No Symptoms Genitourinary: Reports: No Symptoms Musculoskeletal: Reports: No Symptoms Skin: Reports: No Symptoms Psychiatric: Reports: No Symptoms Neurological: Reports: No Symptoms Hematologic/Lymphatic: Reports: No Symptoms Immunologic: Reports: No Symptoms Exam - Exam Exam: See Below - Vital Signs Vital Signs: Last Vital Signs Temp 37.1 C 03/26/21 14:05 Pulse 104 H 03/26/21 15:31 Resp 32 H 03/26/21 14:05 BP 121/64 03/26/21 15:31 Pulse Ox 98 03/26/21 15:00 Weight: 59.693 kg - Exam General: Alert, Oriented, Cooperative HEENT: Conjunctiva Clear, EOMI, Pupils Equal, Pupils Reactive Neck: Supple, Full Range of Motion Lungs: Decreased Breath Sounds (Lower right lung field and left basal area) Cardiovascular: Irregular Rhythm GI/Abdominal Exam: Normal Bowel Sounds, Soft, Non-Tender, No Organomegaly Extremities: Normal Range of Motion, Non-Tender, Pedal Edema (2+ in both legs until knees) Skin: Warm, Dry, Intact Neurological: Strength Equal Bilateral, Normal Speech, Normal Tone, Sensation Intact Neuro Extensive - Mental Status: Normal Mood/Affect Psychiatric: Normal Affect, Normal Mood - Patient Data Lab Results Last 24 hrs: Laboratory Results - last 24 hr 03/26/21 03/26/21 03/26/21 Range/Units 11:10 11:10 11:10 WBC 7.59 (3.98-10.04) K/mm3 RBC 3.99 (3.98-5.22) M/mm3 Hgb 11.9 (11.2-15.7) gm/dl Hct 37.9 (34.1-44.9) % MCV 95.0 H (79.4-94.8) fl MCH 29.8 (25.6-32.2) pg MCHC 31.4 L (32.2-35.5) g/dl RDW Std Deviation 47.3 H (36.4-46.3) fL Plt Count 428 H D (182-369) K/mm3 MPV 10.3 (9.4-12.3) fl Neut % (Auto) 76.4 H (34.0-71.1) % Lymph % (Auto) 11.7 L (19.3-51.7) % [place] % (Auto) 8.7 (4.7-12.5) % Eos % (Auto) 2.0 (0.7-5.8) Baso % (Auto) 1.1 (0.1-1.2) % Neut # (Auto) 5.80 (1.56-6.13) K/mm3 Lymph # (Auto) 0.89 L (1.18-3.74) K/mm3 [place] # (Auto) 0.66 H (0.24-0.36) K/mm3 Eos # (Auto) 0.15 (0.04-0.36) K/mm3 Baso # (Auto) 0.08 (0.01-0.08) K/mm3 Sodium 137 (136-145) mEq/L Potassium 3.9 (3.5-5.1) mEq/L Chloride 101 (98-107) mEq/L Carbon Dioxide 28 (21-32) mEq/L Anion Gap 11.9 (5-15) BUN 25 H (7-18) mg/dL Creatinine 1.3 H (0.55-1.02) mg/dL Est Cr Clr Drug Dosing 23.20 mL/min Estimated GFR (MDRD) 39 (>60) mL/min BUN/Creatinine Ratio 19.2 H (14-18) Glucose 98 (83-115) mg/dL Calcium 9.1 (8.5-10.1) mg/dL Magnesium (1.8-2.4) mg/dl Total Bilirubin 0.5 (0.2-1.0) mg/dL AST 22 (15-37) U/L ALT 29 (14-59) U/L Alkaline Phosphatase 110 (46-116) U/L Troponin I < 0.017 (0.00-0.056) ng/mL C-Reactive Protein 2.0 H* (<1.0) mg/dL NT-Pro-B Natriuret Pep 1973 H (0-450) pg/mL Total Protein 7.8 (6.4-8.2) g/dl Albumin 2.9 L (3.4-5.0) g/dl Globulin 4.9 gm/dL Albumin/Globulin Ratio 0.6 L (1-2) Urine Color (Yellow) Urine Appearance (Clear) Urine pH (5.0-8.0) Ur Specific [place] (1.005-1.030) Urine Protein (Negative) Urine Glucose (UA) (Negative) Urine Ketones (Negative) Urine Occult Blood (Negative) Urine Nitrite (Negative) Urine Bilirubin (Negative) Urine Urobilinogen (0.2-1.0) Ur Leukocyte Esterase (Negative) U Hyaline Cast (Auto) (0-5) /lpf Urine RBC (0-5) /hpf Urine WBC (0-5) /hpf Ur Epithelial Cells (0-5) /hpf Urine Bacteria (FEW) /hpf Urine Mucus (FEW) /hpf SARS-CoV-2 RNA (PRIYA) (NEGATIVE) 03/26/21 03/26/21 03/26/21 Range/Units 11:10 11:40 11:55 WBC (3.98-10.04) K/mm3 RBC (3.98-5.22) M/mm3 Hgb (11.2-15.7) gm/dl Hct (34.1-44.9) % MCV (79.4-94.8) fl MCH (25.6-32.2) pg MCHC (32.2-35.5) g/dl RDW Std Deviation (36.4-46.3) fL Plt Count (182-369) K/mm3 MPV (9.4-12.3) fl Neut % (Auto) (34.0-71.1) % Lymph % (Auto) (19.3-51.7) % [place] % (Auto) (4.7-12.5) % Eos % (Auto) (0.7-5.8) Baso % (Auto) (0.1-1.2) % Neut # (Auto) (1.56-6.13) K/mm3 Lymph # (Auto) (1.18-3.74) K/mm3 [place] # (Auto) (0.24-0.36) K/mm3 Eos # (Auto) (0.04-0.36) K/mm3 Baso # (Auto) (0.01-0.08) K/mm3 Sodium (136-145) mEq/L Potassium (3.5-5.1) mEq/L Chloride (98-107) mEq/L Carbon Dioxide (21-32) mEq/L Anion Gap (5-15) BUN (7-18) mg/dL Creatinine (0.55-1.02) mg/dL Est Cr Clr Drug Dosing mL/min Estimated GFR (MDRD) (>60) mL/min BUN/Creatinine Ratio (14-18) Glucose (83-115) mg/dL Calcium (8.5-10.1) mg/dL Magnesium 2.2 (1.8-2.4) mg/dl Total Bilirubin (0.2-1.0) mg/dL AST (15-37) U/L ALT (14-59) U/L Alkaline Phosphatase (46-116) U/L Troponin I (0.00-0.056) ng/mL C-Reactive Protein (<1.0) mg/dL NT-Pro-B Natriuret Pep (0-450) pg/mL Total Protein (6.4-8.2) g/dl Albumin (3.4-5.0) g/dl Globulin gm/dL Albumin/Globulin Ratio (1-2) Urine Color Yellow (Yellow) Urine Appearance Clear (Clear) Urine pH 5.0 (5.0-8.0) Ur Specific [place] 1.020 (1.005-1.030) Urine Protein Trace H (Negative) Urine Glucose (UA) Negative (Negative) Urine Ketones Negative (Negative) Urine Occult Blood Negative (Negative) Urine Nitrite Negative (Negative) Urine Bilirubin Negative (Negative) Urine Urobilinogen 0.2 (0.2-1.0) Ur Leukocyte Esterase Negative (Negative) U Hyaline Cast (Auto) 0-5 (0-5) /lpf Urine RBC 0-5 (0-5) /hpf Urine WBC 0-5 (0-5) /hpf Ur Epithelial Cells 0-5 (0-5) /hpf Urine Bacteria Rare (FEW) /hpf Urine Mucus Few (FEW) /hpf SARS-CoV-2 RNA (PRIYA) Negative (NEGATIVE) Result Diagrams: 03/26/21 11:10 03/26/21 11:10 Sepsis Event Note - Evaluation Sepsis Screening Result: No Definite Risk - Focused Exam Vital Signs: Vital Signs Temp Pulse Pulse Resp BP BP Pulse Ox 03/26/21 15:31 104 H 121/64 03/26/21 15:00 03/26/21 14:05 37.1 C 132 H 32 H 121/75 93 L 03/26/21 11:05 36.5 C 144 H 24 H 136/85 95 Pulse Ox 03/26/21 15:31 03/26/21 15:00 98 03/26/21 14:05 03/26/21 11:05 Problem List Initiated/Reviewed/Updated: Yes Orders Last 24hrs: Active Orders 24 hr Category Date Time Status Patient Status [ADT] Routine ADT 03/26/21 12:47 Active Antiembolic Devices [RC] Care 03/26/21 12:59 Active Cardiac Monitoring [RC] CONTINUOUS Care 03/26/21 12:59 Active Intake and Output [RC] 04,16 Care 03/26/21 12:58 Active Notify Provider Consults [RC] ASDIRECTED Care 03/26/21 15:41 Active Oxygen Therapy [RC] ASDIRECTED Care 03/26/21 12:11 Active Pulse Oximetry [RC] CONTINUOUS Care 03/26/21 12:59 Active RT Aerosol Therapy [RC] ASDIRECTED Care 03/26/21 13:00 Active Up to Chair [RC] ASDIRECTED Care 03/26/21 12:58 Active VTE/DVT Education [RC] PER UNIT ROUTINE Care 03/26/21 12:58 Active Consult to Physician [CONS] Routine Cons 03/26/21 15:40 Active OT Evaluation and Treatment [CONS] Routine Cons 03/26/21 12:58 Active PT Evaluation and Treatment [CONS] Routine Cons 03/26/21 12:58 Active 2 Gram Sodium Diet [DIET] Diet 03/26/21 Lunch Active CBC WITH AUTO DIFF [HEME] DAILY Lab 03/27/21 05:00 Ordered CBC WITH AUTO DIFF [HEME] DAILY Lab 03/28/21 05:00 Ordered CBC WITH AUTO DIFF [HEME] DAILY Lab 03/29/21 05:00 Ordered CBC WITH AUTO DIFF [HEME] DAILY Lab 03/30/21 05:00 Ordered CBC WITH AUTO DIFF [HEME] DAILY Lab 03/31/21 05:00 Ordered COMPREHENSIVE METABOLIC PN,CMP [CHEM] DAILY Lab 03/27/21 05:00 Ordered COMPREHENSIVE METABOLIC PN,CMP [CHEM] DAILY Lab 03/28/21 05:00 Ordered COMPREHENSIVE METABOLIC PN,CMP [CHEM] DAILY Lab 03/29/21 05:00 Ordered COMPREHENSIVE METABOLIC PN,CMP [CHEM] DAILY Lab 03/30/21 05:00 Ordered COMPREHENSIVE METABOLIC PN,CMP [CHEM] DAILY Lab 03/31/21 05:00 Ordered Acetaminophen [TylenoL] Med 03/26/21 12:58 Active 650 mg PO Q6H PRN Acetaminophen/HYDROcodone [[place] 325-5 MG] Med 03/26/21 12:58 Active 1 tab PO Q6H PRN Albuterol/Ipratropium [DuoNeb 3.0-0.5 MG/3 ML] Med 03/26/21 12:58 Active 3 ml NEB Q4H PRN Aspirin [Halfprin] Med 03/27/21 09:00 Active 81 mg PO DAILY Cyanocobalamin (Vitamin B12) [Vitamin B12] Med 03/27/21 09:00 Active 1,000 mcg PO DAILY Digoxin [Lanoxin] Med 03/26/21 17:15 Once 125 mcg PO ONETIME ONE Diltiazem [Cardizem] 100 mg Med 03/26/21 11:45 Active Sodium Chloride 0.9% [Normal Saline] 100 ml IV TITRATE Diltiazem [Cardizem] 100 mg Med 03/26/21 13:15 Active Sodium Chloride 0.9% [Normal Saline] 100 ml IV TITRATE Donepezil Med 03/27/21 09:00 Ordered 5 mg PO DAILY Metoprolol Succinate [Toprol XL] Med 03/27/21 09:00 Pending 50 mg PO DAILY Metoprolol Tartrate [Lopressor] Med 03/26/21 14:30 Active 12.5 mg PO Q12H Morphine Med 03/26/21 12:58 Active 2 mg IVPUSH Q4H PRN Multivitamins [Tab-A-Jarod] Med 03/27/21 09:00 Active 1 tab PO DAILY Omeprazole Magnesium [Prilosec Otc] Med 03/27/21 09:00 Ordered 20 mg PO DAILY Promethazine [Phenergan] 12.5 mg Med 03/26/21 12:58 Active Sodium Chloride 0.9% [Normal Saline] 50 ml IV Q6H Rosuvastatin [Crestor] Med 03/27/21 09:00 Ordered 10 mg PO DAILY Sertraline [Zoloft] Med 03/27/21 09:00 Ordered 25 mg PO DAILY Sodium Chloride 0.9% [Saline Flush] Med 03/26/21 11:15 Active 10 ml FLUSH ASDIRECTED PRN Peripheral IV Insertion Adult [OM.PC] Stat Ot 03/26/21 11:15 Ordered Sequential Compression Device [OM.PC] Per Unit Routine Oth 03/26/21 12:59 Ordered Medication Orders Acetaminophen (Acetaminophen 325 Mg Tab) 650 mg PO Q6H PRN PRN Reason: Pain (Mild 1-3)/fever Hydrocodone Bitart/Acetaminophen (Acetaminophen/Hydrocodone 325-5 Mg Tab) 1 tab PO Q6H PRN PRN Reason: Pain (moderate 4-6) Albuterol/Ipratropium (Albuterol/Ipratropium 3.0-0.5 Mg/3 Ml Neb Soln) 3 ml NEB Q4H PRN PRN Reason: Shortness Of Breath/wheezing Aspirin (Aspirin 81 Mg Tab.Ec) 81 mg PO DAILY CLIF Cyanocobalamin (Cyanocobalamin (Vitamin B12) 1,000 Mcg Tab) 1,000 mcg PO DAILY CLIF Digoxin (Digoxin 125 Mcg Tab) 125 mcg PO ONETIME ONE Stop: 03/26/21 17:16 Diltiazem HCl 100 mg/ Sodium (Chloride) 100 mls @ 10 mls/hr IV TITRATE CLIF; Protocol Last Titration: 03/26/21 13:50 Dose: 10 mg/hr, 10 mls/hr Documented by: Admin: 03/26/21 12:13 Dose: 5 mg/hr, 5 mls/hr Documented by: MICHAEL Promethazine HCl 12.5 mg/ (Sodium Chloride) 50.5 mls @ 100 mls/hr IV Q6H PRN PRN Reason: Nausea/Vomiting Diltiazem HCl 100 mg/ Sodium (Chloride) 100 mls @ 5 mls/hr IV TITRATE CLIF; Protocol Metoprolol Succinate (Metoprolol Succinate 50 Mg Tab.Er) 50 mg PO DAILY CLIF Metoprolol Tartrate (Metoprolol Tartrate 25 Mg Tab) 12.5 mg PO Q12H CLIF Stop: 03/27/21 02:31 Last Admin: 03/26/21 15:31 Dose: 12.5 mg Documented by: NEWTON Morphine Sulfate (Morphine 2 Mg/Ml Syringe) 2 mg IVPUSH Q4H PRN PRN Reason: Pain (severe 7-10) Stop: 03/27/21 13:00 Multivitamins/Minerals/Vitamin C (Multivitamin Tab) 1 tab PO DAILY CLIF Non-Formulary Medication (Donepezil) 5 mg PO DAILY [facility] Non-Formulary Medication (Omeprazole Magnesium [Prilosec Otc]) 20 mg PO DAILY CLIF Rosuvastatin Calcium (Rosuvastatin 10 Mg Tab) 10 mg PO DAILY CLIF Sertraline HCl (Sertraline 25 Mg Tab) 25 mg PO DAILY [facility] Sodium Chloride (Sodium Chloride 0.9% 10 Ml Syringe) 10 ml FLUSH ASDIRECTED PRN PRN Reason: Keep Vein Open Last Admin: 03/26/21 11:05 Dose: 10 ml Documented by: MICHAEL Assessment/Plan Comment:: Patient is an 89-year-old female with a history of CHF, atrial fibrillation on Xarelto, and pleural effusion who was brought to the ER due to worsening shortness of breath and rapid heart rate. Assessment: Persistent atrial fibrillation with RVR -Recurrent atrial fibrillation with RVR, for which she was hospitalized 3 weeks ago -Has been on Xarelto -Home medications include metoprolol succinate 50 mg daily CHF exacerbation -Etiology unknown -Type unknown -BNP 1973 on admission. It was 1687 on 03/04/2021 -Potassium 3.9 and mag 2.2 on admission Recurrent pleural effusion, right -Etiology could be due to CHF but considering one side large pleural effusion, other reasons cannot be excluded -Chest x-ray showed Moderately large right-sided pleural effusion which is increased from prior study. Small left-sided pleural effusion with mild left basilar atelectasis -Thoracentesis was performed about 3 weeks ago which led to pneumothorax -She is now on 2 L by nasal cannula DANA -creatinine 0.9 on 03/04/2021 -Most likely due to prerenal cause and use of Lasix Plan: 1. Will be admitted to ICU because she needs diltiazem drip 2. Continue diltiazem drip as needed to keep heart rate less than 100. Continu e metoprolol succinate at 50 mg daily. Metoprolol tartrate 12.5 mg twice daily. Digoxin 125 MCG IV x 1. I will gradually add p.o. diltiazem based on her heart rate Repeat electrolytes in the morning 3. Echocardiogram. Intake and output. Daily weight. Fluid restriction to 2 L and salt restriction to 2 g a day 4. Repeat chest CT General surgeon Dr. Laurent consulted. With the really appreciate it Xarelto is on hold 5. Avoid nephrotoxic meds. Repeat renal function in morning 6. DVT prophylaxis: SCD. 7. CODE STATUS: DNR/DNI (from her chart) - Mortality Measure Prognosis:: Poor
[2021-03-26] MEDS: Diltiazem IR 30 MG Tab PO SCH ×2 (20:37→23:54)
[2021-03-26] MEDS: LORazepam 2 MG/ML SDV IVPUSH PRN (20:38)
[2021-03-26] MEDS ORDERED: DONEPEZIL 5 MG PO SCH (21:00)
[2021-03-26] MEDS: Acetaminophen 325 MG Tab PO PRN (23:53)
[2021-03-27] MEDS: Metoprolol Tartrate 25 MG Tab PO SCH (02:09)
[2021-03-27] MEDS: Diltiazem IR 30 MG Tab PO SCH ×4 (05:43→17:58)
[2021-03-27] MEDS: Sertraline 25 MG Tab PO SCH (08:43)
[2021-03-27] MEDS: Cyanocobalamin (Vitamin B12) 1,000 MCG Tab PO SCH (08:43)
[2021-03-27] MEDS: Pantoprazole 40 MG Tab.CR PO SCH (08:44)
[2021-03-27] MEDS: Rosuvastatin 10 MG Tab PO SCH (08:44)
[2021-03-27] MEDS: Multivitamin Tab PO SCH (08:45)
[2021-03-27] MEDS: Aspirin 81 MG Tab.EC PO SCH (08:45)
[2021-03-27] MEDS ORDERED: Metoprolol Succinate 50 MG Tab.ER PO SCH (09:00)
[2021-03-27] MEDS: Diltiazem 100 MG in Sodium Chloride 0.9% 100 ML IV SCH (09:24)
[2021-03-27] MEDS: Albuterol/Ipratropium 3.0-0.5 MG/3 ML Neb Soln NEB PRN (12:51)
--- NOTE | 2021-03-27 15:36 | PCM.PN ---
- General Info Date of Service: 03/27/21 Admission Dx/Problem (Free Text): Admission Diagnosis/Problem Admission Diagnosis/Problem Afib, Atrial fibrillation Subjective Update: Patient is an 89-year-old female with a history of CHF, atrial fibrillation on Xarelto, and pleural effusion who was brought to the ER due to worsening shortness of breath and rapid heart rate. Patient feels much better, less shortness of breath. Denies nausea, vomiting, fever, or chills. She has a good appetite. Heart rate is better controlled. She is on room air Hemoglobin 10.1 Creatinine 1.1 - Review of Systems Systems Review Comment:: General: Reports: No Symptoms HEENT: Reports: No Symptoms Pulmonary: Reports: Shortness of Breath Cardiovascular: Reports: Palpitations Gastrointestinal: Reports: No Symptoms Genitourinary: Reports: No Symptoms Musculoskeletal: Reports: No Symptoms Skin: Reports: No Symptoms Psychiatric: Reports: No Symptoms Neurological: Reports: No Symptoms Hematologic/Lymphatic: Reports: No Symptoms Immunologic: Reports: No Symptoms - Patient Data Vitals - Most Recent: Last Vital Signs Temp 36.2 C 03/27/21 12:00 Pulse 94 03/27/21 12:00 Resp 18 03/27/21 12:00 BP 118/69 03/27/21 12:00 Pulse Ox 94 L 03/27/21 12:53 Weight - Most Recent: 59.874 kg I&O - Last 24 Hours: Intake & Output 03/27/21 03/27/21 03/27/21 06:59 14:59 22:59 Intake Total 309 200 Balance 309 200 Lab Results Last 24 Hours: Laboratory Results - last 24 hr 03/27/21 03/27/21 Range/Units 06:30 06:30 WBC 6.60 (3.98-10.04) K/mm3 RBC 3.36 L (3.98-5.22) M/mm3 Hgb 10.1 L D (11.2-15.7) gm/dl Hct 31.9 L (34.1-44.9) % MCV 94.9 H (79.4-94.8) fl MCH 30.1 (25.6-32.2) pg MCHC 31.7 L (32.2-35.5) g/dl RDW Std Deviation 46.1 (36.4-46.3) fL Plt Count 336 D (182-369) K/mm3 MPV 10.2 (9.4-12.3) fl Neut % (Auto) 73.2 H (34.0-71.1) % Lymph % (Auto) 12.4 L (19.3-51.7) % [place] % (Auto) 10.2 (4.7-12.5) % Eos % (Auto) 3.2 (0.7-5.8) Baso % (Auto) 0.8 (0.1-1.2) % Neut # (Auto) 4.84 (1.56-6.13) K/mm3 Lymph # (Auto) 0.82 L (1.18-3.74) K/mm3 [place] # (Auto) 0.67 H (0.24-0.36) K/mm3 Eos # (Auto) 0.21 (0.04-0.36) K/mm3 Baso # (Auto) 0.05 (0.01-0.08) K/mm3 Sodium 139 (136-145) mEq/L Potassium 3.6 (3.5-5.1) mEq/L Chloride 103 (98-107) mEq/L Carbon Dioxide 27 (21-32) mEq/L Anion Gap 12.6 (5-15) BUN 25 H (7-18) mg/dL Creatinine 1.1 H (0.55-1.02) mg/dL Est Cr Clr Drug Dosing 27.42 mL/min Estimated GFR (MDRD) 47 (>60) mL/min BUN/Creatinine Ratio 22.7 H (14-18) Glucose 94 (70-99) mg/dL Calcium 8.6 (8.5-10.1) mg/dL Total Bilirubin 0.4 (0.2-1.0) mg/dL AST 16 (15-37) U/L ALT 23 (14-59) U/L Alkaline Phosphatase 92 (46-116) U/L Total Protein 6.6 (6.4-8.2) g/dl Albumin 2.5 L (3.4-5.0) g/dl Globulin 4.1 gm/dL Albumin/Globulin Ratio 0.6 L (1-2) Med Orders - Current: Current Medications Acetaminophen (Acetaminophen 325 Mg Tab) 650 mg PO Q6H PRN PRN Reason: Pain (Mild 1-3)/fever Last Admin: 03/26/21 23:53 Dose: 650 mg Documented by: Hydrocodone Bitart/Acetaminophen (Acetaminophen/Hydrocodone 325-5 Mg Tab) 1 tab PO Q6H PRN PRN Reason: Pain (moderate 4-6) Albuterol/Ipratropium (Albuterol/Ipratropium 3.0-0.5 Mg/3 Ml Neb Soln) 3 ml NEB Q4H PRN PRN Reason: Shortness Of Breath/wheezing Last Admin: 03/27/21 12:51 Dose: 3 ml Documented by: Aspirin (Aspirin 81 Mg Tab.Ec) 81 mg PO DAILY [facility] Last Admin: 03/27/21 08:45 Dose: 81 mg Documented by: Cyanocobalamin (Cyanocobalamin (Vitamin B12) 1,000 Mcg Tab) 1,000 mcg PO DAILY [facility] Last Admin: 03/27/21 08:43 Dose: 1,000 mcg Documented by: Diltiazem HCl (Diltiazem Ir 30 Mg Tab) 30 mg PO Q6HR [facility] Last Admin: 03/27/21 13:00 Dose: 30 mg Documented by: Donepezil HCl (Donepezil 10 Mg Tab) 5 mg PO BEDTIME [facility] Promethazine HCl 12.5 mg/ (Sodium Chloride) 50.5 mls @ 100 mls/hr IV Q6H PRN PRN Reason: Nausea/Vomiting Diltiazem HCl 100 mg/ Sodium (Chloride) 100 mls @ 5 mls/hr IV TITRATE [facility]; Protocol Last Titration: 03/27/21 15:14 Dose: 5 mg/hr, 5 mls/hr Documented by: Lorazepam (Lorazepam 2 Mg/Ml Sdv) 0.25 mg IVPUSH Q6H PRN PRN Reason: Anxiety Last Admin: 03/26/21 20:38 Dose: 0.25 mg Documented by: Metoprolol Succinate (Metoprolol Succinate 50 Mg Tab.Er) 50 mg PO BID [facility] Multivitamins/Minerals/Vitamin C (Multivitamin Tab) 1 tab PO DAILY [facility] Last Admin: 03/27/21 08:45 Dose: 1 tab Documented by: Pantoprazole Sodium (Pantoprazole 40 Mg Tab.Cr) 40 mg PO DAILY [facility] Last Admin: 03/27/21 08:44 Dose: 40 mg Documented by: Rosuvastatin Calcium (Rosuvastatin 10 Mg Tab) 10 mg PO DAILY [facility] Last Admin: 03/27/21 08:44 Dose: 10 mg Documented by: Sertraline HCl (Sertraline 25 Mg Tab) 25 mg PO DAILY [facility] Last Admin: 03/27/21 08:43 Dose: 25 mg Documented by: Sodium Chloride (Sodium Chloride 0.9% 10 Ml Syringe) 10 ml FLUSH ASDIRECTED PRN PRN Reason: Keep Vein Open Last Admin: 03/26/21 11:05 Dose: 10 ml Documented by: Discontinued Medications Digoxin (Digoxin 500 Mcg/2 Ml Amp) 125 mcg IVPUSH ONETIME ONE Stop: 03/26/21 13:11 Last Admin: 03/26/21 15:31 Dose: Not Given Documented by: Digoxin (Digoxin 125 Mcg Tab) 125 mcg PO ONETIME ONE Stop: 03/26/21 17:16 Last Admin: 03/26/21 17:39 Dose: 125 mcg Documented by: Diltiazem HCl (Diltiazem 50 Mg/10 Ml Sdv) 10 mg IVPUSH ONETIME ONE Stop: 03/26/21 11:40 Last Admin: 03/26/21 12:07 Dose: 10 mg Documented by: Diltiazem HCl (Diltiazem Ir 30 Mg Tab) 15 mg PO Q6HR [facility] Last Admin: 03/27/21 13:37 Dose: Not Given Documented by: Diltiazem HCl 100 mg/ Sodium (Chloride) 100 mls @ 10 mls/hr IV TITRATE [facility]; Protocol Last Titration: 03/27/21 08:21 Dose: 7.5 mg/hr, 7.5 mls/hr Documented by: Metoprolol Succinate (Metoprolol Succinate 50 Mg Tab.Er) 50 mg PO DAILY [facility] Last Admin: 03/27/21 08:45 Dose: 50 mg Documented by: Metoprolol Tartrate (Metoprolol Tartrate 25 Mg Tab) 12.5 mg PO Q12H [facility] Stop: 03/27/21 02:31 Last Admin: 03/27/21 02:09 Dose: 12.5 mg Documented by: Morphine Sulfate (Morphine 2 Mg/Ml Syringe) 2 mg IVPUSH Q4H PRN PRN Reason: Pain (severe 7-10) Stop: 03/27/21 13:00 Donepezil 5 Mg (Tablet *Pt Own Med*) 0 each PO BEDTIME [facility] Last Admin: 03/26/21 19:59 Dose: 1 each Documented by: - Exam Physical Findings Comments:: General: Alert, Oriented, Cooperative HEENT: Conjunctiva Clear, EOMI, Pupils Equal, Pupils Reactive Neck: Supple, Full Range of Motion Lungs: Decreased Breath Sounds (Lower right lung field and left basal area) Cardiovascular: Irregular Rhythm GI/Abdominal Exam: Normal Bowel Sounds, Soft, Non-Tender, No Organomegaly Extremities: Normal Range of Motion, Non-Tender, Pedal Edema (2+ in both legs until knees) Skin: Warm, Dry, Intact Neurological: Strength Equal Bilateral, Normal Speech, Normal Tone, Sensation Intact Neuro Extensive - Mental Status: Normal Mood/Affect Psychiatric: Normal Affect, Normal Mood - Patient Data Lab Results Last 24 hrs: Laboratory Results - last 24 hr 03/27/21 03/27/21 Range/Units 06:30 06:30 WBC 6.60 (3.98-10.04) K/mm3 RBC 3.36 L (3.98-5.22) M/mm3 Hgb 10.1 L D (11.2-15.7) gm/dl Hct 31.9 L (34.1-44.9) % MCV 94.9 H (79.4-94.8) fl MCH 30.1 (25.6-32.2) pg MCHC 31.7 L (32.2-35.5) g/dl RDW Std Deviation 46.1 (36.4-46.3) fL Plt Count 336 D (182-369) K/mm3 MPV 10.2 (9.4-12.3) fl Neut % (Auto) 73.2 H (34.0-71.1) % Lymph % (Auto) 12.4 L (19.3-51.7) % [place] % (Auto) 10.2 (4.7-12.5) % Eos % (Auto) 3.2 (0.7-5.8) Baso % (Auto) 0.8 (0.1-1.2) % Neut # (Auto) 4.84 (1.56-6.13) K/mm3 Lymph # (Auto) 0.82 L (1.18-3.74) K/mm3 [place] # (Auto) 0.67 H (0.24-0.36) K/mm3 Eos # (Auto) 0.21 (0.04-0.36) K/mm3 Baso # (Auto) 0.05 (0.01-0.08) K/mm3 Sodium 139 (136-145) mEq/L Potassium 3.6 (3.5-5.1) mEq/L Chloride 103 (98-107) mEq/L Carbon Dioxide 27 (21-32) mEq/L Anion Gap 12.6 (5-15) BUN 25 H (7-18) mg/dL Creatinine 1.1 H (0.55-1.02) mg/dL Est Cr Clr Drug Dosing 27.42 mL/min Estimated GFR (MDRD) 47 (>60) mL/min BUN/Creatinine Ratio 22.7 H (14-18) Glucose 94 (70-99) mg/dL Calcium 8.6 (8.5-10.1) mg/dL Total Bilirubin 0.4 (0.2-1.0) mg/dL AST 16 (15-37) U/L ALT 23 (14-59) U/L Alkaline Phosphatase 92 (46-116) U/L Total Protein 6.6 (6.4-8.2) g/dl Albumin 2.5 L (3.4-5.0) g/dl Globulin 4.1 gm/dL Albumin/Globulin Ratio 0.6 L (1-2) Result Diagrams: 03/27/21 06:30 03/27/21 06:30 Sepsis Event Note - Evaluation Sepsis Screening Result: No Definite Risk - Focused Exam Vital Signs: Vital Signs Temp Pulse Resp BP BP Pulse Ox Pulse Ox 03/27/21 12:53 94 L 03/27/21 12:00 36.2 C 94 18 118/69 94 L 03/27/21 08:45 110 H 115/83 03/27/21 07:54 36.2 C 122 H 17 135/94 H 92 L 03/27/21 06:02 94 L 03/27/21 05:44 118/85 93 L 03/27/21 05:43 94 L 03/27/21 05:00 93 L 03/27/21 04:01 95 03/27/21 04:00 36.3 C 16 111/64 95 03/27/21 03:59 95 - Problem List Review Problem List Initiated/Reviewed/Updated: Yes - My Orders Last 24 Hours: My Active Orders 03/26/21 15:40 Consult to Physician [CONS] Routine 03/26/21 15:41 Notify Provider Consults [RC] ASDIRECTED 03/26/21 19:10 LORazepam [Ativan] 0.25 mg IVPUSH Q6H PRN 03/26/21 21:09 Admission Status [Patient Status] [ADT] Routine 03/27/21 Breakfast Fluid Restriction [DIET] 03/27/21 09:00 Aspirin [Halfprin] 81 mg PO DAILY Cyanocobalamin (Vitamin B12) [Vitamin B12] 1,000 mcg PO DAILY Multivitamins [Tab-A-Jarod] 1 tab PO DAILY Pantoprazole [ProTONIX] 40 mg PO DAILY Rosuvastatin [Crestor] 10 mg PO DAILY Sertraline [Zoloft] 25 mg PO DAILY 03/27/21 13:00 Diltiazem IR [Cardizem] 30 mg PO Q6HR 03/27/21 21:00 Donepezil [Aricept] 5 mg PO BEDTIME Metoprolol Succinate [Toprol XL] 50 mg PO BID 03/28/21 05:00 CBC WITH AUTO DIFF [HEME] DAILY COMPREHENSIVE METABOLIC PN,CMP [CHEM] DAILY 03/29/21 05:00 CBC WITH AUTO DIFF [HEME] DAILY COMPREHENSIVE METABOLIC PN,CMP [CHEM] DAILY 03/30/21 05:00 CBC WITH AUTO DIFF [HEME] DAILY COMPREHENSIVE METABOLIC PN,CMP [CHEM] DAILY 03/31/21 05:00 CBC WITH AUTO DIFF [HEME] DAILY COMPREHENSIVE METABOLIC PN,CMP [CHEM] DAILY - Plan Plan:: Patient is an 89-year-old female with a history of CHF, atrial fibrillation on Xarelto, and pleural effusion who was brought to the ER due to worsening shortness of breath and rapid heart rate. Assessment: Persistent atrial fibrillation with RVR -Recurrent atrial fibrillation with RVR, for which she was hospitalized 3 weeks ago -Has been on Xarelto -Home medications include metoprolol succinate 50 mg daily CHF exacerbation, mild systolic dysfunction -Etiology unknown -Echocardiogram on March 06, 2021 - of 50 to 60%; normal right ventricular systolic function; mild to moderate MR. -BNP 1973 on admission. It was 1687 on 03/04/2021 -Potassium 3.9 and mag 2.2 on admission Recurrent pleural effusion, right -Etiology could be due to CHF but considering one side large pleural effusion, other reasons cannot be excluded -Chest x-ray showed Moderately large right-sided pleural effusion which is increased from prior study. Small left-sided pleural effusion with mild left basilar atelectasis -Thoracentesis was performed about 3 weeks ago which led to pneumothorax -CT chest on 03/26 -fairly large right-sided pleural effusion with what appears to be loculated fluid anteriorly; smaller left-sided pleural effusion; areas of atelectasis which are small on the left side and more prominent on the right side -She is now on 2 L by nasal cannula DANA -creatinine 0.9 on 03/04/2021 -Most likely due to prerenal cause and use of Lasix Plan: 1. continue to be monitored in ICU because she still needs diltiazem drip at times 2. Continue diltiazem drip as needed to keep heart rate less than 100. Increased metoprolol succinate to 50 mg BID from daily. Increased diltiazem po 30mg QID Repeat electrolytes in the morning 3. Intake and output. Daily weight. Fluid restriction to 2 L and salt restriction to 2 g a day 4. General surgeon Dr. Laurent consulted. Would really appreciate it Xarelto is on hold Continue aspirin 5. Avoid nephrotoxic meds. Repeat renal function in morning 6. DVT prophylaxis: SCD. 7. CODE STATUS: DNR/DNI (from her chart) Deposition: SNF PT OT 1 or 2 more days
[2021-03-27] MEDS: Metoprolol Succinate 50 MG Tab.ER PO SCH (20:32)
[2021-03-27] MEDS: Donepezil 10 MG Tab PO SCH (20:33)
[2021-03-27] MEDS ORDERED: Donepezil 10 MG Tab PO SCH (21:00)
[2021-03-27] MEDS: Acetaminophen 325 MG Tab PO PRN (23:59)
[2021-03-28] MEDS: Diltiazem IR 30 MG Tab PO SCH ×2 (00:03→05:12)
[2021-03-28] MEDS: Metoprolol Succinate 50 MG Tab.ER PO SCH ×3 (07:35→20:01)
[2021-03-28] MEDS: Aspirin 81 MG Tab.EC PO SCH (08:10)
[2021-03-28] MEDS: Sertraline 25 MG Tab PO SCH (08:10)
[2021-03-28] MEDS: Pantoprazole 40 MG Tab.CR PO SCH (08:10)
[2021-03-28] MEDS: Multivitamin Tab PO SCH (08:11)
[2021-03-28] MEDS: Cyanocobalamin (Vitamin B12) 1,000 MCG Tab PO SCH (08:13)
[2021-03-28] MEDS: Rosuvastatin 10 MG Tab PO SCH (08:14)
[2021-03-28] MEDS: Diltiazem 180 MG Cap.CD PO SCH (12:14)
[2021-03-28] MEDS: Albuterol/Ipratropium 3.0-0.5 MG/3 ML Neb Soln NEB PRN (15:06)
--- NOTE | 2021-03-28 15:17 | PCM.PN ---
- General Info Date of Service: 03/28/21 Admission Dx/Problem (Free Text): Admission Diagnosis/Problem Admission Diagnosis/Problem Afib, Atrial fibrillation Subjective Update: Patient is an 89-year-old female with a history of CHF, atrial fibrillation on Xarelto, and pleural effusion who was brought to the ER due to worsening shortness of breath and rapid heart rate. Patient feels much better, less shortness of breath. Her HR is better controlled. Denies nausea, vomiting, fever, or chills. She is on room air Hemoglobin 10.6 Creatinine 1.1, k 3.5 - Review of Systems Systems Review Comment:: General: Reports: No Symptoms HEENT: Reports: No Symptoms Pulmonary: Reports: Shortness of Breath Cardiovascular: Reports: Palpitations Gastrointestinal: Reports: No Symptoms Genitourinary: Reports: No Symptoms Musculoskeletal: Reports: No Symptoms Skin: Reports: No Symptoms Psychiatric: Reports: No Symptoms Neurological: Reports: No Symptoms Hematologic/Lymphatic: Reports: No Symptoms Immunologic: Reports: No Symptoms - Patient Data Vitals - Most Recent: Last Vital Signs Temp 36.2 C 03/28/21 12:00 Pulse 95 03/28/21 12:00 Resp 16 03/28/21 12:00 BP 113/82 03/28/21 12:00 Pulse Ox 94 L 03/28/21 15:08 Weight - Most Recent: 60.419 kg I&O - Last 24 Hours: Intake & Output 03/28/21 03/28/21 03/28/21 06:59 14:59 22:59 Intake Total 325 200 Balance 325 200 Lab Results Last 24 Hours: Laboratory Results - last 24 hr 03/28/21 03/28/21 Range/Units 05:03 05:03 WBC 7.30 (3.98-10.04) K/mm3 RBC 3.49 L (3.98-5.22) M/mm3 Hgb 10.6 L (11.2-15.7) gm/dl Hct 32.9 L (34.1-44.9) % MCV 94.3 (79.4-94.8) fl MCH 30.4 (25.6-32.2) pg MCHC 32.2 (32.2-35.5) g/dl RDW Std Deviation 46.8 H (36.4-46.3) fL Plt Count 299 (182-369) K/mm3 MPV 10.4 (9.4-12.3) fl Neut % (Auto) 74.8 H (34.0-71.1) % Lymph % (Auto) 11.0 L (19.3-51.7) % [place] % (Auto) 9.0 (4.7-12.5) % Eos % (Auto) 4.2 (0.7-5.8) Baso % (Auto) 1.0 (0.1-1.2) % Neut # (Auto) 5.46 (1.56-6.13) K/mm3 Lymph # (Auto) 0.80 L (1.18-3.74) K/mm3 [place] # (Auto) 0.66 H (0.24-0.36) K/mm3 Eos # (Auto) 0.31 (0.04-0.36) K/mm3 Baso # (Auto) 0.07 (0.01-0.08) K/mm3 Sodium 134 L (136-145) mEq/L Potassium 3.5 (3.5-5.1) mEq/L Chloride 102 (98-107) mEq/L Carbon Dioxide 25 (21-32) mEq/L Anion Gap 10.5 (5-15) BUN 28 H (7-18) mg/dL Creatinine 1.1 H (0.55-1.02) mg/dL Est Cr Clr Drug Dosing 27.42 mL/min Estimated GFR (MDRD) 47 (>60) mL/min BUN/Creatinine Ratio 25.5 H (14-18) Glucose 103 H (70-99) mg/dL Calcium 8.4 L (8.5-10.1) mg/dL Total Bilirubin 0.4 (0.2-1.0) mg/dL AST 13 L (15-37) U/L ALT 20 (14-59) U/L Alkaline Phosphatase 85 (46-116) U/L Total Protein 6.5 (6.4-8.2) g/dl Albumin 2.5 L (3.4-5.0) g/dl Globulin 4.0 gm/dL Albumin/Globulin Ratio 0.6 L (1-2) Med Orders - Current: Current Medications Acetaminophen (Acetaminophen 325 Mg Tab) 650 mg PO Q6H PRN PRN Reason: Pain (Mild 1-3)/fever Last Admin: 03/27/21 23:59 Dose: 650 mg Documented by: Hydrocodone Bitart/Acetaminophen (Acetaminophen/Hydrocodone 325-5 Mg Tab) 1 tab PO Q6H PRN PRN Reason: Pain (moderate 4-6) Albuterol/Ipratropium (Albuterol/Ipratropium 3.0-0.5 Mg/3 Ml Neb Soln) 3 ml NEB Q4H PRN PRN Reason: Shortness Of Breath/wheezing Last Admin: 03/28/21 15:06 Dose: 3 ml Documented by: Aspirin (Aspirin 81 Mg Tab.Ec) 81 mg PO DAILY [facility] Last Admin: 03/28/21 08:10 Dose: 81 mg Documented by: Cyanocobalamin (Cyanocobalamin (Vitamin B12) 1,000 Mcg Tab) 1,000 mcg PO DAILY [facility] Last Admin: 03/28/21 08:13 Dose: 1,000 mcg Documented by: Diltiazem HCl (Diltiazem 180 Mg Cap.Cd) 180 mg PO DAILY [facility] Last Admin: 03/28/21 12:14 Dose: 180 mg Documented by: Donepezil HCl (Donepezil 10 Mg Tab) 5 mg PO BEDTIME [facility] Last Admin: 03/27/21 20:33 Dose: 5 mg Documented by: Promethazine HCl 12.5 mg/ (Sodium Chloride) 50.5 mls @ 100 mls/hr IV Q6H PRN PRN Reason: Nausea/Vomiting Diltiazem HCl 100 mg/ Sodium (Chloride) 100 mls @ 5 mls/hr IV TITRATE [facility]; Protocol Last Titration: 03/27/21 20:10 Dose: 0 mg/hr, 0 mls/hr Documented by: Lorazepam (Lorazepam 2 Mg/Ml Sdv) 0.25 mg IVPUSH Q6H PRN PRN Reason: Anxiety Last Admin: 03/26/21 20:38 Dose: 0.25 mg Documented by: Metoprolol Succinate (Metoprolol Succinate 50 Mg Tab.Er) 50 mg PO BID [facility] Last Admin: 03/28/21 08:32 Dose: Not Given Documented by: Multivitamins/Minerals/Vitamin C (Multivitamin Tab) 1 tab PO DAILY [facility] Last Admin: 03/28/21 08:11 Dose: 1 tab Documented by: Pantoprazole Sodium (Pantoprazole 40 Mg Tab.Cr) 40 mg PO DAILY [facility] Last Admin: 03/28/21 08:10 Dose: 40 mg Documented by: Rosuvastatin Calcium (Rosuvastatin 10 Mg Tab) 10 mg PO DAILY [facility] Last Admin: 03/28/21 08:14 Dose: 10 mg Documented by: Sertraline HCl (Sertraline 25 Mg Tab) 25 mg PO DAILY [facility] Last Admin: 03/28/21 08:10 Dose: 25 mg Documented by: Sodium Chloride (Sodium Chloride 0.9% 10 Ml Syringe) 10 ml FLUSH ASDIRECTED PRN PRN Reason: Keep Vein Open Last Admin: 03/26/21 11:05 Dose: 10 ml Documented by: Discontinued Medications Digoxin (Digoxin 500 Mcg/2 Ml Amp) 125 mcg IVPUSH ONETIME ONE Stop: 03/26/21 13:11 Last Admin: 03/26/21 15:31 Dose: Not Given Documented by: Digoxin (Digoxin 125 Mcg Tab) 125 mcg PO ONETIME ONE Stop: 03/26/21 17:16 Last Admin: 03/26/21 17:39 Dose: 125 mcg Documented by: Diltiazem HCl (Diltiazem 50 Mg/10 Ml Sdv) 10 mg IVPUSH ONETIME ONE Stop: 03/26/21 11:40 Last Admin: 03/26/21 12:07 Dose: 10 mg Documented by: Diltiazem HCl (Diltiazem Ir 30 Mg Tab) 15 mg PO Q6HR [facility] Last Admin: 03/27/21 13:37 Dose: Not Given Documented by: Diltiazem HCl (Diltiazem Ir 30 Mg Tab) 30 mg PO Q6HR [facility] Last Admin: 03/28/21 05:12 Dose: 30 mg Documented by: Donepezil HCl (Donepezil 10 Mg Tab) 5 mg PO BEDTIME [facility] Diltiazem HCl 100 mg/ Sodium (Chloride) 100 mls @ 10 mls/hr IV TITRATE [facility]; Protocol Last Titration: 03/27/21 08:21 Dose: 7.5 mg/hr, 7.5 mls/hr Documented by: Metoprolol Succinate (Metoprolol Succinate 50 Mg Tab.Er) 50 mg PO DAILY [facility] Last Admin: 03/27/21 08:45 Dose: 50 mg Documented by: Metoprolol Tartrate (Metoprolol Tartrate 25 Mg Tab) 12.5 mg PO Q12H [facility] Stop: 03/27/21 02:31 Last Admin: 03/27/21 02:09 Dose: 12.5 mg Documented by: Morphine Sulfate (Morphine 2 Mg/Ml Syringe) 2 mg IVPUSH Q4H PRN PRN Reason: Pain (severe 7-10) Stop: 03/27/21 13:00 Donepezil 5 Mg (Tablet *Pt Own Med*) 0 each PO BEDTIME [facility] Last Admin: 03/26/21 19:59 Dose: 1 each Documented by: - Exam Physical Findings Comments:: General: Alert, Oriented, Cooperative HEENT: Conjunctiva Clear, EOMI, Pupils Equal, Pupils Reactive Neck: Supple, Full Range of Motion Lungs: Decreased Breath Sounds (Lower right lung field and left basal area) Cardiovascular: Irregular Rhythm GI/Abdominal Exam: Normal Bowel Sounds, Soft, Non-Tender, No Organomegaly Extremities: Normal Range of Motion, Non-Tender, Pedal Edema (2+ in both legs un til knees) Skin: Warm, Dry, Intact Neurological: Strength Equal Bilateral, Normal Speech, Normal Tone, Sensation Intact Neuro Extensive - Mental Status: Normal Mood/Affect Psychiatric: Normal Affect, Normal Mood - Patient Data Lab Results Last 24 hrs: Laboratory Results - last 24 hr 03/28/21 03/28/21 Range/Units 05:03 05:03 WBC 7.30 (3.98-10.04) K/mm3 RBC 3.49 L (3.98-5.22) M/mm3 Hgb 10.6 L (11.2-15.7) gm/dl Hct 32.9 L (34.1-44.9) % MCV 94.3 (79.4-94.8) fl MCH 30.4 (25.6-32.2) pg MCHC 32.2 (32.2-35.5) g/dl RDW Std Deviation 46.8 H (36.4-46.3) fL Plt Count 299 (182-369) K/mm3 MPV 10.4 (9.4-12.3) fl Neut % (Auto) 74.8 H (34.0-71.1) % Lymph % (Auto) 11.0 L (19.3-51.7) % [place] % (Auto) 9.0 (4.7-12.5) % Eos % (Auto) 4.2 (0.7-5.8) Baso % (Auto) 1.0 (0.1-1.2) % Neut # (Auto) 5.46 (1.56-6.13) K/mm3 Lymph # (Auto) 0.80 L (1.18-3.74) K/mm3 [place] # (Auto) 0.66 H (0.24-0.36) K/mm3 Eos # (Auto) 0.31 (0.04-0.36) K/mm3 Baso # (Auto) 0.07 (0.01-0.08) K/mm3 Sodium 134 L (136-145) mEq/L Potassium 3.5 (3.5-5.1) mEq/L Chloride 102 (98-107) mEq/L Carbon Dioxide 25 (21-32) mEq/L Anion Gap 10.5 (5-15) BUN 28 H (7-18) mg/dL Creatinine 1.1 H (0.55-1.02) mg/dL Est Cr Clr Drug Dosing 27.42 mL/min Estimated GFR (MDRD) 47 (>60) mL/min BUN/Creatinine Ratio 25.5 H (14-18) Glucose 103 H (70-99) mg/dL Calcium 8.4 L (8.5-10.1) mg/dL Total Bilirubin 0.4 (0.2-1.0) mg/dL AST 13 L (15-37) U/L ALT 20 (14-59) U/L Alkaline Phosphatase 85 (46-116) U/L Total Protein 6.5 (6.4-8.2) g/dl Albumin 2.5 L (3.4-5.0) g/dl Globulin 4.0 gm/dL Albumin/Globulin Ratio 0.6 L (1-2) Result Diagrams: 03/28/21 05:03 03/28/21 05:03 Sepsis Event Note - Evaluation Sepsis Screening Result: No Definite Risk - Focused Exam Vital Signs: Vital Signs Temp Pulse Resp BP BP Pulse Ox Pulse Ox 03/28/21 15:08 94 L 03/28/21 15:00 96 03/28/21 12:00 36.2 C 95 16 113/82 95 03/28/21 08:32 97 109/83 03/28/21 08:00 36.2 C 81 18 109/83 94 L 03/28/21 07:35 114 H 116/84 03/28/21 06:01 104/70 97 03/28/21 06:00 91 96 03/28/21 05:01 118/78 98 03/28/21 05:00 85 98 03/28/21 04:01 103/76 98 03/28/21 04:00 36.3 C 76 14 98 - Problem List Review Problem List Initiated/Reviewed/Updated: Yes - My Orders Last 24 Hours: My Active Orders 03/27/21 17:36 Resuscitation Status Routine 03/27/21 21:00 Donepezil [Aricept] 5 mg PO BEDTIME Metoprolol Succinate [Toprol XL] 50 mg PO BID 03/28/21 11:00 Diltiazem [Cardizem CD] 180 mg PO DAILY 03/29/21 05:00 CBC WITH AUTO DIFF [HEME] DAILY COMPREHENSIVE METABOLIC PN,CMP [CHEM] DAILY 03/30/21 05:00 CBC WITH AUTO DIFF [HEME] DAILY COMPREHENSIVE METABOLIC PN,CMP [CHEM] DAILY 03/31/21 05:00 CBC WITH AUTO DIFF [HEME] DAILY COMPREHENSIVE METABOLIC PN,CMP [CHEM] DAILY - Plan Plan:: Patient is an 89-year-old female with a history of CHF, atrial fibrillation on Xarelto, and pleural effusion who was brought to the ER due to worsening shortness of breath and rapid heart rate. Assessment: Persistent atrial fibrillation with RVR -Recurrent atrial fibrillation with RVR, for which she was hospitalized 3 weeks ago -Has been on Xarelto -Home medications include metoprolol succinate 50 mg daily CHF exacerbation, mild systolic dysfunction -Etiology unknown -Echocardiogram on March 06, 2021 - of 50 to 60%; normal right ventricular systolic function; mild to moderate MR. -BNP 1973 on admission. It was 1687 on 03/04/2021 -Potassium 3.9 and mag 2.2 on admission Recurrent pleural effusion, right -Etiology could be due to CHF but considering one side large pleural effusion, other reasons cannot be excluded -Chest x-ray showed Moderately large right-sided pleural effusion which is increased from prior study. Small left-sided pleural effusion with mild left basilar atelectasis -Thoracentesis was performed about 3 weeks ago which led to pneumothorax -CT chest on 03/26 -fairly large right-sided pleural effusion with what appears to be loculated fluid anteriorly; smaller left-sided pleural effusion; areas of atelectasis which are small on the left side and more prominent on the right side -She is now on 2 L by nasal cannula DANA -creatinine 0.9 on 03/04/2021 -Most likely due to prerenal cause and use of Lasix Plan: 1. continue to be monitored in ICU. will downgrade her to tele when diltiazem drip off > 24 hrs. 2. Continue diltiazem drip as needed to keep heart rate less than 100. Increased metoprolol succinate to 50 mg BID from daily. Increased diltiazem xr po 180mg daily Repeat electrolytes daily in the morning 3. Intake and output. Daily weight. Fluid restriction to 2 L and salt restriction to 2 g a day 4. General surgeon Dr. Laurent consulted. Would really appreciate it Xarelto has been on hold since admission Continue aspirin 5. Repeat renal function in morning 6. DVT prophylaxis: SCD. 7. CODE STATUS: DNR/DNI (from her chart) Deposition: SNF PT OT 1 or 2 more days
--- NOTE | 2021-03-28 18:50 | PROC ---
DATE OF OPERATION: 03/28/2021 SURGEON: Manan Laurent MD PREOPERATIVE DIAGNOSIS: Large right-sided pleural effusion. POSTOPERATIVE DIAGNOSIS: Large right-sided pleural effusion. OPERATION PERFORMED: Thoracentesis. ESTIMATED BLOOD LOSS: Minimal. ANESTHESIA: Local anesthetic with 1% lidocaine. COMPLICATIONS: None. INDICATION AND CONSENT: Ms. Bermudez is an 89-year-old female with CHF, who presented to the emergency department 2 days ago with shortness of breath. The patient has known atrial fibrillation, on Xarelto, as well as CHF with normal EF. The patient also had AFib with RVR at presentation. She was admitted in the ICU for monitoring. Her RVR was controlled with medications, and she remained stable on room air. Xarelto was discontinued, and I was consulted to see the patient for her symptomatic right-sided pleural effusion. I saw the patient, and at that time, the patient was still stable, and therefore, I recommended that the Xarelto be held for at least 36 to 72 hours prior to thoracentesis. Today is more than 48 hours since the last dose; therefore, I recommended to proceed with thoracentesis. Risks, benefits, and alternatives were discussed with the patient's POA, who is her granddaughter, who was in the room with the patient, and informed consent was obtained. DETAILS OF THE PROCEDURE: The patient was placed in sitting position with leaning forward slightly. The ultrasound was used to scan the right back, and an area of a large fluid pocket was marked. This was in the 6th intercostal space in the posterior axillary line. This area was prepped and draped in the usual sterile fashion, and then, we performed a formal time-out before we started the procedure. We began the procedure by infiltrating local anesthetic at the area that was premarked. Care was taken to anesthetize the periosteum and go right above the rib while injecting the local anesthetic. Eventually, the pleural fluid was aspirated, and the needle was removed. A small skin mehreen was made with a #11 blade, and then, a standard 14-gauge pigtail catheter was placed using [id number] needle technique into the lung, and about 2300 mL of serous fluid was drained. Some of this fluid was sent to Pathology for analysis, and at the end of the drainage, the catheter was removed. The area was secured with tape after holding pressure for 2 minutes. This marked the end of the procedure. At the end of the procedure, the patient was stable. PLAN: To do a chest x-ray, postprocedure x-ray, and see if there is any complication, including pneumo. MMODAL /[id number] MTDD
[2021-03-28] MEDS: LORazepam 2 MG/ML SDV IVPUSH PRN (19:29)
[2021-03-28] MEDS: Donepezil 10 MG Tab PO SCH (20:00)
[2021-03-28] MEDS ORDERED: Sodium Chloride 0.9% 250 ML IV ONE (21:37)
[2021-03-28] MEDS ORDERED: Digoxin 125 MCG Tab PO ONE (21:37)
[2021-03-28] MEDS ORDERED: Sodium Chloride 0.9% 200 ML IV ONE (23:39)
[2021-03-28] MEDS: Diltiazem 100 MG in Sodium Chloride 0.9% 100 ML IV SCH (23:55)
[2021-03-29] MEDS: Cyanocobalamin (Vitamin B12) 1,000 MCG Tab PO SCH (08:45)
[2021-03-29] MEDS: Pantoprazole 40 MG Tab.CR PO SCH (08:45)
[2021-03-29] MEDS: Diltiazem 180 MG Cap.CD PO SCH (08:45)
[2021-03-29] MEDS: Rosuvastatin 10 MG Tab PO SCH (08:45)
[2021-03-29] MEDS: Aspirin 81 MG Tab.EC PO SCH (08:46)
[2021-03-29] MEDS: Metoprolol Succinate 50 MG Tab.ER PO SCH ×2 (08:46→21:00)
[2021-03-29] MEDS: Sertraline 25 MG Tab PO SCH (08:46)
[2021-03-29] MEDS: Multivitamin Tab PO SCH (08:46)
[2021-03-29] MEDS ORDERED: Sodium Chloride 0.9% 250 ML IV SCH (09:30)
[2021-03-29] MEDS: Digoxin 125 MCG Tab PO SCH (10:16)
--- NOTE | 2021-03-29 11:37 | PCM.PN ---
- General Info Date of Service: 03/29/21 Admission Dx/Problem (Free Text): Admission Diagnosis/Problem Admission Diagnosis/Problem Afib, Atrial fibrillation Subjective Update: Patient is an 89-year-old female with a history of CHF, atrial fibrillation on Xarelto, and pleural effusion who was brought to the ER due to worsening shortness of breath and rapid heart rate. Patient feels fine. Denies nausea, vomiting, fever, or chills. She underwent thoracentesis yesterday by Dr. Laurent, 2300 cc was out. Her heart rate went up to 140 last night. She needed diltiazem drip to control the heart rate last night Her blood pressure became soft and last night. NS bolus 250 cc x 2 was given. Her BP improved today She is now on 1 L Hemoglobin 10.5, creatinine 1.1 - Review of Systems Systems Review Comment:: General: Reports: No Symptoms HEENT: Reports: No Symptoms Pulmonary: Reports: Shortness of Breath Cardiovascular: Reports: Palpitations Gastrointestinal: Reports: No Symptoms Genitourinary: Reports: No Symptoms Musculoskeletal: Reports: No Symptoms Skin: Reports: No Symptoms Psychiatric: Reports: No Symptoms Neurological: Reports: No Symptoms Hematologic/Lymphatic: Reports: No Symptoms Immunologic: Reports: No Symptoms - Patient Data Vitals - Most Recent: Last Vital Signs Temp 36.2 C 03/29/21 08:00 Pulse 85 03/29/21 10:16 Resp 16 03/29/21 08:00 BP 101/60 03/29/21 08:46 Pulse Ox 94 L 03/29/21 08:00 Weight - Most Recent: 59.965 kg I&O - Last 24 Hours: Intake & Output 03/28/21 03/29/21 03/29/21 22:59 06:59 14:59 Intake Total 920 594 Output Total 2330 100 Balance -1410 494 Lab Results Last 24 Hours: Laboratory Results - last 24 hr 03/28/21 03/28/21 03/28/21 Range/Units 17:30 17:30 18:53 WBC (3.98-10.04) K/mm3 RBC (3.98-5.22) M/mm3 Hgb (11.2-15.7) gm/dl Hct (34.1-44.9) % MCV (79.4-94.8) fl MCH (25.6-32.2) pg MCHC (32.2-35.5) g/dl RDW Std Deviation (36.4-46.3) fL Plt Count (182-369) K/mm3 MPV (9.4-12.3) fl Neut % (Auto) (34.0-71.1) % Lymph % (Auto) (19.3-51.7) % [place] % (Auto) (4.7-12.5) % Eos % (Auto) (0.7-5.8) Baso % (Auto) (0.1-1.2) % Neut # (Auto) (1.56-6.13) K/mm3 Lymph # (Auto) (1.18-3.74) K/mm3 [place] # (Auto) (0.24-0.36) K/mm3 Eos # (Auto) (0.04-0.36) K/mm3 Baso # (Auto) (0.01-0.08) K/mm3 Manual Slide Review Sodium (136-145) mEq/L Potassium (3.5-5.1) mEq/L Chloride (98-107) mEq/L Carbon Dioxide (21-32) mEq/L Anion Gap (5-15) BUN (7-18) mg/dL Creatinine (0.55-1.02) mg/dL Est Cr Clr Drug Dosing mL/min Estimated GFR (MDRD) (>60) mL/min BUN/Creatinine Ratio (14-18) Glucose (70-99) mg/dL Calcium (8.5-10.1) mg/dL Total Bilirubin (0.2-1.0) mg/dL AST (15-37) U/L ALT (14-59) U/L Alkaline Phosphatase (46-116) U/L Lactate Dehydrogenase 209 (81-234) U/L Total Protein (6.4-8.2) g/dl Albumin (3.4-5.0) g/dl Globulin gm/dL Albumin/Globulin Ratio (1-2) Body Fluid Site Lung Fluid Type Pleural fluid Pleural fluid Fluid Volume 2507 ML Fluid Color Yellow Fluid Appearance Clear Fluid WBC 0.18 L (0.20-0.60) k/mm*3 Fluid RBC 0.001 (0.00-0.010) 10*6/uL Fluid Diff Comment See note Fluid Seg Neutrophils 4.0 (0-25) % Fluid Lymphocytes 67.0 (0-78) % Fluid Monocytes 20.0 (0-71) % Fl Polymorphonucl Cell Not Reportable Fluid Macrophages 19 Fluid Total Protein 2.5 gm/dl Fluid LDH 76 U/L 03/29/21 03/29/21 Range/Units 05:52 05:52 WBC 7.12 (3.98-10.04) K/mm3 RBC 3.51 L (3.98-5.22) M/mm3 Hgb 10.5 L (11.2-15.7) gm/dl Hct 33.0 L (34.1-44.9) % MCV 94.0 (79.4-94.8) fl MCH 29.9 (25.6-32.2) pg MCHC 31.8 L (32.2-35.5) g/dl RDW Std Deviation 46.6 H (36.4-46.3) fL Plt Count 316 (182-369) K/mm3 MPV 10.7 (9.4-12.3) fl Neut % (Auto) 79.2 H (34.0-71.1) % Lymph % (Auto) 8.8 L (19.3-51.7) % [place] % (Auto) 7.7 (4.7-12.5) % Eos % (Auto) 3.8 (0.7-5.8) Baso % (Auto) 0.4 (0.1-1.2) % Neut # (Auto) 5.63 (1.56-6.13) K/mm3 Lymph # (Auto) 0.63 L (1.18-3.74) K/mm3 [place] # (Auto) 0.55 H (0.24-0.36) K/mm3 Eos # (Auto) 0.27 (0.04-0.36) K/mm3 Baso # (Auto) 0.03 (0.01-0.08) K/mm3 Manual Slide Review Abnormal smear Sodium 138 (136-145) mEq/L Potassium 3.7 (3.5-5.1) mEq/L Chloride 103 (98-107) mEq/L Carbon Dioxide 27 (21-32) mEq/L Anion Gap 11.7 (5-15) BUN 28 H (7-18) mg/dL Creatinine 1.1 H (0.55-1.02) mg/dL Est Cr Clr Drug Dosing 27.42 mL/min Estimated GFR (MDRD) 47 (>60) mL/min BUN/Creatinine Ratio 25.5 H (14-18) Glucose 97 (70-99) mg/dL Calcium 8.1 L (8.5-10.1) mg/dL Total Bilirubin 0.4 (0.2-1.0) mg/dL AST 12 L (15-37) U/L ALT 16 (14-59) U/L Alkaline Phosphatase 77 (46-116) U/L Lactate Dehydrogenase (81-234) U/L Total Protein 5.9 L (6.4-8.2) g/dl Albumin 2.1 L (3.4-5.0) g/dl Globulin 3.8 gm/dL Albumin/Globulin Ratio 0.6 L (1-2) Body Fluid Site Fluid Type Fluid Volume ML Fluid Color Fluid Appearance Fluid WBC (0.20-0.60) k/mm*3 Fluid RBC (0.00-0.010) 10*6/uL Fluid Diff Comment Fluid Seg Neutrophils (0-25) % Fluid Lymphocytes (0-78) % Fluid Monocytes (0-71) % Fl Polymorphonucl Cell Fluid Macrophages Fluid Total Protein gm/dl Fluid LDH U/L Med Orders - Current: Current Medications Acetaminophen (Acetaminophen 325 Mg Tab) 650 mg PO Q6H PRN PRN Reason: Pain (Mild 1-3)/fever Last Admin: 03/27/21 23:59 Dose: 650 mg Documented by: Hydrocodone Bitart/Acetaminophen (Acetaminophen/Hydrocodone 325-5 Mg Tab) 1 tab PO Q6H PRN PRN Reason: Pain (moderate 4-6) Albuterol/Ipratropium (Albuterol/Ipratropium 3.0-0.5 Mg/3 Ml Neb Soln) 3 ml NEB Q4H PRN PRN Reason: Shortness Of Breath/wheezing Last Admin: 03/28/21 15:06 Dose: 3 ml Documented by: Aspirin (Aspirin 81 Mg Tab.Ec) 81 mg PO DAILY [facility] Last Admin: 03/29/21 08:46 Dose: 81 mg Documented by: Cyanocobalamin (Cyanocobalamin (Vitamin B12) 1,000 Mcg Tab) 1,000 mcg PO DAILY [facility] Last Admin: 03/29/21 08:45 Dose: 1,000 mcg Documented by: Digoxin (Digoxin 125 Mcg Tab) 125 mcg PO DAILY [facility] Last Admin: 03/29/21 10:16 Dose: 125 mcg Documented by: Diltiazem HCl (Diltiazem 180 Mg Cap.Cd) 180 mg PO DAILY [facility] Last Admin: 03/29/21 08:45 Dose: 180 mg Documented by: Donepezil HCl (Donepezil 10 Mg Tab) 5 mg PO BEDTIME [facility] Last Admin: 03/28/21 20:00 Dose: 5 mg Documented by: Promethazine HCl 12.5 mg/ (Sodium Chloride) 50.5 mls @ 100 mls/hr IV Q6H PRN PRN Reason: Nausea/Vomiting Diltiazem HCl 100 mg/ Sodium (Chloride) 100 mls @ 5 mls/hr IV TITRATE [facility]; Protocol Last Titration: 03/29/21 06:57 Dose: 0 mg/hr, 0 mls/hr Documented by: Sodium Chloride (Normal Saline) 250 mls @ 999 mls/hr IV ASDIRECTED [facility] Last Admin: 03/29/21 09:40 Dose: 999 mls/hr Documented by: Lorazepam (Lorazepam 2 Mg/Ml Sdv) 0.25 mg IVPUSH Q6H PRN PRN Reason: Anxiety Last Admin: 03/28/21 19:29 Dose: 0.25 mg Documented by: Metoprolol Succinate (Metoprolol Succinate 50 Mg Tab.Er) 50 mg PO BID [facility] Last Admin: 03/29/21 08:46 Dose: 50 mg Documented by: Multivitamins/Minerals/Vitamin C (Multivitamin Tab) 1 tab PO DAILY [facility] Last Admin: 03/29/21 08:46 Dose: 1 tab Documented by: Pantoprazole Sodium (Pantoprazole 40 Mg Tab.Cr) 40 mg PO DAILY [facility] Last Admin: 03/29/21 08:45 Dose: 40 mg Documented by: Rivaroxaban (Rivaroxaban 15 Mg Tab) [facility] Rosuv[facility] Calcium (Rosuvastatin 10 Mg Tab) 10 mg PO DAILY [facility] Last Admin: 03/29/21 08:45 Dose: 10 mg Documented by: Sertraline HCl (Sertraline 25 Mg Tab) 25 mg PO DAILY [facility] Last Admin: 03/29/21 08:46 Dose: 25 mg Documented by: Sodium Chloride (Sodium Chloride 0.9% 10 Ml Syringe) 10 ml FLUSH ASDIRECTED PRN PRN Reason: Keep Vein Open Last Admin: 03/26/21 11:05 Dose: 10 ml Documented by: Discontinued Medications Digoxin (Digoxin 500 Mcg/2 Ml Amp) 125 mcg IVPUSH ONETIME ONE Stop: 03/26/21 13:11 Last Admin: 03/26/21 15:31 Dose: Not Given Documented by: Digoxin (Digoxin 125 Mcg Tab) 125 mcg PO ONETIME ONE Stop: 03/26/21 17:16 Last Admin: 03/26/21 17:39 Dose: 125 mcg Documented by: Digoxin (Digoxin 125 Mcg Tab) 125 mcg PO ONETIME ONE Stop: 03/28/21 21:38 Last Admin: 03/28/21 22:04 Dose: 125 mcg Documented by: Diltiazem HCl (Diltiazem 50 Mg/10 Ml Sdv) 10 mg IVPUSH ONETIME ONE Stop: 03/26/21 11:40 Last Admin: 03/26/21 12:07 Dose: 10 mg Documented by: Diltiazem HCl (Diltiazem Ir 30 Mg Tab) 15 mg PO Q6HR [facility] Last Admin: 03/27/21 13:37 Dose: Not Given Documented by: Diltiazem HCl (Diltiazem Ir 30 Mg Tab) 30 mg PO Q6HR [facility] Last Admin: 03/28/21 05:12 Dose: 30 mg Documented by: Donepezil HCl (Donepezil 10 Mg Tab) 5 mg PO BEDTIME [facility] Diltiazem HCl 100 mg/ Sodium (Chloride) 100 mls @ 10 mls/hr IV TITRATE [facility]; Protocol Last Titration: 03/27/21 08:21 Dose: 7.5 mg/hr, 7.5 mls/hr Documented by: Sodium Chloride (Normal Saline) 250 mls @ 999 mls/hr IV .BOLUS ONE Stop: 03/28/21 21:52 Last Admin: 03/28/21 22:04 Dose: 999 mls/hr Documented by: Sodium Chloride (Normal Saline) 200 mls @ 999 mls/hr IV .BOLUS ONE Stop: 03/28/21 23:51 Last Admin: 03/28/21 23:44 Dose: 999 mls/hr Documented by: Metoprolol Succinate (Metoprolol Succinate 50 Mg Tab.Er) 50 mg PO DAILY [facility] Last Admin: 03/27/21 08:45 Dose: 50 mg Documented by: Metoprolol Tartrate (Metoprolol Tartrate 25 Mg Tab) 12.5 mg PO Q12H [facility] Stop: 03/27/21 02:31 Last Admin: 03/27/21 02:09 Dose: 12.5 mg Documented by: Morphine Sulfate (Morphine 2 Mg/Ml Syringe) 2 mg IVPUSH Q4H PRN PRN Reason: Pain (severe 7-10) Stop: 03/27/21 13:00 Donepezil 5 Mg (Tablet *Pt Own Med*) 0 each PO BEDTIME [facility] Last Admin: 03/26/21 19:59 Dose: 1 each Documented by: - Exam Physical Findings Comments:: General: Alert, Oriented, Cooperative HEENT: Conjunctiva Clear, EOMI, Pupils Equal, Pupils Reactive Neck: Supple, Full Range of Motion Lungs: Decreased Breath Sounds (Lower right lung field and left basal area) Cardiovascular: Irregular Rhythm GI/Abdominal Exam: Normal Bowel Sounds, Soft, Non-Tender, No Organomegaly Extremities: Normal Range of Motion, Non-Tender, Pedal Edema (2+ in both legs until knees) Skin: Warm, Dry, Intact Neurological: Strength Equal Bilateral, Normal Speech, Normal Tone, Sensation Intact Neuro Extensive - Mental Status: Normal Mood/Affect Psychiatric: Normal Affect, Normal Mood - Patient Data Lab Results Last 24 hrs: Laboratory Results - last 24 hr 03/28/21 03/28/21 03/28/21 Range/Units 17:30 17:30 18:53 WBC (3.98-10.04) K/mm3 RBC (3.98-5.22) M/mm3 Hgb (11.2-15.7) gm/dl Hct (34.1-44.9) % MCV (79.4-94.8) fl MCH (25.6-32.2) pg MCHC (32.2-35.5) g/dl RDW Std Deviation (36.4-46.3) fL Plt Count (182-369) K/mm3 MPV (9.4-12.3) fl Neut % (Auto) (34.0-71.1) % Lymph % (Auto) (19.3-51.7) % [place] % (Auto) (4.7-12.5) % Eos % (Auto) (0.7-5.8) Baso % (Auto) (0.1-1.2) % Neut # (Auto) (1.56-6.13) K/mm3 Lymph # (Auto) (1.18-3.74) K/mm3 [place] # (Auto) (0.24-0.36) K/mm3 Eos # (Auto) (0.04-0.36) K/mm3 Baso # (Auto) (0.01-0.08) K/mm3 Manual Slide Review Sodium (136-145) mEq/L Potassium (3.5-5.1) mEq/L Chloride (98-107) mEq/L Carbon Dioxide (21-32) mEq/L Anion Gap (5-15) BUN (7-18) mg/dL Creatinine (0.55-1.02) mg/dL Est Cr Clr Drug Dosing mL/min Estimated GFR (MDRD) (>60) mL/min BUN/Creatinine Ratio (14-18) Glucose (70-99) mg/dL Calcium (8.5-10.1) mg/dL Total Bilirubin (0.2-1.0) mg/dL AST (15-37) U/L ALT (14-59) U/L Alkaline Phosphatase (46-116) U/L Lactate Dehydrogenase 209 (81-234) U/L Total Protein (6.4-8.2) g/dl Albumin (3.4-5.0) g/dl Globulin gm/dL Albumin/Globulin Ratio (1-2) Body Fluid Site Lung Fluid Type Pleural fluid Pleural fluid Fluid Volume 2507 ML Fluid Color Yellow Fluid Appearance Clear Fluid WBC 0.18 L (0.20-0.60) k/mm*3 Fluid RBC 0.001 (0.00-0.010) 10*6/uL Fluid Diff Comment See note Fluid Seg Neutrophils 4.0 (0-25) % Fluid Lymphocytes 67.0 (0-78) % Fluid Monocytes 20.0 (0-71) % Fl Polymorphonucl Cell Not Reportable Fluid Macrophages 19 Fluid Total Protein 2.5 gm/dl Fluid LDH 76 U/L 03/29/21 03/29/21 Range/Units 05:52 05:52 WBC 7.12 (3.98-10.04) K/mm3 RBC 3.51 L (3.98-5.22) M/mm3 Hgb 10.5 L (11.2-15.7) gm/dl Hct 33.0 L (34.1-44.9) % MCV 94.0 (79.4-94.8) fl MCH 29.9 (25.6-32.2) pg MCHC 31.8 L (32.2-35.5) g/dl RDW Std Deviation 46.6 H (36.4-46.3) fL Plt Count 316 (182-369) K/mm3 MPV 10.7 (9.4-12.3) fl Neut % (Auto) 79.2 H (34.0-71.1) % Lymph % (Auto) 8.8 L (19.3-51.7) % [place] % (Auto) 7.7 (4.7-12.5) % Eos % (Auto) 3.8 (0.7-5.8) Baso % (Auto) 0.4 (0.1-1.2) % Neut # (Auto) 5.63 (1.56-6.13) K/mm3 Lymph # (Auto) 0.63 L (1.18-3.74) K/mm3 [place] # (Auto) 0.55 H (0.24-0.36) K/mm3 Eos # (Auto) 0.27 (0.04-0.36) K/mm3 Baso # (Auto) 0.03 (0.01-0.08) K/mm3 Manual Slide Review Abnormal smear Sodium 138 (136-145) mEq/L Potassium 3.7 (3.5-5.1) mEq/L Chloride 103 (98-107) mEq/L Carbon Dioxide 27 (21-32) mEq/L Anion Gap 11.7 (5-15) BUN 28 H (7-18) mg/dL Creatinine 1.1 H (0.55-1.02) mg/dL Est Cr Clr Drug Dosing 27.42 mL/min Estimated GFR (MDRD) 47 (>60) mL/min BUN/Creatinine Ratio 25.5 H (14-18) Glucose 97 (70-99) mg/dL Calcium 8.1 L (8.5-10.1) mg/dL Total Bilirubin 0.4 (0.2-1.0) mg/dL AST 12 L (15-37) U/L ALT 16 (14-59) U/L Alkaline Phosphatase 77 (46-116) U/L Lactate Dehydrogenase (81-234) U/L Total Protein 5.9 L (6.4-8.2) g/dl Albumin 2.1 L (3.4-5.0) g/dl Globulin 3.8 gm/dL Albumin/Globulin Ratio 0.6 L (1-2) Body Fluid Site Fluid Type Fluid Volume ML Fluid Color Fluid Appearance Fluid WBC (0.20-0.60) k/mm*3 Fluid RBC (0.00-0.010) 10*6/uL Fluid Diff Comment Fluid Seg Neutrophils (0-25) % Fluid Lymphocytes (0-78) % Fluid Monocytes (0-71) % Fl Polymorphonucl Cell Fluid Macrophages Fluid Total Protein gm/dl Fluid LDH U/L Result Diagrams: 03/29/21 05:52 03/29/21 05:52 Sepsis Event Note - Evaluation Sepsis Screening Result: No Definite Risk - Focused Exam Vital Signs: Vital Signs Temp Pulse Resp BP BP Pulse Ox Pulse Ox 03/29/21 10:16 85 03/29/21 08:46 99 101/60 03/29/21 08:00 36.2 C 16 101/60 94 L 03/29/21 05:40 90 L 03/29/21 04:00 36.1 C 16 93/58 L 95 03/29/21 00:00 36.2 C 14 99/69 94 L - Problem List Review Problem List Initiated/Reviewed/Updated: Yes - My Orders Last 24 Hours: My Active Orders 03/28/21 11:00 Diltiazem [Cardizem CD] 180 mg PO DAILY 03/28/21 17:30 CULTURE BODY FLUID + SMEAR [RM] Routine 03/28/21 19:35 Chest 1V Frontal [CR] Routine 03/29/21 09:30 Sodium Chloride 0.9% [Normal Saline] 250 ml IV ASDIRECTED 03/29/21 09:45 Digoxin [Lanoxin] 125 mcg PO DAILY 03/29/21 17:00 Rivaroxaban [Xarelto] 15 mg PO WITHDINNER 03/30/21 05:00 CBC WITH AUTO DIFF [HEME] DAILY COMPREHENSIVE METABOLIC PN,CMP [CHEM] DAILY 03/31/21 05:00 CBC WITH AUTO DIFF [HEME] DAILY COMPREHENSIVE METABOLIC PN,CMP [CHEM] DAILY - Plan Plan:: Patient is an 89-year-old female with a history of CHF, atrial fibrillation on Xarelto, and pleural effusion who was brought to the ER due to worsening shortness of breath and rapid heart rate. Assessment: Persistent atrial fibrillation with RVR -Recurrent atrial fibrillation with RVR, for which she was hospitalized 3 weeks ago -Has been on Xarelto -Home medications include metoprolol succinate 50 mg daily CHF exacerbation, mild systolic dysfunction -Etiology unknown -Echocardiogram on March 06, 2021 - of 50 to 60%; normal right ventricular systolic function; mild to moderate MR. -BNP 1973 on admission. It was 1687 on 03/04/2021 -Potassium 3.9 and mag 2.2 on admission Recurrent pleural effusion, right -Etiology could be due to CHF but considering one side large pleural effusion, other reasons cannot be excluded -Chest x-ray showed Moderately large right-sided pleural effusion which is increased from prior study. Small left-sided pleural effusion with mild left basilar atelectasis -Thoracentesis was performed about 3 weeks ago which led to pneumothorax -CT chest on 03/26 -fairly large right-sided pleural effusion with what appears to be loculated fluid anteriorly; smaller left-sided pleural effusion; areas of atelectasis which are small on the left side and more prominent on the right side -Status post thoracentesis on March [address] Laurent -Pneumothorax - CXR - showed Pneumothorax 2.8 cm (formal report pending) -She is now on 1 L by nasal cannula DANA -creatinine 0.9 on 03/04/2021 -Most likely due to prerenal cause and use of Lasix Plan: 1. continue to be monitored in ICU. will downgrade her to tele when diltiazem drip off > 24 hrs. 2. Continue diltiazem drip as needed to keep heart rate less than 100. Increased metoprolol succinate to 50 mg BID. Increased diltiazem xr po 180mg daily Repeat electrolytes daily in the morning added digoxin 0.125mg daily, will check digoxin level in 3 days. Restarted Xarelto today (as per Dr. Laurent) 3. Intake and output. Daily weight. Fluid restriction to 2 L and salt restriction to 2 g a day 4. General surgeon Dr. Laurent consulted. Would really appreciate it She developed pneumothorax. Discussed with Dr. Laurent who suggested to closely monitor 5. Repeat renal function in morning 6. DVT prophylaxis: SCD and Xarelto. 7. CODE STATUS: DNR/DNI (from her chart) Deposition: SNF PT OT 1 or 2 more days
[2021-03-29] MEDS: Rivaroxaban 15 MG Tab PO SCH (17:12)
[2021-03-29] MEDS: LORazepam 2 MG/ML SDV IVPUSH PRN (19:57)
[2021-03-29] MEDS: Donepezil 10 MG Tab PO SCH (20:00)
--- NOTE | 2021-03-30 07:49 | CR ---
Chest: Frontal view of the chest was obtained. Comparison: Prior chest x-ray of 03/26/21. Significant decrease in the amount of right-sided pleural effusion is noted from prior exam. Small left-sided pleural effusion is seen. Moderately large right-sided pneumothorax is noted. Heart size is slightly enlarged. Upper mediastinum is normal. Radiopacities remain within the left chest. Scattered areas of atelectasis are seen on the right side. Impression: 1. Moderately large right-sided pneumothorax with mild areas of atelectasis within the right lung base. 2. Small left-sided pleural effusion and other stable findings as noted above. Diagnostic code #3
--- NOTE | 2021-03-30 07:50 | CR ---
Chest: 2 views of the chest were obtained. Comparison: Prior chest x-ray performed on 03/28/21. Increasing right-sided pleural effusion is noted. Moderate size right-sided pneumothorax is seen. Atelectasis is noted on the right side. Small left-sided pleural effusion remains stable. Heart size slightly enlarged. Upper mediastinum is normal. Bony structures are unremarkable. Impression: 1. Increasing right-sided pleural effusion. Moderate right-sided pneumothorax is seen. 2. Other stable findings as noted above. Diagnostic code #5 I agree with preliminary report from [facility] finalized on 03/29/21, 12:05 PM CDT, code 1
[2021-03-30] MEDS: Metoprolol Succinate 50 MG Tab.ER PO SCH ×2 (07:59→20:47)
[2021-03-30] MEDS: Aspirin 81 MG Tab.EC PO SCH (07:59)
[2021-03-30] MEDS: Pantoprazole 40 MG Tab.CR PO SCH (07:59)
[2021-03-30] MEDS: Cyanocobalamin (Vitamin B12) 1,000 MCG Tab PO SCH (07:59)
[2021-03-30] MEDS: Rosuvastatin 10 MG Tab PO SCH (07:59)
[2021-03-30] MEDS: Digoxin 125 MCG Tab PO SCH (07:59)
[2021-03-30] MEDS: Sertraline 25 MG Tab PO SCH (07:59)
[2021-03-30] MEDS: Diltiazem 180 MG Cap.CD PO SCH (08:00)
[2021-03-30] MEDS: Multivitamin Tab PO SCH (08:00)
--- NOTE | 2021-03-30 13:06 | PCM.PN ---
- General Info Date of Service: 03/30/21 Admission Dx/Problem (Free Text): Admission Diagnosis/Problem Admission Diagnosis/Problem Afib, Atrial fibrillation Subjective Update: Patient is an 89-year-old female with a history of CHF, atrial fibrillation on Xarelto, and pleural effusion who was brought to the ER due to worsening shortness of breath and rapid heart rate. Patient feels fine. Does not have any new complaints. Denies nausea, vomiting, fever, or chills. She is on 1 L Heart rate is controlled, <100 Creatinine 1.0, GFR 52 - Review of Systems Systems Review Comment:: General: Reports: No Symptoms HEENT: Reports: No Symptoms Pulmonary: Reports: Shortness of Breath Cardiovascular: Reports: Palpitations Gastrointestinal: Reports: No Symptoms Genitourinary: Reports: No Symptoms Musculoskeletal: Reports: No Symptoms Skin: Reports: No Symptoms Psychiatric: Reports: No Symptoms Neurological: Reports: No Symptoms Hematologic/Lymphatic: Reports: No Symptoms Immunologic: Reports: No Symptoms - Patient Data Vitals - Most Recent: Last Vital Signs Temp 36.1 C 03/30/21 11:18 Pulse 85 03/30/21 07:59 Resp 16 03/30/21 11:18 BP 109/49 L 03/30/21 11:18 Pulse Ox 93 L 03/30/21 11:18 Weight - Most Recent: 56.699 kg I&O - Last 24 Hours: Intake & Output 03/29/21 03/30/21 03/30/21 22:59 06:59 14:59 Intake Total 650 100 300 Balance 650 100 300 Lab Results Last 24 Hours: Laboratory Results - last 24 hr 03/30/21 03/30/21 Range/Units 05:24 05:24 WBC 6.80 (3.98-10.04) K/mm3 RBC 3.46 L (3.98-5.22) M/mm3 Hgb 10.3 L (11.2-15.7) gm/dl Hct 32.8 L (34.1-44.9) % MCV 94.8 (79.4-94.8) fl MCH 29.8 (25.6-32.2) pg MCHC 31.4 L (32.2-35.5) g/dl RDW Std Deviation 46.1 (36.4-46.3) fL Plt Count 271 (182-369) K/mm3 MPV 10.8 (9.4-12.3) fl Neut % (Auto) 69.3 (34.0-71.1) % Lymph % (Auto) 11.0 L (19.3-51.7) % [place] % (Auto) 9.3 (4.7-12.5) % Eos % (Auto) 9.7 H (0.7-5.8) Baso % (Auto) 0.7 (0.1-1.2) % Neut # (Auto) 4.71 (1.56-6.13) K/mm3 Lymph # (Auto) 0.75 L (1.18-3.74) K/mm3 [place] # (Auto) 0.63 H (0.24-0.36) K/mm3 Eos # (Auto) 0.66 H (0.04-0.36) K/mm3 Baso # (Auto) 0.05 (0.01-0.08) K/mm3 Sodium 139 (136-145) mEq/L Potassium 3.5 (3.5-5.1) mEq/L Chloride 104 (98-107) mEq/L Carbon Dioxide 26 (21-32) mEq/L Anion Gap 12.5 (5-15) BUN 27 H (7-18) mg/dL Creatinine 1.0 (0.55-1.02) mg/dL Est Cr Clr Drug Dosing 30.16 mL/min Estimated GFR (MDRD) 52 (>60) mL/min BUN/Creatinine Ratio 27.0 H (14-18) Glucose 91 (70-99) mg/dL Calcium 8.0 L (8.5-10.1) mg/dL Total Bilirubin 0.3 (0.2-1.0) mg/dL AST 14 L (15-37) U/L ALT 6 L (14-59) U/L Alkaline Phosphatase 73 (46-116) U/L Total Protein 5.7 L (6.4-8.2) g/dl Albumin 2.0 L (3.4-5.0) g/dl Globulin 3.7 gm/dL Albumin/Globulin Ratio 0.5 L (1-2) Ti Results Last 24 Hours: Microbiology 03/28/21 17:30 Gram Stain - Final Pleural Fluid Body Fluid Culture - Preliminary NO GROWTH AFTER 2 DAYS Med Orders - Current: Current Medications Acetaminophen (Acetaminophen 325 Mg Tab) 650 mg PO Q6H PRN PRN Reason: Pain (Mild 1-3)/fever Last Admin: 03/27/21 23:59 Dose: 650 mg Documented by: Hydrocodone Bitart/Acetaminophen (Acetaminophen/Hydrocodone 325-5 Mg Tab) 1 tab PO Q6H PRN PRN Reason: Pain (moderate 4-6) Albuterol/Ipratropium (Albuterol/Ipratropium 3.0-0.5 Mg/3 Ml Neb Soln) 3 ml NEB Q4H PRN PRN Reason: Shortness Of Breath/wheezing Last Admin: 03/28/21 15:06 Dose: 3 ml Documented by: Aspirin (Aspirin 81 Mg Tab.Ec) 81 mg PO DAILY [facility] Last Admin: 03/30/21 07:59 Dose: 81 mg Documented by: Cyanocobalamin (Cyanocobalamin (Vitamin B12) 1,000 Mcg Tab) 1,000 mcg PO DAILY [facility] Last Admin: 03/30/21 07:59 Dose: 1,000 mcg Documented by: Digoxin (Digoxin 125 Mcg Tab) 125 mcg PO DAILY [facility] Last Admin: 03/30/21 07:59 Dose: 125 mcg Documented by: Diltiazem HCl (Diltiazem 180 Mg Cap.Cd) 180 mg PO DAILY [facility] Last Admin: 03/30/21 08:00 Dose: 180 mg Documented by: Donepezil HCl (Donepezil 10 Mg Tab) 5 mg PO BEDTIME [facility] Last Admin: 03/29/21 20:00 Dose: 5 mg Documented by: Promethazine HCl 12.5 mg/ (Sodium Chloride) 50.5 mls @ 100 mls/hr IV Q6H PRN PRN Reason: Nausea/Vomiting Diltiazem HCl 100 mg/ Sodium (Chloride) 100 mls @ 5 mls/hr IV TITRATE [facility]; Protocol Last Titration: 03/29/21 06:57 Dose: 0 mg/hr, 0 mls/hr Documented by: Lorazepam (Lorazepam 2 Mg/Ml Sdv) 0.25 mg IVPUSH Q6H PRN PRN Reason: Anxiety Last Admin: 03/29/21 19:57 Dose: 0.25 mg Documented by: Metoprolol Succinate (Metoprolol Succinate 50 Mg Tab.Er) 50 mg PO BID [facility] Last Admin: 03/30/21 07:59 Dose: 50 mg Documented by: Midodrine (Midodrine 5 Mg Tab) 2.5 mg PO TIDAC [facility] Multivitamins/Minerals/Vitamin C (Multivitamin Tab) 1 tab PO DAILY [facility] Last Admin: 03/30/21 08:00 Dose: 1 tab Documented by: Pantoprazole Sodium (Pantoprazole 40 Mg Tab.Cr) 40 mg PO DAILY [facility] Last Admin: 03/30/21 07:59 Dose: 40 mg Documented by: Rivaroxaban (Rivaroxaban 15 Mg Tab) 15 mg PO WITHDINNER [facility] Last Admin: 03/29/21 17:12 Dose: 15 mg Documented by: Rosuvastatin Calcium (Rosuvastatin 10 Mg Tab) 10 mg PO DAILY [facility] Last Admin: 03/30/21 07:59 Dose: 10 mg Documented by: Sertraline HCl (Sertraline 25 Mg Tab) 25 mg PO DAILY [facility] Last Admin: 03/30/21 07:59 Dose: 25 mg Documented by: Sodium Chloride (Sodium Chloride 0.9% 10 Ml Syringe) 10 ml FLUSH ASDIRECTED PRN PRN Reason: Keep Vein Open Last Admin: 03/26/21 11:05 Dose: 10 ml Documented by: Discontinued Medications Digoxin (Digoxin 500 Mcg/2 Ml Amp) 125 mcg IVPUSH ONETIME ONE Stop: 03/26/21 13:11 Last Admin: 03/26/21 15:31 Dose: Not Given Documented by: Digoxin (Digoxin 125 Mcg Tab) 125 mcg PO ONETIME ONE Stop: 03/26/21 17:16 Last Admin: 03/26/21 17:39 Dose: 125 mcg Documented by: Digoxin (Digoxin 125 Mcg Tab) 125 mcg PO ONETIME ONE Stop: 03/28/21 21:38 Last Admin: 03/28/21 22:04 Dose: 125 mcg Documented by: Diltiazem HCl (Diltiazem 50 Mg/10 Ml Sdv) 10 mg IVPUSH ONETIME ONE Stop: 03/26/21 11:40 Last Admin: 03/26/21 12:07 Dose: 10 mg Documented by: Diltiazem HCl (Diltiazem Ir 30 Mg Tab) 15 mg PO Q6HR [facility] Last Admin: 03/27/21 13:37 Dose: Not Given Documented by: Diltiazem HCl (Diltiazem Ir 30 Mg Tab) 30 mg PO Q6HR [facility] Last Admin: 03/28/21 05:12 Dose: 30 mg Documented by: Donepezil HCl (Donepezil 10 Mg Tab) 5 mg PO BEDTIME [facility] Diltiazem HCl 100 mg/ Sodium (Chloride) 100 mls @ 10 mls/hr IV TITRATE [facility]; Protocol Last Titration: 03/27/21 08:21 Dose: 7.5 mg/hr, 7.5 mls/hr Documented by: Sodium Chloride (Normal Saline) 250 mls @ 999 mls/hr IV .BOLUS ONE Stop: 03/28/21 21:52 Last Admin: 03/28/21 22:04 Dose: 999 mls/hr Documented by: Sodium Chloride (Normal Saline) 200 mls @ 999 mls/hr IV .BOLUS ONE Stop: 03/28/21 23:51 Last Admin: 03/28/21 23:44 Dose: 999 mls/hr Documented by: Sodium Chloride (Normal Saline) 250 mls @ 999 mls/hr IV ASDIRECTED [facility] Last Admin: 03/29/21 09:40 Dose: 999 mls/hr Documented by: Metoprolol Succinate (Metoprolol Succinate 50 Mg Tab.Er) 50 mg PO DAILY [facility] Last Admin: 03/27/21 08:45 Dose: 50 mg Documented by: Metoprolol Tartrate (Metoprolol Tartrate 25 Mg Tab) 12.5 mg PO Q12H [facility] Stop: 03/27/21 02:31 Last Admin: 03/27/21 02:09 Dose: 12.5 mg Documented by: Morphine Sulfate (Morphine 2 Mg/Ml Syringe) 2 mg IVPUSH Q4H PRN PRN Reason: Pain (severe 7-10) Stop: 03/27/21 13:00 Donepezil 5 Mg (Tablet *Pt Own Med*) 0 each PO BEDTIME [facility] Last Admin: 03/26/21 19:59 Dose: 1 each Documented by: - Exam Physical Findings Comments:: General: Alert, Oriented, Cooperative HEENT: Conjunctiva Clear, EOMI, Pupils Equal, Pupils Reactive Neck: Supple, Full Range of Motion Lungs: Decreased Breath Sounds (Lower right lung field and left basal area)(improved) Cardiovascular: Irregular Rhythm GI/Abdominal Exam: Normal Bowel Sounds, Soft, Non-Tender, No Organomegaly Extremities: Normal Range of Motion, Non-Tender, Pedal Edema (2+ in both legs until knees)(improved) Skin: Warm, Dry, Intact Neurological: Strength Equal Bilateral, Normal Speech, Normal Tone, Sensation Intact Neuro Extensive - Mental Status: Normal Mood/Affect Psychiatric: Normal Affect, Normal Mood - Patient Data Lab Results Last 24 hrs: Laboratory Results - last 24 hr 03/30/21 03/30/21 Range/Units 05:24 05:24 WBC 6.80 (3.98-10.04) K/mm3 RBC 3.46 L (3.98-5.22) M/mm3 Hgb 10.3 L (11.2-15.7) gm/dl Hct 32.8 L (34.1-44.9) % MCV 94.8 (79.4-94.8) fl MCH 29.8 (25.6-32.2) pg MCHC 31.4 L (32.2-35.5) g/dl RDW Std Deviation 46.1 (36.4-46.3) fL Plt Count 271 (182-369) K/mm3 MPV 10.8 (9.4-12.3) fl Neut % (Auto) 69.3 (34.0-71.1) % Lymph % (Auto) 11.0 L (19.3-51.7) % [place] % (Auto) 9.3 (4.7-12.5) % Eos % (Auto) 9.7 H (0.7-5.8) Baso % (Auto) 0.7 (0.1-1.2) % Neut # (Auto) 4.71 (1.56-6.13) K/mm3 Lymph # (Auto) 0.75 L (1.18-3.74) K/mm3 [place] # (Auto) 0.63 H (0.24-0.36) K/mm3 Eos # (Auto) 0.66 H (0.04-0.36) K/mm3 Baso # (Auto) 0.05 (0.01-0.08) K/mm3 Sodium 139 (136-145) mEq/L Potassium 3.5 (3.5-5.1) mEq/L Chloride 104 (98-107) mEq/L Carbon Dioxide 26 (21-32) mEq/L Anion Gap 12.5 (5-15) BUN 27 H (7-18) mg/dL Creatinine 1.0 (0.55-1.02) mg/dL Est Cr Clr Drug Dosing 30.16 mL/min Estimated GFR (MDRD) 52 (>60) mL/min BUN/Creatinine Ratio 27.0 H (14-18) Glucose 91 (70-99) mg/dL Calcium 8.0 L (8.5-10.1) mg/dL Total Bilirubin 0.3 (0.2-1.0) mg/dL AST 14 L (15-37) U/L ALT 6 L (14-59) U/L Alkaline Phosphatase 73 (46-116) U/L Total Protein 5.7 L (6.4-8.2) g/dl Albumin 2.0 L (3.4-5.0) g/dl Globulin 3.7 gm/dL Albumin/Globulin Ratio 0.5 L (1-2) Result Diagrams: 03/30/21 05:24 03/30/21 05:24 Ti Results Last 24 hrs: Microbiology 03/28/21 17:30 Gram Stain - Final Pleural Fluid Body Fluid Culture - Preliminary NO GROWTH AFTER 2 DAYS Sepsis Event Note - Evaluation Sepsis Screening Result: No Definite Risk - Focused Exam Vital Signs: Vital Signs Temp Pulse Resp BP BP Pulse Ox Pulse Ox 03/30/21 11:18 36.1 C 16 109/49 L 93 L 03/30/21 10:00 93 L 03/30/21 09:00 95 03/30/21 08:00 96 03/30/21 07:59 85 108/60 03/30/21 07:35 84 L 03/30/21 07:22 36.2 C 16 108/60 108/60 91 L 03/30/21 07:21 89 L 03/30/21 07:00 92 L 03/30/21 06:00 95 03/30/21 05:50 96 03/30/21 05:00 91 L 03/30/21 04:15 112/57 L 92 L 03/30/21 04:14 93 L 03/30/21 04:00 36.2 C 16 112/57 L 95 03/30/21 03:00 95 03/30/21 02:00 97 03/30/21 01:00 96 - Problem List Review Problem List Initiated/Reviewed/Updated: Yes - My Orders Last 24 Hours: My Active Orders 03/29/21 17:00 Rivaroxaban [Xarelto] 15 mg PO WITHDINNER 03/30/21 10:23 Patient Status [ADT] Routine 03/30/21 17:00 Midodrine 2.5 mg PO TIDAC 03/31/21 05:00 CBC WITH AUTO DIFF [HEME] DAILY COMPREHENSIVE METABOLIC PN,CMP [CHEM] DAILY - Plan Plan:: Patient is an 89-year-old female with a history of CHF, atrial fibrillation on Xarelto, and pleural effusion who was brought to the ER due to worsening shortness of breath and rapid heart rate. Assessment: Persistent atrial fibrillation with RVR -Recurrent atrial fibrillation with RVR, for which she was hospitalized 3 weeks ago -Has been on Xarelto -Home medications include metoprolol succinate 50 mg daily CHF exacerbation, mild systolic dysfunction -Etiology unknown -Echocardiogram on March 06, 2021 - of 50 to 60%; normal right ventricular systolic function; mild to moderate MR. -BNP 1973 on admission. It was 1687 on 03/04/2021 -Potassium 3.9 and mag 2.2 on admission Recurrent pleural effusion, right Post thoracentesis pneumothorax, right -Etiology could be due to CHF but considering one side large pleural effusion, other reasons cannot be excluded -Chest x-ray showed Moderately large right-sided pleural effusion which is increased from prior study. Small left-sided pleural effusion with mild left basilar atelectasis -Thoracentesis was performed about 3 weeks ago which led to pneumothorax -CT chest on 03/26 -fairly large right-sided pleural effusion with what appears to be loculated fluid anteriorly; smaller left-sided pleural effusion; areas of atelectasis which are small on the left side and more prominent on the right side -Status post thoracentesis on March [address] Laurent -Pneumothorax - CXR yesterday- showed Pneumothorax 2.8 cm (formal report pending) -Repeated chest x-ray today -increasing right-sided pleural effusion. Moderate to right-sided pneumothorax -She is now on 1 L by nasal cannula DANA -creatinine 0.9 on 03/04/2021 -Most likely due to prerenal cause and use of Lasix Plan: 1. Will downgrade her to tele. 2. Continue diltiazem drip as needed to keep heart rate less than 100. Increased metoprolol succinate to 50 mg BID. Increased diltiazem xr po 180mg daily digoxin 0.125mg daily, will check digoxin level in 2 days. Repeat electrolytes daily in the morning Xarelto today (as per Dr. Laurent) 3. Intake and output. Daily weight. Fluid restriction to 2 L and salt restriction to 2 g a day 4. General surgeon Dr. Laurent is on board. Really appreciate it Pt developed pneumothorax. Discussed with Dr. Laurent who suggested to closely monitor 5. Creatinine went down to 1.0 today. Avoid nephrotoxic meds. Repeat renal function in morning 6. DVT prophylaxis: SCD and Xarelto. 7. CODE STATUS: DNR/DNI (from her chart) Deposition: SNF PT OT 1 or 2 more days Length of stay greater then 96 hours due to slow response to treatment and newly developed pneumothorax.
--- NOTE | 2021-03-30 14:14 | PCM.SN.2 ---
- Free Text/Narrative Note: Pt refused low salt diet and would like to have regular diet.
[2021-03-30] MEDS ORDERED: Midodrine 5 MG Tab PO SCH (17:00)
[2021-03-30] MEDS: Rivaroxaban 15 MG Tab PO SCH (17:29)
--- NOTE | 2021-03-30 19:06 | PCM.SN.2 ---
- Free Text/Narrative Note: I reviewed the chest Xray from 03/29/2021 and 03/28/2021 on 03/29. 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 Draining the effusion produces an appearance of a pneumothorax due to lung's inability to re-expand and the space eventually re-fills with fluid again. Therefore, I recommend thoracentesis only if it causes symptoms.
[2021-03-30] MEDS: Donepezil 10 MG Tab PO SCH (20:47)
[2021-03-31] MEDS: Digoxin 125 MCG Tab PO SCH (09:21)
[2021-03-31] MEDS: Sertraline 25 MG Tab PO SCH (09:21)
[2021-03-31] MEDS: Aspirin 81 MG Tab.EC PO SCH (09:21)
[2021-03-31] MEDS: Pantoprazole 40 MG Tab.CR PO SCH (09:21)
[2021-03-31] MEDS: Multivitamin Tab PO SCH (09:21)
[2021-03-31] MEDS: Rosuvastatin 10 MG Tab PO SCH (09:21)
[2021-03-31] MEDS: Cyanocobalamin (Vitamin B12) 1,000 MCG Tab PO SCH (09:21)
[2021-03-31] MEDS: Diltiazem 180 MG Cap.CD PO SCH (09:23)
[2021-03-31] MEDS: Metoprolol Succinate 50 MG Tab.ER PO SCH ×2 (10:32→20:46)
--- NOTE | 2021-03-31 11:10 | PCM.PN ---
- General Info Date of Service: 03/31/21 Admission Dx/Problem (Free Text): Admission Diagnosis/Problem Admission Diagnosis/Problem Afib, Atrial fibrillation Subjective Update: Patient is an 89-year-old female with a history of CHF, atrial fibrillation on Xarelto, and pleural effusion who was brought to the ER due to worsening shortness of breath and rapid heart rate. Patient feels fine. Does not have any new complaints. Denies nausea, vomiting, fever, or chills. She is on 1 L Heart rate is controlled, <100 Creatinine 1.0, GFR 52 515/21 afebrile/vss but b.p lower and beta constantine held this am . feels good on 1 liter. rt pneumothorax on last chest xray unchanged. treating conservatively . small residual rt pleural effusion and repeat chest xray in am . eating well / up to chair/ voiding well . denies ordoñez with activity lungs crackles and decreased rt >>> left. mod. jvd 6 cm.sitting cor irr/irr 70scurrently syst m 2 6 lusb abd benign m.s. benign. skin mild edema assess. 1) rt pneumothorax mod. treated with o2 and stable ? slowly resolving . trying to avoid chest tube. 2) rt pleural effusion stable on lasix no arb as treating afib with beta constantine. 3)hypotension no midodrine given but cardizem decreased to every other day sec. to low b.p nad fragility 4)anemia on noag. monitor and start iron a nd follow up, also renal insuff related to age . 5)renal insuff; monitor dig levels carefully and monitor for o rthostasis . 6)heart failure monitor nt bnp values and also suspect mild a.s . boh Functional Status: Reports: Pain Controlled - Review of Systems General: Reports: No Symptoms HEENT: Reports: No Symptoms Pulmonary: Reports: No Symptoms Cardiovascular: Reports: No Symptoms, Dyspnea on Exertion, Lightheadedness Gastrointestinal: Reports: No Symptoms Genitourinary: Reports: No Symptoms Musculoskeletal: Reports: No Symptoms Skin: Reports: No Symptoms Neurological: Reports: No Symptoms Psychiatric: Reports: No Symptoms - Patient Data Vitals - Most Recent: Last Vital Signs Temp 36.3 C 03/31/21 04:00 Pulse 78 03/31/21 10:32 Resp 16 03/31/21 10:00 BP 101/47 L 03/31/21 10:32 Pulse Ox 94 L 03/31/21 09:20 Weight - Most Recent: 57.742 kg I&O - Last 24 Hours: Intake & Output 03/30/21 03/31/21 03/31/21 22:59 06:59 14:59 Intake Total 410 200 Balance 410 200 Lab Results Last 24 Hours: Laboratory Results - last 24 hr 03/31/21 03/31/21 Range/Units 04:44 04:44 WBC 7.79 (3.98-10.04) K/mm3 RBC 3.51 L (3.98-5.22) M/mm3 Hgb 10.6 L (11.2-15.7) gm/dl Hct 33.2 L (34.1-44.9) % MCV 94.6 (79.4-94.8) fl MCH 30.2 (25.6-32.2) pg MCHC 31.9 L (32.2-35.5) g/dl RDW Std Deviation 46.5 H (36.4-46.3) fL Plt Count 274 (182-369) K/mm3 MPV 10.5 (9.4-12.3) fl Neut % (Auto) 71.3 H (34.0-71.1) % Lymph % (Auto) 9.4 L (19.3-51.7) % Bradford % (Auto) 9.4 (4.7-12.5) % Eos % (Auto) 9.1 H (0.7-5.8) Baso % (Auto) 0.5 (0.1-1.2) % Neut # (Auto) 5.56 (1.56-6.13) K/mm3 Lymph # (Auto) 0.73 L (1.18-3.74) K/mm3 Bradford # (Auto) 0.73 H (0.24-0.36) K/mm3 Eos # (Auto) 0.71 H (0.04-0.36) K/mm3 Baso # (Auto) 0.04 (0.01-0.08) K/mm3 Manual Slide Review Abnormal smear Sodium 139 (136-145) mEq/L Potassium 3.8 (3.5-5.1) mEq/L Chloride 106 (98-107) mEq/L Carbon Dioxide 26 (21-32) mEq/L Anion Gap 10.8 (5-15) BUN 28 H (7-18) mg/dL Creatinine 0.9 (0.55-1.02) mg/dL Est Cr Clr Drug Dosing 33.52 mL/min Estimated GFR (MDRD) 59 (>60) mL/min BUN/Creatinine Ratio 31.1 H (14-18) Glucose 90 (70-99) mg/dL Calcium 8.2 L (8.5-10.1) mg/dL Total Bilirubin 0.3 (0.2-1.0) mg/dL AST 16 (15-37) U/L ALT 16 (14-59) U/L Alkaline Phosphatase 74 (46-116) U/L Total Protein 5.7 L (6.4-8.2) g/dl Albumin 2.0 L (3.4-5.0) g/dl Globulin 3.7 gm/dL Albumin/Globulin Ratio 0.5 L (1-2) Ti Results Last 24 Hours: Microbiology 03/28/21 17:30 Gram Stain - Final Pleural Fluid Body Fluid Culture - Preliminary NO GROWTH AFTER 3 DAYS Med Orders - Current: Current Medications Acetaminophen (Acetaminophen 325 Mg Tab) 650 mg PO Q6H PRN PRN Reason: Pain (Mild 1-3)/fever Last Admin: 03/27/21 23:59 Dose: 650 mg Documented by: Hydrocodone Bitart/Acetaminophen (Acetaminophen/Hydrocodone 325-5 Mg Tab) 1 tab PO Q6H PRN PRN Reason: Pain (moderate 4-6) Albuterol/Ipratropium (Albuterol/Ipratropium 3.0-0.5 Mg/3 Ml Neb Soln) 3 ml NEB Q4H PRN PRN Reason: Shortness Of Breath/wheezing Last Admin: 03/28/21 15:06 Dose: 3 ml Documented by: Aspirin (Aspirin 81 Mg Tab.Ec) 81 mg PO DAILY [facility] Last Admin: 03/31/21 09:21 Dose: 81 mg Documented by: Cyanocobalamin (Cyanocobalamin (Vitamin B12) 1,000 Mcg Tab) 1,000 mcg PO DAILY [facility] Last Admin: 03/31/21 09:21 Dose: 1,000 mcg Documented by: Digoxin (Digoxin 125 Mcg Tab) 125 mcg PO DAILY [facility] Last Admin: 03/31/21 09:21 Dose: 125 mcg Documented by: Diltiazem HCl (Diltiazem 120 Mg Cap.Cd) 120 mg PO DAILY [facility] Donepezil HCl (Donepezil 10 Mg Tab) 5 mg PO BEDTIME [facility] Last Admin: 03/30/21 20:47 Dose: 5 mg Documented by: Promethazine HCl 12.5 mg/ (Sodium Chloride) 50.5 mls @ 100 mls/hr IV Q6H PRN PRN Reason: Nausea/Vomiting Diltiazem HCl 100 mg/ Sodium (Chloride) 100 mls @ 5 mls/hr IV TITRATE [facility]; Protocol Last Titration: 03/29/21 06:57 Dose: 0 mg/hr, 0 mls/hr Documented by: Lorazepam (Lorazepam 2 Mg/Ml Sdv) 0.25 mg IVPUSH Q6H PRN PRN Reason: Anxiety Last Admin: 03/29/21 19:57 Dose: 0.25 mg Documented by: Metoprolol Succinate (Metoprolol Succinate 50 Mg Tab.Er) 50 mg PO BID [facility] Last Admin: 03/31/21 10:32 Dose: Not Given Documented by: Multivitamins/Minerals/Vitamin C (Multivitamin Tab) 1 tab PO DAILY [facility] Last Admin: 03/31/21 09:21 Dose: 1 tab Documented by: Pantoprazole Sodium (Pantoprazole 40 Mg Tab.Cr) 40 mg PO DAILY [facility] Last Admin: 03/31/21 09:21 Dose: 40 mg Documented by: Rivaroxaban (Rivaroxaban 15 Mg Tab) 15 mg PO WITHDINNER [facility] Last Admin: 03/30/21 17:29 Dose: 15 mg Documented by: Rosuvastatin Calcium (Rosuvastatin 10 Mg Tab) 10 mg PO DAILY [facility] Last Admin: 03/31/21 09:21 Dose: 10 mg Documented by: Sertraline HCl (Sertraline 25 Mg Tab) 25 mg PO DAILY [facility] Last Admin: 03/31/21 09:21 Dose: 25 mg Documented by: Sodium Chloride (Sodium Chloride 0.9% 10 Ml Syringe) 10 ml FLUSH ASDIRECTED PRN PRN Reason: Keep Vein Open Last Admin: 03/26/21 11:05 Dose: 10 ml Documented by: Discontinued Medications Digoxin (Digoxin 500 Mcg/2 Ml Amp) 125 mcg IVPUSH ONETIME ONE Stop: 03/26/21 13:11 Last Admin: 03/26/21 15:31 Dose: Not Given Documented by: Digoxin (Digoxin 125 Mcg Tab) 125 mcg PO ONETIME ONE Stop: 03/26/21 17:16 Last Admin: 03/26/21 17:39 Dose: 125 mcg Documented by: Digoxin (Digoxin 125 Mcg Tab) 125 mcg PO ONETIME ONE Stop: 03/28/21 21:38 Last Admin: 03/28/21 22:04 Dose: 125 mcg Documented by: Diltiazem HCl (Diltiazem 50 Mg/10 Ml Sdv) 10 mg IVPUSH ONETIME ONE Stop: 03/26/21 11:40 Last Admin: 03/26/21 12:07 Dose: 10 mg Documented by: Diltiazem HCl (Diltiazem Ir 30 Mg Tab) 15 mg PO Q6HR CLIF Last Admin: 03/27/21 13:37 Dose: Not Given Documented by: Diltiazem HCl (Diltiazem Ir 30 Mg Tab) 30 mg PO Q6HR CLIF Last Admin: 03/28/21 05:12 Dose: 30 mg Documented by: Diltiazem HCl (Diltiazem 180 Mg Cap.Cd) 180 mg PO DAILY [facility] Last Admin: 03/31/21 09:23 Dose: 180 mg Documented by: Donepezil HCl (Donepezil 10 Mg Tab) 5 mg PO BEDTIME [facility] Diltiazem HCl 100 mg/ Sodium (Chloride) 100 mls @ 10 mls/hr IV TITRATE [facility]; Protocol Last Titration: 03/27/21 08:21 Dose: 7.5 mg/hr, 7.5 mls/hr Documented by: Sodium Chloride (Normal Saline) 250 mls @ 999 mls/hr IV .BOLUS ONE Stop: 03/28/21 21:52 Last Admin: 03/28/21 22:04 Dose: 999 mls/hr Documented by: Sodium Chloride (Normal Saline) 200 mls @ 999 mls/hr IV .BOLUS ONE Stop: 03/28/21 23:51 Last Admin: 03/28/21 23:44 Dose: 999 mls/hr Documented by: Sodium Chloride (Normal Saline) 250 mls @ 999 mls/hr IV ASDIRECTED CLIF Last Admin: 03/29/21 09:40 Dose: 999 mls/hr Documented by: Metoprolol Succinate (Metoprolol Succinate 50 Mg Tab.Er) 50 mg PO DAILY [facility] Last Admin: 03/27/21 08:45 Dose: 50 mg Documented by: Metoprolol Tartrate (Metoprolol Tartrate 25 Mg Tab) 12.5 mg PO Q12H [facility] Stop: 03/27/21 02:31 Last Admin: 03/27/21 02:09 Dose: 12.5 mg Documented by: Midodrine (Midodrine 5 Mg Tab) 2.5 mg PO TIDAC [facility] Last Admin: 03/30/21 17:29 Dose: Not Given Documented by: Morphine Sulfate (Morphine 2 Mg/Ml Syringe) 2 mg IVPUSH Q4H PRN PRN Reason: Pain (severe 7-10) Stop: 03/27/21 13:00 Donepezil 5 Mg (Tablet *Pt Own Med*) 0 each PO BEDTIME [facility] Last Admin: 03/26/21 19:59 Dose: 1 each Documented by: - Exam Quality Assessment: Supplemental Oxygen General: Alert, Oriented HEENT: Pupils Equal, Pupils Reactive, EOMI, Mucous Membr. Moist/[place] Neck: Supple Lungs: Clear to Auscultation, Normal Respiratory Effort Cardiovascular: Regular Rate, Regular Rhythm, Irregular Rhythm, Murmurs (2/6 ridge ) GI/Abdominal Exam: Normal Bowel Sounds, Soft, Non-Tender, No Organomegaly, No Distention, No Abnormal Bruit, No Mass, Pelvis Stable (Female) Exam: Normal External Exam, Normal Speculum Exam, Normal Bimanual Exam Back Exam: Normal Inspection, Full Range of Motion Extremities: Normal Inspection, Normal Range of Motion, Non-Tender, No Pedal Edema, Normal Capillary Refill Peripheral Pulses: 1+: Brachial (L), Brachial (R) Skin: Warm, Dry, Intact Wound/Incisions: Healing Well Neurological: No New Focal Deficit Psy/Mental Status: Alert, Normal Affect, Normal Mood - Patient Data Lab Results Last 24 hrs: Laboratory Results - last 24 hr 03/31/21 03/31/21 Range/Units 04:44 04:44 WBC 7.79 (3.98-10.04) K/mm3 RBC 3.51 L (3.98-5.22) M/mm3 Hgb 10.6 L (11.2-15.7) gm/dl Hct 33.2 L (34.1-44.9) % MCV 94.6 (79.4-94.8) fl MCH 30.2 (25.6-32.2) pg MCHC 31.9 L (32.2-35.5) g/dl RDW Std Deviation 46.5 H (36.4-46.3) fL Plt Count 274 (182-369) K/mm3 MPV 10.5 (9.4-12.3) fl Neut % (Auto) 71.3 H (34.0-71.1) % Lymph % (Auto) 9.4 L (19.3-51.7) % Bradford % (Auto) 9.4 (4.7-12.5) % Eos % (Auto) 9.1 H (0.7-5.8) Baso % (Auto) 0.5 (0.1-1.2) % Neut # (Auto) 5.56 (1.56-6.13) K/mm3 Lymph # (Auto) 0.73 L (1.18-3.74) K/mm3 Bradford # (Auto) 0.73 H (0.24-0.36) K/mm3 Eos # (Auto) 0.71 H (0.04-0.36) K/mm3 Baso # (Auto) 0.04 (0.01-0.08) K/mm3 Manual Slide Review Abnormal smear Sodium 139 (136-145) mEq/L Potassium 3.8 (3.5-5.1) mEq/L Chloride 106 (98-107) mEq/L Carbon Dioxide 26 (21-32) mEq/L Anion Gap 10.8 (5-15) BUN 28 H (7-18) mg/dL Creatinine 0.9 (0.55-1.02) mg/dL Est Cr Clr Drug Dosing 33.52 mL/min Estimated GFR (MDRD) 59 (>60) mL/min BUN/Creatinine Ratio 31.1 H (14-18) Glucose 90 (70-99) mg/dL Calcium 8.2 L (8.5-10.1) mg/dL Total Bilirubin 0.3 (0.2-1.0) mg/dL AST 16 (15-37) U/L ALT 16 (14-59) U/L Alkaline Phosphatase 74 (46-116) U/L Total Protein 5.7 L (6.4-8.2) g/dl Albumin 2.0 L (3.4-5.0) g/dl Globulin 3.7 gm/dL Albumin/Globulin Ratio 0.5 L (1-2) Result Diagrams: 03/31/21 04:44 03/31/21 04:44 Ti Results Last 24 hrs: Microbiology 03/28/21 17:30 Gram Stain - Final Pleural Fluid Body Fluid Culture - Preliminary NO GROWTH AFTER 3 DAYS Sepsis Event Note - Evaluation Sepsis Screening Result: No Definite Risk - Focused Exam Vital Signs: Vital Signs Temp Pulse Resp BP BP Pulse Ox Pulse Ox 03/31/21 10:32 78 101/47 L 03/31/21 10:00 16 03/31/21 09:21 78 03/31/21 09:20 78 19 101/47 L 94 L 03/31/21 09:00 22 H 03/31/21 08:04 14 03/31/21 07:00 94 L 03/31/21 06:00 97 03/31/21 05:00 95 03/31/21 04:00 36.3 C 14 118/74 96 03/31/21 03:00 93 L 03/31/21 02:00 95 03/31/21 01:00 88 L 03/30/21 23:44 93 L 03/30/21 23:43 36.1 C 16 111/54 L 93 L - Problem List & Annotations (1) Chronic renal insufficiency, stage II (mild) SNOMED Code(s): 699636332 Code(s): N18.2 - CHRONIC KIDNEY DISEASE, STAGE 2 (MILD) Status: Acute Priority: Low Current Visit: Yes Onset Date: ~03/31/21 Annotation/Comment:: monitor creat. and nt bnp. also mild anemia seen (2) Hypotension SNOMED Code(s): 60220758 Code(s): I95.9 - HYPOTENSION, UNSPECIFIED Status: Acute Priority: Medium Current Visit: Yes Onset Date: ~03/31/21 Qualifiers: Hypotension type: unspecified hypotension type Qualified Code(s): I95.9 - Hypotension, unspecified Annotation/Comment:: blood loss and chronic renal insuff. doing well check otrtho static . (3) Pleural effusion on right SNOMED Code(s): 01279328 Code(s): J90 - PLEURAL EFFUSION, NOT ELSEWHERE CLASSIFIED Status: Acute Priority: Low Current Visit: Yes Onset Date: ~03/02/21 Annotation/Comment:: cytology pending / lge fluid resp/failure resolved. slight rt pneumothorax residual. mild blunting of cv angles . rt mass now appears to be pneumonia/atel. and clearing. chest ct scan if needed in am (4) Chronic atrial fibrillation with rapid ventricular response SNOMED Code(s): 941290564, 833085094984819 Code(s): I48.20 - CHRONIC ATRIAL FIBRILLATION, UNSPECIFIED Status: Chronic Priority: Low Current Visit: Yes Onset Date: ~03/02/21 Annotation/Comment:: cont current meds and consder lasix if pleural effusion starts again. better on metoprolol daily. nticoagulation held sec to bleeding but will be restarted 03/07 at reduced dose. not tolerateing lasix daily but will do every other day (5) Congestive heart failure SNOMED Code(s): 38990411 Code(s): I50.9 - HEART FAILURE, UNSPECIFIED Status: Acute Priority: Medium Current Visit: No Onset Date: ~03/02/21 Qualifiers: Heart failure type: right-sided Heart failure chronicity: acute on chronic Qualified Code(s): I50.813 - Acute on chronic right heart failure Annotation/Comment:: likely pleural effusion cardiogenic and related to pneumonia and mucous plugging/atel. she is doing well with residual rt pneumothorax and on room air. she has improved strength and endurance and afib rate contrlled 70-100. - Problem List Review Problem List Initiated/Reviewed/Updated: Yes - My Orders Last 24 Hours: My Active Orders 04/02/21 09:00 Diltiazem [Cardizem CD] 120 mg PO DAILY - Plan Plan:: Patient is an 89-year-old female with a history of CHF, atrial fibrillation on Xarelto, and pleural effusion who was brought to the ER due to worsening shortness of breath and rapid heart rate. Assessment: Persistent atrial fibrillation with RVR -Recurrent atrial fibrillation with RVR, for which she was hospitalized 3 weeks ago -Has been on Xarelto -Home medications include metoprolol succinate 50 mg daily CHF exacerbation, mild systolic dysfunction -Etiology unknown -Echocardiogram on March 06, 2021 - of 50 to 60%; normal right ventricular systolic function; mild to moderate MR. -BNP 1973 on admission. It was 1687 on 03/04/2021 -Potassium 3.9 and mag 2.2 on admission Recurrent pleural effusion, right Post thoracentesis pneumothorax, right -Etiology could be due to CHF but considering one side large pleural effusion, other reasons cannot be excluded -Chest x-ray showed Moderately large right-sided pleural effusion which is increased from prior study. Small left-sided pleural effusion with mild left basilar atelectasis -Thoracentesis was performed about 3 weeks ago which led to pneumothorax -CT chest on 03/26 -fairly large right-sided pleural effusion with what appears to be loculated fluid anteriorly; smaller left-sided pleural effusion; areas of atelectasis which are small on the left side and more prominent on the right side -Status post thoracentesis on March [address] Laurent -Pneumothorax - CXR yesterday- showed Pneumothorax 2.8 cm (formal report pending) -Repeated chest x-ray today -increasing right-sided pleural effusion. Moderate to right-sided pneumothorax -She is now on 1 L by nasal cannula DANA -creatinine 0.9 on 03/04/2021 -Most likely due to prerenal cause and use of Lasix Plan: 1. Will downgrade her to tele. 2. Continue diltiazem drip as needed to keep heart rate less than 100. Increased metoprolol succinate to 50 mg BID. Increased diltiazem xr po 180mg daily digoxin 0.125mg daily, will check digoxin level in 2 days. Repeat electrolytes daily in the morning Xarelto today (as per Dr. Laurent) 3. Intake and output. Daily weight. Fluid restriction to 2 L and salt restriction to 2 g a day 4. General surgeon Dr. Laurent is on board. Really appreciate it Pt developed pneumothorax. Discussed with Dr. Laurent who suggested to closely monitor 5. Creatinine went down to 1.0 today. Avoid nephrotoxic meds. Repeat renal function in morning 6. DVT prophylaxis: SCD and Xarelto. 7. CODE STATUS: DNR/DNI (from her chart) Deposition: SNF PT OT 1 or 2 more days Length of stay greater then 96 hours due to slow response to treatment and newly developed pneumothorax./21 5 afebrile/vss but b.p lower and beta constantine held this am . feels good on 1 liter. rt pneumothorax on last chest xray unchanged. treating conservatively . small residual rt pleural effusion and repeat chest xray in am . eating well / up to chair/ voiding well . denies ordoñez with activity lungs crackles and decreased rt >>> left. mod. jvd 6 cm.sitting cor irr/irr 70scurrently syst m 2 6 lusb abd benign m.s. benign. skin mild edema assess. 1) rt pneumothorax mod. treated with o2 and stable ? slowly resolving . trying to avoid chest tube. 2) rt pleural effusion stable on lasix no arb as treating afib with beta constantine. 3)hypotension no midodrine given but cardizem decreased to every other day sec. to low b.p nad fragility 4)anemia on noag. monitor and start iron a nd follow up, also renal insuff related to age . 5)renal insuff; monitor dig levels carefully and monitor for orthostasis . 6)heart failure monitor nt bnp values and also suspect mild a.s . boh
[2021-03-31] MEDS: Rivaroxaban 15 MG Tab PO SCH (18:22)
[2021-03-31] MEDS: Donepezil 10 MG Tab PO SCH (20:46)
[2021-04-01] MEDS: Digoxin 125 MCG Tab PO SCH (10:00)
[2021-04-01] MEDS: Multivitamin Tab PO SCH (10:05)
[2021-04-01] MEDS: Metoprolol Succinate 50 MG Tab.ER PO SCH ×2 (10:06→20:35)
[2021-04-01] MEDS: Rosuvastatin 10 MG Tab PO SCH (10:06)
[2021-04-01] MEDS: Pantoprazole 40 MG Tab.CR PO SCH (10:06)
[2021-04-01] MEDS: Sertraline 25 MG Tab PO SCH (10:07)
[2021-04-01] MEDS: Cyanocobalamin (Vitamin B12) 1,000 MCG Tab PO SCH (10:07)
[2021-04-01] MEDS: Aspirin 81 MG Tab.EC PO SCH (10:07)
--- NOTE | 2021-04-01 11:40 | PCM.PN ---
- General Info Date of Service: 04/01/21 Admission Dx/Problem (Free Text): Admission Diagnosis/Problem Admission Diagnosis/Problem Afib, Atrial fibrillation Subjective Update: Patient is an 89-year-old female with a history of CHF, atrial fibrillation on Xarelto, and pleural effusion who was brought to the ER due to worsening shortness of breath and rapid heart rate. Patient feels fine. Does not have any new complaints. Denies nausea, vomiting, fever, or chills. She is on 1 L Heart rate is controlled, <100 Creatinine 1.0, GFR 52 515/21 afebrile/vss but b.p lower and beta constantine held this am . feels good on 1 liter. rt pneumothorax on last chest xray unchanged. treating conservatively . small residual rt pleural effusion and repeat chest xray in am . eating well / up to chair/ voiding well . denies ordoñez with activity lungs crackles and decreased rt >>> left. mod. jvd 6 cm.sitting cor irr/irr 70scurrently syst m 2 6 lusb abd benign m.s. benign. skin mild edema assess. 1) rt pneumothorax mod. treated with o2 and stable ? slowly resolving . trying to avoid chest tube. 2) rt pleural effusion stable on lasix no arb as treating afib with beta constantine. 3)hypotension no midodrine given but cardizem decreased to every other day sec. to low b.p nad fragility 4)anemia on noag. monitor and start iron a nd follow up, also renal insuff related to age . 5)renal insuff; monitor dig levels carefully and monitor for o rthostasis . 6)heart failure monitor nt bnp values and also suspect mild a.s . boh 04/01/21 afebrile /heart rate high until cardizem given but b.p low and am dose beta constantine held. o2 sats low 90s but persistant rt pleural eff. with pers. rt pneumothorax (mod). patient feels weak and ordoñez with minimal activity. appetite fair. no chest pain ///mild orthopnea lungs decreased 1/2 posterior rt field / a-e change/ inbcentive hoda 250 best effort. sats 93-97 % 2 liters n.c. cor irreg 65-85 at rest with am meds / b.p stable in bed orthostatics pending. abd benign eating fair to poor. ms benign. skin benign. neuro clear and oriented to 2/3 lab iron levels and n.t bnp pending. chest xray little change but reaccumilation of fluid/ pneumo same . lytes good. assess:plan 1 chf stable but cardizem changed to every other day . dig level 1.2 and concern for toxicity consider starting very low dose lasix but check orhtostatic b.p. will need rehab and calorie support .will need supplimemntal o2 to help pneumothorax resolve likely 2-8 weeks. 2) pneumothorax moderate and at risk to have complications. on 3)pleural eff is exudative by protien and no signs of bacterial infe ction. ? lasix x 2-4 weeks 4) afib/rvr : stable now but avoiding toxicity will require some monitoring . currently on dig / cardizedm and beta constantine . 5)anemia iron studies pending. 6) gen weakness and low protien state needs increased claories and high protien foods / palitability issues. 7) rehab/ requires snf placement for now family aware . Functional Status: Reports: Pain Controlled - Review of Systems General: Reports: Weakness, Fatigue, Appetite Pulmonary: Reports: Shortness of Breath Cardiovascular: Reports: Dyspnea on Exertion Gastrointestinal: Reports: No Symptoms Genitourinary: Reports: No Symptoms Musculoskeletal: Reports: No Symptoms Skin: Reports: No Symptoms Neurological: Reports: No Symptoms Psychiatric: Reports: No Symptoms - Patient Data Vitals - Most Recent: Last Vital Signs Temp 36.5 C 04/01/21 09:05 Pulse 68 04/01/21 10:06 Resp 20 04/01/21 09:05 BP 132/92 H 04/01/21 10:06 Pulse Ox 93 L 04/01/21 09:05 Weight - Most Recent: 58.332 kg I&O - Last 24 Hours: Intake & Output 03/31/21 04/01/21 04/01/21 22:59 06:59 14:59 Intake Total 690 200 150 Balance 690 200 150 Lab Results Last 24 Hours: Laboratory Results - last 24 hr 03/31/21 03/31/21 04/01/21 Range/Units 04:44 04:44 06:05 WBC 7.02 (3.98-10.04) K/mm3 RBC 3.63 L (3.98-5.22) M/mm3 Hgb 10.7 L (11.2-15.7) gm/dl Hct 34.2 (34.1-44.9) % MCV 94.2 (79.4-94.8) fl MCH 29.5 (25.6-32.2) pg MCHC 31.3 L (32.2-35.5) g/dl RDW Std Deviation 46.7 H (36.4-46.3) fL Plt Count 288 (182-369) K/mm3 MPV 10.4 (9.4-12.3) fl Neut % (Auto) 74.0 H (34.0-71.1) % Lymph % (Auto) 9.0 L (19.3-51.7) % Faulk % (Auto) 9.3 (4.7-12.5) % Eos % (Auto) 7.0 H (0.7-5.8) Baso % (Auto) 0.4 (0.1-1.2) % Neut # (Auto) 5.20 (1.56-6.13) K/mm3 Lymph # (Auto) 0.63 L (1.18-3.74) K/mm3 Faulk # (Auto) 0.65 H (0.24-0.36) K/mm3 Eos # (Auto) 0.49 H (0.04-0.36) K/mm3 Baso # (Auto) 0.03 (0.01-0.08) K/mm3 Manual Slide Review Abnormal smear Sodium (136-145) mEq/L Potassium (3.5-5.1) mEq/L Chloride (98-107) mEq/L Carbon Dioxide (21-32) mEq/L Anion Gap (5-15) BUN (7-18) mg/dL Creatinine (0.55-1.02) mg/dL Est Cr Clr Drug Dosing mL/min Estimated GFR (MDRD) (>60) mL/min BUN/Creatinine Ratio (14-18) Glucose (70-99) mg/dL Calcium (8.5-10.1) mg/dL Iron 22 L (50-170) ug/dL TIBC 205 (100-400) ug/dL % Saturation 11 L (20-55) % Transferrin 164 L (202-364) mg/dL Total Bilirubin (0.2-1.0) mg/dL AST (15-37) U/L ALT (14-59) U/L Alkaline Phosphatase (46-116) U/L Total Protein (6.4-8.2) g/dl Albumin (3.4-5.0) g/dl Globulin gm/dL Albumin/Globulin Ratio (1-2) Digoxin 1.2 (0.9-2.0) ng/mL 04/01/21 Range/Units 06:05 WBC (3.98-10.04) K/mm3 RBC (3.98-5.22) M/mm3 Hgb (11.2-15.7) gm/dl Hct (34.1-44.9) % MCV (79.4-94.8) fl MCH (25.6-32.2) pg MCHC (32.2-35.5) g/dl RDW Std Deviation (36.4-46.3) fL Plt Count (182-369) K/mm3 MPV (9.4-12.3) fl Neut % (Auto) (34.0-71.1) % Lymph % (Auto) (19.3-51.7) % Faulk % (Auto) (4.7-12.5) % Eos % (Auto) (0.7-5.8) Baso % (Auto) (0.1-1.2) % Neut # (Auto) (1.56-6.13) K/mm3 Lymph # (Auto) (1.18-3.74) K/mm3 Faulk # (Auto) (0.24-0.36) K/mm3 Eos # (Auto) (0.04-0.36) K/mm3 Baso # (Auto) (0.01-0.08) K/mm3 Manual Slide Review Sodium 139 (136-145) mEq/L Potassium 3.9 (3.5-5.1) mEq/L Chloride 105 (98-107) mEq/L Carbon Dioxide 26 (21-32) mEq/L Anion Gap 11.9 (5-15) BUN 26 H (7-18) mg/dL Creatinine 0.9 (0.55-1.02) mg/dL Est Cr Clr Drug Dosing 33.52 mL/min Estimated GFR (MDRD) 59 (>60) mL/min BUN/Creatinine Ratio 28.9 H (14-18) Glucose 89 (70-99) mg/dL Calcium 8.2 L (8.5-10.1) mg/dL Iron (50-170) ug/dL TIBC (100-400) ug/dL % Saturation (20-55) % Transferrin (202-364) mg/dL Total Bilirubin 0.3 (0.2-1.0) mg/dL AST 15 (15-37) U/L ALT 17 (14-59) U/L Alkaline Phosphatase 76 (46-116) U/L Total Protein 6.0 L (6.4-8.2) g/dl Albumin 2.1 L (3.4-5.0) g/dl Globulin 3.9 gm/dL Albumin/Globulin Ratio 0.5 L (1-2) Digoxin (0.9-2.0) ng/mL Ti Results Last 24 Hours: Microbiology 03/28/21 17:30 Gram Stain - Final Pleural Fluid Body Fluid Culture - Preliminary NO GROWTH AFTER 4 DAYS Med Orders - Current: Current Medications Acetaminophen (Acetaminophen 325 Mg Tab) 650 mg PO Q6H PRN PRN Reason: Pain (Mild 1-3)/fever Last Admin: 03/27/21 23:59 Dose: 650 mg Documented by: Hydrocodone Bitart/Acetaminophen (Acetaminophen/Hydrocodone 325-5 Mg Tab) 1 tab PO Q6H PRN PRN Reason: Pain (moderate 4-6) Albuterol/Ipratropium (Albuterol/Ipratropium 3.0-0.5 Mg/3 Ml Neb Soln) 3 ml NEB Q4H PRN PRN Reason: Shortness Of Breath/wheezing Last Admin: 03/28/21 15:06 Dose: 3 ml Documented by: Aspirin (Aspirin 81 Mg Tab.Ec) 81 mg PO DAILY [facility] Last Admin: 04/01/21 10:07 Dose: 81 mg Documented by: Cyanocobalamin (Cyanocobalamin (Vitamin B12) 1,000 Mcg Tab) 1,000 mcg PO DAILY [facility] Last Admin: 04/01/21 10:07 Dose: 1,000 mcg Documented by: Digoxin (Digoxin 125 Mcg Tab) 125 mcg PO DAILY [facility] Last Admin: 04/01/21 10:00 Dose: 125 mcg Documented by: Diltiazem HCl (Diltiazem 120 Mg Cap.Cd) 120 mg PO DAILY [facility] Donepezil HCl (Donepezil 10 Mg Tab) 5 mg PO BEDTIME [facility] Last Admin: 03/31/21 20:46 Dose: 5 mg Documented by: Promethazine HCl 12.5 mg/ (Sodium Chloride) 50.5 mls @ 100 mls/hr IV Q6H PRN PRN Reason: Nausea/Vomiting Lorazepam (Lorazepam 2 Mg/Ml Sdv) 0.25 mg IVPUSH Q6H PRN PRN Reason: Anxiety Last Admin: 03/29/21 19:57 Dose: 0.25 mg Documented by: Metoprolol Succinate (Metoprolol Succinate 50 Mg Tab.Er) 50 mg PO BID [facility] Last Admin: 04/01/21 10:06 Dose: 50 mg Documented by: Multivitamins/Minerals/Vitamin C (Multivitamin Tab) 1 tab PO DAILY [facility] Last Admin: 04/01/21 10:05 Dose: 1 tab Documented by: Pantoprazole Sodium (Pantoprazole 40 Mg Tab.Cr) 40 mg PO DAILY [facility] Last Admin: 04/01/21 10:06 Dose: 40 mg Documented by: Rivaroxaban (Rivaroxaban 15 Mg Tab) 15 mg PO WITHDINNER [facility] Last Admin: 03/31/21 18:22 Dose: 15 mg Documented by: Rosuvastatin Calcium (Rosuvastatin 10 Mg Tab) 10 mg PO DAILY [facility] Last Admin: 04/01/21 10:06 Dose: 10 mg Documented by: Sertraline HCl (Sertraline 25 Mg Tab) 25 mg PO DAILY [facility] Last Admin: 04/01/21 10:07 Dose: 25 mg Documented by: Sodium Chloride (Sodium Chloride 0.9% 10 Ml Syringe) 10 ml FLUSH ASDIRECTED PRN PRN Reason: Keep Vein Open Last Admin: 03/26/21 11:05 Dose: 10 ml Documented by: Discontinued Medications Digoxin (Digoxin 500 Mcg/2 Ml Amp) 125 mcg IVPUSH ONETIME ONE Stop: 03/26/21 13:11 Last Admin: 03/26/21 15:31 Dose: Not Given Documented by: Digoxin (Digoxin 125 Mcg Tab) 125 mcg PO ONETIME ONE Stop: 03/26/21 17:16 Last Admin: 03/26/21 17:39 Dose: 125 mcg Documented by: Digoxin (Digoxin 125 Mcg Tab) 125 mcg PO ONETIME ONE Stop: 03/28/21 21:38 Last Admin: 03/28/21 22:04 Dose: 125 mcg Documented by: Diltiazem HCl (Diltiazem 50 Mg/10 Ml Sdv) 10 mg IVPUSH ONETIME ONE Stop: 03/26/21 11:40 Last Admin: 03/26/21 12:07 Dose: 10 mg Documented by: Diltiazem HCl (Diltiazem Ir 30 Mg Tab) 15 mg PO Q6HR CLIF Last Admin: 03/27/21 13:37 Dose: Not Given Documented by: Diltiazem HCl (Diltiazem Ir 30 Mg Tab) 30 mg PO Q6HR CLIF Last Admin: 03/28/21 05:12 Dose: 30 mg Documented by: Diltiazem HCl (Diltiazem 180 Mg Cap.Cd) 180 mg PO DAILY [facility] Last Admin: 03/31/21 09:23 Dose: 180 mg Documented by: Donepezil HCl (Donepezil 10 Mg Tab) 5 mg PO BEDTIME [facility] Diltiazem HCl 100 mg/ Sodium (Chloride) 100 mls @ 10 mls/hr IV TITRATE CLIF; Protocol Last Titration: 03/27/21 08:21 Dose: 7.5 mg/hr, 7.5 mls/hr Documented by: Diltiazem HCl 100 mg/ Sodium (Chloride) 100 mls @ 5 mls/hr IV TITRATE CLIF; Protocol Last Titration: 03/29/21 06:57 Dose: 0 mg/hr, 0 mls/hr Documented by: Sodium Chloride (Normal Saline) 250 mls @ 999 mls/hr IV .BOLUS ONE Stop: 03/28/21 21:52 Last Admin: 03/28/21 22:04 Dose: 999 mls/hr Documented by: Sodium Chloride (Normal Saline) 200 mls @ 999 mls/hr IV .BOLUS ONE Stop: 03/28/21 23:51 Last Admin: 03/28/21 23:44 Dose: 999 mls/hr Documented by: Sodium Chloride (Normal Saline) 250 mls @ 999 mls/hr IV ASDIRECTED CLIF Last Admin: 03/29/21 09:40 Dose: 999 mls/hr Documented by: Metoprolol Succinate (Metoprolol Succinate 50 Mg Tab.Er) 50 mg PO DAILY [facility] Last Admin: 03/27/21 08:45 Dose: 50 mg Documented by: Metoprolol Tartrate (Metoprolol Tartrate 25 Mg Tab) 12.5 mg PO Q12H [facility] Stop: 03/27/21 02:31 Last Admin: 03/27/21 02:09 Dose: 12.5 mg Documented by: Midodrine (Midodrine 5 Mg Tab) 2.5 mg PO TIDAC [facility] Last Admin: 03/30/21 17:29 Dose: Not Given Documented by: Morphine Sulfate (Morphine 2 Mg/Ml Syringe) 2 mg IVPUSH Q4H PRN PRN Reason: Pain (severe 7-10) Stop: 03/27/21 13:00 Donepezil 5 Mg (Tablet *Pt Own Med*) 0 each PO BEDTIME [facility] Last Admin: 03/26/21 19:59 Dose: 1 each Documented by: - Exam Quality Assessment: Supplemental Oxygen (2 liters ) General: Alert, Oriented HEENT: Pupils Equal, Pupils Reactive, EOMI, Mucous Membr. Moist/Halfway Neck: Supple Lungs: Decreased Breath Sounds, Crackles, Other Cardiovascular: Irregular Rhythm GI/Abdominal Exam: Normal Bowel Sounds, Soft, Non-Tender, No Organomegaly, No Distention, No Abnormal Bruit, No Mass, Pelvis Stable (Female) Exam: Deferred Back Exam: Normal Inspection, Full Range of Motion Extremities: Normal Inspection, Normal Range of Motion, Non-Tender, No Pedal Edema, Normal Capillary Refill Skin: Warm, Dry, Intact Neurological: No New Focal Deficit Psy/Mental Status: Alert, Normal Affect, Normal Mood - Patient Data Lab Results Last 24 hrs: Laboratory Results - last 24 hr 03/31/21 03/31/21 04/01/21 Range/Units 04:44 04:44 06:05 WBC 7.02 (3.98-10.04) K/mm3 RBC 3.63 L (3.98-5.22) M/mm3 Hgb 10.7 L (11.2-15.7) gm/dl Hct 34.2 (34.1-44.9) % MCV 94.2 (79.4-94.8) fl MCH 29.5 (25.6-32.2) pg MCHC 31.3 L (32.2-35.5) g/dl RDW Std Deviation 46.7 H (36.4-46.3) fL Plt Count 288 (182-369) K/mm3 MPV 10.4 (9.4-12.3) fl Neut % (Auto) 74.0 H (34.0-71.1) % Lymph % (Auto) 9.0 L (19.3-51.7) % Faulk % (Auto) 9.3 (4.7-12.5) % Eos % (Auto) 7.0 H (0.7-5.8) Baso % (Auto) 0.4 (0.1-1.2) % Neut # (Auto) 5.20 (1.56-6.13) K/mm3 Lymph # (Auto) 0.63 L (1.18-3.74) K/mm3 Faulk # (Auto) 0.65 H (0.24-0.36) K/mm3 Eos # (Auto) 0.49 H (0.04-0.36) K/mm3 Baso # (Auto) 0.03 (0.01-0.08) K/mm3 Manual Slide Review Abnormal smear Sodium (136-145) mEq/L Potassium (3.5-5.1) mEq/L Chloride (98-107) mEq/L Carbon Dioxide (21-32) mEq/L Anion Gap (5-15) BUN (7-18) mg/dL Creatinine (0.55-1.02) mg/dL Est Cr Clr Drug Dosing mL/min Estimated GFR (MDRD) (>60) mL/min BUN/Creatinine Ratio (14-18) Glucose (70-99) mg/dL Calcium (8.5-10.1) mg/dL Iron 22 L (50-170) ug/dL TIBC 205 (100-400) ug/dL % Saturation 11 L (20-55) % Transferrin 164 L (202-364) mg/dL Total Bilirubin (0.2-1.0) mg/dL AST (15-37) U/L ALT (14-59) U/L Alkaline Phosphatase (46-116) U/L Total Protein (6.4-8.2) g/dl Albumin (3.4-5.0) g/dl Globulin gm/dL Albumin/Globulin Ratio (1-2) Digoxin 1.2 (0.9-2.0) ng/mL 04/01/21 Range/Units 06:05 WBC (3.98-10.04) K/mm3 RBC (3.98-5.22) M/mm3 Hgb (11.2-15.7) gm/dl Hct (34.1-44.9) % MCV (79.4-94.8) fl MCH (25.6-32.2) pg MCHC (32.2-35.5) g/dl RDW Std Deviation (36.4-46.3) fL Plt Count (182-369) K/mm3 MPV (9.4-12.3) fl Neut % (Auto) (34.0-71.1) % Lymph % (Auto) (19.3-51.7) % Faulk % (Auto) (4.7-12.5) % Eos % (Auto) (0.7-5.8) Baso % (Auto) (0.1-1.2) % Neut # (Auto) (1.56-6.13) K/mm3 Lymph # (Auto) (1.18-3.74) K/mm3 Faulk # (Auto) (0.24-0.36) K/mm3 Eos # (Auto) (0.04-0.36) K/mm3 Baso # (Auto) (0.01-0.08) K/mm3 Manual Slide Review Sodium 139 (136-145) mEq/L Potassium 3.9 (3.5-5.1) mEq/L Chloride 105 (98-107) mEq/L Carbon Dioxide 26 (21-32) mEq/L Anion Gap 11.9 (5-15) BUN 26 H (7-18) mg/dL Creatinine 0.9 (0.55-1.02) mg/dL Est Cr Clr Drug Dosing 33.52 mL/min Estimated GFR (MDRD) 59 (>60) mL/min BUN/Creatinine Ratio 28.9 H (14-18) Glucose 89 (70-99) mg/dL Calcium 8.2 L (8.5-10.1) mg/dL Iron (50-170) ug/dL TIBC (100-400) ug/dL % Saturation (20-55) % Transferrin (202-364) mg/dL Total Bilirubin 0.3 (0.2-1.0) mg/dL AST 15 (15-37) U/L ALT 17 (14-59) U/L Alkaline Phosphatase 76 (46-116) U/L Total Protein 6.0 L (6.4-8.2) g/dl Albumin 2.1 L (3.4-5.0) g/dl Globulin 3.9 gm/dL Albumin/Globulin Ratio 0.5 L (1-2) Digoxin (0.9-2.0) ng/mL Result Diagrams: 04/01/21 06:05 04/01/21 06:05 Ti Results Last 24 hrs: Microbiology 03/28/21 17:30 Gram Stain - Final Pleural Fluid Body Fluid Culture - Preliminary NO GROWTH AFTER 4 DAYS Sepsis Event Note - Evaluation Sepsis Screening Result: No Definite Risk - Focused Exam Vital Signs: Vital Signs Temp Pulse Resp BP Pulse Ox 04/01/21 10:06 68 132/92 H 04/01/21 10:00 68 04/01/21 09:05 36.5 C 68 20 132/92 H 93 L 04/01/21 04:50 36.4 C 77 16 124/81 93 L - Problem List & Annotations (1) Chronic renal insufficiency, stage II (mild) SNOMED Code(s): 105244152 Code(s): N18.2 - CHRONIC KIDNEY DISEASE, STAGE 2 (MILD) Status: Acute Priority: Low Current Visit: Yes Onset Date: ~03/31/21 Annotation/Comment:: monitor creat. and nt bnp. also mild anemia seen . iron levels pending . on anticoagulant and consider decreasing dose sec to age and renal function and anemia (2) Hypotension SNOMED Code(s): 59080139 Code(s): I95.9 - HYPOTENSION, UNSPECIFIED Status: Acute Priority: Medium Current Visit: Yes Onset Date: ~03/31/21 Qualifiers: Hypotension type: orthostatic hypotension Qualified Code(s): I95.1 - Orthostatic hypotension Annotation/Comment:: ? chronic blood loss and chronic renal insuff. doing well check otrtho static . (3) Pleural effusion on right SNOMED Code(s): 16812811 Code(s): J90 - PLEURAL EFFUSION, NOT ELSEWHERE CLASSIFIED Status: Acute Priority: Low Current Visit: Yes Onset Date: ~03/02/21 Annotation/Comment:: cytology pending / lge fluid resp/failure resolved. slight rt pneumothorax residual. mild blunting of cv angles . rt mass now appears to be pneumonia/atel. and clearing. chest ct scan if needed in am (4) Chronic atrial fibrillation with rapid ventricular response SNOMED Code(s): 849333081, 023841886698514 Code(s): I48.20 - CHRONIC ATRIAL FIBRILLATION, UNSPECIFIED Status: Chronic Priority: Low Current Visit: Yes Onset Date: ~03/02/21 Annotation/Comment:: cont current meds and consder lasix if pleural effusion starts again. better on metoprolol daily. nitroglycirin. held sec to hypotension but will be restarted 03/07 at reduced dose. not tolerateing lasix daily but will do every other day (5) Congestive heart failure SNOMED Code(s): 51278477 Code(s): I50.9 - HEART FAILURE, UNSPECIFIED Status: Acute Priority: Medium Current Visit: No Onset Date: ~03/02/21 Qualifiers: Heart failure type: right-sided Heart failure chronicity: acute on chronic Qualified Code(s): I50.813 - Acute on chronic right heart failure Annotation/Comment:: likely pleural effusion cardiogenic and related to pneumonia and mucous plugging/atel. she is doing well with residual rt pneumothorax and on room air. she has improved strength and endurance and afib rate contrlled 70-100. (6) Malnutrition of moderate degree SNOMED Code(s): 685585560 Code(s): E44.0 - MODERATE PROTEIN-CALORIE MALNUTRITION Status: Acute Current Visit: Yes (7) CAD (coronary artery disease) SNOMED Code(s): 52355232 Code(s): I25.10 - ATHSCL HEART DISEASE OF [place] CORONARY ARTERY W/O ANG PCTRS Status: Acute Priority: Low Current Visit: No Onset Date: ~03/01/21 Qualifiers: Coronary Disease-Associated Artery/Lesion type: due to calcified coronary lesion Qualified Code(s): I25.10 - Atherosclerotic heart disease of [place] coronary artery without angina pectoris; I25.84 - Coronary atherosclerosis due to calcified coronary lesion Annotation/Comment:: Mild elevations of troponin without chest pain probably related to Afib - Problem List Review Problem List Initiated/Reviewed/Updated: Yes - My Orders Last 24 Hours: My Active Orders 03/31/21 15:45 Communication Order [RC] 03/31/21 15:49 RT Incentive Spirometry [RC] ASDIRECTED 04/01/21 08:00 CXR [Chest 1V Frontal] [CR] Routine 04/01/21 11:16 FE, TIBC, TRANSFERRIN, FE SAT [CHEM] Routine 04/01/21 11:17 PRO B-TYPE NATRIUR PEPT,BNPPRO [CHEM] Routine 04/02/21 09:00 Diltiazem [Cardizem CD] 120 mg PO DAILY - Assessment Assessment:: 04/01/21 afebrile /heart rate high until cardizem given but b.p low and am dose beta constantine held. o2 sats low 90s but persistant rt pleural eff. with pers. rt pneumothorax (mod). patient feels weak and ordoñez with minimal activity. appetite fair. no chest pain ///mild orthopnea lungs decreased 1/2 posterior rt field / a-e change/ inbcentive hoda 250 best effort. sats 93-97 % 2 liters n.c. cor irreg 65-85 at rest with am meds / b.p stable in bed orthostatics pending. abd benign eating fair to poor. ms benign. skin benign. neuro clear and oriented to 2/3 lab iron levels and n.t bnp pending. chest xray little change but reaccumilation of fluid/ pneumo same . lytes good. assess:plan 1 chf stable but cardizem changed to every other day . dig level 1.2 and concern for toxicity consider starting very low dose lasix but check orhtostatic b.p. will need rehab and calorie support .will need supplimemntal o2 to help pneumothorax resolve likely 2-8 weeks. 2) pneumothorax moderate and at risk to have complications. on 3)pleural eff is exudative by protien and no signs of bacterial infection. ? lasix x 2-4 weeks 4) afib/rvr : stable now but avoiding toxicity will require some monitoring . currently on dig / cardizedm and beta constantine . 5)anemia iron studies pending. 6) gen weakness and low protien state needs increased claories and high protien foods / palitability issues. 7) rehab/ requires snf placement for now family aware . boh - Plan Plan:: Patient is an 89-year-old female with a history of CHF, atrial fibrillation on Xarelto, and pleural effusion who was brought to the ER due to worsening shortness of breath and rapid heart rate. Assessment: Persistent atrial fibrillation with RVR -Recurrent atrial fibrillation with RVR, for which she was hospitalized 3 weeks ago -Has been on Xarelto -Home medications include metoprolol succinate 50 mg daily CHF exacerbation, mild systolic dysfunction -Etiology unknown -Echocardiogram on March 06, 2021 - of 50 to 60%; normal right ventricular systolic function; mild to moderate MR. -BNP 1973 on admission. It was 1687 on 03/04/2021 -Potassium 3.9 and mag 2.2 on admission Recurrent pleural effusion, right Post thoracentesis pneumothorax, right -Etiology could be due to CHF but considering one side large pleural effusion, other reasons cannot be excluded -Chest x-ray showed Moderately large right-sided pleural effusion which is increased from prior study. Small left-sided pleural effusion with mild left basilar atelectasis -Thoracentesis was performed about 3 weeks ago which led to pneumothorax -CT chest on 03/26 -fairly large right-sided pleural effusion with what appears to be loculated fluid anteriorly; smaller left-sided pleural effusion; areas of atelectasis which are small on the left side and more prominent on the right side -Status post thoracentesis on March [address] Laurent -Pneumothorax - CXR yesterday- showed Pneumothorax 2.8 cm (formal report pending) -Repeated chest x-ray today -increasing right-sided pleural effusion. Moderate to right-sided pneumothorax -She is now on 1 L by nasal cannula DANA -creatinine 0.9 on 03/04/2021 -Most likely due to prerenal cause and use of Lasix Plan: 1. Will downgrade her to [facility]. 2. Continue diltiazem drip as needed to keep heart rate less than 100. Increased metoprolol succinate to 50 mg BID. Increased diltiazem xr po 180mg daily digoxin 0.125mg daily, will check digoxin level in 2 days. Repeat electrolytes daily in the morning Xarelto today (as per Dr. Laurent) 3. Intake and output. Daily weight. Fluid restriction to 2 L and salt restric tion to 2 g a day 4. General surgeon Dr. Laurent is on board. Really appreciate it Pt developed pneumothorax. Discussed with Dr. Laurent who suggested to closely monitor 5. Creatinine went down to 1.0 today. Avoid nephrotoxic meds. Repeat renal function in morning 6. DVT prophylaxis: SCD and Xarelto. 7. CODE STATUS: DNR/DNI (from her chart) Deposition: SNF PT OT 1 or 2 more days Length of stay greater then 96 hours due to slow response to treatment and newly developed pneumothorax.03/31/21 afebrile/vss but b.p lower and beta constantine held this am . feels good on 1 liter. rt pneumothorax on last chest xray unchanged. treating conservatively . small residual rt pleural effusion and repeat chest xray in am . eating well / up to chair/ voiding well . denies rodoñez with activity lungs crackles and decreased rt >>> left. mod. jvd 6 cm.sitting cor irr/irr 70scurrently syst m 2 6 lusb abd benign m.s. benign. skin mild edema assess. 1) rt pneumothorax mod. treated with o2 and stable ? slowly resolving . trying to avoid chest tube. 2) rt pleural effusion stable on lasix no arb as treating afib with beta constantine. 3)hypotension no midodrine given but cardizem decreased to every other day sec. to low b.p nad fragility 4)anemia on noag. monitor and start iron a nd follow up, also renal insuff related to age . 5)renal insuff; monitor dig levels carefully and monitor for orthostasis . 6)heart failure monitor nt bnp values and also suspect mild a.s . boh04/01/21 afebrile /heart rate high until cardizem given but b.p low and am dose beta constantine held. o2 sats low 90s but persistant rt pleural eff. with pers. rt pneumothorax (mod). patient feels weak and ordoñez with minimal activity. appetite fair. no chest pain ///mild orthopnea lungs decreased 1/2 posterior rt field / a-e change/ inbcentive hoda 250 best effort. sats 93-97 % 2 liters n.c. cor irreg 65-85 at rest with am meds / b.p stable in bed orthostatics pending. abd benign eating fair to poor. ms benign. skin benign. neuro clear and oriented to 2/3 lab iron levels and n.t bnp pending. chest xray little change but reaccumilation of fluid/ pneumo same . lytes good. assess:plan 1 chf stable but cardizem changed to every other day . dig level 1.2 and concern for toxicity consider starting very low dose lasix but check orhtostatic b.p. will need rehab and calorie support .will need supplimemntal o2 to help pneumothorax resolve likely 2-8 weeks. 2) pneumothorax moderate and at risk to have complications. on 3)pleural eff is exudative by protien and no signs of bacterial infection. ? lasix x 2-4 weeks 4) afib/rvr : stable now but avoiding toxicity will require some monitoring . currently on dig / cardizedm and beta constantine . 5)anemia iron studies pending. 6) gen weakness and low protien state needs increased claories and high protien foods / palitability issues. 7) rehab/ requires snf placement for now family aware . 04/01/21 afebrile /heart rate high until cardizem given but b.p low and am dose beta constantine held. o2 sats low 90s but persistant rt pleural eff. with pers. rt pneumothorax (mod). patient feels weak and ordoñez with minimal activity. appetite fair. no chest pain ///mild orthopnea lungs decreased 1/2 posterior rt field / a-e change/ inbcentive hoda 250 best effort. sats 93-97 % 2 liters n.c. cor irreg 65-85 at rest with am meds / b.p stable in bed orthostatics pending. abd benign eating fair to poor. ms benign. skin benign. neuro clear and oriented to 2/3 lab iron levels and n.t bnp pending. chest xray little change but reaccumilation of fluid/ pneumo same . lytes good. assess:plan 1 chf stable but cardizem changed to every other day . dig level 1.2 and concern for toxicity consider starting very low dose lasix but check orhtostatic b.p. will need rehab and calorie support .will need supplimemntal o2 to help pneumothorax resolve likely 2-8 weeks. 2) pneumothorax moderate and at risk to have complications. on 3)pleural eff is exudative by protein and no signs of bacterial infection. ? lasix x 2-4 weeks 4) afib/rvr : stable now but avoiding toxicity will require some monitoring . currently on dig / cardizedm and beta constantine . 5)anemia iron studies pending. 6) gen weakness and low protein state needs increased claories and high protien foods / palitability issues. 7) rehab/ requires snf placement for now family aware .
[2021-04-01] MEDS: Furosemide 20 MG Tab PO SCH (13:23)
[2021-04-01] MEDS: Losartan 25 MG Tab PO SCH (13:23)
[2021-04-01] MEDS: Rivaroxaban 15 MG Tab PO SCH (18:22)
[2021-04-01] MEDS: Donepezil 10 MG Tab PO SCH (20:35)
[2021-04-02] MEDS ORDERED: Diltiazem 120 MG Cap.CD PO SCH (09:00)
[2021-04-02] MEDS: Rosuvastatin 10 MG Tab PO SCH (09:05)
[2021-04-02] MEDS: Pantoprazole 40 MG Tab.CR PO SCH (09:05)
[2021-04-02] MEDS: Cyanocobalamin (Vitamin B12) 1,000 MCG Tab PO SCH (09:05)
[2021-04-02] MEDS: Multivitamin Tab PO SCH (09:06)
[2021-04-02] MEDS: Furosemide 20 MG Tab PO SCH (09:07)
[2021-04-02] MEDS: Losartan 25 MG Tab PO SCH (09:07)
[2021-04-02] MEDS: Digoxin 125 MCG Tab PO SCH (09:07)
[2021-04-02] MEDS: Sertraline 25 MG Tab PO SCH (09:07)
[2021-04-02] MEDS: Metoprolol Succinate 50 MG Tab.ER PO SCH (09:07)
--- NOTE | 2021-04-02 10:14 | CR ---
Chest: Portable view of the chest was obtained. Comparison: Prior chest x-ray of 03/29/21. Findings: Right-sided pleural effusion is seen. Right-sided pneumothorax is noted which has diminished from prior exam. Stable left-sided pleural effusion is noted. Continuing density is noted within the right upper and right lower chest as well as left lower chest which appears to be fairly stable. Heart size and mediastinum are unchanged. Stable metallic densities are noted over the left chest. Impression: 1. Moderate right-sided pneumothorax which has decreased in size from previous exam. 2. Right-sided pleural effusion is noted as well as smaller left-sided pleural effusion. 3. Areas of parenchymal density are noted and believed to be without definite change. Diagnostic code #3 I agree with preliminary report from [facility], finalized on 04/01/21, 9:47 AM CDT, code 1
--- NOTE | 2021-04-02 10:27 | PCM.PN ---
- General Info Date of Service: 04/02/21 Subjective Update: Maribeth today's - Patient Data Vitals - Most Recent: Last Vital Signs Temp 98.2 F 04/02/21 05:12 Pulse 89 04/02/21 09:07 Resp 14 04/02/21 05:12 BP 115/67 04/02/21 09:07 Pulse Ox 94 L 04/02/21 09:40 Weight - Most Recent: 128 lb 14.4 oz I&O - Last 24 Hours: Intake & Output 04/01/21 04/02/21 04/02/21 22:59 06:59 14:59 Intake Total 400 300 Output Total 950 500 Balance -550 -200 Lab Results Last 24 Hours: Laboratory Results - last 24 hr 04/01/21 04/01/21 Range/Units 11:28 11:28 Iron 22 L (50-170) ug/dL TIBC 229 (100-400) ug/dL % Saturation 10 L (20-55) % Transferrin 183 L (202-364) mg/dL NT-Pro-B Natriuret Pep 1540 H (0-450) pg/mL Ti Results Last 24 Hours: Microbiology 03/28/21 17:30 Gram Stain - Final Pleural Fluid Body Fluid Culture - Preliminary NO GROWTH AFTER 4 DAYS Med Orders - Current: Current Medications Acetaminophen (Acetaminophen 325 Mg Tab) 650 mg PO Q6H PRN PRN Reason: Pain (Mild 1-3)/fever Last Admin: 03/27/21 23:59 Dose: 650 mg Documented by: Hydrocodone Bitart/Acetaminophen (Acetaminophen/Hydrocodone 325-5 Mg Tab) 1 tab PO Q6H PRN PRN Reason: Pain (moderate 4-6) Albuterol/Ipratropium (Albuterol/Ipratropium 3.0-0.5 Mg/3 Ml Neb Soln) 3 ml NEB Q4H PRN PRN Reason: Shortness Of Breath/wheezing Last Admin: 03/28/21 15:06 Dose: 3 ml Documented by: Cyanocobalamin (Cyanocobalamin (Vitamin B12) 1,000 Mcg Tab) 1,000 mcg PO DAILY [facility] Last Admin: 04/02/21 09:05 Dose: 1,000 mcg Documented by: Digoxin (Digoxin 125 Mcg Tab) 125 mcg PO DAILY [facility] Last Admin: 04/02/21 09:07 Dose: 125 mcg Documented by: Diltiazem HCl (Diltiazem 120 Mg Cap.Cd) 120 mg PO DAILY [facility] Last Admin: 04/02/21 09:06 Dose: 120 mg Documented by: Donepezil HCl (Donepezil 10 Mg Tab) 5 mg PO BEDTIME [facility] Last Admin: 04/01/21 20:35 Dose: 5 mg Documented by: Furosemide (Furosemide 20 Mg Tab) 20 mg PO DAILY [facility] Last Admin: 04/02/21 09:07 Dose: 20 mg Documented by: Promethazine HCl 12.5 mg/ (Sodium Chloride) 50.5 mls @ 100 mls/hr IV Q6H PRN PRN Reason: Nausea/Vomiting Lorazepam (Lorazepam 2 Mg/Ml Sdv) 0.25 mg IVPUSH Q6H PRN PRN Reason: Anxiety Last Admin: 03/29/21 19:57 Dose: 0.25 mg Documented by: Losartan Potassium (Losartan 25 Mg Tab) 12.5 mg PO DAILY [facility] Last Admin: 04/02/21 09:07 Dose: 12.5 mg Documented by: Metoprolol Succinate (Metoprolol Succinate 50 Mg Tab.Er) 50 mg PO BID [facility] Last Admin: 04/02/21 09:07 Dose: 50 mg Documented by: Multivitamins/Minerals/Vitamin C (Multivitamin Tab) 1 tab PO DAILY [facility] Last Admin: 04/02/21 09:06 Dose: 1 tab Documented by: Pantoprazole Sodium (Pantoprazole 40 Mg Tab.Cr) 40 mg PO DAILY [facility] Last Admin: 04/02/21 09:05 Dose: 40 mg Documented by: Rivaroxaban (Rivaroxaban 15 Mg Tab) 15 mg PO WITHDINNER [facility] Last Admin: 04/01/21 18:22 Dose: 15 mg Documented by: Rosuvastatin Calcium (Rosuvastatin 10 Mg Tab) 10 mg PO DAILY [facility] Last Admin: 04/02/21 09:05 Dose: 10 mg Documented by: Sertraline HCl (Sertraline 25 Mg Tab) 25 mg PO DAILY [facility] Last Admin: 04/02/21 09:07 Dose: 25 mg Documented by: Sodium Chloride (Sodium Chloride 0.9% 10 Ml Syringe) 10 ml FLUSH ASDIRECTED PRN PRN Reason: Keep Vein Open Last Admin: 03/26/21 11:05 Dose: 10 ml Documented by: Discontinued Medications Aspirin (Aspirin 81 Mg Tab.Ec) 81 mg PO DAILY CLIF Last Admin: 04/01/21 10:07 Dose: 81 mg Documented by: Digoxin (Digoxin 500 Mcg/2 Ml Amp) 125 mcg IVPUSH ONETIME ONE Stop: 03/26/21 13:11 Last Admin: 03/26/21 15:31 Dose: Not Given Documented by: Digoxin (Digoxin 125 Mcg Tab) 125 mcg PO ONETIME ONE Stop: 03/26/21 17:16 Last Admin: 03/26/21 17:39 Dose: 125 mcg Documented by: Digoxin (Digoxin 125 Mcg Tab) 125 mcg PO ONETIME ONE Stop: 03/28/21 21:38 Last Admin: 03/28/21 22:04 Dose: 125 mcg Documented by: Diltiazem HCl (Diltiazem 50 Mg/10 Ml Sdv) 10 mg IVPUSH ONETIME ONE Stop: 03/26/21 11:40 Last Admin: 03/26/21 12:07 Dose: 10 mg Documented by: Diltiazem HCl (Diltiazem Ir 30 Mg Tab) 15 mg PO Q6HR [facility] Last Admin: 03/27/21 13:37 Dose: Not Given Documented by: Diltiazem HCl (Diltiazem Ir 30 Mg Tab) 30 mg PO Q6HR CLIF Last Admin: 03/28/21 05:12 Dose: 30 mg Documented by: Diltiazem HCl (Diltiazem 180 Mg Cap.Cd) 180 mg PO DAILY [facility] Last Admin: 03/31/21 09:23 Dose: 180 mg Documented by: Donepezil HCl (Donepezil 10 Mg Tab) 5 mg PO BEDTIME CLIF Diltiazem HCl 100 mg/ Sodium (Chloride) 100 mls @ 10 mls/hr IV TITRATE CLIF; Protocol Last Titration: 03/27/21 08:21 Dose: 7.5 mg/hr, 7.5 mls/hr Documented by: Diltiazem HCl 100 mg/ Sodium (Chloride) 100 mls @ 5 mls/hr IV TITRATE CLIF; Protocol Last Titration: 03/29/21 06:57 Dose: 0 mg/hr, 0 mls/hr Documented by: Sodium Chloride (Normal Saline) 250 mls @ 999 mls/hr IV .BOLUS ONE Stop: 03/28/21 21:52 Last Admin: 03/28/21 22:04 Dose: 999 mls/hr Documented by: Sodium Chloride (Normal Saline) 200 mls @ 999 mls/hr IV .BOLUS ONE Stop: 03/28/21 23:51 Last Admin: 03/28/21 23:44 Dose: 999 mls/hr Documented by: Sodium Chloride (Normal Saline) 250 mls @ 999 mls/hr IV ASDIRECTED [facility] Last Admin: 03/29/21 09:40 Dose: 999 mls/hr Documented by: Metoprolol Succinate (Metoprolol Succinate 50 Mg Tab.Er) 50 mg PO DAILY [facility] Last Admin: 03/27/21 08:45 Dose: 50 mg Documented by: Metoprolol Tartrate (Metoprolol Tartrate 25 Mg Tab) 12.5 mg PO Q12H [facility] Stop: 03/27/21 02:31 Last Admin: 03/27/21 02:09 Dose: 12.5 mg Documented by: Midodrine (Midodrine 5 Mg Tab) 2.5 mg PO TIDAC [facility] Last Admin: 03/30/21 17:29 Dose: Not Given Documented by: Morphine Sulfate (Morphine 2 Mg/Ml Syringe) 2 mg IVPUSH Q4H PRN PRN Reason: Pain (severe 7-10) Stop: 03/27/21 13:00 Donepezil 5 Mg (Tablet *Pt Own Med*) 0 each PO BEDTIME [facility] Last Admin: 03/26/21 19:59 Dose: 1 each Documented by: - Exam Physical Findings Comments:: Patient awake alert no distress vitals - Patient Data Lab Results Last 24 hrs: Laboratory Results - last 24 hr 04/01/21 04/01/21 Range/Units 11:28 11:28 Iron 22 L (50-170) ug/dL TIBC 229 (100-400) ug/dL % Saturation 10 L (20-55) % Transferrin 183 L (202-364) mg/dL NT-Pro-B Natriuret Pep 1540 H (0-450) pg/mL Result Diagrams: 04/01/21 06:05 04/01/21 06:05 Ti Results Last 24 hrs: Microbiology 03/28/21 17:30 Gram Stain - Final Pleural Fluid Body Fluid Culture - Preliminary NO GROWTH AFTER 4 DAYS Sepsis Event Note - Evaluation Sepsis Screening Result: No Definite Risk - Focused Exam Vital Signs: Vital Signs Temp Pulse Resp BP Pulse Ox Pulse Ox 05/17/21 09:40 94 L 04/02/21 09:07 89 115/67 04/02/21 09:06 89 115/67 04/02/21 05:12 98.2 F 82 14 131/80 96 - Problem List & Annotations (1) Chronic renal insufficiency, stage II (mild) SNOMED Code(s): 642789579 Code(s): N18.2 - CHRONIC KIDNEY DISEASE, STAGE 2 (MILD) Status: Acute Priority: Low Current Visit: Yes Onset Date: ~03/31/21 Annotation/Comment:: monitor creat. and nt bnp. also mild anemia seen . iron levels pending . on anticoagulant and consider decreasing dose sec to age and renal function and anemia (2) Anemia SNOMED Code(s): 364131976 Code(s): D64.9 - ANEMIA, UNSPECIFIED Status: Acute Current Visit: Yes Qualifiers: Anemia type: iron deficiency Iron deficiency anemia type: unspecified iron deficiency Qualified Code(s): D50.9 - Iron deficiency anemia, unspecified Annotation/Comment:: likely nutritional and chronic loss. - Assessment Assessment:: 04/01/21 afebrile /heart rate high until cardizem given but b.p low and am dose beta constantine held. o2 sats low 90s but persistant rt pleural eff. with pers. rt pneumothorax (mod). patient feels weak and ordoñez with minimal activity. appetite fair. no chest pain ///mild orthopnea lungs decreased 1/2 posterior rt field / a-e change/ inbcentive hoda 250 best effort. sats 93-97 % 2 liters n.c. cor irreg 65-85 at rest with am meds / b.p stable in bed orthostatics pending. abd benign eating fair to poor. ms benign. skin benign. neuro clear and oriented to 2/3 lab iron levels and n.t bnp pending. chest xray little change but reaccumilation of fluid/ pneumo same . lytes good. assess:plan 1 chf stable but cardizem changed to every other day . dig level 1.2 and concern for toxicity consider starting very low dose lasix but check orhtostatic b.p. will need rehab and calorie support .will need supplimemntal o2 to help pneumothorax resolve likely 2-8 weeks. 2) pneumothorax moderate and at risk to have complications. on 02 3)pleural eff is exudative by protien and no signs of bacterial infection. ? lasix x 2-4 weeks 4) afib/rvr : stable now but avoiding toxicity will require some monitoring . currently on dig / cardizedm and beta constantine . 5)anemia iron studies pending. 6) gen weakness and low protien state needs increased claories and high protien foods / palitability issues. 7) rehab/ requires snf placement for now family aware . boh - Plan Plan:: Patient is an 89-year-old female with a history of CHF, atrial fibrillation on Xarelto, and pleural effusion who was brought to the ER due to worsening shortness of breath and rapid heart rate. Assessment: Persistent atrial fibrillation with RVR -Recurrent atrial fibrillation with RVR, for which she was hospitalized 3 weeks ago -Has been on Xarelto -Home medications include metoprolol succinate 50 mg daily CHF exacerbation, mild systolic dysfunction -Etiology unknown -Echocardiogram on March 06, 2021 - of 50 to 60%; normal right ventricular systolic function; mild to moderate MR. -BNP 1973 on admission. It was 1687 on 03/04/2021 -Potassium 3.9 and mag 2.2 on admission Recurrent pleural effusion, right Post thoracentesis pneumothorax, right -Etiology could be due to CHF but considering one side large pleural effusion, other reasons cannot be excluded -Chest x-ray showed Moderately large right-sided pleural effusion which is increased from prior study. Small left-sided pleural effusion with mild left basilar atelectasis -Thoracentesis was performed about 3 weeks ago which led to pneumothorax -CT chest on 03/26 -fairly large right-sided pleural effusion with what appears to be loculated fluid anteriorly; smaller left-sided pleural effusion; areas of atelectasis which are small on the left side and more prominent on the right side -Status post thoracentesis on March [address] Laurent -Pneumothorax - CXR yesterday- showed Pneumothorax 2.8 cm (formal report pending) -Repeated chest x-ray today -increasing right-sided pleural effusion. Moderate to right-sided pneumothorax -She is now on 1 L by nasal cannula DANA -creatinine 0.9 on 03/04/2021 -Most likely due to prerenal cause and use of Lasix Plan: 1. Will downgrade her to tele. 2. Continue diltiazem drip as needed to keep heart rate less than 100. Increased metoprolol succinate to 50 mg BID. Increased diltiazem xr po 180mg daily digoxin 0.125mg daily, will check digoxin level in 2 days. Repeat electrolytes daily in the morning Xarelto today (as per Dr. Laurent) 3. Intake and output. Daily weight. Fluid restriction to 2 L and salt restriction to 2 g a day 4. General surgeon Dr. Laurent is on board. Really appreciate it Pt developed pneumothorax. Discussed with Dr. Laurent who suggested to closely monitor 5. Creatinine went down to 1.0 today. Avoid nephrotoxic meds. Repeat renal function in morning 6. DVT prophylaxis: SCD and Xarelto. 7. CODE STATUS: DNR/DNI (from her chart) Deposition: SNF PT OT 1 or 2 more days Length of stay greater then 96 hours due to slow response to treatment and newly developed pneumothorax./03/31/21 afebrile/vss but b.p lower and beta constantine held this am . feels good on 1 liter. rt pneumothorax on last chest xray unchanged. treating conservatively . small residual rt pleural effusion and repeat chest xray in am . eating well / up to chair/ voiding well . denies ordoñez with activity lungs crackles and decreased rt >>> left. mod. jvd 6 cm.sitting cor irr/irr 70scurrently syst m 2 6 lusb abd benign m.s. benign. skin mild edema assess. 1) rt pneumothorax mod. treated with o2 and stable ? slowly resolving . trying to avoid chest tube. 2) rt pleural effusion stable on lasix no arb as treating afib with beta constantine. 3)hypotension no midodrine given but cardizem decreased to every other day sec. to low b.p nad fragility 4)anemia on noag. monitor and start iron a nd follow up, also renal insuff related to age . 5)renal insuff; monitor dig levels carefully and monitor for orthostasis . 6)heart failure monitor nt bnp values and also suspect mild a.s . boh04/01/21 afebrile /heart rate high until cardizem given but b.p low and am dose beta constantine held. o2 sats low 90s but persistant rt pleural eff. with pers. rt pneumothorax (mod). patient feels weak and ordoñez with minimal activity. appetite fair. no chest pain ///mild orthopnea lungs decreased 1/2 posterior rt field / a-e change/ inbcentive hoda 250 best effort. sats 93-97 % 2 liters n.c. cor irreg 65-85 at rest with am meds / b.p stable in bed orthostatics pending. abd benign eating fair to poor. ms benign. skin benign. neuro clear and oriented to 2/3 lab iron levels and n.t bnp pending. chest xray little change but reaccumilation of fluid/ pneumo same . lytes good. assess:plan 1 chf stable but cardizem changed to every other day . dig level 1.2 and concern for toxicity consider starting very low dose lasix but check orhtostatic b.p. will need rehab and calorie support .will need supplimemntal o2 to help pneumothorax resolve likely 2-8 weeks. 2) pneumothorax moderate and at risk to have complications. on 3)pleural eff is exudative by protien and no signs of bacterial infection. ? lasix x 2-4 weeks 4) afib/rvr : stable now but avoiding toxicity will require some monitoring . currently on dig / cardizedm and beta constantine . 5)anemia iron studies pending. 6) gen weakness and low protien state needs increased claories and high protien foods / palitability issues. 7) rehab/ requires snf placement for now family aware . 04/01/21 afebrile /heart rate high until cardizem given but b.p low and am dose beta constantine held. o2 sats low 90s but persistant rt pleural eff. with pers. rt pneumo thorax (mod). patient feels weak and ordoñez with minimal activity. appetite fair. no chest pain ///mild orthopnea lungs decreased 1/2 posterior rt field / a-e change/ inbcentive hoda 250 best effort. sats 93-97 % 2 liters n.c. cor irreg 65-85 at rest with am meds / b.p stable in bed orthostatics pending. abd benign eating fair to poor. ms benign. skin benign. neuro clear and oriented to 2/3 lab iron levels and n.t bnp pending. chest xray little change but reaccumilation of fluid/ pneumo same . lytes good. assess:plan 1 chf stable but cardizem changed to every other day . dig level 1.2 and concern for toxicity consider starting very low dose lasix but check orhtostatic b.p. will need rehab and calorie support .will need supplimemntal o2 to help pneumothorax resolve likely 2-8 weeks. 2) pneumothorax moderate and at risk to have complications. on 02 3)pleural eff is exudative by protein and no signs of bacterial i nfection. ? lasix x 2-4 weeks 4) afib/rvr : stable now but avoiding toxicity will require some monitoring . currently on dig / cardizedm and beta constantine . 5)anemia iron studies pending. 6) gen weakness and low protein state needs increased claories and high protien foods / palitability issues. 7) rehab/ requires snf placement for now family aware .
--- NOTE | 2021-04-02 12:36 | PCM.DCSUM1 ---
Discharge Summary - Hospital Course Free Text/Narrative:: Discharge summary on Giovana Bermudez Date of discharge 04/02/2021 Discharge diagnosis A. fib with RVR Chronic diastolic heart failure Chronic right pleural effusion Depression Discharge medications See MAR Short history/Hospital course Mrs. Bermudez is an 89-year-old female with history of chronic diastolic heart failure, A. fib and a chronic moderate right Pleural Effusion who was admitted to the hospital with an acute episode of dyspnea thought to be due to A. fib with RVR with acute on chronic diastolic heart failure. She was managed with IV lasix and rate control. She initially was taking Toprol XL 50mg at home along with Cardizem for A. fib and hypertension management. Digoxin was added to her medication regimen and this enabled her heart rate to get under 100bpm. She was seen in consultation by general surgery regarding the right pleural effusion and a pneumothorax from a recent thoracentesis. Recommendations were to only tap the effusion if it caused symptoms. Prior to her discharge her room air sats were > 90% on room air. 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 Pt was discharged home in stable condition. She is to follow-up with her PCP in 1 to 2 weeks. Total discharge time was 45 minutes thank you Diagnosis: Stroke: No - Discharge Data Discharge Date: 04/02/21 Discharge Disposition: DC/Tfer to [facility] 03 Condition: Fair - Referral to Home Health Primary Care Physician: Franck Cabral MD - Discharge Diagnosis/Problem(s) (1) Chronic atrial fibrillation with rapid ventricular response SNOMED Code(s): 394130313, 537101199869172 ICD Code: I48.20 - CHRONIC ATRIAL FIBRILLATION, UNSPECIFIED Status: Chronic Priority: Low Current Visit: Yes Onset Date: ~03/02/21 Problem Details: cont current meds and consder lasix if pleural effusion starts again. better on metoprolol daily. nitroglycirin. held sec to hypotension but will be restarted 03/07 at reduced dose. not tolerateing lasix daily but will do every other day (2) Congestive heart failure SNOMED Code(s): 85522221 ICD Code: I50.9 - HEART FAILURE, UNSPECIFIED Status: Acute Priority: Medium Current Visit: No Onset Date: ~03/02/21 Problem Details: likely pleural effusion cardiogenic and related to pneumonia and mucous plugging/atel. she is doing well with residual rt pneumothorax and on room air. she has improved strength and endurance and afib rate contrlled 70-100. Qualifiers: Heart failure type: diastolic Heart failure chronicity: chronic Qualified Code(s): I50.32 - Chronic diastolic (congestive) heart failure (3) Pleural effusion on right SNOMED Code(s): 21837482 ICD Code: J90 - PLEURAL EFFUSION, NOT ELSEWHERE CLASSIFIED Status: Chronic Priority: Medium Current Visit: Yes Onset Date: ~03/02/21 Problem Details: cytology pending / lge fluid resp/failure resolved. slight rt pneumothorax residual. mild blunting of cv angles . rt mass now appears to be pneumonia/atel. and clearing. chest ct scan if needed in am (4) Depressed SNOMED Code(s): 31601953 ICD Code: F32.9 - MAJOR DEPRESSIVE DISORDER, SINGLE EPISODE, UNSPECIFIED Status: Acute Current Visit: Yes Qualifiers: Depression Type: unspecified Qualified Code(s): F32.9 - Major depressive disorder, single episode, unspecified (5) DANA (acute kidney injury) SNOMED Code(s): 29165842, 60842221 ICD Code: N17.9 - ACUTE KIDNEY FAILURE, UNSPECIFIED Status: Acute Current Visit: Yes Problem Details: likely pre renal. (6) DNR (do not resuscitate) Status: Acute Current Visit: Yes (7) DVT prophylaxis SNOMED Code(s): 574091825, 802269009 ICD Code: Z29.9 - ENCOUNTER FOR PROPHYLACTIC MEASURES, UNSPECIFIED Status: Acute Current Visit: Yes Problem Details: Pt is on Xarelto - Patient Summary/Data Consults: Consultations 03/26/21 12:58 OT Evaluation and Treatment [CONS] Routine PT Evaluation and Treatment [CONS] Routine 03/26/21 15:40 Consult to Physician [CONS] Routine - Patient Instructions Diet: Regular Diet as Tolerated Activity: As Tolerated (with assistance. ) Driving: Do Not Drive Showering/Bathing: May Shower Notify Provider of: Fever - Discharge Plan Prescriptions/Med Rec: Albuterol Sulfate [Albuterol Sulfate HFA] 8.5 gm INH Q6H PRN 30 Days #30 inhaler PRN Reason: Dyspnea Albuterol/Ipratropium [Combivent Respimat] 4 gm IH QID #120 aer.w.adap Digoxin 125 mcg PO Q2D #60 tablet Metoprolol Succinate [Toprol XL] 25 mg PO DAILY #30 tab.er Home Medications: Home Meds Aspirin [Halfprin] 81 mg PO DAILY 03/01/21 [History] Multivitamin [Multivitamins] 1 tab PO BID 03/01/21 [History] Omeprazole Magnesium [Prilosec Otc] 20 mg PO DAILY 03/01/21 [History] Rosuvastatin [Crestor] 10 mg PO DAILY 03/01/21 [History] Sertraline [Zoloft] 25 mg PO DAILY 03/01/21 [History] Cyanocobalamin (Vitamin B-12) [Vitamin B-12] 1,000 mcg PO DAILY #30 03/06/21 [Rx] Donepezil [Aricept] 5 mg PO DAILY #30 03/06/21 [Rx] Rivaroxaban [Xarelto] 15 mg PO 1700 #30 03/06/21 [Rx] Potassium Chloride 20 meq PO DAILY 03/26/21 [History] Albuterol Sulfate [Albuterol Sulfate HFA] 8.5 gm INH Q6H PRN 30 Days #30 inhaler 04/02/21 [Rx] Albuterol/Ipratropium [Combivent Respimat] 4 gm IH QID #120 aer.w.adap 04/02/21 [Rx] Digoxin 125 mcg PO Q2D #60 tablet 04/02/21 [Rx] Diltiazem [Cardizem CD] 120 mg PO DAILY cap.cd 04/02/21 [Rx] Furosemide [Lasix] 20 mg PO DAILY PRN #30 04/02/21 [Rx] Metoprolol Succinate [Toprol XL] 25 mg PO DAILY #30 tab.er 04/02/21 [Rx] Patient Handouts: Heart Failure Action Plan, Pleural Effusion, Atrial Fibrillation, [id number] Referrals: Franck Cabral MD [Primary Care Provider] - 04/09/21 10:15 am (check in at 10:00) - Discharge Summary/Plan Comment DC Time >30 min.: Yes - Patient Data Vitals - Most Recent: Last Vital Signs Temp 98.2 F 04/02/21 05:12 Pulse 89 04/02/21 09:07 Resp 14 04/02/21 05:12 BP 115/67 04/02/21 09:07 Pulse Ox 94 L 04/02/21 09:40 Weight - Most Recent: 128 lb 14.4 oz I&O - Last 24 hours: Intake & Output 04/01/21 04/02/21 04/02/21 22:59 06:59 14:59 Intake Total 400 300 100 Output Total 950 500 Balance -550 -200 100 YESI Results - Last 24 hrs: Microbiology 03/28/21 17:30 Gram Stain - Final Pleural Fluid Body Fluid Culture - Preliminary NO GROWTH AFTER 4 DAYS Med Orders - Current: Current Medications Acetaminophen (Acetaminophen 325 Mg Tab) 650 mg PO Q6H PRN PRN Reason: Pain (Mild 1-3)/fever Last Admin: 03/27/21 23:59 Dose: 650 mg Documented by: Hydrocodone Bitart/Acetaminophen (Acetaminophen/Hydrocodone 325-5 Mg Tab) 1 tab PO Q6H PRN PRN Reason: Pain (moderate 4-6) Albuterol/Ipratropium (Albuterol/Ipratropium 3.0-0.5 Mg/3 Ml Neb Soln) 3 ml NEB Q4H PRN PRN Reason: Shortness Of Breath/wheezing Last Admin: 03/28/21 15:06 Dose: 3 ml Documented by: Cyanocobalamin (Cyanocobalamin (Vitamin B12) 1,000 Mcg Tab) 1,000 mcg PO DAILY [facility] Last Admin: 04/02/21 09:05 Dose: 1,000 mcg Documented by: Digoxin (Digoxin 125 Mcg Tab) 125 mcg PO DAILY [facility] Last Admin: 04/02/21 09:07 Dose: 125 mcg Documented by: Diltiazem HCl (Diltiazem 120 Mg Cap.Cd) 120 mg PO DAILY [facility] Last Admin: 04/02/21 09:06 Dose: 120 mg Documented by: Donepezil HCl (Donepezil 10 Mg Tab) 5 mg PO BEDTIME [facility] Last Admin: 04/01/21 20:35 Dose: 5 mg Documented by: Furosemide (Furosemide 20 Mg Tab) 20 mg PO DAILY [facility] Last Admin: 04/02/21 09:07 Dose: 20 mg Documented by: Promethazine HCl 12.5 mg/ (Sodium Chloride) 50.5 mls @ 100 mls/hr IV Q6H PRN PRN Reason: Nausea/Vomiting Lorazepam (Lorazepam 2 Mg/Ml Sdv) 0.25 mg IVPUSH Q6H PRN PRN Reason: Anxiety Last Admin: 03/29/21 19:57 Dose: 0.25 mg Documented by: Losartan Potassium (Losartan 25 Mg Tab) 12.5 mg PO DAILY [facility] Last Admin: 04/02/21 09:07 Dose: 12.5 mg Documented by: Metoprolol Succinate (Metoprolol Succinate 50 Mg Tab.Er) 50 mg PO BID [facility] Last Admin: 04/02/21 09:07 Dose: 50 mg Documented by: Multivitamins/Minerals/Vitamin C (Multivitamin Tab) 1 tab PO DAILY [facility] Last Admin: 04/02/21 09:06 Dose: 1 tab Documented by: Pantoprazole Sodium (Pantoprazole 40 Mg Tab.Cr) 40 mg PO DAILY [facility] Last Admin: 04/02/21 09:05 Dose: 40 mg Documented by: Rivaroxaban (Rivaroxaban 15 Mg Tab) 15 mg PO WITHDINNER [facility] Last Admin: 04/01/21 18:22 Dose: 15 mg Documented by: Rosuvastatin Calcium (Rosuvastatin 10 Mg Tab) 10 mg PO DAILY [facility] Last Admin: 04/02/21 09:05 Dose: 10 mg Documented by: Sertraline HCl (Sertraline 25 Mg Tab) 25 mg PO DAILY [facility] Last Admin: 04/02/21 09:07 Dose: 25 mg Documented by: Sodium Chloride (Sodium Chloride 0.9% 10 Ml Syringe) 10 ml FLUSH ASDIRECTED PRN PRN Reason: Keep Vein Open Last Admin: 03/26/21 11:05 Dose: 10 ml Documented by: Discontinued Medications Aspirin (Aspirin 81 Mg Tab.Ec) 81 mg PO DAILY [facility] Last Admin: 04/01/21 10:07 Dose: 81 mg Documented by: Digoxin (Digoxin 500 Mcg/2 Ml Amp) 125 mcg IVPUSH ONETIME ONE Stop: 03/26/21 13:11 Last Admin: 03/26/21 15:31 Dose: Not Given Documented by: Digoxin (Digoxin 125 Mcg Tab) 125 mcg PO ONETIME ONE Stop: 03/26/21 17:16 Last Admin: 03/26/21 17:39 Dose: 125 mcg Documented by: Digoxin (Digoxin 125 Mcg Tab) 125 mcg PO ONETIME ONE Stop: 03/28/21 21:38 Last Admin: 03/28/21 22:04 Dose: 125 mcg Documented by: Diltiazem HCl (Diltiazem 50 Mg/10 Ml Sdv) 10 mg IVPUSH ONETIME ONE Stop: 03/26/21 11:40 Last Admin: 03/26/21 12:07 Dose: 10 mg Documented by: Diltiazem HCl (Diltiazem Ir 30 Mg Tab) 15 mg PO Q6HR CLIF Last Admin: 03/27/21 13:37 Dose: Not Given Documented by: Diltiazem HCl (Diltiazem Ir 30 Mg Tab) 30 mg PO Q6HR CL[facility] Last Admin: 03/28/21 05:12 Dose: 30 mg Documented by: Diltiazem HCl (Diltiazem 180 Mg Cap.Cd) 180 mg PO DAILY [facility] Last Admin: 03/31/21 09:23 Dose: 180 mg Documented by: Donepezil HCl (Donepezil 10 Mg Tab) 5 mg PO BEDTIME [facility] Diltiazem HCl 100 mg/ Sodium (Chloride) 100 mls @ 10 mls/hr IV TITRATE CLIF; Protocol Last Titration: 03/27/21 08:21 Dose: 7.5 mg/hr, 7.5 mls/hr Documented by: Diltiazem HCl 100 mg/ Sodium (Chloride) 100 mls @ 5 mls/hr IV TITRATE CLIF; Protocol Last Titration: 03/29/21 06:57 Dose: 0 mg/hr, 0 mls/hr Documented by: Sodium Chloride (Normal Saline) 250 mls @ 999 mls/hr IV .BOLUS ONE Stop: 03/28/21 21:52 Last Admin: 03/28/21 22:04 Dose: 999 mls/hr Documented by: Sodium Chloride (Normal Saline) 200 mls @ 999 mls/hr IV .BOLUS ONE Stop: 03/28/21 23:51 Last Admin: 03/28/21 23:44 Dose: 999 mls/hr Documented by: Sodium Chloride (Normal Saline) 250 mls @ 999 mls/hr IV ASDIRECTED [facility] Last Admin: 03/29/21 09:40 Dose: 999 mls/hr Documented by: Metoprolol Succinate (Metoprolol Succinate 50 Mg Tab.Er) 50 mg PO DAILY [facility] Last Admin: 03/27/21 08:45 Dose: 50 mg Documented by: Metoprolol Tartrate (Metoprolol Tartrate 25 Mg Tab) 12.5 mg PO Q12H [facility] Stop: 03/27/21 02:31 Last Admin: 03/27/21 02:09 Dose: 12.5 mg Documented by: Midodrine (Midodrine 5 Mg Tab) 2.5 mg PO TIDAC [facility] Last Admin: 03/30/21 17:29 Dose: Not Given Documented by: Morphine Sulfate (Morphine 2 Mg/Ml Syringe) 2 mg IVPUSH Q4H PRN PRN Reason: Pain (severe 7-10) Stop: 03/27/21 13:00 Donepezil 5 Mg (Tablet *Pt Own Med*) 0 each PO BEDTIME [facility] Last Admin: 03/26/21 19:59 Dose: 1 each Documented by:
[2021-04-02 12:54] VITALS: BP 113/77; PULSE 76
== END 2021-04-02 15:11 | DRG 291 ==
LOC: JD.ED 10:56 → JD.ICU 12:47 → UNDOADMOB 12:47 → OBSVTOIN 20:30 → INTOOBSV 20:30 → OBSVTOIN 21:09 → JD.ICU 21:09 → JD.MS 03-31 07:55 → UNDODISIN 04-02 15:11
PROVIDERS: ADMIT Internal Medicine; ATTEND Internal Medicine
PROC: 0W993ZZ Drainage of Right Pleural Cavity, Percutaneous Approach (ICD-10-PCS; principal; 2021-03-26)
DX: I13.0 Hypertensive heart and chronic kidney disease with heart failure and stage 1 through stage 4 chronic kidney disease, or unspecified chronic kidney disease (principal); J90 Pleural effusion, not elsewhere classified; I50.33 Acute on chronic diastolic (congestive) heart failure; R13.10 Dysphagia, unspecified; I48.19 Other persistent atrial fibrillation; I50.9 Heart failure, unspecified; J91.8 Pleural effusion in other conditions classified elsewhere; N17.9 Acute kidney failure, unspecified; J93.9 Pneumothorax, unspecified; E44.0 Moderate protein-calorie malnutrition; I11.0 Hypertensive heart disease with heart failure; Z66 Do not resuscitate; F03.90 Unspecified dementia, unspecified severity, without behavioral disturbance, psychotic disturbance, mood disturbance, and anxiety; H54.7 Unspecified visual loss; E78.00 Pure hypercholesterolemia, unspecified; E87.6 Hypokalemia; K52.9 Noninfective gastroenteritis and colitis, unspecified; K21.9 Gastro-esophageal reflux disease without esophagitis; I50.813 Acute on chronic right heart failure; K44.9 Diaphragmatic hernia without obstruction or gangrene; M19.90 Unspecified osteoarthritis, unspecified site; Z87.01 Personal history of pneumonia (recurrent); L57.0 Actinic keratosis; L82.1 Other seborrheic keratosis; N18.2 Chronic kidney disease, stage 2 (mild); D63.1 Anemia in chronic kidney disease; I95.9 Hypotension, unspecified; F32.9 Major depressive disorder, single episode, unspecified; R32 Unspecified urinary incontinence; E53.8 Deficiency of other specified B group vitamins; Z98.49 Cataract extraction status, unspecified eye; Z90.89 Acquired absence of other organs; Z85.820 Personal history of malignant melanoma of skin; Z87.442 Personal history of urinary calculi; Z79.01 Long term (current) use of anticoagulants; Z88.1 Allergy status to other antibiotic agents; Z88.0 Allergy status to penicillin; Z88.8 Allergy status to other drugs, medicaments and biological substances; Z79.82 Long term (current) use of aspirin; Z79.899 Other long term (current) drug therapy; Z90.710 Acquired absence of both cervix and uterus
CPT/HCPCS: 36415; 71045; 71250; 80053; 81001; 83735; 83880; 84484; 85025; 86140; 93005; 96365; 96366; 99285; A9270 ×2; J3490 ×2; U0002; 71046; 71046-26; 76942; 80162; 83540; 83615; 84157; 84466; 87070; 87205; 89050; 93010; 94640; 94760; 96375; 97110-GO; 97110-GP; 97162-GP; 97166-GO; 97530-GO; 97530-GP; 97535-GO; 99223; 99233; 99239; J2060; J7030; J7050; J7620-GY